=== PATIENT | female | born 1975 | race Caucasian/White ===

== ENCOUNTER → 2017-11-04 | Outpatient (CLI) | payer OTHER ==
[2017-11-04 08:03] LABS: HEMATOCRIT 43.9 % (36.0-47.0); HEMOGLOBIN 14.5 g/dl (12.0-15.5); MEAN CORPUSCULAR VOLUME 87.8 fl (80.0-96.0); PLATELET COUNT, AUTOMATED 257 10^3/uL (150-450); RED CELL DISTRIBUTION WIDTH 13.9 % (11.5-14.5); WHITE BLOOD COUNT 10.4 10^3/uL (4.0-10.0)
[2017-11-04 08:30] LABS: ALBUMIN/GLOBULIN RATIO 1.11 (1.00-1.93); ALKALINE PHOSPHATASE 73 U/L (45-117); ALT/SGPT 26 U/L (12-78); ANION GAP 9 MEQ/L (8-16); AST/SGOT 10 U/L (7-37); BILIRUBIN,TOTAL 0.4 MG/DL (0.2-1.0); BLOOD UREA NITROGEN 14 MG/DL (7-18); CALCIUM LEVEL 8.9 MG/DL (8.5-10.1); CARBON DIOXIDE LEVEL 26 MEQ/L (21-32); CHLORIDE LEVEL 106 MEQ/L (98-107); CREATININE FOR GFR 0.72 MG/DL (0.55-1.30); GLOMERULAR FILTRATION RATE > 60.0 (>58); GLUCOSE, FASTING 113 MG/DL (70-100); SODIUM LEVEL 141 MEQ/L (136-145); TOTAL PROTEIN 7.6 GM/DL (6.4-8.2)
[2017-11-04 10:23] LABS: CHLAMYDIA DNA AMPLIFICATION NEGATIVE (NEGATIVE); GC DNA AMPLIFICATION NEGATIVE (NEGATIVE)
[2017-11-05 11:06] LABS: HEPATITIS B SURFACE ANTIGEN NEGATIVE (NEGATIVE)
[2017-11-05 11:25] LABS: HIV 1&2 SCREEN CENTAUR NEGATIVE (NEGATIVE)
[2017-11-05 13:08] LABS: HEPATITIS C VIRUS ABY INDEX > 11.0 INDEX (<0.8)
[2017-11-08 15:28] LABS: HCV RNA NAA QUALITATIVE Negative (Negative)
== END ==
LOC: M LAB 07:29
DX: Z11.59 Encounter for screening for other viral diseases (principal)
CPT/HCPCS: 80053

== ENCOUNTER → 2018-02-17 | Outpatient (REF) | payer OTHER ==
[2018-02-17 13:59] LABS: ALBUMIN/GLOBULIN RATIO 1.05 (1.00-1.93); ALKALINE PHOSPHATASE 62 U/L (45-117); ALT/SGPT 14 U/L (12-78); ANION GAP 10 MEQ/L (8-16); AST/SGOT 11 U/L (7-37); BILIRUBIN,TOTAL 0.6 MG/DL (0.2-1.0); BLOOD UREA NITROGEN 12 MG/DL (7-18); CALCIUM LEVEL 8.7 MG/DL (8.5-10.1); CARBON DIOXIDE LEVEL 22 MEQ/L (21-32); CHLORIDE LEVEL 107 MEQ/L (98-107); CREATININE FOR GFR 0.78 MG/DL (0.55-1.30); GLOMERULAR FILTRATION RATE > 60.0 (>58); GLUCOSE, FASTING 110 MG/DL (70-100); POTASSIUM SERUM 3.7 MEQ/L (3.5-5.1); SODIUM LEVEL 139 MEQ/L (136-145); TOTAL PROTEIN 7.8 GM/DL (6.4-8.2)
[2018-02-18 08:07] LABS: HEPATITIS B CORE ANTIBODY IGG Negative (Negative)
[2018-02-18 08:07] LABS: HEPATITIS A IgG TOTAL Positive (Negative)
[2018-02-18 12:02] LABS: HEPATITIS B SURFACE ANTIBODY POSITIVE (POSITIVE)
[2018-02-18 12:14] LABS: HEPATITIS B SURFACE ANTIGEN NEGATIVE (NEGATIVE)
[2018-02-18 12:42] LABS: HIV 1&2 SCREEN CENTAUR NEGATIVE (NEGATIVE)
== END ==
LOC: M LAB REF 12:37
DX: B18.2 Chronic viral hepatitis C (principal)

== ENCOUNTER → 2018-02-24 | Outpatient (CLI) | payer OTHER ==
[2018-02-24 10:37] LABS: BASO % 0.3 % (0.0-1.0); EOS # 0.1 10^3/uL (0.0-0.50); EOS % 0.8 % (0.0-3.0); HEMATOCRIT 39.2 % (36.0-47.0); HEMOGLOBIN 12.8 g/dl (12.0-15.5); IMMATURE GRANULOCYTE % 0.3 % (0-3.0); LYMPH # 2.3 10^3/uL (1.5-4.5); LYMPH % 30.3 % (24.0-44.0); MEAN CORPUSCULAR HEMOGLOBIN 29.7 pg (27.0-33.0); MEAN CORPUSCULAR HGB CONC 32.7 g/dl (32.0-36.5); MONO # 0.5 10^3/uL (0.0-0.8); MONO % 6.2 % (0.0-5.0); NEUTROPHILS # 4.8 10^3/uL (1.8-7.7); NEUTROPHILS % 62.1 % (36.0-66.0); PLATELET COUNT, AUTOMATED 243 10^3/uL (150-450); RED BLOOD COUNT 4.31 10^6/uL (4.00-5.40); RED CELL DISTRIBUTION WIDTH 13.6 % (11.5-14.5); WHITE BLOOD COUNT 7.7 10^3/uL (4.0-10.0)
[2018-02-26 11:17] LABS: HEPATITIS C QUANTITATION HCV Not Detected IU/mL (.)
== END ==
LOC: M LAB 09:27
DX: B18.2 Chronic viral hepatitis C (principal)
CPT/HCPCS: 87522

== ENCOUNTER → 2018-06-11 | Outpatient (CLI) | payer OTHER ==
--- NOTE | 2018-06-11 19:12 | ECGEPIP ---
Stationary ECG Study [facility] Test Date: 2018-06-11 Pat Name: LASHANDA OLIVAS Department: Room: - Gender: F Debit Agent: : 1975 Requested By: Pradeep Eric Order Number: [id number] Reading MD: Jimmy Zheng Measurements Intervals [place] Rate: 73 P: 67 VA: 145 QRS: 72 QRSD: 87 T: 27 QT: 346 QTc: 383 Interpretive Statements Normal sinus rhythm Incomplete right bundle branch block Nonspecific repolarization abnormalities Comparison tracing not available Electronically Signed On 06-11-2018 19:12:03 EST by Jimmy Zheng
== END ==
LOC: M EKG 08:10
PROVIDERS: ATTEND Family Medicine
DX: F11.20 Opioid dependence, uncomplicated (principal)

== ENCOUNTER 2018-06-24 08:08 | Emergency (ER) | payer OTHER ==
[~2018-06-24] VITALS: Ht 165.1 cm; Wt 75.0 kg
[2018-06-24 08:08] VITALS: BP 143/98
[2018-06-24] MEDS ORDERED: GABA-843 PO (08:36)
[2018-06-24] MEDS ORDERED: AMOX500C PO (08:36)
[2018-06-24] MEDS ORDERED: IBUP80TA PO (08:36)
== END 2018-06-24 08:46 | disposition home or self-care (01) ==
LOC: M ED 08:08
DX: H66.92 Otitis media, unspecified, left ear (principal); G57.92 Unspecified mononeuropathy of left lower limb; I10 Essential (primary) hypertension; F41.9 Anxiety disorder, unspecified; F17.210 Nicotine dependence, cigarettes, uncomplicated; B19.20 Unspecified viral hepatitis C without hepatic coma; F43.10 Post-traumatic stress disorder, unspecified

== ENCOUNTER 2018-07-05 08:51 | Emergency (ER) | payer OTHER ==
[~2018-07-05] VITALS: Ht 165.1 cm; Wt 75.0 kg
[~2018-07-05 08:51] MED LIST: AMOX500C PO; GABA-843 PO; IBUP80TA PO
[2018-07-05] MEDS ORDERED: METH5TA PO ×2 (08:58)
[2018-07-05] MEDS ORDERED: IBUPROFEN 600 MG TAB PO ONE (09:45)
[2018-07-05] MEDS ORDERED: diazePAM 10 MG TAB PO ONE (09:45)
[2018-07-05] MEDS ORDERED: ROBA500T PO (11:03)
[2018-07-05] MEDS ORDERED: LIDO5TD TOP (11:03)
[2018-07-05] MEDS ORDERED: NAPR-50 PO (11:04)
[2018-07-05 11:09] VITALS: BP 135/87
[2018-07-05] MEDS ORDERED: NEUR300C PO (11:16)
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
== END 2018-07-05 11:17 | disposition home or self-care (01) ==
LOC: M ED 08:51
DX: Z04.1 Encounter for examination and observation following transport accident (principal); F17.210 Nicotine dependence, cigarettes, uncomplicated

== ENCOUNTER → 2018-10-02 | Outpatient (CLI) | payer OTHER ==
[~2018-10-02] MED LIST changes: +LIDO5TD TOP; +METH5TA PO; +NAPR-837 PO; +NEUR300C PO; +ROBA500T PO
[2018-10-02 11:13] LABS: HEMATOCRIT 42.3 % (36.0-47.0); HEMOGLOBIN 13.9 g/dl (12.0-15.5); MEAN CORPUSCULAR HEMOGLOBIN 30.7 pg (27.0-33.0); MEAN CORPUSCULAR HGB CONC 32.9 g/dl (32.0-36.5); MEAN CORPUSCULAR VOLUME 93.4 fl (80.0-96.0); PLATELET COUNT, AUTOMATED 226 10^3/uL (150-450); RED BLOOD COUNT 4.53 10^6/uL (4.00-5.40); WHITE BLOOD COUNT 10.2 10^3/uL (4.0-10.0)
[2018-10-02 12:03] LABS: ALBUMIN 4.1 GM/DL (3.2-5.2); ALT/SGPT 25 U/L (12-78); BILIRUBIN,TOTAL 0.4 MG/DL (0.2-1.0); BLOOD UREA NITROGEN 15 MG/DL (7-18); CALCIUM LEVEL 9.6 MG/DL (8.5-10.1); CARBON DIOXIDE LEVEL 25 MEQ/L (21-32); CHLORIDE LEVEL 108 MEQ/L (98-107); CHOLESTEROL LEVEL 210 MG/DL (<200); CHOLESTEROL RISK RATIO 3.333 (<5); CREATININE FOR GFR 0.74 MG/DL (0.55-1.30); GLOMERULAR FILTRATION RATE > 60.0 (>58); GLUCOSE, FASTING 53 MG/DL (70-100); HDL CHOLESTEROL 63 MG/DL (>40); LDL CHOLESTEROL 124 MG/DL (<100); NON-HDL-C 147 MG/DL; POTASSIUM SERUM 4.1 MEQ/L (3.5-5.1); SODIUM LEVEL 141 MEQ/L (136-145); TOTAL 25(OH) VITAMIN D 15.4 NG/ML (30.0-100.0); TRIGLYCERIDES LEVEL 116 MG/DL (<150)
--- NOTE | 2018-10-02 15:54 | REP ---
Chest x-ray: Two views. History: Hypertension . Fatigue. . Comparison study: No comparison study . Findings: The lungs are well inflated and free of infiltrate. The pleural angles are sharp. The heart size is normal. Pulmonary vasculature is not increased. No significant bony abnormality is seen. There are surgical clips in the right upper quadrant of the abdomen. Impression: Negative chest x-ray. Electronically Signed by Lucius Freeman MD 10/02/2018 03:45 P
--- NOTE | 2018-10-02 18:49 | ECGEPIP ---
Stationary ECG Study [facility] Test Date: 2018-10-02 Pat Name: LASHANDA OLIVAS Department: Room: - Gender: F Direct Support Staff Member: BERNADETTE : 1975 Requested By: Lauro Peter Order Number: [id number] Reading MD: Eliceo Thomas Measurements Intervals [place] Rate: 66 P: 66 [place]: 143 QRS: 76 QRSD: 95 T: 55 QT: 374 QTc: 394 Interpretive Statements SINUS RHYTHM NONSPECIFIC T-WAVE ABNORMALITY MINIMAL CHANGE SINCE 06/11/18 Electronically Signed On 10-02-2018 18:49:33 EDT by Eliceo Thomas
== END ==
LOC: M LAB 09:57
PROVIDERS: ATTEND Family Medicine
DX: I10 Essential (primary) hypertension (principal); R53.83 Other fatigue; E03.9 Hypothyroidism, unspecified

== ENCOUNTER → 2018-11-09 | Outpatient (CLI) | payer OTHER, MEDICAID ==
[2018-11-09 11:10] LABS: HEMOGLOBIN 13.7 g/dl (12.0-15.5); MEAN CORPUSCULAR HEMOGLOBIN 30.4 pg (27.0-33.0); MEAN CORPUSCULAR HGB CONC 33.4 g/dl (32.0-36.5); MEAN CORPUSCULAR VOLUME 91.1 fl (80.0-96.0); PLATELET COUNT, AUTOMATED 254 10^3/uL (150-450)
[2018-11-09 11:56] LABS: HCG, SERUM QUALITATIVE NEGATIVE (NEGATIVE)
[2018-11-09 12:31] LABS: ALBUMIN 3.7 GM/DL (3.2-5.2); ALT/SGPT 26 U/L (12-78); BILIRUBIN,TOTAL 0.3 MG/DL (0.2-1.0); BLOOD UREA NITROGEN 10 MG/DL (7-18); CARBON DIOXIDE LEVEL 24 MEQ/L (21-32); CHLORIDE LEVEL 108 MEQ/L (98-107); CREATININE FOR GFR 0.79 MG/DL (0.55-1.30); GLOMERULAR FILTRATION RATE > 60.0 (>58); GLUCOSE, FASTING 77 MG/DL (70-100); HEPATITIS B SURFACE ANTIGEN NEGATIVE (NEGATIVE); HIV 1&2 SCREEN CENTAUR NEGATIVE (NEGATIVE); POTASSIUM SERUM 4.7 MEQ/L (3.5-5.1); SODIUM LEVEL 138 MEQ/L (136-145); TOTAL PROTEIN 7.5 GM/DL (6.4-8.2)
[2018-11-09 12:34] LABS: HEPATITIS C VIRUS ABY INDEX > 11.0 INDEX (<0.8)
[2018-11-09 13:22] LABS: CHLAMYDIA DNA AMPLIFICATION NEGATIVE (NEGATIVE); GC DNA AMPLIFICATION NEGATIVE (NEGATIVE)
--- NOTE | 2018-11-12 22:52 | ECGEPIP ---
[facility] Test Date: 2018-11-09 Pat Name: LASHANDA OLIVAS Department: Room: - Gender: Female Field Research Associate: DEANGELO : 1975 Requested By: Pradeep Eric Order Number: [id number] Reading MD: Deepak Valladares Measurements Intervals [place] Rate: 54 P: 60 [place]: 135 QRS: 67 QRSD: 102 T: 23 QT: 394 QTc: 376 Interpretive Statements SINUS BRADYCARDIA NONSPECIFIC T-WAVE ABNORMALITY Compared to the last 2 tracings done earlier this year, no significant changes Electronically Signed on 11-12-2018 22:52:01 EDT by Deepak Valladares
== END ==
LOC: M LAB 10:22
PROVIDERS: ATTEND Family Medicine
DX: F11.20 Opioid dependence, uncomplicated (principal)

== ENCOUNTER → 2019-01-20 | Outpatient (CLI) | payer OTHER, MEDICAID ==
[2019-01-20 11:34] LABS: HEMATOCRIT 40.9 % (36.0-47.0); HEMOGLOBIN 13.7 g/dl (12.0-15.5); MEAN CORPUSCULAR HEMOGLOBIN 30.4 pg (27.0-33.0); MEAN CORPUSCULAR HGB CONC 33.5 g/dl (32.0-36.5); MEAN CORPUSCULAR VOLUME 90.9 fl (80.0-96.0); PLATELET COUNT, AUTOMATED 208 10^3/uL (150-450); WHITE BLOOD COUNT 9.8 10^3/uL (4.0-10.0)
[2019-01-20 12:05] LABS: ALBUMIN 3.9 GM/DL (3.2-5.2); ALT/SGPT 15 U/L (12-78); BILIRUBIN,TOTAL 0.5 MG/DL (0.2-1.0); BLOOD UREA NITROGEN 13 MG/DL (7-18); CALCIUM LEVEL 9.5 MG/DL (8.5-10.1); CARBON DIOXIDE LEVEL 27 MEQ/L (21-32); CHLORIDE LEVEL 107 MEQ/L (98-107); CREATININE FOR GFR 0.72 MG/DL (0.55-1.30); GLOMERULAR FILTRATION RATE > 60.0 (>58); GLUCOSE, FASTING 76 MG/DL (70-100); POTASSIUM SERUM 4.1 MEQ/L (3.5-5.1); SODIUM LEVEL 140 MEQ/L (136-145)
[2019-01-20 12:50] LABS: HEPATITIS B SURFACE ANTIBODY POSITIVE (POSITIVE)
[2019-01-20 13:01] LABS: HEPATITIS B SURFACE ANTIGEN NEGATIVE (NEGATIVE)
[2019-01-20 13:30] LABS: HIV 1&2 SCREEN CENTAUR NEGATIVE (NEGATIVE)
[2019-01-25 14:30] LABS: HEPATITIS A IgG TOTAL Negative (Negative); HEPATITIS B CORE ANTIBODY IGG Negative (Negative); HEPATITIS C QUANTITATION HCV Not Detected IU/mL (.)
== END ==
LOC: M LAB 10:16
PROVIDERS: ATTEND Family Medicine
DX: D64.9 Anemia, unspecified (principal); R53.83 Other fatigue; Z11.59 Encounter for screening for other viral diseases

== ENCOUNTER → 2019-03-24 | Outpatient (CLI) | payer OTHER ==
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
== END ==
LOC: M PAIN 09:45
PROVIDERS: ATTEND Nurse Practitioner Family
DX: M54.9 Dorsalgia, unspecified (principal); G89.29 Other chronic pain

== ENCOUNTER 2019-04-06 11:48 | Emergency (ER) | payer OTHER ==
[~2019-04-06] VITALS: Ht 162.6 cm; Wt 73.6 kg
[2019-04-06 11:49] VITALS: BP 137/80
== END 2019-04-06 17:00 | disposition left against medical advice (07) ==
LOC: M ED 11:48
DX: Z53.21 Procedure and treatment not carried out due to patient leaving prior to being seen by health care provider (principal)

== ENCOUNTER → 2019-07-28 | Outpatient (CLI) | payer OTHER, MEDICAID ==
[2019-07-28 11:57] LABS: RHEUMATOID FACTOR QUANT < 10.0 IU/ML (<15.0); TOTAL PROTEIN 7.1 GM/DL (6.4-8.2)
[2019-07-28 12:04] LABS: FOLATE 15.1 NG/ML; VITAMIN B12 LEVEL 335 PG/ML
[2019-07-28 12:12] LABS: HEMOGLOBIN A1c 5.9 %
[2019-07-29 12:40] LABS: ALBUMIN % 63.4 % (55.8-66.1); ALPHA-1-GLOBULIN % 3.8 % (2.9-4.9); ALPHA-1-GLOBULINS 0.27 GM/DL (0.17-0.41); ALPHA-2-GLOBULINS 0.65 GM/DL (0.42-0.99); ALPHA-2-GLOBULINS % 9.1 % (7.1-11.8); BETA-1-GLOBULINS 0.42 GM/DL (0.28-0.60); BETA-1-GLOBULINS % 5.9 % (4.7-7.2); BETA-2-GLOBULINS 0.25 GM/DL (0.19-0.55); BETA-2-GLOBULINS % 3.5 % (3.2-6.5); GAMMA GLOBULIN % 14.3 % (11.1-18.8); GAMMA GLOBULINS 1.02 GM/DL (0.65-1.58)
== END ==
LOC: M LAB 10:34
PROVIDERS: ATTEND Psychiatry & Neurology Neurology
DX: E11.40 Type 2 diabetes mellitus with diabetic neuropathy, unspecified (principal)

== ENCOUNTER → 2020-02-04 | Outpatient (CLI) | payer OTHER, MEDICAID ==
[2020-02-04 07:54] LABS: MEAN CORPUSCULAR HEMOGLOBIN 29.7 pg (27.0-33.0); MEAN CORPUSCULAR HGB CONC 31.8 g/dl (32.0-36.5); MEAN CORPUSCULAR VOLUME 93.2 fl (80.0-96.0); PLATELET COUNT, AUTOMATED 262 10^3/uL (150-450); RED BLOOD COUNT 4.72 10^6/uL (4.00-5.40); WHITE BLOOD COUNT 8.2 10^3/uL (4.0-10.0)
[2020-02-04 08:16] LABS: ALBUMIN 3.7 GM/DL (3.2-5.2); ALT/SGPT 22 U/L (12-78); BILIRUBIN,TOTAL 0.4 MG/DL (0.2-1.0); BLOOD UREA NITROGEN 17 MG/DL (7-18); CALCIUM LEVEL 9.2 MG/DL (8.5-10.1); CARBON DIOXIDE LEVEL 29 MEQ/L (21-32); CHLORIDE LEVEL 105 MEQ/L (98-107); CREATININE FOR GFR 0.78 MG/DL (0.55-1.30); GLOMERULAR FILTRATION RATE > 60.0 (>58); GLUCOSE, FASTING 137 MG/DL (70-100); SODIUM LEVEL 136 MEQ/L (136-145); TOTAL PROTEIN 7.1 GM/DL (6.4-8.2)
[2020-02-04 11:11] LABS: HCG, SERUM QUALITATIVE NEGATIVE (NEGATIVE)
[2020-02-04 11:31] LABS: HEPATITIS B SURFACE ANTIGEN NEGATIVE (NEGATIVE)
[2020-02-04 12:00] LABS: HIV 1&2 SCREEN CENTAUR NEGATIVE (NEGATIVE)
[2020-02-04 12:37] LABS: HEPATITIS C VIRUS ABY INDEX > 11.0 INDEX (<0.8)
--- NOTE | 2020-02-05 16:33 | ECGEPIP ---
[facility] Test Date: 2020-02-04 Pat Name: LASHANDA OLIVAS Department: Room: - Gender: Female Carpet Winder: DEANGELO : 1975 Requested By: Pradeep Eric Order Number: [id number] Reading MD: Mohamud Galvez Measurements Intervals [place] Rate: 81 P: 71 [place]: 130 QRS: 79 QRSD: 92 T: 40 QT: 294 QTc: 342 Interpretive Statements SINUS RHYTHM WITH SINUS ARRHYTHMIA Nonspecific ST-T wave abnormalities subtly changed from tracing done 11-09-18 Baseline artifact Electronically Signed on 02-05-2020 16:32:57 EDT by Mohamud Galvez
[2020-02-08 19:11] LABS: CHLAMYDIA DNA AMPLIFICATION NEGATIVE (NEGATIVE); GC DNA AMPLIFICATION NEGATIVE (NEGATIVE)
== END ==
LOC: M LAB 07:09
PROVIDERS: ATTEND Family Medicine
DX: F11.10 Opioid abuse, uncomplicated (principal); R94.31 Abnormal electrocardiogram [ECG] [EKG]

== ENCOUNTER → 2020-07-24 | Outpatient (REF) | payer OTHER, MEDICAID ==
[~2020-07-24] MED LIST changes: +GABA-282 PO; -GABA-843 PO
== END ==
LOC: M SFHCWAGY 14:31
PROVIDERS: ATTEND Nurse Practitioner Family
DX: Z11.3 Encounter for screening for infections with a predominantly sexual mode of transmission (principal); Z12.4 Encounter for screening for malignant neoplasm of cervix; Z77.9 Other contact with and (suspected) exposures hazardous to health

== ENCOUNTER → 2021-01-04 | Outpatient (CLI) | payer OTHER ==
--- NOTE | 2021-01-04 16:02 | REP ---
INDICATION: SOFT TISSUE DISORDER. COMPARISON: None. TECHNIQUE: Three views each hand FINDINGS: Three limited views of each hand show no evidence of a gross fracture. Rather symmetric appearing intra digital joint space narrowing is seen bilaterally. Minimal D IP joint marginal osteophytosis is seen bilaterally. There are no marginal erosions and there is no periarticular osteopenia seen in either hand. IMPRESSION: Chronic changes as described above. <Electronically signed by Lev Aldana > 01/04/21 [id number]
== END ==
LOC: M SOG 14:47
PROVIDERS: ATTEND Orthopaedic Surgery Sports Medicine
DX: M79.89 Other specified soft tissue disorders (principal)

== ENCOUNTER 2021-03-05 14:23 | Inpatient (IN) | payer OTHER ==
[~2021-03-05] VITALS: Ht 165.1 cm; Wt 77.0 kg
--- OUTSIDE RECORDS SUMMARY | 2021-03-05 14:28 | CCD ---
Author Organization Unknown Address [address] [place] [address] Phone [phone] Care Team Providers Care Dye And Chemical Coordinator Name Role Phone Josh Del Toro Unavailable Unavailable Allergies Code Code System Name Reaction Severity Status Onset NKDA Medications Name Status Start Date Stop Date albuterol sulfate HFA 90 mcg/actuation a erosol inhaler INHALE TWO PUFFS BY MOUTH EVERY 4 HOURS Active Not available amoxicillin 875 mg-potassium clavulanate 125 mg tablet TAKE ONE TABLET BY MOUTH TWICE DAILY FOR 10 DAYS Completed 05/04/2020 baclofen 10 mg tablet TAKE ONE TABLET BY MOUTH TWICE DAILY NEEDED Active Not available fluoxetine 10 mg capsule TAKE ONE CAPSULE BY MOUTH ONCE DAILY Completed fluoxetine 20 mg capsule TAKE ONE CAPSULE BY MOUTH EVERY MORNING Active Not available gabapentin 300 mg capsule TAKE ONE CAPSULE BY MOUTH FOUR TIMES A DAY Completed 04/05/2020 gabapentin 600 mg tablet TAKE ONE TABLET BY MOUTH THREE TIMES DAILY Active Not available methadone Active Not available metronidazole 500 mg tablet TAKE ONE TABLET BY MOUTH TWICE DAILY FOR 7 DAYS Completed 07/27/2020 Mucus Relief ER 600 mg tablet, extended release Completed 07/27/2020 nicotine 21 mg/24 hr daily transdermal p atch apply ONE PATCH topically ONCE DAILY Active No t available Nicotrol 10 mg inhalation cartridge USE DIRECTED Active Not available prazosin 1 mg capsule Completed 05/04/2020 prednisone 20 mg tablet Completed 05/04/20 20 tizanidine 4 mg tablet Completed 1 trazodone 50 mg tablet Completed 0 Trintellix 20 mg tablet TAKE ONE TABLET BY MOUTH ONCE DAILY Completed Problems Name Status Onset Date Source Overweight Active 02/17/2018 History Body Mass Index 25-29 - Overweight Active 02/17/2018 History Opioid Dependence in Remission Active 02/17/2018 H istory Nicotine Dependence Active 02/17/2018 History Deviated Nasal Septum Active 02/17/2018 History Abdominal Pain Active 02/17/2018 History Hepatitis C Carrier Active 02/17/2018 History Panic Disorder Active 02/17/2018 History Syringomyelia Active 06/12/2019 History Cerebral Infarction Active 06/12/2019 History Spinal Stenosis of Lumbar Region Active 09/15/2019 History Clinical Finding Active 12/30/2019 History Chronic Depression Active 05/04/2020 Edema Active 05/04/2020 Wheezing Active 07/27/2020 Bilateral Swelling of Finger of Hands Active 10/25/2020 Procedures Date Name Performed by Cholecystectomy Information not avai lable 12/12/2020 XR, Hand, 2 View [facility] n[facility] Radiology [address] [place], [place] [id number] (Work Place) 12/12/2020 CT, Abdomen + Pelvis, W/ Contrast [facility] [address], [place] [id number] (Work Place) Notes: gallbladder removal, Results Lab Results Date Name Specimen Result Interpretation Description Value Range Status Address 11/09/2020 Lipid Panel, Serum Blood venous High Triglycerid es 201 mg/dL <150 mg/dL Final [facility]: [address] [facility] Blood venous High Cholesterol, Total 225 mg/dL <200 mg/dL Final [facility]: [address] [facility] Blood venous Low HDL Cholesterol 42 mg/dL > or = 50 mg/dL Final [facility]: [address] [facility] Blood venous High LDL-cholesterol 148 mg/dL (ca lc) Final [facility]: [address] [facility] Blood venous High Chol/hdlc Ratio 5.4 (calc) <5 .0 (calc) Final [facility]: [address] [facility] Blood venous High Non HDL Cholesterol 183 mg/dL (calc) <130 mg/dL (calc) Final [facility]: [address] [facility] 11/09/2020 CMP, Serum or Plasma Blood venous High Glucose 128 mg/dL 65-99 mg/dL Final [facility]: [address] [facility] Blood venous Normal Urea Nitrogen (BUN) 13 mg/dL 7-25 mg/dL Final [facility]: [address] [facility] Blood venous Normal Creatinine 0.71 mg/dL 0.50-1. 10 mg/dL Final [facility]: [address] [facility] Blood venous Normal eGFR Non-afr. [place] 1 04 mL/min/1.73m2 > or = 60 mL/min/1.73m2 [facility]: [address] [facility] Blood venous Normal eGFR 12 0 mL/min/1.73m2 > or = 60 mL/min/1.73m2 Final [facility]: [address] [facility] Blood venous BUN/creatinine Ratio not applicable (calc) 6-22 (calc) [facility]: [address] [facility] Blood venous Normal Sodium 139 mmol/L 135-146 mmo l/L [facility]: [address] [facility] Blood venous Normal Potassium 3.7 mmol/L 3.5-5.3 mmol/L [facility]: [address] [facility] Blood venous Normal Chloride 102 mmol/L 98-110 mm ol/L [facility]: [address] [facility] Blood venous Normal Carbon Dioxide 27 mmol/L 20-3 2 mmol/L [facility]: [address] [facility] Blood venous Normal Calcium 9.4 mg/dL 8.6-10.2 mg /dL [facility]: [address] [facility] Blood venous Normal Protein, Total 6.8 g/dL 6.1-8 .1 g/dL [facility]: [address] [facility] Blood venous Normal Albumin 4.3 g/dL 3.6-5.1 g/dL [facility]: [address] [facility] Blood venous Normal Globulin 2.5 g/dL (calc) 1.9- 3.7 g/dL (calc) [facility]: [address] [facility] Blood venous Normal Albumin/globulin Ratio 1 .7 (calc) 1.0-2.5 (calc) [facility]: [address] [facility] Blood venous Normal Bilirubin, Total 0.4 mg/dL 0. 2-1.2 mg/dL [facility]: [address] [facility] Blood venous Normal Alkaline Phosphatase 63 U/L 3 1-125 U/L [facility]: [address] [place] [facility] Blood venous Normal Ast 14 U/L 10-30 U/L Final [facility]: [address] [facility] Blood venous Normal Alt 10 U/L 6-29 U/L Final [facility]: [address] [facility] 11/09/2020 Sed Rate by Modified [place] Blood venous Normal Sed Rate by Modified [place] 2 mm/h < or = 20 mm/h Final [facility]: [address] [facility] 11/09/2020 C-reactive Protein, Quantitative Blood venous Normal C-reactive Protein 2.3 mg/L <8.0 mg/L Final [facility]: [address] [place] [facility] 11/09/2020 TSH, Serum or Plasma Blood venous Normal TSH W/reflex to FT4 1.78 mIU/L Final [facility]: [address] [facility] Past Encounters 01/11/2021 Chronic Depression; Bilateral Swelling of Finger of Hands Josh Del Toro MD: [address] [place] [phone], Ph. 12/12/2020 Bilateral Swelling of Finger of Hands; Abdominal Pain Josh Del Toro MD: [address] [place] [phone], Ph. 11/30/2020 Mixed Anxiety and Depressive Disorder; Opioid Dependence in Remission; Adjustment Disorder with Mixed Anxiety and Depressed Mood Mariana Pelaez MD: [address] [place] [address], Ph. 11/09/2020 Josh Del Toro MD: [address] [place] [phone], Ph. 10/25/2020 Nicotine Dependence; Syringomyelia; Deviated Nasal Septum; Body Mass Index 25-29 - Overweight; Bilateral Swelling of Finger of Hands; Wheezing Josh Del Toro MD: [address] [place] [address], Ph. 09/14/2020 Mixed Anxiety and Depressive Disorder; Opioid Dependence in Remission Mariana Pelaez MD: [address] [place] [phone], Ph. 07/27/2020 Nicotine Dependence; Deviated Nasal Septum; Wheezing Josh Del Toro MD: [address] [place] [address], Ph. 05/04/2020 Administration of Influenza Vaccine; Chronic Depression; Edema Josh Del Toro MD: [address] [place] [address], Ph. Social History Tobacco Smoking Status Heavy Tobacco Smoker (1 pack per a da y) Vaccine List Vaccine Type influenza, injectable, quadrivalent, pre servative free 05/04/20200.5 mL Notes: Pt declined flu shot Plan of Care Reminders Provider Appointments None recorded. Lab None recorded. Referral None recorded. Procedures None recorded. Surgeries None recorded. Imaging None recorded. Vitals 01/11/2021 02:00PM ESTABLISHED [id number] Height Weight BMI Blood Pressure 65 in 176 lbs 6 oz 29.4 kg/m2 111/76 mm[Hg] 12/12/2020 11:20AM ESTABLISHED [id number] Height Weight BMI Blood Pressure 65 in 177 lbs 2 oz 29.5 kg/m2 128/80 mm[Hg] 11/30/2020 09:00AM TELEPSYCH 30 Height 65 in 11/09/2020 08:00AM NURSE LAB COLLECTION Height 65 in 10/25/2020 09:40AM ESTABLISHED [id number] Height Weight BMI Blood Pressure 65 in 177 lbs 2 oz 29.5 kg/m2 120/68 mm[Hg] 09/14/2020 09:00AM TELEPSYCH 60 Height Weight BMI 65 in 178 lbs 9.6 oz 29.7 kg/m2 07/27/2020 09:20AM ESTABLISHED [id number] Height Weight BMI Blood Pressure 65 in 174 lbs 16 oz 29.1 kg/m2 77/52 mm[Hg] 05/04/2020 04:00PM ESTABLISHED [id number] Height Weight BMI Blood Pressure 65 in 177 lbs 2 oz 29.5 kg/m2 108/77 mm[Hg] 02/15/2020 Height Weight BMI Blood Pressure 65 in 175 lbs 29.23 kg/m2 132/80 mm[Hg] 12/30/2019 Height Weight BMI Blood Pressure 65 in 175 lbs 29.23 kg/m2 120/76 mm[Hg] 12/20/2019 Height Weight BMI Blood Pressure 65 in 175 lbs 29.23 kg/m2 130/88 mm[Hg] 09/15/2019 Height Weight BMI Blood Pressure 65 in 171 lbs 28.56 kg/m2 127/84 mm[Hg] 06/12/2019 Height Weight BMI Blood Pressure 65 in 169 lbs 12.8 oz 28.36 kg/m2 145/86 mm[H g]
--- OUTSIDE RECORDS SUMMARY | 2021-03-05 14:28 | CCD | Continuity of Care Document ---
Author Author Lola WINTERS MD Organization Unknown Address [address] [place] [address] , [facility] [address] [place] [address] Phone [phone] Care Team Providers Care Pearl Stringer Name Role Phone Stefani Guillen AUTM [phone] Josh Del Toro M.D. AUTM [phone] AUTM Unavailable AUTM Unavailable Problems Description No Information Available Social History Type Date Description Comments Sex Unknown ETOH Use Denies alcohol use Tobacco Use Start: Unknown Patient is a current smoker, smo kes every day Recreational Drug Use 04/14/2018 History Of HERION/OPI OD DEPENDENCY Allergies, Adverse Reactions, Alerts Description No Known Drug Allergies Medications Active Medications SIG Qnty Indications Ordering Provide r Date Methadone HCL 5mg/5ML Solution 1 by mouth every day Unknown Gabapentin 600mg Tablets 1 tab by mouth three times a day Unknown Prozac 20mg Capsules Unknown Immunizations Description No Information Available Vital Signs Date Vital Result Comment 01/04/2021 1:41pm Body Temperature 97.1 F Results Description No Information Available Procedures Date Code Description Status 01/04/2021 73655 Office/Outpatient New Moderate M DM 45-59 Minutes Completed Medical Devices Description No Information Available Encounters Type Date Location Provider Dx Diagnosis Office Visit 01/04/2021 2:15p [facility] Josh Winters MD M79.89 Other specified soft tissue disorders M05.741 Rheu arthritis w rheu factor of r hand w/o org/sys involv Assessments Date Code Description Provider 01/04/2021 M79.89 Other specified soft tissue diso rders Josh Winters MD 01/04/2021 M05.741 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 bilateral PIP swelling ? rheumatoid arth ritis thank you! Created [facility] [address] [facility] [place], [place] [address] [phone] Gage Haas MD Deviated septum Scheduled 11/[address] [address] [phone]
--- OUTSIDE RECORDS SUMMARY | 2021-03-05 14:28 | CCD | Continuity of Care Document ---
Author Author Lola WINTERS MD Organization Unknown Address [address] [place] [address] , [facility] [address] [place] [address] Phone [phone] Care Team Providers Care Heel Lining Paster Name Role Phone Setfani Guillen AUTM [phone] Josh Del Toro M.D. AUTM [phone] AUTM Unavailable AUTM Unavailable Problems Description No [...] Available Procedures Date Code Description Status 01/04/2021 30199 Office/Outpatient New Low MDM 30 -44 Minutes Completed Medical Devices Description No Information Available Encounters Type Date Location Provider Dx Diagnosis Office Visit 01/04/2021 2:15p [facility] Josh Winters MD M79.89 Other specified [...] Winters MD* M79.89 Other specified soft tissue disorders * M05.741 Rheumatoid arthritis with rheumatoid factor of right hand without organ or systems involvement* Referral:* Rose Mcdaniels M.D., Rheumatology Functional Status Description No Information Available Mental Status Description No Information Available Referrals Refer to Dr Reason for Referral Status Appt Date Rose Mcdaniels M.D. bilateral PIP swelling ? rheumatoid arth ritis thank you! Sent [facility] [address] [facility] [place], [place] [address] [phone] Gage Haas MD Deviated septum Scheduled 11/[address] [address] [phone]
--- OUTSIDE RECORDS SUMMARY | 2021-03-05 14:30 | CCD ---
Author Author [facility] Organization [facility] Address Unknown Phone Unavailable Care Team Providers Care Hammer Smith Name Role Phone Beverley Del Toro MD Unavailable Unavailable Beverley Del Toro MD Unavailable Unavailable Beverley Del Toro MD Unavailable Unavailable Beverley Del Toro MD Unavailable Unavailable Beverley Del Toro MD Unavailable Unavailable Beverley Del Toro MD Unavailable Unavailable Beverley Del Toro MD Unavailable Unavailable Beverley Del Toro MD Unavailable Unavailable Beverley Del Toro MD Unavailable Unavailable Beverley Del Toro MD Unavailable Unavailable Beverley Del Toro MD Unavailable Unavailable Beverley Del Toro MD Unavailable Unavailable Beverley Del Toro MD Unavailable Unavailable Beverley Del Toro MD Unavailable Unavailable Beverley Del Toro MD Unavailable Unavailable Beverley Del Toro MD Unavailable Unavailable Beverley Del Toro MD Unavailable Unavailable Beverley Del Toro MD Unavailable Unavailable Beverley Del Toro MD Unavailable Unavailable Beverley Del Toro MD Unavailable Unavailable Beverley Del Toro MD Unavailable Unavailable Beverley Del Toro MD Unavailable Unavailable Beverley Del Toro MD Unavailable Unavailable Beverley Del Toro MD Unavailable Unavailable Beverley Del Toro MD Unavailable Unavailable Beverley eDl Toro MD Unavailable Unavailable Beverley Del Toro MD Unavailable Unavailable Beverley Del Toro MD Unavailable Unavailable Beverley Del Toro MD Unavailable Unavailable Beverley Del Toro MD Unavailable Unavailable Beverley Del Toro MD Unavailable Unavailable Beverley Del Toro MD Unavailable Unavailable Beverley Del Toro MD Unavailable Unavailable Beverley Del Toro MD Unavailable Unavailable Beverley Del Toro MD Unavailable Unavailable Beverley Del Toro MD Unavailable Unavailable Beverley Del Toro MD Unavailable Unavailable Beverley Del Toro MD Unavailable Unavailable Beverley Del Toro MD Unavailable Unavailable Beverley Del Toro MD Unavailable Unavailable Beverley Del Toro MD Unavailable Unavailable Beverley Del Toro MD Unavailable Unavailable Beverley Del Toro MD Unavailable Unavailable Beverley Del Toro MD Unavailable Unavailable Beverley Del Toro MD Unavailable Unavailable Beverley Del Toro MD Unavailable Unavailable Beverley Del Toro MD Unavailable Unavailable Beverley Del Toro MD Unavailable Unavailable Beverley Del Toro MD Unavailable Unavailable Beverley Del Toro MD Unavailable Unavailable Beverley Del Toro MD Unavailable Unavailable Beverley Del Toro MD Unavailable Unavailable Beverley Del Toro MD Unavailable Unavailable Beverley Del Toro MD Unavailable Unavailable Beverley Del Toro MD Unavailable Unavailable Beverley Del Toro MD Unavailable Unavailable Beverley Del Toro MD Unavailable Unavailable Beverley Del Toro MD Unavailable Unavailable Beverley Del Toro MD Unavailable Unavailable Beverley Del Toro MD Unavailable Unavailable Beverley Del Toro MD Unavailable Unavailable Beverley Del Toro MD Unavailable Unavailable Beverley Del Toro MD Unavailable Unavailable Beverley Del Toro MD Unavailable Unavailable Beverley Del Toro MD Unavailable Unavailable Beverley Del Toro MD Unavailable Unavailable Beverley Del Toro MD Unavailable Unavailable Beverley Del Toro MD Unavailable Unavailable Beverley Del Toro MD Unavailable Unavailable Beverley Del Toro MD Unavailable Unavailable Beverley Del Toro MD Unavailable Unavailable Beverley Del Toro MD Unavailable Unavailable Beverley Del Toro MD Unavailable Unavailable Beverley Del Toro MD Unavailable Unavailable Beverley Del Toro MD Unavailable Unavailable Beverley Del Toro MD Unavailable Unavailable Beverley Del Toro MD Unavailable Unavailable Beverley Del Toro MD Unavailable Unavailable Beverley Del Toro MD Unavailable Unavailable Beverley Del Toro MD Unavailable Unavailable Beverley Del Toro MD Unavailable Unavailable Beverley Del Toro MD Unavailable Unavailable Beverley Del Toro MD Unavailable Unavailable Beverley Del Toro MD Unavailable Unavailable Beverley Del Toro MD Unavailable Unavailable Beverley Del Toro MD Unavailable Unavailable Beverley Del Toro MD Unavailable Unavailable Beverley Del Toro MD Unavailable Unavailable Beverley Del Toro MD Unavailable Unavailable Beverley Del Toro MD Unavailable Unavailable Beverley Del Toro MD Unavailable Unavailable Beverley Del Toro MD Unavailable Unavailable Beverley Del Toro MD Unavailable Unavailable Rick Elliott MD Unavailable Unavailable Rick Elliott MD Unavailable Unavailable Rick Elliott MD Unavailable Unavailable Rick Elliott MD Unavailable Unavailable Rick Elliott MD Unavailable Unavailable Rick Elliott MD Unavailable Unavailable Rick Elliott MD Unavailable Unavailable Rick Elliott MD Unavailable Unavailable Rick Elliott MD Unavailable Unavailable Bolliv, Rick Skinner MD Unavailable Unavailable Bolla, Rick Skinner MD Unavailable Unavailable Bolla, Rick Skinner MD Unavailable Unavailable Bolla, Rick Skinner MD Unavailable Unavailable Bolla, Rick Skinner MD Unavailable Unavailable Bolla, Rick Skinner MD Unavailable Unavailable Bolla, Rick Skinner MD Unavailable Unavailable Bolla, Rick Skinner MD Unavailable Unavailable Bolla, Rick Skinner MD Unavailable Unavailable Bolla, Rcik Skinner MD Unavailable Unavailable Bolla, Rick Skinner MD Unavailable Unavailable Bolla, Rick Skinner MD Unavailable Unavailable Bolla, S Brody HALL Unavailable Unavailable Bolla, Rick Skinner MD Unavailable Unavailable Bolla, S Brody HALL Unavailable Unavailable Bolla, Rick Skinner MD Unavailable Unavailable Bolla, Rick Skinner MD Unavailable Unavailable Bolliv, Rick Skinner MD Unavailable Unavailable Bolla, Rick Skinner MD Unavailable Unavailable Bolliv, Rick Skinner MD Unavailable Unavailable Bolla, Rick Skinner MD Unavailable Unavailable Bolliv, Rick Skinner MD Unavailable Unavailable Bolliv, Rick Skinner MD Unavailable Unavailable Bolliv, Rick Skinner MD Unavailable Unavailable Bolla, Rick Skinner MD Unavailable Unavailable Bolliv, Rick Skinner MD Unavailable Unavailable Bolliv, Rick Skinner MD Unavailable Unavailable BolRick peck MD Unavailable Unavailable BolRick peck MD Unavailable Unavailable BolRick peck MD Unavailable Unavailable BolRick peck MD Unavailable Unavailable BolRick peck MD Unavailable Unavailable BolRick peck MD Unavailable Unavailable BolRick peck MD Unavailable Unavailable BolRick peck MD Unavailable Unavailable BolRick peck MD Unavailable Unavailable BolRick peck MD Unavailable Unavailable BolRick peck MD Unavailable Unavailable BolRick peck MD Unavailable Unavailable BolRick peck MD Unavailable Unavailable Mike Mccrary MD Unavailable Unavailable Mike Mccrary MD Unavailable Unavailable Mike Mccrary MD Unavailable Unavailable Mike Mccrary MD Unavailable Unavailable Mike Mccrary MD Unavailable Unavailable Mike Mccrary MD Unavailable Unavailable Mike Mccrary MD Unavailable Unavailable Mike Mccrary MD Unavailable Unavailable Mike Mccrary MD Unavailable Unavailable Mike Mccrary MD Unavailable Unavailable Mike Mccrary MD Unavailable Unavailable Mike Mccrary MD Unavailable Unavailable Mollison, Mike Moreno MD Unavailable Unavailable Mollison, Mike Moreno MD Unavailable Unavailable Mollison, Mike Moreno MD Unavailable Unavailable Mollison, Mike Moreno MD Unavailable Unavailable Mollison, Mike Moreno MD Unavailable Unavailable Mollison, Mike Moreno MD Unavailable Unavailable Mollison, Mike Moreno MD Unavailable Unavailable Mollison, Mike Moreno MD Unavailable Unavailable Mollison, Mike Moreno MD Unavailable Unavailable Mollison, Mike Moreno MD Unavailable Unavailable Mollison, Mike Moreno MD Unavailable Unavailable Mollison, Mike Moreno MD Unavailable Unavailable Mollison, Mike Moreno MD Unavailable Unavailable Mollison, Mike Moreno MD Unavailable Unavailable Mollison, Mike Moreno MD Unavailable Unavailable Mollison, Mike Moreno MD Unavailable Unavailable Mollison, Mike Moreno MD Unavailable Unavailable Mollison, Mike Moreno MD Unavailable Unavailable Rick Pelaez MD Unavailable Unavailable Rick Pelaez MD Unavailable Unavailable Rick Pelaez MD Unavailable Unavailable Rick Pelaez MD Unavailable Unavailable Rick Pelaez MD Unavailable Unavailable Rick Pelaez MD Unavailable Unavailable Rick Pelaez MD Unavailable Unavailable Rick Pelaez MD Unavailable Unavailable Jumalon, M Olga CLOTH BOIL OFF MACHINE OPERATOR Unavailable Unavailable Jumalon, M Olga CLOTH BOIL OFF MACHINE OPERATOR Unavailable Unavailable Jumalon, M Olga CLOTH BOIL OFF MACHINE OPERATOR Unavailable Unavailable Jumalon, M Olga CLOTH BOIL OFF MACHINE OPERATOR Unavailable Unavailable Jumalon, M Olga CLOTH BOIL OFF MACHINE OPERATOR Unavailable Unavailable Jumalon, M Olga CLOTH BOIL OFF MACHINE OPERATOR Unavailable Unavailable Jumalon, M Olga CLOTH BOIL OFF MACHINE OPERATOR Unavailable Unavailable Jumalon, M Olga CLOTH BOIL OFF MACHINE OPERATOR Unavailable Unavailable Jumalon, M Olga CLOTH BOIL OFF MACHINE OPERATOR Unavailable Unavailable Jumalon, M Olga CLOTH BOIL OFF MACHINE OPERATOR Unavailable Unavailable Jumalon, M Olga CLOTH BOIL OFF MACHINE OPERATOR Unavailable Unavailable Jumalon, M Olga CLOTH BOIL OFF MACHINE OPERATOR Unavailable Unavailable Jumalon, M Olga CLOTH BOIL OFF MACHINE OPERATOR Unavailable Unavailable Jumalon, M Olga CLOTH BOIL OFF MACHINE OPERATOR Unavailable Unavailable Jumalon, M Olga CLOTH BOIL OFF MACHINE OPERATOR Unavailable Unavailable Jumalon, M Olga CLOTH BOIL OFF MACHINE OPERATOR Unavailable Unavailable Jumalon, M Olga CLOTH BOIL OFF MACHINE OPERATOR Unavailable Unavailable Jumalon, M Olga CLOTH BOIL OFF MACHINE OPERATOR Unavailable Unavailable Jumalon, M Olga CLOTH BOIL OFF MACHINE OPERATOR Unavailable Unavailable Jumalon, M Olga CLOTH BOIL OFF MACHINE OPERATOR Unavailable Unavailable Jumalon, M Olga CLOTH BOIL OFF MACHINE OPERATOR Unavailable Unavailable Jumalon, M Olga CLOTH BOIL OFF MACHINE OPERATOR Unavailable Unavailable Jumalon, M Olga CLOTH BOIL OFF MACHINE OPERATOR Unavailable Unavailable Jumalon, M Olga CLOTH BOIL OFF MACHINE OPERATOR Unavailable Unavailable Jumalon, M Olga CLOTH BOIL OFF MACHINE OPERATOR Unavailable Unavailable Jumalon, M Olga CLOTH BOIL OFF MACHINE OPERATOR Unavailable Unavailable Jumalon, M Olga CLOTH BOIL OFF MACHINE OPERATOR Unavailable Unavailable Jumalon, M Olga CLOTH BOIL OFF MACHINE OPERATOR Unavailable Unavailable Jumalon, M Olga CLOTH BOIL OFF MACHINE OPERATOR Unavailable Unavailable Jumalon, M Olga CLOTH BOIL OFF MACHINE OPERATOR Unavailable Unavailable Beverley Del Toro MD Unavailable Unavailable Beverley Del Toro MD Unavailable Unavailable Beverley Del Toro MD Unavailable Unavailable Beverley Del Toro MD Unavailable Unavailable Beverley Del Toro MD Unavailable Unavailable Beverley Del Toro MD Unavailable Unavailable Beverley Del Toro MD Unavailable Unavailable Beverley Del Toro MD Unavailable Unavailable Beverley Del Toro MD Unavailable Unavailable Beverley Del Toro MD Unavailable Unavailable Beverley Del Toro MD Unavailable Unavailable Beverley Del Toro MD Unavailable Unavailable Beverley Del Toro MD Unavailable Unavailable Beverley Del Toro MD Unavailable Unavailable Beverley Del Toro MD Unavailable Unavailable Beverley Del Toro MD Unavailable Unavailable Beverley Del Toro MD Unavailable Unavailable Beverley Del Toro MD Unavailable Unavailable Beverley Del Toro MD Unavailable Unavailable Beverley Del Toro MD Unavailable Unavailable Beverley Del Toro MD Unavailable Unavailable Beverley Del Toro MD Unavailable Unavailable Beverley Del Toro MD Unavailable Unavailable Beverley Del Toro MD Unavailable Unavailable Beverley Del Toro MD Unavailable Unavailable Beverley Del Toro MD Unavailable Unavailable Beverley Del Toro MD Unavailable Unavailable Beverley Del Toro MD Unavailable Unavailable Beverley Del Toro MD Unavailable Unavailable Beverley Del Toro MD Unavailable Unavailable Beverley Del Toro MD Unavailable Unavailable Beverley Del Toro MD Unavailable Unavailable Beverley Del Toro MD Unavailable Unavailable Beverley Del Toro MD Unavailable Unavailable Beverley Del Toro MD Unavailable Unavailable Beverley Del Troo MD Unavailable Unavailable Beverley Del Toro MD Unavailable Unavailable Beverley Del Toro MD Unavailable Unavailable Beverley Del Toro MD Unavailable Unavailable Beverley Del Toro MD Unavailable Unavailable Beverley Del Toro MD Unavailable Unavailable Beverley Del Toro MD Unavailable Unavailable Beverley Del Toro MD Unavailable Unavailable Beverley Del Toro MD Unavailable Unavailable Beverley Del Toro MD Unavailable Unavailable Beverley Del Toro MD Unavailable Unavailable Beverley Del Toro MD Unavailable Unavailable Beverley Del Toro MD Unavailable Unavailable Beverley Del Toro MD Unavailable Unavailable Beverley Del Toro MD Unavailable Unavailable Beverley Del Toro MD Unavailable Unavailable Beverley Del Toro MD Unavailable Unavailable Beverley Del Toro MD Unavailable Unavailable Beverley Del Toro MD Unavailable Unavailable Beverley Del Toro MD Unavailable Unavailable Beverley Del Toro MD Unavailable Unavailable Beverley Del Toro MD Unavailable Unavailable Del Toro, D Josh MD Unavailable Unavailable Del Toro, D Josh MD Unavailable Unavailable Del Toro, D Josh MD Unavailable Unavailable Del Toro, D Josh MD Unavailable Unavailable Del Toro, D Josh MD Unavailable Unavailable Del Toro, D Josh MD Unavailable Unavailable Del Toro, D Josh MD Unavailable Unavailable Del Toro, D Josh MD Unavailable Unavailable Del Toro, D Josh MD Unavailable Unavailable Del Toro, D Josh MD Unavailable Unavailable Del Toro, D Josh MD Unavailable Unavailable Del Toro, D Josh MD Unavailable Unavailable Del Toro, D Josh MD Unavailable Unavailable Del Toro, D Josh MD Unavailable Unavailable Del Toro, D Josh MD Unavailable Unavailable Del Toro, D Josh MD Unavailable Unavailable Del Toro, D Josh MD Unavailable Unavailable Del Toro, D Josh MD Unavailable Unavailable Del Toro, D Josh MD Unavailable Unavailable Del Toro, D Josh MD Unavailable Unavailable Del Toro, D Josh MD Unavailable Unavailable Del Toro, D Josh MD Unavailable Unavailable Del Toro, D Josh MD Unavailable Unavailable Del Toro, D Josh MD Unavailable Unavailable Del Toro, D Josh MD Unavailable Unavailable Del Toro, D Josh MD Unavailable Unavailable Del Toro, D Josh MD Unavailable Unavailable Del Toro, D Josh MD Unavailable Unavailable Del Toro, D Josh MD Unavailable Unavailable Del Toro, D Josh MD Unavailable Unavailable Del Toro, D Josh MD Unavailable Unavailable Del Toro, D Josh MD Unavailable Unavailable Del Toro, D Josh MD Unavailable Unavailable Del Toro, D Josh MD Unavailable Unavailable Del Toro, D Josh MD Unavailable Unavailable Del Toro, D Josh MD Unavailable Unavailable Re-disclosure Warning The records that you are about to access may contain information from federally-assisted alcohol or drug abuse programs. If such information is present, then the following federally mandated warning applies: This information has been disclosed to you from records protected by federal confidentiality rules (42 CFR part 2). The federal rules prohibit you from making any further disclosure of this information unless further disclosure is expressly permitted by the written consent of the person to whom it pertains or as otherwise permitted by 42 CFR part 2. A general authorization for the release of medical or other information is NOT sufficient for this purpose. The Federal rules restrict any use of the information to criminally investigate or prosecute any alcohol or drug abuse patient.The records that you are about to access may contain highly sensitive health information, the redisclosure of which is protected by Article 27-F of the [facility] Public Health law. If you continue you may have access to information: Regarding HIV / AIDS; Provided by facilities licensed or operated by the [facility] Office of Mental Health; or Provided by the [facility] Office for People With Developmental Disabilities. If such information is present, then the following [place] State mandated warning applies: This information has been disclosed to you from confidential records which are protected by state law. State law prohibits you from making any further disclosure of this information without the specific written consent of the person to whom it pertains, or as otherwise permitted by law. Any unauthorized further disclosure in violation of state law may result in a fine or chcf sentence or both. A general authorization for the release of medical or other information is NOT sufficient authorization for further disc losure. Encounters Encounter Providers Location Date Indications Data Source(s ) Josh Del Toro MD: [address] [place] [address], Ph. Attender: Josh Del Toro MD [facility] Medical 01/11/2021 12:00:00 AM EDT [facility] ([facility]) Outpatient Attender: Josh Haas/Jesus/Lance/Re indl 01/04/2021 02:15:00 PM EDT [facility] ([facility] ) Josh Del Toro MD: [address] [place] [phone], Ph. Attender: Josh Del Toro MD [facility] Medical 12/12/2020 12:00:00 AM EDT [facility] ([facility]) Olga Mejia, ACOUSTIC SENSOR OPERATOR: [address], [address], [place] [address], Ph. Attender: [facility] - Main Office 12/04/2020 12:00:00 AM EDT ATHE KORI ([facility]) Mariana Pelaez MD: [address] [place] [address], Ph. Attender: Mariana Pelaez MD [facility] Medical 11/30/2020 12:00:00 AM EDT [facility] ([facility]) Mariana Pelaez MD: [address] [place] [address], Ph. Attender: Mariana Pelaez MD [facility] Medical 11/30/2020 12:00:00 AM EDT [facility] ([facility]) Josh Del Toro MD: [address] [place] [address], Ph. Attender: Josh Del Toro MD [facility] Medical 11/09/2020 12:00:00 AM EDT [facility] ([facility]) Josh Del Toro MD: [address] [place] [address], Ph. Attender: Josh Del Toro MD [facility] Medical 11/09/2020 12:00:00 AM EDT [facility] ([facility]) Josh Del Toro MD: [address] [place] [address], Ph. Attender: Josh Del Toro MD [facility] Medical 11/09/2020 12:00:00 AM EDT [facility] ([facility]) Recurring Patient Referrer: Olga Mejia [facility] 10/31/2020 11:24:21 AM EDT [facility] Josh Del Toro MD: [address] [place] [address], Ph. Attender: Josh Del Toro MD [facility] Medical 10/25/2020 12:00:00 AM EDT [facility] ([facility]) Josh Del Toro MD: [address] [place] [address], Ph. Attender: Josh Del Toro MD [facility] Medical 10/25/2020 12:00:00 AM EDT [facility] ([facility]) Josh Del Toro MD: [address] [place] [address], Ph. Attender: Josh Del Toro MD [facility] Medical 10/25/2020 12:00:00 AM EDT [facility] ([facility]) Josh Del Toro MD: [address] [place] [address], Ph. Attender: Josh Del Toro MD [facility] Medical 10/25/2020 12:00:00 AM EDT [facility] ([facility]) Olga Mejia, ACOUSTIC SENSOR OPERATOR: [address], [place] [address], Ph. Attender: Olga Mejia [facility] 10/20/2020 12:00:00 AM EDT ATHE NA ([facility]) Olga Mejia, ACOUSTIC SENSOR OPERATOR: [address], [place] [address], Ph. Attender: Olga Roberto [facility] 10/20/2020 12:00:00 AM EDT ATHE NA ([facility]) Olga Mejia, ACOUSTIC SENSOR OPERATOR: [address], [place] [address], Ph. Attender: Olga Roberto [facility] 10/20/2020 12:00:00 AM EDT ATHE NA ([facility]) Brody Elliott MD: [address], [place] [address], Ph. Attender: Brody Elliott MD [place] - [facility] 09/25/2020 12:00:00 AM EDT [facility] ([facility]) Brody Elliott MD: [address], [place] [address], Ph. Attender: Brody Elliott MD [place] - [facility] 09/25/2020 12:00:00 AM EDT [facility] ([facility]) Brody Elliott MD: [address], [address], [place] [address], Ph. Attender: Brody Elliott MD [place] - [facility] 09/25/2020 12:00:00 AM EDT [facility] ([facility]) Brody Elliott MD: [address], [address], [place] [address], Ph. Attender: Brody Elliott MD [place] - [facility] 09/25/2020 12:00:00 AM EDT [facility] ([facility]) Brody Elliott MD: [address], [address], [place] [address], Ph. [phone] Attender: Brody Elliott MD [place] - [facility] 09/20/2020 12:00:00 AM EDT [facility] ([facility]) Brody Elliott MD: [address], [address], [place] [address], Ph. [phone] Attender: Brody Elliott MD [place] - [facility] 09/20/2020 12:00:00 AM EDT [facility] ([facility]) Brody Elliott MD: [address], [address], [place] [address], Ph. [phone] Attender: Brody Elliott MD [place] - [facility] 09/20/2020 12:00:00 AM EDT [facility] ([facility]) Brody Elliott MD: [address], [address], [place] [address], Ph. [phone] Attender: Brody RODRIGUEZ - [facility] 09/20/2020 12:00:00 AM EDT [facility] ([facility]) Brody Elliott MD: [id number] [place] [address], Ph. [phone] Attender: Brody Elliott MD [place] - [facility] - [facility] Office 09/20/2020 12:00:00 AM EDT [facility] ([facility]) Mariana Pelaez MD: [address], [place] [address], Ph. Attender: Mariana Pelaez MD [facility] Medical 09/14/2020 12:00:00 AM EDT [facility] ([facility]) Mariana Pelaez MD: [address] [place] [address], Ph. Attender: Mariana Pelaez MD [facility] Medical 09/14/2020 12:00:00 AM EDT [facility] ([facility]) Mariana Pelaez MD: [address] [place] [address], Ph. Attender: Mariana Pelaez MD [facility] Medical 09/14/2020 12:00:00 AM EDT [facility] ([facility]) Mariana Pelaez MD: [address], [place] [address], Ph. Attender: Mariana Pelaez MD [facility] Medical 09/14/2020 12:00:00 AM EDT [facility] ([facility]) Mariana Pelaez MD: [address], [place] [address], Ph. Attender: Mariana Pelaez MD [facility] Medical 09/14/2020 12:00:00 AM EDT [facility] ([facility]) Olga Mejia, ACOUSTIC SENSOR OPERATOR: [address], [place] [address], Ph. Attender: Olga Mejia [facility] 09/13/2020 12:00:00 AM EDT ATHE NA ([facility]) Olga Mejia, ACOUSTIC SENSOR OPERATOR: [address], [address], [place] [address], Ph. Attender: Olga Mejia [facility] - [facility] 09/13/2020 12:00:00 AM EDT ATHE NA ([facility]) Olga Mejia, ACOUSTIC SENSOR OPERATOR: [address], [place] [address], Ph. Attender: Olga Mejia [facility] 09/13/2020 12:00:00 AM EDT ATHE NA ([facility]) Olga Mejia, ACOUSTIC SENSOR OPERATOR: [address], [place] [address], Ph. Attender: Olga Mejia [facility] - [facility] 09/13/2020 12:00:00 AM EDT ATHE NA ([facility]) Olga Mejia, ACOUSTIC SENSOR OPERATOR: [address], [place] [address], Ph. Attender: Olga Mejia [facility] - [facility] 09/13/2020 12:00:00 AM EDT ATHE NA ([facility]) Olga Mejia, ACOUSTIC SENSOR OPERATOR: [address], [place] [address], Ph. Attender: Olga Mejia CLOTH BOIL OFF M[facility] - [facility] - Main Office 09/13/2020 12:00:00 AM EDT ATHE NA ([facility]) Josh Del Toro MD: [address] [place] [address], Ph. Attender: Josh Del Toro MD [facility] Medical 07/27/2020 12:00:00 AM EST ALEXA ([facility]) Josh Del Toro MD: [address] [place] [address], Ph. Attender: Josh Del Toro MD [facility] Medical 07/27/2020 12:00:00 AM EST ALEXA ([facility]) Josh Del Toro MD: [address] [place] [address], Ph. Attender: Josh Del Toro MD [facility] Medical 07/27/2020 12:00:00 AM EST ALEXA ([facility]) Josh Del Toro MD: [address] [place] [address], Ph. Attender: Josh Del Toro MD [facility] Medical 07/27/2020 12:00:00 AM EST ALEXA ([facility]) Josh Del Toro MD: [address] [place] [address], Ph. Attender: Josh Del Toro MD [facility] Medical 07/27/2020 12:00:00 AM EST ALEXA ([facility]) Josh Del Toro MD: [address] [place] [address], Ph. Attender: Josh Del Toro MD [facility] Medical 07/27/2020 12:00:00 AM EST ALEXA ([facility]) ( [facility]) [facility] CLINICAL GENETICIST [address] [place] [address] 07/24/2020 12:00:00 AM EST eCW1 ([facility]) Brody Elliott MD: [address], [place] [address], Ph. Attender: Brody Elliott MD [place] - [facility] 07/12/2020 12:00:00 AM EST ALEXA ([facility]) Brody Elliott MD: [address], [place] [address], Ph. Attender: Brody Elliott MD [place] - [facility] 07/12/2020 12:00:00 AM EST ALEXA ([facility]) Brody Elliott MD: [address]774 [address], [place] [address], Ph. Attender: Brody Elliott MD [place] - [facility] 07/12/2020 12:00:00 AM EST ALEXA ([facility]) Brody Elliott MD: [address]34 [address], [place] [address], Ph. Attender: Brody Elliott MD [place] - [facility] 07/12/2020 12:00:00 AM EST ALEXA ([facility]) Brody Elliott MD: [address], [place] [address], Ph. Attender: Brody Elliott MD [place] - [facility] 07/12/2020 12:00:00 AM EST ALEXA ([facility]) Brody Elliott MD: [address]352 [address], [place] [address], Ph. Attender: Brody Elliott MD [place] - [facility] 07/12/2020 12:00:00 AM EST ALEXA ([facility]) Brody Elliott MD: [address]85 [address], [place] [address], Ph. [phone] Attender: Brody Elliott MD [place] - [facility] 07/07/2020 12:00:00 AM EST ALEXA ([facility]) Brody Elliott MD: [address], [address], [place] [address], Ph. [phone] Attender: Brody Elliott MD [place] - [facility] 07/07/2020 12:00:00 AM EST ALEXA ([facility]) Brody Elliott MD: [address]69 [address], [place] [address], Ph. [phone] Attender: Brody Elliott MD [place] - [facility] 07/07/2020 12:00:00 AM EST ALEXA ([facility]) Brody Elliott MD: [address]32 [address], [place] [address], Ph. [phone] Attender: Brody Elliott MD [place] - [facility] 07/07/2020 12:00:00 AM EST ALEXA ([facility]) Brody Elliott MD: [address]004 [address], [place] [address], Ph. [phone] Attender: Brody Elliott MD [place] - [facility] 07/07/2020 12:00:00 AM EST ALEXA ([facility]) Brody Elliott MD: [address]649 [address], [place] [address], Ph. [phone] Attender: Brody RODRIGUEZ - [facility] 07/07/2020 12:00:00 AM EST ALEXA ([facility]) Brody Elliott MD: [address], [place] [address], Ph. [phone] Attender: Brody Elliott MD [place] - [facility] 07/07/2020 12:00:00 AM EST ALEXA ([facility]) Olga Mejia, ACOUSTIC SENSOR OPERATOR: [address], [place] [address], Ph. Attender: Olga Juhaydenmyah [facility] 07/03/2020 12:00:00 AM EST ATHE NA ([facility]) Olga Mejia, ACOUSTIC SENSOR OPERATOR: [address], [place] [address], Ph. Attender: Olga Mejia [facility] 07/03/2020 12:00:00 AM EST ATHE NA ([facility]) Olga Mejia, ACOUSTIC SENSOR OPERATOR: [address], [place] [address], Ph. Attender: Olga Mejia [facility] 07/03/2020 12:00:00 AM EST ATHE NA ([facility]) Olga Mejia, ACOUSTIC SENSOR OPERATOR: [address], [place] [address], Ph. Attender: Olga Mejia [facility] 07/03/2020 12:00:00 AM EST ATHE NA ([facility]) Olga Mejai, ACOUSTIC SENSOR OPERATOR: [address], [place] [address], Ph. 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 07/03/2020 12:00:00 AM EST ATHE NA ([facility]) Olga Mejia, ACOUSTIC SENSOR OPERATOR: [address], [place] [address], Ph. Attender: Olga Mejia [facility] - [facility] 07/03/2020 12:00:00 AM EST ATHE NA ([facility]) Olga Mejia, ACOUSTIC SENSOR OPERATOR: [address], [place] [address], Ph. Attender: Olga Mejia [facility] - [facility] 07/03/2020 12:00:00 AM EST ATHE NA ([facility]) Olga Mejia, ACOUSTIC SENSOR OPERATOR: [address], [place] [address], Ph. Attender: Olga Mejia [facility] 07/03/2020 12:00:00 AM EST ATHE NA ([facility]) Brody Elliott MD: [address], [place] [address], Ph. Attender: Brody Elliott MD [place] - [facility] 06/01/2020 12:00:00 AM EST ALEXA ([facility]) Brody Elliott MD: [address]999 [address], [address], [place] [address], Ph. Attender: Brody Elliott MD [place] - [facility] 06/01/2020 12:00:00 AM EST ALEXA ([facility]) Brody Elliott MD: [address]463 [address], [place] [address], Ph. Attender: Brody Elliott MD [place] - [facility] 06/01/2020 12:00:00 AM EST ALEXA ([facility]) Brody Elliott MD: [address]68 [address], [address], [place] [address], Ph. Attender: Brody Elliott MD [place] - [facility] 06/01/2020 12:00:00 AM EST ALEXA ([facility]) Brody Elliott MD: [address]35 [address], [address], [place] [address], Ph. Attender: Brody Elliott MD [place] - [facility] 06/01/2020 12:00:00 AM EST ALEXA ([facility]) Brody Elliott MD: [address]47 [address], [address], [place] [address], Ph. Attender: Brody Elliott MD [place] - [facility] 06/01/2020 12:00:00 AM EST ALEXA ([facility]) Brody Elliott MD: [address]953 [address], [address], [place] [address], Ph. Attender: Brody RODRIGUEZ - [facility] 06/01/2020 12:00:00 AM EST ALEXA ([facility]) Brody Elliott MD: [address]18 [address], [address], [place] [address], Ph. Attender: Brody Elliott MD [place] - [facility] 06/01/2020 12:00:00 AM EST ALEXA ([facility]) Brody Elliott MD: [address]3765 [address], [address], [place] [address], Ph. Attender: Brody Elliott MD [place] - [facility] 06/01/2020 12:00:00 AM EST ALEXA ([facility]) Brody Elliott MD: [address]754 [address], [address], [place] [address], Ph. [phone] Attender: Brody [place] MD [place] - [facility] 05/29/2020 12:00:00 AM EST ALEXA ([facility]) Brody Elliott MD: 27564 [address], [address], [place] [address], Ph. [phone] Attender: Brody Elliott MD [place] - [facility] 05/29/2020 12:00:00 AM EST ALEXA ([facility]) Brody Elliott MD: [address]50 [address], [address], [place] [address], Ph. [phone] Attender: Brody Elliott MD [place] - [facility] 05/29/2020 12:00:00 AM EST ALEXA ([facility]) Brody Elliott MD: [address]6735 [address], [address], [place] [address], Ph. [phone] Attender: Brody Elliott MD [place] - [facility] 05/29/2020 12:00:00 AM EST ALEXA ([facility]) Brody Elliott MD: [address]71 [address], [address], [place] [address], Ph. [phone] Attender: Brody Elliott MD [place] - [facility] 05/29/2020 12:00:00 AM EST ALEXA ([facility]) Brody Elliott MD: [address]37 [address], [address], [place] [address], Ph. [phone] Attender: Brody Elliott MD [place] - [facility] 05/29/2020 12:00:00 AM EST ALEXA ([facility]) Brody Elliott MD: [address]73 [address], [place] [address], Ph. [phone] Attender: Brody Elliott MD [place] - [facility] 05/29/2020 12:00:00 AM EST ALEXA ([facility]) Brody Elliott MD: [address]173 [address], [address], [place] [address], Ph. [phone] Attender: Brody Elliott MD [place] - [facility] 05/29/2020 12:00:00 AM EST ALEXA ([facility]) Brody Elliott MD: [address]64 [address], [address], [place] [address], Ph. [phone] Attender: Brody Elliott MD [place] - [facility] 05/29/2020 12:00:00 AM EST ALEXA ([facility]) Brody Elliott MD: [address]989 [address], [place] [address], Ph. [phone] Attender: Brody Elliott MD [place] - [facility] 05/29/2020 12:00:00 AM EST ALEXA ([facility]) Olga Mejia, ACOUSTIC SENSOR OPERATOR: [address], [place] [address], Ph. Attender: Olga Mejia [facility] - [facility] 05/18/2020 12:00:00 AM EST ATHE NA ([facility]) Olga Mejia, ACOUSTIC SENSOR OPERATOR: [address], [place] [address], Ph. Attender: Olga Mejia [facility] - [facility] 05/18/2020 12:00:00 AM EST ATHE NA ([facility]) Olga Mejia, ACOUSTIC SENSOR OPERATOR: [address], [place] [address], Ph. Attender: Olga Mejia [facility] - [facility] 05/18/2020 12:00:00 AM EST ATHE NA ([facility]) Olga Mejia, ACOUSTIC SENSOR OPERATOR: [address], [place] [address], Ph. Attender: Olga Mejia [facility] - [facility] 05/18/2020 12:00:00 AM EST ATHE NA ([facility]) Olga Mejia, ACOUSTIC SENSOR OPERATOR: [address], [place] [address], Ph. Attender: Olga Mejia [facility] - [facility] 05/18/2020 12:00:00 AM EST ATHE NA ([facility]) Olag Mejia, ACOUSTIC SENSOR OPERATOR: [address], [place] [address], Ph. Attender: Olga Mejia [facility] - [facility] 05/18/2020 12:00:00 AM EST ATHE NA ([facility]) Olga Mejia, ACOUSTIC SENSOR OPERATOR: [address], [place] [address], Ph. Attender: Olga Mejia [facility] - [facility] 05/18/2020 12:00:00 AM EST ATHE NA ([facility]) Olga Mejia, ACOUSTIC SENSOR OPERATOR: [address], [place] [address], Ph. Attender: Olga Mejia [facility] - [facility] 05/18/2020 12:00:00 AM EST ATHE NA ([facility]) Olga Mejia, ACOUSTIC SENSOR OPERATOR: [address]98 [address], [place] [address], Ph. Attender: Olga Mejia [facility] - [facility] 05/18/2020 12:00:00 AM EST ATHE NA ([facility]) Olga Mejia, ACOUSTIC SENSOR OPERATOR: [address], [address], [place] [address], Ph. Attender: Olga Mejia [facility] - [facility] 05/18/2020 12:00:00 AM EST ATHE NA ([facility]) Olga Mejia, ACOUSTIC SENSOR OPERATOR: [address], [place] [address], Ph. Attender: Olga Mejia [facility] - [facility] 05/18/2020 12:00:00 AM EST ATHE NA ([facility]) Josh Del Toro MD: [address] [place] [address], Ph. Attender: Josh Del Toro MD [facility] Medical 05/04/2020 12:00:00 AM EST ALEXA ([facility]) Josh Del Toro MD: [address] [place] [address], Ph. Attender: Josh Del Toro MD [facility] Medical 05/04/2020 12:00:00 AM EST ALEXA ([facility]) Josh Del Toro MD: [address] [place] [address], Ph. Attender: Josh Del Toro MD [facility] Medical 05/04/2020 12:00:00 AM EST ALEXA ([facility]) Josh Del Toro MD: [address] [place] [address], Ph. Attender: Josh Del Toro MD [facility] Medical 05/04/2020 12:00:00 AM EST ALEXA ([facility]) Josh Del Toro MD: [address] [place] [address], Ph. Attender: Josh Del Toro MD [facility] Medical 05/04/2020 12:00:00 AM EST ALEXA ([facility]) Josh Del Toro MD: [address] [place] [address], Ph. Attender: Josh Del Toro MD [facility] Medical 05/04/2020 12:00:00 AM EST ALEXA ([facility]) Josh Del Toro MD: [address] [place] [address], Ph. Attender: Josh Del Toro MD [facility] Medical 05/04/2020 12:00:00 AM EST ALEXA ([facility]) Brody Elliott MD: [address]23 [address], [place] [address], Ph. [phone] Attender: Brody Elliott MD [place] - [facility] - Main Office 03/15/2020 12:00:00 AM EDT ALEXA ([facility]) Brody Elliott MD: [address]138 [address], [place] [address], Ph. [phone] Attender: Brody Elliott MD [place] - [facility] - Main Office 03/15/2020 12:00:00 AM EDT ALEXA ([facility]) Brody Elliott MD: 50363 [address], [place] [address], Ph. [phone] Attender: Brody Elliott MD [place] - [facility] 03/15/2020 12:00:00 AM EDT ALEXA ([facility]) Brody Elliott MD: [address]81 [address], [address], [place] [address], Ph. [phone] Attender: Brody Elliott MD [place] - [facility] 03/15/2020 12:00:00 AM EDT ALEXA ([facility]) Brody Elliott MD: 12430 [address], [address], [place] [address], Ph. [phone] Attender: Brody RODRIGUEZ - [facility] 03/15/2020 12:00:00 AM EDT ALEXA ([facility]) Brody Elliott MD: 79909 [address], [address], [place] [address], Ph. [phone] Attender: Brody RODRIGUEZ - [facility] 03/15/2020 12:00:00 AM EDT ALEXA ([facility]) Brody Elliott MD: 48321 [address], [address], [place] [address], Ph. [phone] Attender: Brody Elliott MD [place] - [facility] 03/15/2020 12:00:00 AM EDT ALEXA ([facility]) Brody Elliott MD: 00728 [address], [address], [place] [address], Ph. [phone] Attender: Brody RODRIGUEZ - [facility] 03/15/2020 12:00:00 AM EDT ALEXA ([facility]) Brody Elliott MD: 54376 [address], [address], [place] [address], Ph. [phone] Attender: Brody RODRIGUEZ - [facility] 03/15/2020 12:00:00 AM EDT ALEXA ([facility]) Brody Elliott MD: 95645 [address], [address], [place] [address], Ph. [phone] Attender: Brody Elliott MD [place] - [facility] 03/15/2020 12:00:00 AM EDT ALEXA ([facility]) Brody Elliott MD: 49385 [address], [address], [place] [address], Ph. [phone] Attender: Brody RODRIGUEZ - [facility] - [facility] 03/15/2020 12:00:00 AM EDT ALEXA ([facility]) Brody Elliott MD: [address]3315 [address], [address], [place] [address], Ph. [phone] Attender: Broyd RODRIGUEZ - [facility] 03/15/2020 12:00:00 AM EDT ALEXA ([facility]) Brody Elliott MD: 81247 [address], [address], [place] [address], Ph. [phone] Attender: Brody RODRIGUEZ - [facility] - [facility] 02/18/2020 12:00:00 AM EDT ALEXA ([facility]) Brody Elliott MD: 51681 [address], [address], [place] [address], Ph. [phone] Attender: Brody RODRIGUEZ - [facility] 02/18/2020 12:00:00 AM EDT ALEXA ([facility]) Brody Elliott MD: 29492 [address], [address], [place] [address], Ph. [phone] Attender: Brody RODRIGUEZ - [facility] - [facility] 02/18/2020 12:00:00 AM EDT ALEXA ([facility]) Brody Elliott MD: 32458 [address], [address], [place] [address], Ph. [phone] Attender: Brody Elliott MD [place] - [facility] 02/18/2020 12:00:00 AM EDT ALEXA ([facility]) Brody Elliott MD: 38341 [address], [address], [place] [address], Ph. [phone] Attender: Brody Elliott MD [place] - [facility] 02/18/2020 12:00:00 AM EDT ALEXA ([facility]) Brody Elliott MD: 67798 [address], [address], [place] [address], Ph. [phone] Attender: Brody Elliott MD [place] - [facility] 02/18/2020 12:00:00 AM EDT ALEXA ([facility]) Brody Elliott MD: 43928 [address], [address], [place] [address], Ph. [phone] Attender: Brody Elliott MD [place] - [facility] 02/18/2020 12:00:00 AM EDT ALEXA ([facility]) Brody Elliott MD: 07007 [address], [address], [place] [address], Ph. [phone] Attender: Brody RODRIGUEZ - [facility] 02/18/2020 12:00:00 AM EDT ALEXA ([facility]) Brody Elliott MD: 40924 [address], [address], [place] [address], Ph. [phone] Attender: Brody Elliott MD [place] - [facility] 02/18/2020 12:00:00 AM EDT ALEXA ([facility]) Brody Elliott MD: 53823 [address], [address], [place] [address], Ph. [phone] Attender: Brody Elliott MD [place] - [facility] - Main Office 02/18/2020 12:00:00 AM EDT ALEXA ([facility]) Brody Elliott MD: 73224 [address], [place] [address], Ph. [phone] Attender: Brody Elliott MD [place] - [facility] - [facility] Office 02/18/2020 12:00:00 AM EDT ALEXA ([facility]) Brody Elliott MD: 72656 [address], [address], [place] [address], Ph. [phone] Attender: Brody Elliott MD [place] - [facility] - [facility] Office 02/18/2020 12:00:00 AM EDT [facility] ([facility]) Brody Elliott MD: [id number], [place] [address], Ph. [phone] Attender: Brody Elliott MD [place] - [facility] Office 02/18/2020 12:00:00 AM EDT [facility] ([facility]) Outpatient Attender: Josh Del Toro MD 02/15/2020 09:29:02 AM EDT [facility] Outpatient Attender: Josh Del Toro MD 02/15/2020 08:53:01 AM EDT [facility] Outpatient Attender: Josh Del Toro MD 02/15/2020 08:41:00 AM EDT [facility] Outpatient Attender: Josh Del Toro MD 02/14/2020 12:10:00 PM EDT [facility] Outpatient Attender: Josh Del Toro MD 02/14/2020 10:44:00 AM EDT [facility] Outpatient Attender: Josh Del Toro MD 02/09/2020 11:22:26 AM EDT [facility] Outpatient Attender: Josh Del Toro MD 02/04/2020 12:59:02 PM EDT [facility] Outpatient Attender: Josh Del Toro MD 02/04/2020 12:59:01 PM EDT [facility] Outpatient Attender: Josh Del Toro MD 02/04/2020 08:22:02 AM EDT [facility] Outpatient Attender: Josh Del Toro MD 02/04/2020 08:22:02 AM EDT [facility] Brody Elliott MD: [id number], [address], [place] [address], Ph. Attender: Brody Elliott MD [place] - [facility] 02/01/2020 12:00:00 AM EDT [facility] ([facility]) Brody Elliott MD: [address], [address], [place] [address], Ph. Attender: Brody Elliott MD [place] - [facility] 02/01/2020 12:00:00 AM EDT [facility] ([facility]) Brody Elliott MD: [address], [address], [place] [address], Ph. Attender: Brody Elliott MD [place] - [facility] 02/01/2020 12:00:00 AM EDT [facility] ([facility]) Brody Elliott MD: [address], [address], [place] [address], Ph. Attender: Brody RODRIGUEZ - [facility] 02/01/2020 12:00:00 AM EDT [facility] ([facility]) Brody Elliott MD: [address], [address], [place] [address], Ph. Attender: Brody RODRIGUEZ - [facility] 02/01/2020 12:00:00 AM EDT [facility] ([facility]) Brody Elliott MD: [address], [address], [place] [address], Ph. Attender: Brody RODRIGUEZ - [facility] 02/01/2020 12:00:00 AM EDT [facility] ([facility]) Brody Elliott MD: [address], [address], [place] [address], Ph. Attender: Brody RODRIGUEZ - [facility] 02/01/2020 12:00:00 AM EDT [facility] ([facility]) Brody Elliott MD: [address], [address], [place] [address], Ph. Attender: Brody RODRIGUEZ - [facility] 02/01/2020 12:00:00 AM EDT [facility] ([facility]) Brody Elliott MD: [address], [address], [place] [address], Ph. Attender: Brody RODRIGUEZ - [facility] 02/01/2020 12:00:00 AM EDT [facility] ([facility]) Brody Elliott MD: [address], [address], [place] [address], Ph. Attender: Brody RODRIGUEZ - [facility] 02/01/2020 12:00:00 AM EDT [facility] ([facility]) Brody Elliott MD: [address], [address], [place] [address], Ph. Attender: Brody RODRIGUEZ - [facility] 02/01/2020 12:00:00 AM EDT [facility] ([facility]) Bordy Elliott MD: [address], [address], [place] [address], Ph. Attender: Brody RODRIGUEZ - [facility] 02/01/2020 12:00:00 AM EDT [facility] ([facility]) Brody Elliott MD: [address] [facility] [address], [place] [address], Ph. Attender: Brody Elliott MD [place] - [facility] - [facility] Office 02/01/2020 12:00:00 AM EDT [facility] ([facility]) Brody Elliott MD: [address], [place] [address], Ph. Attender: Brody Elliott MD [place] - [facility] 02/01/2020 12:00:00 AM EDT [facility] ([facility]) Outpatient Attender: Josh Del Toro MD 01/26/2020 03:38:00 PM EDT [facility] Outpatient Attender: Josh Del Toro MD 01/25/2020 02:56:04 PM EDT [facility] Immunizations Vaccine Date Status Description Data Source(s) New in 2011. IIV4 05/04/2020 05:14:00 PM EST completed 0.5 mL [facility] ([facility]) New in 2011. IIV4 05/04/2020 05:14:00 PM EST completed 0.5 mL [facility] ([facility]) New in 2011. IIV4 05/04/2020 05:14:00 PM EST completed 0.5 mL [facility] ([facility]) New in 2011. IIV4 05/04/2020 05:14:00 PM EST completed 0.5 mL [facility] ([facility]) New in 2011. IIV4 05/04/2020 05:14:00 PM EST completed 0.5 mL [facility] ([facility]) New in 2011. IIV4 05/04/2020 05:14:00 PM EST completed 0.5 mL [facility] ([facility]) New in 2011. IIV4 05/04/2020 05:14:00 PM EST completed 0.5 mL [facility] ([facility]) Medications Medication Brand Name Start Date Product Form Dose Route Admi nistrative Instructions Pharmacy Instructions Status Indications Reaction Description Data Source(s) Metronidazole 500 MG Oral Tablet Metronidazole 500 MG 2020 12:00:00 AM EST 1.0 {tablet} active Metronidazo le 500 MG eCW1 ([facility]) Prednisone 20 MG Oral Tablet prednisone 20 mg tablet prednisone 20 mg tablet completed prednisone 20 MG Oral Tablet [facility] ([facility]) Trintellix 20 mg tablet [id number] complet ed vortioxetine 20 MG Oral Tablet [Trintellix] [facility] ([facility]) Trazodone Hydrochloride 50 MG Oral Tablet trazodone 50 mg tablet trazodone 50 mg tablet completed trazodone hydr ochloride 50 MG Oral Tablet [facility] ([facility]) Ergocalciferol 57731 UNT Oral Capsule Vi tamin D2 1,250 mcg (50,000 unit) capsule Vitamin D2 1,250 mcg (50,000 unit) capsule completed ergocalciferol 1.25 MG Oral Capsule [facility] ([facility]) Metronidazole 500 MG Oral Tablet metroni dazole 500 mg tablet TAKE ONE TABLET BY MOUTH TWICE DAILY FOR 7 DAYS metronidazole 500 mg tablet TAKE ONE TAB LET BY MOUTH TWICE DAILY FOR 7 DAYS completed metronidazole 500 MG Oral Tablet [facility] ([facility]) Ergocalciferol 33342 UNT Oral Capsule Vi tamin D2 1,250 mcg (50,000 unit) capsule Vitamin D2 1,250 mcg (50,000 unit) capsule completed ergocalciferol 1.25 MG Oral Capsule [facility] ([facility]) Trazodone Hydrochloride 50 MG Oral Tablet trazodone 50 mg tablet trazodone 50 mg tablet completed trazodone hydr ochloride 50 MG Oral Tablet [facility] ([facility]) Simvastatin 20 MG Oral Tablet simvastatin 20 mg tablet simva statin 20 mg tablet completed simvastatin 20 MG Oral Tablet [facility] ([facility]) Trintellix 20 mg tablet [id number] complet ed vortioxetine 20 MG Oral Tablet [Trintellix] [facility] ([facility]) Simvastatin 20 MG Oral Tablet simvastatin 20 mg tablet simva statin 20 mg tablet completed simvastatin 20 MG Oral Tablet [facility] ([facility]) Prazosin 1 MG Oral Capsule prazosin 1 mg capsule prazosin 1 mg capsule completed prazosin 1 MG Oral Capsul e [facility] ([facility]) Trintellix 20 mg tablet TAKE ONE TABLET BY MOUTH ONCE DAILY [id number] completed vortioxetine 20 MG Oral Tablet [ Trintellix] [facility] ([facility]) Amoxicillin 875 MG / Clavulanate 125 MG Oral Tablet amoxicillin 875 mg-potassium clavulanate 125 mg tablet TAKE ONE TABLET BY MOUTH TWICE DAILY FOR 10 DAYS amoxicillin 875 mg-potassium clavulanate 125 mg tablet TAKE ONE TABLET BY MOUTH TWICE DAILY FOR 10 DAYS completed amoxicillin 875 MG / clavulanate 125 MG Oral Tablet [facility] ([facility]) Ergocalciferol 17518 UNT Oral Capsule Vi tamin D2 1,250 mcg (50,000 unit) capsule Vitamin D2 1,250 mcg (50,000 unit) capsule completed ergocalciferol 1.25 MG Oral Capsule [facility] ([facility]) Prazosin 1 MG Oral Capsule prazosin 1 mg capsule prazosin 1 mg capsule completed prazosin 1 MG Oral Capsul e [facility] ([facility]) Simvastatin 20 MG Oral Tablet simvastatin 20 mg tablet simva statin 20 mg tablet completed simvastatin 20 MG Oral Tablet [facility] ([facility]) Simvastatin 20 MG Oral Tablet simvastatin 20 mg tablet simva statin 20 mg tablet completed simvastatin 20 MG Oral Tablet [facility] ([facility]) gabapentin 300 MG Oral Capsule gabapentin 300 mg capsu le gabapentin 300 mg capsule completed gabapentin 300 MG Oral Capsule [facility] ([facility]) Fluoxetine 10 MG Oral Capsule fluoxetine 10 mg capsule TAKE ONE CAPSULE BY MOUTH ONCE DAILY fluoxetine 10 mg capsule TAKE ONE CAPSULE BY MOUTH ONCE DAILY completed fluoxetine 10 MG Ora l Capsule [facility] ([facility]) Trazodone Hydrochloride 50 MG Oral Table t trazodone 50 mg tablet TAKE 1-2 TABLETS BY MOUTH EVERY EVENING NEEDED trazodone 50 mg tablet TAKE 1-2 TABLETS BY MOUTH EVERY EVENING NEEDED comp leted trazodone hydrochloride 50 MG Oral Tablet [facility] ([facility]) Trintellix 20 mg tablet [id number] complet ed vortioxetine 20 MG Oral Tablet [Trintellix] [facility] ([facility]) Amoxicillin 875 MG / Clavulanate 125 MG Oral Tablet amoxicillin 875 mg-potassium clavulanate 125 mg tablet TAKE ONE TABLET BY MOUTH TWICE DAILY FOR 10 DAYS amoxicillin 875 mg-potassium clavulanate 125 mg tablet TAKE ONE TABLET BY MOUTH TWICE DAILY FOR 10 DAYS completed amoxicillin 875 MG / clavulanate 125 MG Oral Tablet [facility] ([facility]) Metronidazole 500 MG Oral Tablet metroni dazole 500 mg tablet TAKE ONE TABLET BY MOUTH TWICE DAILY FOR 7 DAYS metronidazole 500 mg tablet TAKE ONE TAB LET BY MOUTH TWICE DAILY FOR 7 DAYS completed metronidazole 500 MG Oral Tablet [facility] ([facility]) Prazosin 1 MG Oral Capsule prazosin 1 mg capsule prazosin 1 mg capsule completed prazosin 1 MG Oral Capsul e [facility] ([facility]) gabapentin 300 MG Oral Capsule gabapentin 300 mg capsu le gabapentin 300 mg capsule completed gabapentin 300 MG Oral Capsule [facility] ([facility]) Amoxicillin 875 MG / Clavulanate 125 MG Oral Tablet amoxicillin 875 mg-potassium clavulanate 125 mg tablet TAKE ONE TABLET BY MOUTH TWICE DAILY FOR 10 DAYS amoxicillin 875 mg-potassium clavulanate 125 mg tablet TAKE ONE TABLET BY MOUTH TWICE DAILY FOR 10 DAYS completed amoxicillin 875 MG / clavulanate 125 MG Oral Tablet [facility] ([facility]) Trazodone Hydrochloride 50 MG Oral Tablet trazodone 50 mg tablet trazodone 50 mg tablet completed trazodone hydr ochloride 50 MG Oral Tablet [facility] ([facility]) Prazosin 1 MG Oral Capsule prazosin 1 mg capsule prazosin 1 mg capsule completed prazosin 1 MG Oral Capsul e [facility] ([facility]) Prednisone 20 MG Oral Tablet prednisone 20 mg tablet prednisone 20 mg tablet completed prednisone 20 MG Oral Tablet [facility] ([facility]) Trazodone Hydrochloride 50 MG Oral Tablet trazodone 50 mg tablet trazodone 50 mg tablet completed trazodone hydr ochloride 50 MG Oral Tablet [facility] ([facility]) Prednisone 20 MG Oral Tablet prednisone 20 mg tablet prednisone 20 mg tablet completed prednisone 20 MG Oral Tablet [facility] ([facility]) Trazodone Hydrochloride 50 MG Oral Table t trazodone 50 mg tablet TAKE 1-2 TABLETS BY MOUTH EVERY EVENING NEEDED trazodone 50 mg tablet TAKE 1-2 TABLETS BY MOUTH EVERY EVENING NEEDED comp leted trazodone hydrochloride 50 MG Oral Tablet [facility] ([facility]) Ergocalciferol 01287 UNT Oral Capsule Vi tamin D2 1,250 mcg (50,000 unit) capsule Vitamin D2 1,250 mcg (50,000 unit) capsule completed ergocalciferol 1.25 MG Oral Capsule [facility] ([facility]) 12 HR Guaifenesin 600 MG Extended Releas e Oral Tablet Mucus Relief ER 600 mg tablet, extended release Mucus Relief ER 600 mg tablet, extended release completed 12 HR guaifenesin 60 0 MG Extended Release Oral Tablet [facility] ([facility]) gabapentin 300 MG Oral Capsule gabapenti n 300 mg capsule TAKE ONE CAPSULE BY MOUTH FOUR TIMES A DAY gabapentin 300 mg capsule TAKE ONE CAPSU LE BY MOUTH FOUR TIMES A DAY completed gabapentin 300 MG Oral Capsule [place] ([facility]) Simvastatin 20 MG Oral Tablet simvastatin 20 mg tablet simva statin 20 mg tablet completed simvastatin 20 MG Oral Tablet [place] ([facility]) Metronidazole 500 MG Oral Tablet metroni dazole 500 mg tablet TAKE ONE TABLET BY MOUTH TWICE DAILY FOR 7 DAYS metronidazole 500 mg tablet TAKE ONE TAB LET BY MOUTH TWICE DAILY FOR 7 DAYS completed metronidazole 500 MG Oral Tablet [facility] ([facility]) Trintellix 20 mg tablet [id number] complet ed vortioxetine 20 MG Oral Tablet [Trintellix] [facility] ([facility]) gabapentin 300 MG Oral Capsule gabapentin 300 mg capsu le gabapentin 300 mg capsule completed gabapentin 300 MG Oral Capsule [facility] ([facility]) Nicotine 4 MG/ACTUAT Inhalant Solution [ Nicotrol] Nicotrol 10 mg inhalation cartridge Nicotrol 10 mg inhalation cartridge completed nicotine 4 MG Inhalation Solution [Nicotrol] [facility] ([facility]) Trintellix 20 mg tablet TAKE ONE TABLET BY MOUTH ONCE DAILY 000521 completed vortioxetine 20 MG Oral Tablet [ Trintellix] [facility]) Prednisone 20 MG Oral Tablet prednisone 20 mg tablet prednisone 20 mg tablet completed prednisone 20 MG Oral Tablet [place] ([facility]) gabapentin 300 MG Oral Capsule gabapentin 300 mg capsu le gabapentin 300 mg capsule completed gabapentin 300 MG Oral Capsule [facility] ([facility]) Trintellix 20 mg tablet TAKE ONE TABLET BY MOUTH ONCE DAILY [id number] completed vortioxetine 20 MG Oral Tablet [ Trintellix] [facility] ([facility]) Trintellix 20 mg tablet TAKE ONE TABLET BY MOUTH ONCE DAILY [id number] completed vortioxetine 20 MG Oral Tablet [ Trintellix] [place] ([facility]) Metronidazole 500 MG Oral Tablet metroni dazole 500 mg tablet TAKE ONE TABLET BY MOUTH TWICE DAILY FOR 7 DAYS metronidazole 500 mg tablet TAKE ONE TAB LET BY MOUTH TWICE DAILY FOR 7 DAYS completed metronidazole 500 MG Oral Tablet [facility] ([facility]) Prazosin 1 MG Oral Capsule prazosin 1 mg capsule prazosin 1 mg capsule completed prazosin 1 MG Oral Capsul e [place] ([facility]) Trazodone Hydrochloride 50 MG Oral Tablet trazodone 50 mg tablet trazodone 50 mg tablet completed trazodone hydr ochloride 50 MG Oral Tablet [place] ([facility]) gabapentin 300 MG Oral Capsule gabapentin 300 mg capsu le gabapentin 300 mg capsule completed gabapentin 300 MG Oral Capsule [place] ([facility]) 12 HR Guaifenesin 600 MG Extended Releas e Oral Tablet Mucus Relief ER 600 mg tablet, extended release Mucus Relief ER 600 mg tablet, extended release completed 12 HR guaifenesin 60 0 MG Extended Release Oral Tablet [place] ([facility]) gabapentin 300 MG Oral Capsule gabapenti n 300 mg capsule TAKE ONE CAPSULE BY MOUTH FOUR TIMES A DAY gabapentin 300 mg capsule TAKE ONE CAPSU LE BY MOUTH FOUR TIMES A DAY completed gabapentin 300 MG Oral Capsule [place] ([facility]) Amoxicillin 875 MG / Clavulanate 125 MG Oral Tablet amoxicillin 875 mg-potassium clavulanate 125 mg tablet TAKE ONE TABLET BY MOUTH TWICE DAILY FOR 10 DAYS amoxicillin 875 mg-potassium clavulanate 125 mg tablet TAKE ONE TABLET BY MOUTH TWICE DAILY FOR 10 DAYS completed amoxicillin 875 MG / clavulanate 125 MG Oral Tablet [facility] ([facility]) gabapentin 300 MG Oral Capsule gabapentin 300 mg capsu le gabapentin 300 mg capsule completed gabapentin 300 MG Oral Capsule [place] ([facility]) Trazodone Hydrochloride 50 MG Oral Table t trazodone 50 mg tablet TAKE 1-2 TABLETS BY MOUTH EVERY EVENING NEEDED trazodone 50 mg tablet TAKE 1-2 TABLETS BY MOUTH EVERY EVENING NEEDED comp leted trazodone hydrochloride 50 MG Oral Tablet [facility] ([facility]) Ergocalciferol 48137 UNT Oral Capsule Vi tamin D2 1,250 mcg (50,000 unit) capsule Vitamin D2 1,250 mcg (50,000 unit) capsule completed ergocalciferol 1.25 MG Oral Capsule [facility] ([facility]) Amoxicillin 875 MG / Clavulanate 125 MG Oral Tablet amoxicillin 875 mg-potassium clavulanate 125 mg tablet TAKE ONE TABLET BY MOUTH TWICE DAILY FOR 10 DAYS amoxicillin 875 mg-potassium clavulanate 125 mg tablet TAKE ONE TABLET BY MOUTH TWICE DAILY FOR 10 DAYS completed amoxicillin 875 MG / clavulanate 125 MG Oral Tablet [facility] ([facility]) Prednisone 20 MG Oral Tablet prednisone 20 mg tablet prednisone 20 mg tablet completed prednisone 20 MG Oral Tablet [facility] ([facility]) gabapentin 300 MG Oral Capsule gabapentin 300 mg capsu le gabapentin 300 mg capsule completed gabapentin 300 MG Oral Capsule [facility] ([facility]) Prazosin 1 MG Oral Capsule prazosin 1 mg capsule prazosin 1 mg capsule completed prazosin 1 MG Oral Capsul e [facility] ([facility]) Amoxicillin 875 MG / Clavulanate 125 MG Oral Tablet amoxicillin 875 mg-potassium clavulanate 125 mg tablet TAKE ONE TABLET BY MOUTH TWICE DAILY FOR 10 DAYS amoxicillin 875 mg-potassium clavulanate 125 mg tablet TAKE ONE TABLET BY MOUTH TWICE DAILY FOR 10 DAYS completed amoxicillin 875 MG / clavulanate 125 MG Oral Tablet [facility] ([facility]) Prazosin 1 MG Oral Capsule prazosin 1 mg capsule prazosin 1 mg capsule completed prazosin 1 MG Oral Capsul e [facility] ([facility]) Trazodone Hydrochloride 50 MG Oral Tablet trazodone 50 mg tablet trazodone 50 mg tablet completed trazodone hydr ochloride 50 MG Oral Tablet [facility] ([facility]) Trintellix 20 mg tablet [id number] [facility] ed vortioxetine 20 MG Oral Tablet [Trintellix] [facility] ([facility]) Prednisone 20 MG Oral Tablet prednisone 20 mg tablet prednisone 20 mg tablet completed prednisone 20 MG Oral Tablet [facility] ([facility]) Amoxicillin 875 MG / Clavulanate 125 MG Oral Tablet amoxicillin 875 mg-potassium clavulanate 125 mg tablet TAKE ONE TABLET BY MOUTH TWICE DAILY FOR 10 DAYS amoxicillin 875 mg-potassium clavulanate 125 mg tablet TAKE ONE TABLET BY MOUTH TWICE DAILY FOR 10 DAYS completed amoxicillin 875 MG / clavulanate 125 MG Oral Tablet [facility] ([facility]) Prazosin 1 MG Oral Capsule prazosin 1 mg capsule prazosin 1 mg capsule completed prazosin 1 MG Oral Capsul e [facility] ([facility]) Metronidazole 500 MG Oral Tablet metroni dazole 500 mg tablet TAKE ONE TABLET BY MOUTH TWICE DAILY FOR 7 DAYS metronidazole 500 mg tablet TAKE ONE TAB LET BY MOUTH TWICE DAILY FOR 7 DAYS completed metronidazole 500 MG Oral Tablet [facility] ([facility]) Ergocalciferol 22310 UNT Oral Capsule Vi tamin D2 1,250 mcg (50,000 unit) capsule Vitamin D2 1,250 mcg (50,000 unit) capsule completed ergocalciferol 1.25 MG Oral Capsule [facility] ([facility]) gabapentin 300 MG Oral Capsule gabapenti n 300 mg capsule TAKE ONE CAPSULE BY MOUTH FOUR TIMES A DAY gabapentin 300 mg capsule TAKE ONE CAPSU LE BY MOUTH FOUR TIMES A DAY completed gabapentin 300 MG Oral Capsule [facility] ([facility]) gabapentin 300 MG Oral Capsule gabapenti n 300 mg capsule TAKE ONE CAPSULE BY MOUTH FOUR TIMES A DAY gabapentin 300 mg capsule TAKE ONE CAPSU LE BY MOUTH FOUR TIMES A DAY completed gabapentin 300 MG Oral Capsule [place] ([facility]) Amoxicillin 875 MG / Clavulanate 125 MG Oral Tablet amoxicillin 875 mg-potassium clavulanate 125 mg tablet TAKE ONE TABLET BY MOUTH TWICE DAILY FOR 10 DAYS amoxicillin 875 mg-potassium clavulanate 125 mg tablet TAKE ONE TABLET BY MOUTH TWICE DAILY FOR 10 DAYS completed amoxicillin 875 MG / clavulanate 125 MG Oral Tablet [facility] ([facility]) Trazodone Hydrochloride 50 MG Oral Table t trazodone 50 mg tablet TAKE 1-2 TABLETS BY MOUTH EVERY EVENING NEEDED trazodone 50 mg tablet TAKE 1-2 TABLETS BY MOUTH EVERY EVENING NEEDED comp leted trazodone hydrochloride 50 MG Oral Tablet [facility] ([facility]) Trintellix 20 mg tablet [id number] complet ed vortioxetine 20 MG Oral Tablet [Trintellix] [facility] ([facility]) Trintellix 20 mg tablet [id number] complet ed vortioxetine 20 MG Oral Tablet [Trintellix] [facility] ([facility]) Simvastatin 20 MG Oral Tablet simvastatin 20 mg tablet simva statin 20 mg tablet completed simvastatin 20 MG Oral Tablet [facility] ([facility]) Prednisone 20 MG Oral Tablet prednisone 20 mg tablet prednisone 20 mg tablet completed prednisone 20 MG Oral Tablet [facility] ([facility]) tizanidine 4 MG Oral Tablet tizanidine 4 mg tablet tizanidine 4 mg ta blet completed tizanidine 4 MG Oral Tablet [facility] ([facility]) 12 HR Guaifenesin 600 MG Extended Releas e Oral Tablet Mucus Relief ER 600 mg tablet, extended release Mucus Relief ER 600 mg tablet, extended release completed 12 HR guaifenesin 60 0 MG Extended Release Oral Tablet [place] ([facility]) Trazodone Hydrochloride 50 MG Oral Table t trazodone 50 mg tablet TAKE 1-2 TABLETS BY MOUTH EVERY EVENING NEEDED trazodone 50 mg tablet TAKE 1-2 TABLETS BY MOUTH EVERY EVENING NEEDED comp leted trazodone hydrochloride 50 MG Oral Tablet [facility] ([facility]) Trintellix 20 mg tablet [id number] complet ed vortioxetine 20 MG Oral Tablet [Trintellix] [facility] ([facility]) gabapentin 300 MG Oral Capsule gabapentin 300 mg capsu le gabapentin 300 mg capsule completed gabapentin 300 MG Oral Capsule [facility] ([facility]) Amoxicillin 875 MG / Clavulanate 125 MG Oral Tablet amoxicillin 875 mg-potassium clavulanate 125 mg tablet TAKE ONE TABLET BY MOUTH TWICE DAILY FOR 10 DAYS amoxicillin 875 mg-potassium clavulanate 125 mg tablet TAKE ONE TABLET BY MOUTH TWICE DAILY FOR 10 DAYS completed amoxicillin 875 MG / clavulanate 125 MG Oral Tablet [facility] ([facility]) Trintellix 20 mg tablet [id number] complet ed vortioxetine 20 MG Oral Tablet [Trintellix] [facility] ([facility]) Amoxicillin 875 MG / Clavulanate 125 MG Oral Tablet amoxicillin 875 mg-potassium clavulanate 125 mg tablet TAKE ONE TABLET BY MOUTH TWICE DAILY FOR 10 DAYS amoxicillin 875 mg-potassium clavulanate 125 mg tablet TAKE ONE TABLET BY MOUTH TWICE DAILY FOR 10 DAYS completed amoxicillin 875 MG / clavulanate 125 MG Oral Tablet [facility] ([facility]) gabapentin 300 MG Oral Capsule gabapentin 300 mg capsu le gabapentin 300 mg capsule completed gabapentin 300 MG Oral Capsule [facility] ([facility]) Trintellix 20 mg tablet [id number] complet ed vortioxetine 20 MG Oral Tablet [Trintellix] ALEXA ([facility]) Prazosin 1 MG Oral Capsule prazosin 1 mg capsule prazosin 1 mg capsule completed prazosin 1 MG Oral Capsul e ALEXA ([facility]) Prednisone 20 MG Oral Tablet prednisone 20 mg tablet prednisone 20 mg tablet completed prednisone 20 MG Oral Tablet ALEXA ([facility]) Prednisone 20 MG Oral Tablet prednisone 20 mg tablet prednisone 20 mg tablet completed prednisone 20 MG Oral Tablet ALEXA ([facility]) Ergocalciferol 78905 UNT Oral Capsule Vi tamin D2 1,250 mcg (50,000 unit) capsule Vitamin D2 1,250 mcg (50,000 unit) capsule completed ergocalciferol 1.25 MG Oral Capsule ALEXA ([facility]) Amoxicillin 875 MG / Clavulanate 125 MG Oral Tablet amoxicillin 875 mg-potassium clavulanate 125 mg tablet TAKE ONE TABLET BY MOUTH TWICE DAILY FOR 10 DAYS amoxicillin 875 mg-potassium clavulanate 125 mg tablet TAKE ONE TABLET BY MOUTH TWICE DAILY FOR 10 DAYS completed amoxicillin 875 MG / clavulanate 125 MG Oral Tablet ALEXA ([facility]) Prednisone 20 MG Oral Tablet prednisone 20 mg tablet prednisone 20 mg tablet completed prednisone 20 MG Oral Tablet ALEXA ([facility]) Trazodone Hydrochloride 50 MG Oral Table t trazodone 50 mg tablet TAKE 1-2 TABLETS BY MOUTH EVERY EVENING NEEDED trazodone 50 mg tablet TAKE 1-2 TABLETS BY MOUTH EVERY EVENING NEEDED comp leted trazodone hydrochloride 50 MG Oral Tablet [facility] ([facility]) gabapentin 300 MG Oral Capsule gabapenti n 300 mg capsule TAKE ONE CAPSULE BY MOUTH FOUR TIMES A DAY gabapentin 300 mg capsule TAKE ONE CAPSU LE BY MOUTH FOUR TIMES A DAY completed gabapentin 300 MG Oral Capsule [facility] ([facility]) Simvastatin 20 MG Oral Tablet simvastatin 20 mg tablet simva statin 20 mg tablet completed simvastatin 20 MG Oral Tablet [facility]XA ([facility]) Simvastatin 20 MG Oral Tablet simvastatin 20 mg tablet simva statin 20 mg tablet completed simvastatin 20 MG Oral Tablet [facility]XA ([facility]) Amoxicillin 875 MG / Clavulanate 125 MG Oral Tablet amoxicillin 875 mg-potassium clavulanate 125 mg tablet TAKE ONE TABLET BY MOUTH TWICE DAILY FOR 10 DAYS amoxicillin 875 mg-potassium clavulanate 125 mg tablet TAKE ONE TABLET BY MOUTH TWICE DAILY FOR 10 DAYS completed amoxicillin 875 MG / clavulanate 125 MG Oral Tablet [facility] ([facility]) Prednisone 20 MG Oral Tablet prednisone 20 mg tablet prednisone 20 mg tablet completed prednisone 20 MG Oral Tablet A[facility]XA ([facility]) Amoxicillin 875 MG / Clavulanate 125 MG Oral Tablet amoxicillin 875 mg-potassium clavulanate 125 mg tablet TAKE ONE TABLET BY MOUTH TWICE DAILY FOR 10 DAYS amoxicillin 875 mg-potassium clavulanate 125 mg tablet TAKE ONE TABLET BY MOUTH TWICE DAILY FOR 10 DAYS completed amoxicillin 875 MG / clavulanate 125 MG Oral Tablet [facility] ([facility]) Trazodone Hydrochloride 50 MG Oral Table t trazodone 50 mg tablet TAKE 1-2 TABLETS BY MOUTH EVERY EVENING NEEDED trazodone 50 mg tablet TAKE 1-2 TABLETS BY MOUTH EVERY EVENING NEEDED comp leted trazodone hydrochloride 50 MG Oral Tablet [facility] ([facility]) Simvastatin 20 MG Oral Tablet simvastatin 20 mg tablet simva statin 20 mg tablet completed simvastatin 20 MG Oral Tablet [facility] ([facility]) tizanidine 4 MG Oral Tablet tizanidine 4 mg tablet tizanidine 4 mg ta blet completed tizanidine 4 MG Oral Tablet [facility]XA ([facility]) tizanidine 4 MG Oral Tablet tizanidine 4 mg tablet tizanidine 4 mg ta blet completed tizanidine 4 MG Oral Tablet [facility] ([facility]) 12 HR Guaifenesin 600 MG Extended Releas e Oral Tablet Mucus Relief ER 600 mg tablet, extended release Mucus Relief ER 600 mg tablet, extended release completed 12 HR guaifenesin 60 0 MG Extended Release Oral Tablet [facility]XA ([facility]) Amoxicillin 875 MG / Clavulanate 125 MG Oral Tablet amoxicillin 875 mg-potassium clavulanate 125 mg tablet TAKE ONE TABLET BY MOUTH TWICE DAILY FOR 10 DAYS amoxicillin 875 mg-potassium clavulanate 125 mg tablet TAKE ONE TABLET BY MOUTH TWICE DAILY FOR 10 DAYS completed amoxicillin 875 MG / clavulanate 125 MG Oral Tablet [facility] ([facility]) Trazodone Hydrochloride 50 MG Oral Table t trazodone 50 mg tablet TAKE 1-2 TABLETS BY MOUTH EVERY EVENING NEEDED trazodone 50 mg tablet TAKE 1-2 TABLETS BY MOUTH EVERY EVENING NEEDED comp leted trazodone hydrochloride 50 MG Oral Tablet [facility] ([facility]) Ergocalciferol 21635 UNT Oral Capsule Vi tamin D2 1,250 mcg (50,000 unit) capsule Vitamin D2 1,250 mcg (50,000 unit) capsule completed ergocalciferol 1.25 MG Oral Capsule [facility] ([facility]) Trazodone Hydrochloride 50 MG Oral Table t trazodone 50 mg tablet TAKE 1-2 TABLETS BY MOUTH EVERY EVENING NEEDED trazodone 50 mg tablet TAKE 1-2 TABLETS BY MOUTH EVERY EVENING NEEDED comp leted trazodone hydrochloride 50 MG Oral Tablet [facility] ([facility]) Trazodone Hydrochloride 50 MG Oral Table t trazodone 50 mg tablet TAKE 1-2 TABLETS BY MOUTH EVERY EVENING NEEDED trazodone 50 mg tablet TAKE 1-2 TABLETS BY MOUTH EVERY EVENING NEEDED comp leted trazodone hydrochloride 50 MG Oral Tablet [facility] ([facility]) Metronidazole 500 MG Oral Tablet metroni dazole 500 mg tablet TAKE ONE TABLET BY MOUTH TWICE DAILY FOR 7 DAYS metronidazole 500 mg tablet TAKE ONE TAB LET BY MOUTH TWICE DAILY FOR 7 DAYS completed metronidazole 500 MG Oral Tablet [facility] ([facility]) Metronidazole 500 MG Oral Tablet metroni dazole 500 mg tablet TAKE ONE TABLET BY MOUTH TWICE DAILY FOR 7 DAYS metronidazole 500 mg tablet TAKE ONE TAB LET BY MOUTH TWICE DAILY FOR 7 DAYS completed metronidazole 500 MG Oral Tablet ALEXA ([facility]) Trazodone Hydrochloride 50 MG Oral Table t trazodone 50 mg tablet TAKE 1-2 TABLETS BY MOUTH EVERY EVENING NEEDED trazodone 50 mg tablet TAKE 1-2 TABLETS BY MOUTH EVERY EVENING NEEDED comp leted trazodone hydrochloride 50 MG Oral Tablet [facility] ([facility]) Ergocalciferol 83120 UNT Oral Capsule Vi tamin D2 1,250 mcg (50,000 unit) capsule Vitamin D2 1,250 mcg (50,000 unit) capsule completed ergocalciferol 1.25 MG Oral Capsule [facility]XA ([facility]) Trintellix 20 mg tablet TAKE ONE TABLET BY MOUTH ONCE DAILY [id number] completed vortioxetine 20 MG Oral Tablet [ Trintellix] [place] ([facility]) Ergocalciferol 94904 UNT Oral Capsule Vi tamin D2 1,250 mcg (50,000 unit) capsule Vitamin D2 1,250 mcg (50,000 unit) capsule completed ergocalciferol 1.25 MG Oral Capsule ALEXA ([facility]) Trintellix 20 mg tablet TAKE ONE TABLET BY MOUTH ONCE DAILY [id number] completed vortioxetine 20 MG Oral Tablet [ Trintellix] ALEXA ([facility]) Trintellix 20 mg tablet [id number] complet ed vortioxetine 20 MG Oral Tablet [Trintellix] [place] ([facility]) Nicotine 4 MG/ACTUAT Inhalant Solution [ Nicotrol] Nicotrol 10 mg inhalation cartridge Nicotrol 10 mg inhalation cartridge completed nicotine 4 MG Inhalation Solution [Nicotrol] [facility]) Prednisone 20 MG Oral Tablet prednisone 20 mg tablet prednisone 20 mg tablet completed prednisone 20 MG Oral Tablet [facility]XA ([facility]) Simvastatin 20 MG Oral Tablet simvastatin 20 mg tablet simva statin 20 mg tablet completed simvastatin 20 MG Oral Tablet [place] ([facility]) Metronidazole 500 MG Oral Tablet metroni dazole 500 mg tablet TAKE ONE TABLET BY MOUTH TWICE DAILY FOR 7 DAYS metronidazole 500 mg tablet TAKE ONE TAB LET BY MOUTH TWICE DAILY FOR 7 DAYS completed metronidazole 500 MG Oral Tablet [place] ([facility]) Trazodone Hydrochloride 50 MG Oral Table t trazodone 50 mg tablet TAKE 1-2 TABLETS BY MOUTH EVERY EVENING NEEDED trazodone 50 mg tablet TAKE 1-2 TABLETS BY MOUTH EVERY EVENING NEEDED comp leted trazodone hydrochloride 50 MG Oral Tablet [place] ([facility]) 12 HR Guaifenesin 600 MG Extended Releas e Oral Tablet Mucus Relief ER 600 mg tablet, extended release Mucus Relief ER 600 mg tablet, extended release completed 12 HR guaifenesin 60 0 MG Extended Release Oral Tablet [place] ([facility]) Prazosin 1 MG Oral Capsule prazosin 1 mg capsule prazosin 1 mg capsule completed prazosin 1 MG Oral Capsul e [place] ([facility]) Prazosin 1 MG Oral Capsule prazosin 1 mg capsule prazosin 1 mg capsule completed prazosin 1 MG Oral Capsul e ALEXA ([facility]) Ergocalciferol 90610 UNT Oral Capsule Vi tamin D2 1,250 mcg (50,000 unit) capsule Vitamin D2 1,250 mcg (50,000 unit) capsule completed ergocalciferol 1.25 MG Oral Capsule ALEXA ([facility]) Amoxicillin 875 MG / Clavulanate 125 MG Oral Tablet amoxicillin 875 mg-potassium clavulanate 125 mg tablet TAKE ONE TABLET BY MOUTH TWICE DAILY FOR 10 DAYS amoxicillin 875 mg-potassium clavulanate 125 mg tablet TAKE ONE TABLET BY MOUTH TWICE DAILY FOR 10 DAYS completed amoxicillin 875 MG / clavulanate 125 MG Oral Tablet ALEXA ([facility]) Amoxicillin 875 MG / Clavulanate 125 MG Oral Tablet amoxicillin 875 mg-potassium clavulanate 125 mg tablet TAKE ONE TABLET BY MOUTH TWICE DAILY FOR 10 DAYS amoxicillin 875 mg-potassium clavulanate 125 mg tablet TAKE ONE TABLET BY MOUTH TWICE DAILY FOR 10 DAYS completed amoxicillin 875 MG / clavulanate 125 MG Oral Tablet ALEXA ([facility]) Prednisone 20 MG Oral Tablet prednisone 20 mg tablet prednisone 20 mg tablet completed prednisone 20 MG Oral Tablet ALEXA ([facility]) Ergocalciferol 18945 UNT Oral Capsule Vi tamin D2 1,250 mcg (50,000 unit) capsule Vitamin D2 1,250 mcg (50,000 unit) capsule completed ergocalciferol 1.25 MG Oral Capsule ALEXA ([facility]) Trazodone Hydrochloride 50 MG Oral Table t trazodone 50 mg tablet TAKE 1-2 TABLETS BY MOUTH EVERY EVENING NEEDED trazodone 50 mg tablet TAKE 1-2 TABLETS BY MOUTH EVERY EVENING NEEDED comp leted trazodone hydrochloride 50 MG Oral Tablet ALEXA ([facility]) tizanidine 4 MG Oral Tablet tizanidine 4 mg tablet tizanidine 4 mg ta blet completed tizanidine 4 MG Oral Tablet ALEXA ([facility]) Ergocalciferol 01908 UNT Oral Capsule Vi tamin D2 1,250 mcg (50,000 unit) capsule Vitamin D2 1,250 mcg (50,000 unit) capsule completed ergocalciferol 1.25 MG Oral Capsule ALEXA ([facility]) Prednisone 20 MG Oral Tablet prednisone 20 mg tablet prednisone 20 mg tablet completed prednisone 20 MG Oral Tablet ALEXA ([facility]) Prazosin 1 MG Oral Capsule prazosin 1 mg capsule prazosin 1 mg capsule completed prazosin 1 MG Oral Capsul e ALEXA ([facility]) Amoxicillin 875 MG / Clavulanate 125 MG Oral Tablet amoxicillin 875 mg-potassium clavulanate 125 mg tablet TAKE ONE TABLET BY MOUTH TWICE DAILY FOR 10 DAYS amoxicillin 875 mg-potassium clavulanate 125 mg tablet TAKE ONE TABLET BY MOUTH TWICE DAILY FOR 10 DAYS completed amoxicillin 875 MG / clavulanate 125 MG Oral Tablet ALEXA ([facility]) gabapentin 300 MG Oral Capsule gabapenti n 300 mg capsule TAKE ONE CAPSULE BY MOUTH FOUR TIMES A DAY gabapentin 300 mg capsule TAKE ONE CAPSU LE BY MOUTH FOUR TIMES A DAY completed gabapentin 300 MG Oral Capsule ALEXA ([facility]) gabapentin 300 MG Oral Capsule gabapentin 300 mg capsu le gabapentin 300 mg capsule completed gabapentin 300 MG Oral Capsule ALEXA ([facility]) Simvastatin 20 MG Oral Tablet simvastatin 20 mg tablet simva statin 20 mg tablet completed simvastatin 20 MG Oral Tablet ALEXA ([facility]) gabapentin 300 MG Oral Capsule gabapenti n 300 mg capsule TAKE ONE CAPSULE BY MOUTH FOUR TIMES A DAY gabapentin 300 mg capsule TAKE ONE CAPSU LE BY MOUTH FOUR TIMES A DAY completed gabapentin 300 MG Oral Capsule ALEXA ([facility]) gabapentin 300 MG Oral Capsule gabapentin 300 mg capsu le gabapentin 300 mg capsule completed gabapentin 300 MG Oral Capsule ALEXA ([facility]) Prazosin 1 MG Oral Capsule prazosin 1 mg capsule prazosin 1 mg capsule completed prazosin 1 MG Oral Capsul e ALEXA ([facility]) Prazosin 1 MG Oral Capsule prazosin 1 mg capsule prazosin 1 mg capsule completed prazosin 1 MG Oral Capsul e ALEXA ([facility]) gabapentin 300 MG Oral Capsule gabapentin 300 mg capsu le gabapentin 300 mg capsule completed gabapentin 300 MG Oral Capsule ALEXA ([facility]) Trintellix 20 mg tablet [id number] complet ed vortioxetine 20 MG Oral Tablet [Trintellix] ALEXA ([facility]) Prednisone 20 MG Oral Tablet prednisone 20 mg tablet prednisone 20 mg tablet completed prednisone 20 MG Oral Tablet ALEXA ([facility]) Trazodone Hydrochloride 50 MG Oral Table t trazodone 50 mg tablet TAKE 1-2 TABLETS BY MOUTH EVERY EVENING NEEDED trazodone 50 mg tablet TAKE 1-2 TABLETS BY MOUTH EVERY EVENING NEEDED comp leted trazodone hydrochloride 50 MG Oral Tablet ALEXA ([facility]) Prazosin 1 MG Oral Capsule prazosin 1 mg capsule prazosin 1 mg capsule completed prazosin 1 MG Oral Capsul e [place] ([facility]) Amoxicillin 875 MG / Clavulanate 125 MG Oral Tablet amoxicillin 875 mg-potassium clavulanate 125 mg tablet TAKE ONE TABLET BY MOUTH TWICE DAILY FOR 10 DAYS amoxicillin 875 mg-potassium clavulanate 125 mg tablet TAKE ONE TABLET BY MOUTH TWICE DAILY FOR 10 DAYS completed amoxicillin 875 MG / clavulanate 125 MG Oral Tablet [place] ([facility]) Prazosin 1 MG Oral Capsule prazosin 1 mg capsule prazosin 1 mg capsule completed prazosin 1 MG Oral Capsul e [place] ([facility]) 12 HR Guaifenesin 600 MG Extended Releas e Oral Tablet Mucus Relief ER 600 mg tablet, extended release Mucus Relief ER 600 mg tablet, extended release completed 12 HR guaifenesin 60 0 MG Extended Release Oral Tablet [place] ([facility]) gabapentin 300 MG Oral Capsule gabapentin 300 mg capsu le gabapentin 300 mg capsule completed gabapentin 300 MG Oral Capsule [place] ([facility]) Nicotine 4 MG/ACTUAT Inhalant Solution [ Nicotrol] Nicotrol 10 mg inhalation cartridge Nicotrol 10 mg inhalation cartridge completed nicotine 4 MG Inhalation Solution [Nicotrol] [facility]) Trintellix 20 mg tablet [id number] [facility] ed vortioxetine 20 MG Oral Tablet [Trintellix] ALEXA ([facility]) Simvastatin 20 MG Oral Tablet simvastatin 20 mg tablet simva statin 20 mg tablet completed simvastatin 20 MG Oral Tablet ALEXA ([facility]) Trintellix 20 mg tablet TAKE ONE TABLET BY MOUTH ONCE DAILY [id number] completed vortioxetine 20 MG Oral Tablet [ Trintellix] [place] ([facility]) Trazodone Hydrochloride 50 MG Oral Tablet trazodone 50 mg tablet trazodone 50 mg tablet completed trazodone hydr ochloride 50 MG Oral Tablet [place] ([facility]) Simvastatin 20 MG Oral Tablet simvastatin 20 mg tablet simva statin 20 mg tablet completed simvastatin 20 MG Oral Tablet [facility]LEXA ([facility]) Metronidazole 500 MG Oral Tablet metroni dazole 500 mg tablet TAKE ONE TABLET BY MOUTH TWICE DAILY FOR 7 DAYS metronidazole 500 mg tablet TAKE ONE TAB LET BY MOUTH TWICE DAILY FOR 7 DAYS completed metronidazole 500 MG Oral Tablet ALEXA ([facility]) Ergocalciferol 95510 UNT Oral Capsule Vi tamin D2 1,250 mcg (50,000 unit) capsule Vitamin D2 1,250 mcg (50,000 unit) capsule completed ergocalciferol 1.25 MG Oral Capsule ALEXA ([facility]) Trintellix 20 mg tablet [id number] complet ed vortioxetine 20 MG Oral Tablet [Trintellix] ALEXA ([facility]) Simvastatin 20 MG Oral Tablet simvastatin 20 mg tablet simva statin 20 mg tablet completed simvastatin 20 MG Oral Tablet [facility]LEXA ([facility]) gabapentin 300 MG Oral Capsule gabapentin 300 mg capsu le gabapentin 300 mg capsule completed gabapentin 300 MG Oral Capsule ALEXA ([facility]) Insurance Providers Payer name Policy type / Coverage type Policy ID Covered constitution party ID Covered constitution party's relationship to garcia Policy Garcia Plan Information Medicaid S [id number] S [id number] Managed Care - Community Plan [facility] P [id number] S [id number] Managed Care - Community Plan [facility] P [id number] S [id number] Managed Care - [facility] Community Plan P [id number] S [id number] Medicaid S [id number] S [id number] Managed Care - [facility] Community Plan P [id number] S [id number] [facility] Plan Medicaid F [id number] SELF [id number] Medicaid S [id number] S [id number] [facility] [id number] SP [id number] [facility] COMMUNITY PLAN [facility] [id number] SP [id number] SP [id number] [facility] COMMUN[facility] PLAN [facility] [id number] SP [id number] [facility] [id number] SP [id number] [facility] O [id number] S [id number] [facility]) O [id number] S [id number] PROGRESSIVE CO NO FAULT [id number] PROGRESSIVE CO NO FAULT 00 [id number] 00 Problems, Conditions, and Diagnoses Code Display Name Description Problem Type Effective Dates Data Source(s) [id number] Bilateral swelling of finger of hands Bi lateral Swelling of Finger of Hands Problem 10/25/2020 12:00:00 AM EDT ALEXA ([facility]) [id number] Bilateral swelling of finger of hands Bi lateral Swelling of Finger of Hands Problem 10/25/2020 12:00:00 AM EDT ALEXA ([facility]) [id number] Bilateral swelling of finger of hands Bi lateral Swelling of Finger of Hands Problem 10/25/2020 12:00:00 AM EDT ALEXA ([facility]) [id number] Bilateral swelling of finger of hands Bi lateral Swelling of Finger of Hands Problem 10/25/2020 12:00:00 AM EDT ALEXA ([facility]) [id number] Wheezing Wheezing Problem 07/27/2020 12:00:00 AM LUÍS LIU ([facility]) [id number] Wheezing Wheezing Problem 07/27/2020 12:00:00 AM ES Minda LIU ([facility]) [id number] Wheezing Wheezing Problem 07/27/2020 12:00:00 AM ES Minda LIU ([facility]) [id number] Wheezing Wheezing Problem 07/27/2020 12:00:00 AM ES Minda LIU ([facility]) [id number] Wheezing Wheezing Problem 07/27/2020 12:00:00 AM LUÍS LIU ([facility]) [id number] Wheezing Wheezing Problem 07/27/2020 12:00:00 AM ES Minda LIU ([facility]) [id number] Edema Edema Problem 05/04/2020 12:00:00 AM LUÍS LIU ([facility]) [id number] Chronic depression Chronic Depression Problem 12:00:00 AM IVETT LIU ([facility]) [id number] Edema Edema Problem 05/04/2020 12:00:00 AM LUÍS LIU ([facility]) [id number] Chronic depression Chronic Depression Problem 12:00:00 AM IVETT LIU ([facility]) [id number] Edema Edema Problem 05/04/2020 12:00:00 AM LUÍS LIU ([facility]) [id number] Chronic depression Chronic Depression Problem 12:00:00 AM IVETT LIU ([facility]) [id number] Edema Edema Problem 05/04/2020 12:00:00 AM LUÍS LIU ([facility]) [id number] Chronic depression Chronic Depression Problem 12:00:00 AM IVETT LIU ([facility]) [id number] Edema Edema Problem 05/04/2020 12:00:00 AM ES Minda LIU ([facility]) [id number] Chronic depression Chronic Depression Problem 12:00:00 AM IVETT LIU ([facility]) [id number] Edema Edema Problem 05/04/2020 12:00:00 AM LUÍS LIU ([facility]) [id number] Chronic depression Chronic Depression Problem 12:00:00 AM IVETT LIU ([facility]) [id number] Edema Edema Problem 05/04/2020 12:00:00 AM LUÍS LIU ([facility]) [id number] Chronic depression Chronic Depression Problem 12:00:00 AM IVETT LIU ([facility]) Surgeries/Procedures Procedure Description Date Indications Data Source(s) OFFICE OUTPATIENT NEW 30 MINUTES 01/04/2021 12:00:00 A M EDT [facility] ([facility], ) OFFICE OUTPATIENT NEW 45 MINUTES 01/04/2021 12:00:00 A M EDT [facility] ([facility], ) Results ID Date Data Source [id number] 11/09/2020 08:04:00 AM EDT ALEXA ([facility]) Name Value Range Interpretation Code Description Data Iris rce(s) Supporting Document(s) Thyrotropin [Units/volume] in Serum or Plasma 1.78 mIU/L TSH W/reflex to FT4 [facility] ([facility]) ID Date Data Source [id number] 11/09/2020 08:04:00 AM EDT [facility]) Name Value Range Interpretation Code Description Data Iris rce(s) Supporting Document(s) C reactive protein [Mass/volume] in Serum or Plasma 2.3 mg/L <8 .0 C-reactive Protein [facility]) ID Date Data Source [id number] 11/09/2020 08:04:00 AM EDT [facility]) Name Value Range Interpretation Code Description Data Iris rce(s) Supporting Document(s) Erythrocyte sedimentation rate by Westergren method 2 mm/h < or = 20 Sed Rate by Modified Westergren [facility]) ID Date Data Source [id number] 11/09/2020 08:04:00 AM EDT [facility]) Name Value Range Interpretation Code Description Data Iris rce(s) Supporting Document(s) Creatinine [Mass/volume] in Serum or Plasma 0.71 mg/dL 0.50-1.10 Creatinine [facility] ([facility]) Glucose [Mass/volume] in Serum or Plasma 128 mg/dL 65-99 Above high normal Glucose [facility] ([facility]) Urea nitrogen [Mass/volume] in Serum or Plasma 13 mg/dL 7-25 Urea Nitrogen (BUN) [facility] ([facility]) Glomerular filtration rate/1.73 sq M.pre dicted among non-blacks [Volume Rate/Area] in Serum, Plasma or Blood by Creatinine-based formula (CKD-EPI) 104 mL/min/1.73m2 > or = 60 eGFR Non-afr. Citizen Of [place] [facility] ([facility]) Glomerular filtration rate/1.73 sq M.pre dicted among blacks [Volume Rate/Area] in Serum, Plasma or Blood by Creatinine-based formula (CKD-EPI) 120 mL/min/1.73m2 > or = 60 eGFR [facility] ([facility]) Urea nitrogen/Creatinine [Mass Ratio] in Serum or Plasma not applic able 6-22 BUN/creatinine Ratio [place] ([facility]) Potassium [Moles/volume] in Serum or Plasma 3.7 mmol/L 3.5-5.3 Potassium [facility] ([facility]) Sodium [Moles/volume] in Serum or Plasma 139 mmol/L 135-146 Sodium [facility] ([facility]) Carbon dioxide, total [Moles/volume] in Serum or Plasma 27 mmol/L 20-32 Carbon Dioxide [facility] ([facility]) Chloride [Moles/volume] in Serum or Plasma 102 mmol/L 98-110 Chloride [facility] ([facility]) Calcium [Mass/volume] in Serum or Plasma 9.4 mg/dL 8.6-10.2 Calcium [facility] ([facility]) Albumin [Mass/volume] in Serum or Plasma 4.3 g/dL 3.6-5.1 Albumin [place] ([facility]) Protein [Mass/volume] in Serum or Plasma 6.8 g/dL 6.1-8.1 Protein, Total [place] ([facility]) Alkaline phosphatase [Enzymatic activity/volume] in Serum or Plasma 63 U/L 31-125 Alkaline Phosphatase [facility] ([facility]) Albumin/Globulin [Mass Ratio] in Serum or Plasma 1.7 (calc) 1.0-2 .5 Albumin/globulin Ratio [place] ([facility]) Globulin [Mass/volume] in Serum by calculation 2.5 g/dL_(calc) 1.9- 3.7 Globulin [place] ([facility]) Bilirubin.total [Mass/volume] in Serum or Plasma 0.4 mg/dL 0.2-1 .2 Bilirubin, Total ALEXA ([facility]) Alanine aminotransferase [Enzymatic activity/volume] in Seru m or Plasma 10 U/L 6-29 Alt ALEXA ([facility]) Aspartate aminotransferase [Enzymatic activity/volume] in Serum or Plasma 14 U/L 10-30 Ast [place] ([facility]) ID Date Data Source [id number] 11/09/2020 08:04:00 AM EDT [place] ([facility]) Name Value Range Interpretation Code Description Data Iris rce(s) Supporting Document(s) Triglyceride [Mass/volume] in Serum or Plasma 201 mg/dL <150 Above high normal Triglycerides ALEXA ([facility]) Cholesterol in HDL [Mass/volume] in Serum or Plasma 42 mg/dL > or = 50 Below low normal HDL Cholesterol ALEXA ([facility]) Cholesterol [Mass/volume] in Serum or Plasma 225 mg/dL <200 Above high normal Cholesterol, Total [facility] ([facility]) Cholesterol.total/Cholesterol in HDL [Mass Ratio] in Serum o r Plasma 5.4 (calc) <5.0 Above high normal Chol/hdlc Ratio A[facility]XA ([facility]) Cholesterol in LDL [Mass/volume] in Serum or Plasma by calculation 148 mg/dL_(calc) Above high normal LDL-cholesterol ALEXA ([facility]) Cholesterol non HDL [Mass/volume] in Serum or Plasma 183 mg/dL_( calc) <130 Above high normal Non HDL Cholesterol [facility] ([facility]) ID Date Data Source [id number] 11/09/2020 08:04:00 AM EDT [facility]) Name Value Range Interpretation Code Description Data Iris rce(s) Supporting Document(s) Thyrotropin [Units/volume] in Serum or Plasma 1.78 mIU/L TSH W/reflex to FT4 [facility] ([facility]) ID Date Data Source [id number] 11/09/2020 08:04:00 AM EDT [facility]) Name Value Range Interpretation Code Description Data Iris rce(s) Supporting Document(s) C reactive protein [Mass/volume] in Serum or Plasma 2.3 mg/L <8 .0 C-reactive Protein [facility] ([facility]) ID Date Data Source [id number] 11/09/2020 08:04:00 AM EDT [facility]) Name Value Range Interpretation Code Description Data Iris rce(s) Supporting Document(s) Erythrocyte sedimentation rate by Westergren method 2 mm/h < or = 20 Sed Rate by Modified Westergren ALEXA ([facility]) ID Date Data Source [id number] 11/09/2020 08:04:00 AM EDT [place] ([facility]) Name Value Range Interpretation Code Description Data Iris rce(s) Supporting Document(s) Glucose [Mass/volume] in Serum or Plasma 128 mg/dL 65-99 Above high normal Glucose [place] ([facility]) Glomerular filtration rate/1.73 sq M.pre dicted among non-blacks [Volume Rate/Area] in Serum, Plasma or Blood by Creatinine-based formula (CKD-EPI) 104 mL/min/1.73m2 > or = 60 eGFR Non-afr. Citizen Of [place] ALEXA ([facility]) Creatinine [Mass/volume] in Serum or Plasma 0.71 mg/dL 0.50-1.10 Creatinine [place] ([facility]) Urea nitrogen [Mass/volume] in Serum or Plasma 13 mg/dL 7-25 Urea Nitrogen (BUN) [place] ([facility]) Glomerular filtration rate/1.73 sq M.pre dicted among blacks [Volume Rate/Area] in Serum, Plasma or Blood by Creatinine-based formula (CKD-EPI) 120 mL/min/1.73m2 > or = 60 eGFR [facility] ([facility]) Potassium [Moles/volume] in Serum or Plasma 3.7 mmol/L 3.5-5.3 Potassium [place] ([facility]) Sodium [Moles/volume] in Serum or Plasma 139 mmol/L 135-146 Sodium [facility] ([facility]) Urea nitrogen/Creatinine [Mass Ratio] in Serum or Plasma not applic able 6-22 BUN/creatinine Ratio [facility]XA ([facility]) Carbon dioxide, total [Moles/volume] in Serum or Plasma 27 mmol/L 20-32 Carbon Dioxide [facility]XA ([facility]) Calcium [Mass/volume] in Serum or Plasma 9.4 mg/dL 8.6-10.2 Calcium [facility] ([facility]) Chloride [Moles/volume] in Serum or Plasma 102 mmol/L 98-110 Chloride [place] ([facility]) Protein [Mass/volume] in Serum or Plasma 6.8 g/dL 6.1-8.1 Protein, Total [facility]XA ([facility]) Globulin [Mass/volume] in Serum by calculation 2.5 g/dL_(calc) 1.9- 3.7 Globulin [place] ([facility]) Albumin/Globulin [Mass Ratio] in Serum or Plasma 1.7 (calc) 1.0-2 .5 Albumin/globulin Ratio [place] ([facility]) Bilirubin.total [Mass/volume] in Serum or Plasma 0.4 mg/dL 0.2-1 .2 Bilirubin, Total [facility]XA ([facility]) Albumin [Mass/volume] in Serum or Plasma 4.3 g/dL 3.6-5.1 Albumin [place] ([facility]) Alkaline phosphatase [Enzymatic activity/volume] in Serum or Plasma 63 U/L 31-125 Alkaline Phosphatase [place] ([facility]) Aspartate aminotransferase [Enzymatic activity/volume] in Serum or Plasma 14 U/L 10-30 Ast [place] ([facility]) Alanine aminotransferase [Enzymatic activity/volume] in Seru m or Plasma 10 U/L 6-29 Alt ALEXA ([facility]) ID Date Data Source [id number] 11/09/2020 08:04:00 AM EDT [place] ([facility]) Name Value Range Interpretation Code Description Data Iris rce(s) Supporting Document(s) Cholesterol [Mass/volume] in Serum or Plasma 225 mg/dL <200 Above high normal Cholesterol, Total ALEXA ([facility]) Triglyceride [Mass/volume] in Serum or Plasma 201 mg/dL <150 Above high normal Triglycerides ALEXA ([facility]) Cholesterol in LDL [Mass/volume] in Serum or Plasma by calculation 148 mg/dL_(calc) Above high normal LDL-cholesterol ALEXA ([facility]) Cholesterol in HDL [Mass/volume] in Serum or Plasma 42 mg/dL > or = 50 Below low normal HDL Cholesterol [facility]XA ([facility]) Cholesterol.total/Cholesterol in HDL [Mass Ratio] in Serum o r Plasma 5.4 (calc) <5.0 Above high normal Chol/hdlc Ratio [facility] ([facility]) Cholesterol non HDL [Mass/volume] in Serum or Plasma 183 mg/dL_( calc) <130 Above high normal Non HDL Cholesterol [facility] ([facility]) ID Date Data Source [id number] 09/20/2020 12:00:00 AM EDT [facility] ([facility]) Name Value Range Interpretation Code Description Data Iris rce(s) Supporting Document(s) SARS-CoV-2 (COVID-19) RNA [Presence] in Respiratory specimen by OSITO with probe detection negative negative Sars-cov-2 [facility] ([facility]) ID Date Data Source [id number] 09/20/2020 12:00:00 AM EDT [facility] ([facility]) Name Value Range Interpretation Code Description Data Iris rce(s) Supporting Document(s) ID Date Data Source [id number] 09/20/2020 12:00:00 AM EDT [facility] ([facility]) Name Value Range Interpretation Code Description Data Iris rce(s) Supporting Document(s) SARS-CoV-2 (COVID-19) RNA [Presence] in Respiratory specimen by OSITO with probe detection negative negative Sars-cov-2 A[facility] ([facility]) ID Date Data Source [id number] 09/20/2020 12:00:00 AM EDT [facility] ([facility]) Name Value Range Interpretation Code Description Data Iris rce(s) Supporting Document(s) ID Date Data Source [id number] 09/20/2020 12:00:00 AM EDT [facility] ([facility]) Name Value Range Interpretation Code Description Data Iris rce(s) Supporting Document(s) SARS-CoV-2 (COVID-19) RNA [Presence] in Respiratory specimen by OSITO with probe detection negative negative Sars-cov-2 [facility] ([facility]) ID Date Data Source [id number] 09/20/2020 12:00:00 AM EDT [facility]XA ([facility]) Name Value Range Interpretation Code Description Data Iris rce(s) Supporting Document(s) ID Date Data Source [id number] 09/20/2020 12:00:00 AM EDT [facility] Name Value Range Interpretation Code Description Data Iris rce(s) Supporting Document(s) [facility] by [facility] [place]-[facility]19 and reported by [employer]. ID Date Data Source [id number] 09/20/2020 12:00:00 AM EDT A[facility]XA ([facility]) Name Value Range Interpretation Code Description Data Iris rce(s) Supporting Document(s) SARS-CoV-2 (COVID-19) RNA [Presence] in Respiratory specimen by OSITO with probe detection negative negative Sars-cov-2 [facility] ([facility]) ID Date Data Source [id number] 09/20/2020 12:00:00 AM EDT ALEXA ([facility]) Name Value Range Interpretation Code Description Data Iris rce(s) Supporting Document(s) ID Date Data Source PAP REQUEST FOR SERVICE 07/24/2020 12:00:00 AM EST eCW1 ([facility]) Name Value Range Interpretation Code Description Data Iris rce(s) Supporting Document(s) eCW1 ([facility]) ID Date Data Source [id number] 07/07/2020 12:00:00 AM EST ALEXA ([facility] [facility] [facility]) Name Value Range Interpretation Code Description Data Iris rce(s) Supporting Document(s) SARS-CoV-2 (COVID-19) RNA [Presence] in Respiratory specimen by OSITO with probe detection negative negative Sars-cov-2 [facility] ([facility]) ID Date Data Source [id number] 07/07/2020 12:00:00 AM EST [facility] ([facility]) Name Value Range Interpretation Code Description Data Iris rce(s) Supporting Document(s) ID Date Data Source [id number] 07/07/2020 12:00:00 AM EST [facility] ([facility]) Name Value Range Interpretation Code Description Data Iris rce(s) Supporting Document(s) SARS-CoV-2 (COVID-19) RNA [Presence] in Respiratory specimen by OSITO with probe detection negative negative Sars-cov-2 [facility] ([facility]) ID Date Data Source [id number] 07/07/2020 12:00:00 AM EST [facility] ([facility]) Name Value Range Interpretation Code Description Data Iris rce(s) Supporting Document(s) ID Date Data Source [id number] 07/07/2020 12:00:00 AM EST A[facility] ([facility]) Name Value Range Interpretation Code Description Data Iris rce(s) Supporting Document(s) SARS-CoV-2 (COVID-19) RNA [Presence] in Respiratory specimen by OSITO with probe detection negative negative Sars-cov-2 [facility] ([facility]) ID Date Data Source [id number] 07/07/2020 12:00:00 AM EST ALEXA ([facility]) Name Value Range Interpretation Code Description Data Iris rce(s) Supporting Document(s) ID Date Data Source [id number] 07/07/2020 12:00:00 AM EST [facility] ([facility]) Name Value Range Interpretation Code Description Data Iris rce(s) Supporting Document(s) SARS-CoV-2 (COVID-19) RNA [Presence] in Respiratory specimen by OSITO with probe detection negative negative Sars-cov-2 [facility] ([facility]) ID Date Data Source [id number] 07/07/2020 12:00:00 AM EST [facility] ([facility]) Name Value Range Interpretation Code Description Data Iris rce(s) Supporting Document(s) ID Date Data Source [id number] 07/07/2020 12:00:00 AM EST [facility]XA ([facility]) Name Value Range Interpretation Code Description Data Iris rce(s) Supporting Document(s) SARS-CoV-2 (COVID-19) RNA [Presence] in Respiratory specimen by OSITO with probe detection negative negative Sars-cov-2 [facility] ([facility]) ID Date Data Source [id number] 07/07/2020 12:00:00 AM EST ALEXA ([facility]) Name Value Range Interpretation Code Description Data Iris rce(s) Supporting Document(s) ID Date Data Source [id number] 07/07/2020 12:00:00 AM EST ALEXA ([facility]) Name Value Range Interpretation Code Description Data Iris rce(s) Supporting Document(s) SARS-CoV-2 (COVID-19) RNA [Presence] in Respiratory specimen by OSTIO with probe detection negative negative Sars-cov-2 ALEXA ([facility]) ID Date Data Source [id number] 07/07/2020 12:00:00 AM EST ALEXA ([facility]) Name Value Range Interpretation Code Description Data Iris rce(s) Supporting Document(s) ID Date Data Source [id number] 07/07/2020 12:00:00 AM EST [facility] Name Value Range Interpretation Code Description Data Iris rce(s) Supporting Document(s) SARS-CoV-2 NEGATIVE [facility] This lab was ordered by [facility] [place]-[facility]OVID19 and reported by [employer]. ID Date Data Source [id number] 05/29/2020 12:00:00 AM EST ALEXA ([facility]) Name Value Range Interpretation Code Description Data Iris rce(s) Supporting Document(s) SARS-CoV-2 (COVID-19) RNA [Presence] in Respiratory specimen by OSITO with probe detection negative negative Sars-cov-2 ALEXA ([facility]) ID Date Data Source [id number] 05/29/2020 12:00:00 AM EST [facility]LEXA ([facility]) Name Value Range Interpretation Code Description Data Iris rce(s) Supporting Document(s) ID Date Data Source [id number] 05/29/2020 12:00:00 AM EST ALEXA ([facility]) Name Value Range Interpretation Code Description Data Iris rce(s) Supporting Document(s) SARS-CoV-2 (COVID-19) RNA [Presence] in Respiratory specimen by OSITO with probe detection negative negative Sars-cov-2 ALEXA ([facility]) ID Date Data Source [id number] 05/29/2020 12:00:00 AM EST [facility]LEXA ([facility]) Name Value Range Interpretation Code Description Data Iris rce(s) Supporting Document(s) ID Date Data Source [id number] 05/29/2020 12:00:00 AM EST ALEXA ([facility]) Name Value Range Interpretation Code Description Data Iris rce(s) Supporting Document(s) SARS-CoV-2 (COVID-19) RNA [Presence] in Respiratory specimen by OSITO with probe detection negative negative Sars-cov-2 [facility] ([facility]) ID Date Data Source [id number] 05/29/2020 12:00:00 AM EST [facility] ([facility]) Name Value Range Interpretation Code Description Data Iris rce(s) Supporting Document(s) ID Date Data Source [id number] 05/29/2020 12:00:00 AM EST ALEXA ([facility]) Name Value Range Interpretation Code Description Data Iris rce(s) Supporting Document(s) SARS-CoV-2 (COVID-19) RNA [Presence] in Respiratory specimen by OSITO with probe detection negative negative Sars-cov-2 ALEXA ([facility]) ID Date Data Source [id number] 05/29/2020 12:00:00 AM EST ALEXA ([facility]) Name Value Range Interpretation Code Description Data Iris rce(s) Supporting Document(s) ID Date Data Source [id number] 05/29/2020 12:00:00 AM EST ALEXA ([facility]) Name Value Range Interpretation Code Description Data Iris rce(s) Supporting Document(s) SARS-CoV-2 (COVID-19) RNA [Presence] in Respiratory specimen by OSITO with probe detection negative negative Sars-cov-2 [facility] ([facility]) ID Date Data Source [id number] 05/29/2020 12:00:00 AM EST [facility]XA ([facility]) Name Value Range Interpretation Code Description Data Iris rce(s) Supporting Document(s) ID Date Data Source [id number] 05/29/2020 12:00:00 AM EST [facility]LEXA ([facility]) Name Value Range Interpretation Code Description Data Iris rce(s) Supporting Document(s) SARS-CoV-2 (COVID-19) RNA [Presence] in Respiratory specimen by OSITO with probe detection negative negative Sars-cov-2 [facility] ([facility]) ID Date Data Source [id number] 05/29/2020 12:00:00 AM EST [facility]LEXA ([facility]) Name Value Range Interpretation Code Description Data Iris rce(s) Supporting Document(s) ID Date Data Source [id number] 05/29/2020 12:00:00 AM EST [facility] ([facility]) Name Value Range Interpretation Code Description Data Iris rce(s) Supporting Document(s) SARS-CoV-2 (COVID-19) RNA [Presence] in Respiratory specimen by OSITO with probe detection negative negative Sars-cov-2 A[facility]XA ([facility]) ID Date Data Source [id number] 05/29/2020 12:00:00 AM EST [facility]XA ([facility]) Name Value Range Interpretation Code Description Data Iris rce(s) Supporting Document(s) ID Date Data Source [id number] 05/29/2020 12:00:00 AM EST [facility]XA ([facility]) Name Value Range Interpretation Code Description Data Iris rce(s) Supporting Document(s) SARS-CoV-2 (COVID-19) RNA [Presence] in Respiratory specimen by OSITO with probe detection negative negative Sars-cov-2 ALEXA ([facility]) ID Date Data Source [id number] 05/29/2020 12:00:00 AM EST ALEXA ([facility]) Name Value Range Interpretation Code Description Data Iris rce(s) Supporting Document(s) ID Date Data Source [id number] 05/29/2020 12:00:00 AM EST [facility]XA ([facility]) Name Value Range Interpretation Code Description Data Iris rce(s) Supporting Document(s) SARS-CoV-2 (COVID-19) RNA [Presence] in Respiratory specimen by OSITO with probe detection negative negative Sars-cov-2 [facility]XA ([facility]) ID Date Data Source [id number] 05/29/2020 12:00:00 AM EST [facility]XA ([facility]) Name Value Range Interpretation Code Description Data Iris rce(s) Supporting Document(s) ID Date Data Source [id number] 05/29/2020 12:00:00 AM EST [facility] Name Value Range Interpretation Code Description Data Iris rce(s) Supporting Document(s) SARS-CoV-2 NEGATIVE [facility] This lab was ordered by [employer] [facility] [place]-COVID19 and reported by [employer]. ID Date Data Source [id number] 03/15/2020 12:00:00 AM EDT ALEXA ([facility]) Name Value Range Interpretation Code Description Data Iris rce(s) Supporting Document(s) SARS-CoV-2 (COVID-19) RNA [Presence] in Respiratory specimen by OSITO with probe detection negative negative Sars-cov-2 ALEXA ([facility]) ID Date Data Source [id number] 03/15/2020 12:00:00 AM EDT ALEXA ([facility]) Name Value Range Interpretation Code Description Data Iris rce(s) Supporting Document(s) ID Date Data Source [id number] 03/15/2020 12:00:00 AM EDT ALEXA ([facility]) Name Value Range Interpretation Code Description Data Iris rce(s) Supporting Document(s) SARS-CoV-2 (COVID-19) RNA [Presence] in Respiratory specimen by OSITO with probe detection negative negative Sars-cov-2 ALEXA ([facility]) ID Date Data Source [id number] 03/15/2020 12:00:00 AM EDT ALEXA ([facility]) Name Value Range Interpretation Code Description Data Iris rce(s) Supporting Document(s) ID Date Data Source [id number] 03/15/2020 12:00:00 AM EDT ALEXA ([facility]) Name Value Range Interpretation Code Description Data Iris rce(s) Supporting Document(s) SARS-CoV-2 (COVID-19) RNA [Presence] in Respiratory specimen by OSITO with probe detection negative negative Sars-cov-2 ALEXA ([facility]) ID Date Data Source [id number] 03/15/2020 12:00:00 AM EDT ALEXA ([facility]) Name Value Range Interpretation Code Description Data Iris rce(s) Supporting Document(s) ID Date Data Source [id number] 03/15/2020 12:00:00 AM EDT ALEXA ([facility]) Name Value Range Interpretation Code Description Data Iris rce(s) Supporting Document(s) SARS-CoV-2 (COVID-19) RNA [Presence] in Respiratory specimen by OSITO with probe detection negative negative Sars-cov-2 A[facility] ([facility]) ID Date Data Source [id number] 03/15/2020 12:00:00 AM EDT ALEXA ([facility]) Name Value Range Interpretation Code Description Data Iris rce(s) Supporting Document(s) ID Date Data Source [id number] 03/15/2020 12:00:00 AM EDT ALEXA ([facility]) Name Value Range Interpretation Code Description Data Iris rce(s) Supporting Document(s) SARS-CoV-2 (COVID-19) RNA [Presence] in Respiratory specimen by OSITO with probe detection negative negative Sars-cov-2 ALEXA ([facility]) ID Date Data Source [id number] 03/15/2020 12:00:00 AM EDT [facility]LEXA ([facility]) Name Value Range Interpretation Code Description Data Iris rce(s) Supporting Document(s) ID Date Data Source [id number] 03/15/2020 12:00:00 AM EDT [place] ([facility]) Name Value Range Interpretation Code Description Data Iris rce(s) Supporting Document(s) SARS-CoV-2 (COVID-19) RNA [Presence] in Respiratory specimen by OSITO with probe detection negative negative Sars-cov-2 [facility] ([facility]) ID Date Data Source [id number] 03/15/2020 12:00:00 AM EDT [place] ([facility]) Name Value Range Interpretation Code Description Data Iris rce(s) Supporting Document(s) ID Date Data Source [id number] 03/15/2020 12:00:00 AM EDT [facility]XA ([facility]) Name Value Range Interpretation Code Description Data Iris rce(s) Supporting Document(s) SARS-CoV-2 (COVID-19) RNA [Presence] in Respiratory specimen by OSITO with probe detection negative negative Sars-cov-2 [facility] ([facility]) ID Date Data Source [id number] 03/15/2020 12:00:00 AM EDT [place] ([facility]) Name Value Range Interpretation Code Description Data Iris rce(s) Supporting Document(s) ID Date Data Source [id number] 03/15/2020 12:00:00 AM EDT [place] ([facility]) Name Value Range Interpretation Code Description Data Iris rce(s) Supporting Document(s) SARS-CoV-2 (COVID-19) RNA [Presence] in Respiratory specimen by OSITO with probe detection negative negative Sars-cov-2 [facility] ([facility]) ID Date Data Source [id number] 03/15/2020 12:00:00 AM EDT [facility]LEXA ([facility]) Name Value Range Interpretation Code Description Data Iris rce(s) Supporting Document(s) ID Date Data Source [id number] 03/15/2020 12:00:00 AM EDT [facility] ([facility]) Name Value Range Interpretation Code Description Data Iris rce(s) Supporting Document(s) SARS-CoV-2 (COVID-19) RNA [Presence] in Respiratory specimen by OSITO with probe detection negative negative Sars-cov-2 A[facility]XA ([facility]) ID Date Data Source [id number] 03/15/2020 12:00:00 AM EDT [facility]LEXA ([facility]) Name Value Range Interpretation Code Description Data Iris rce(s) Supporting Document(s) ID Date Data Source [id number] 03/15/2020 12:00:00 AM EDT ALEXA ([facility]) Name Value Range Interpretation Code Description Data Iris rce(s) Supporting Document(s) SARS-CoV-2 (COVID-19) RNA [Presence] in Respiratory specimen by OSITO with probe detection negative negative Sars-cov-2 [facility] ([facility]) ID Date Data Source [id number] 03/15/2020 12:00:00 AM EDT [facility] ([facility]) Name Value Range Interpretation Code Description Data Iris rce(s) Supporting Document(s) ID Date Data Source [id number] 03/15/2020 12:00:00 AM EDT [facility] ([facility]) Name Value Range Interpretation Code Description Data Iris rce(s) Supporting Document(s) SARS-CoV-2 (COVID-19) RNA [Presence] in Respiratory specimen by OSITO with probe detection negative negative Sars-cov-2 [facility] ([facility]) ID Date Data Source [id number] 03/15/2020 12:00:00 AM EDT [facility] ([facility]) Name Value Range Interpretation Code Description Data Iris rce(s) Supporting Document(s) ID Date Data Source [id number] 03/15/2020 12:00:00 AM EDT [facility] Name Value Range Interpretation Code Description Data Iris rce(s) Supporting Document(s) SARS-CoV-2 [facility] This lab was ordered by [facility] [place]-COVID19 and reported by [employer]. ID Date Data Source [id number] 02/18/2020 12:00:00 AM EDT [facility] ([facility]) Name Value Range Interpretation Code Description Data Iris rce(s) Supporting Document(s) SARS-CoV-2 (COVID-19) RNA [Presence] in Respiratory specimen by OSITO with probe detection negative negative Sars-cov-2 [facility] ([facility]) ID Date Data Source [id number] 02/18/2020 12:00:00 AM EDT [facility] ([facility]) Name Value Range Interpretation Code Description Data Iris rce(s) Supporting Document(s) ID Date Data Source [id number] 02/18/2020 12:00:00 AM EDT [facility] ([facility]) Name Value Range Interpretation Code Description Data Iris rce(s) Supporting Document(s) ID Date Data Source [id number] 02/18/2020 12:00:00 AM EDT [facility] ([facility]) Name Value Range Interpretation Code Description Data Iris rce(s) Supporting Document(s) SARS-CoV-2 (COVID-19) RNA [Presence] in Respiratory specimen by OSITO with probe detection negative negative Sars-cov-2 [facility] ([facility]) ID Date Data Source [id number] 02/18/2020 12:00:00 AM EDT [facility] ([facility]) Name Value Range Interpretation Code Description Data Iris rce(s) Supporting Document(s) ID Date Data Source [id number] 02/18/2020 12:00:00 AM EDT [facility] ([facility]) Name Value Range Interpretation Code Description Data Iris rce(s) Supporting Document(s) ID Date Data Source [id number] 02/18/2020 12:00:00 AM EDT [facility] ([facility]) Name Value Range Interpretation Code Description Data Iris rce(s) Supporting Document(s) SARS-CoV-2 (COVID-19) RNA [Presence] in Respiratory specimen by OSITO with probe detection negative negative Sars-cov-2 [facility] ([facility]) ID Date Data Source [id number] 02/18/2020 12:00:00 AM EDT [facility] ([facility]) Name Value Range Interpretation Code Description Data Iris rce(s) Supporting Document(s) ID Date Data Source [id number] 02/18/2020 12:00:00 AM EDT [facility] ([facility]) Name Value Range Interpretation Code Description Data Iris rce(s) Supporting Document(s) ID Date Data Source [id number] 02/18/2020 12:00:00 AM EDT [facility] ([facility]) Name Value Range Interpretation Code Description Data Iris rce(s) Supporting Document(s) SARS-CoV-2 (COVID-19) RNA [Presence] in Respiratory specimen by OSITO with probe detection negative negative Sars-cov-2 [facility] ([facility]) ID Date Data Source [id number] 02/18/2020 12:00:00 AM EDT [facility] ([facility]) Name Value Range Interpretation Code Description Data Iris rce(s) Supporting Document(s) ID Date Data Source [id number] 02/18/2020 12:00:00 AM EDT [facility] ([facility]) Name Value Range Interpretation Code Description Data Iris rce(s) Supporting Document(s) ID Date Data Source [id number] 02/18/2020 12:00:00 AM EDT [facility] ([facility]) Name Value Range Interpretation Code Description Data Iris rce(s) Supporting Document(s) SARS-CoV-2 (COVID-19) RNA [Presence] in Respiratory specimen by OSITO with probe detection negative negative Sars-cov-2 [facility] ([facility]) ID Date Data Source [id number] 02/18/2020 12:00:00 AM EDT [facility] ([facility]) Name Value Range Interpretation Code Description Data Iris rce(s) Supporting Document(s) ID Date Data Source [id number] 02/18/2020 12:00:00 AM EDT [facility] ([facility]) Name Value Range Interpretation Code Description Data Iris rce(s) Supporting Document(s) ID Date Data Source [id number] 02/18/2020 12:00:00 AM EDT [facility] ([facility]) Name Value Range Interpretation Code Description Data Iris rce(s) Supporting Document(s) SARS-CoV-2 (COVID-19) RNA [Presence] in Respiratory specimen by OSITO with probe detection negative negative Sars-cov-2 [facility] ([facility]) ID Date Data Source [id number] 02/18/2020 12:00:00 AM EDT [facility] ([facility]) Name Value Range Interpretation Code Description Data Iris rce(s) Supporting Document(s) ID Date Data Source [id number] 02/18/2020 12:00:00 AM EDT [facility] ([facility]) Name Value Range Interpretation Code Description Data Iris rce(s) Supporting Document(s) ID Date Data Source [id number] 02/18/2020 12:00:00 AM EDT [facility] ([facility]) Name Value Range Interpretation Code Description Data Iris rce(s) Supporting Document(s) SARS-CoV-2 (COVID-19) RNA [Presence] in Respiratory specimen by OSITO with probe detection negative negative Sars-cov-2 [facility] ([facility]) ID Date Data Source [id number] 02/18/2020 12:00:00 AM EDT [facility] ([facility]) Name Value Range Interpretation Code Description Data Iris rce(s) Supporting Document(s) ID Date Data Source [id number] 02/18/2020 12:00:00 AM EDT [facility] ([facility]) Name Value Range Interpretation Code Description Data Iris rce(s) Supporting Document(s) ID Date Data Source [id number] 02/18/2020 12:00:00 AM EDT [facility] ([facility]) Name Value Range Interpretation Code Description Data Iris rce(s) Supporting Document(s) SARS-CoV-2 (COVID-19) RNA [Presence] in Respiratory specimen by OSITO with probe detection negative negative Sars-cov-2 [facility] ([facility]) ID Date Data Source [id number] 02/18/2020 12:00:00 AM EDT [facility] ([facility]) Name Value Range Interpretation Code Description Data Iris rce(s) Supporting Document(s) ID Date Data Source [id number] 02/18/2020 12:00:00 AM EDT [facility] ([facility]) Name Value Range Interpretation Code Description Data Iris rce(s) Supporting Document(s) ID Date Data Source [id number] 02/18/2020 12:00:00 AM EDT [facility] ([facility]) Name Value Range Interpretation Code Description Data Iris rce(s) Supporting Document(s) SARS-CoV-2 (COVID-19) RNA [Presence] in Respiratory specimen by OSITO with probe detection negative negative Sars-cov-2 [facility] ([facility]) ID Date Data Source [id number] 02/18/2020 12:00:00 AM EDT [facility] ([facility]) Name Value Range Interpretation Code Description Data Iris rce(s) Supporting Document(s) ID Date Data Source [id number] 02/18/2020 12:00:00 AM EDT [facility] ([facility]) Name Value Range Interpretation Code Description Data Iris rce(s) Supporting Document(s) ID Date Data Source [id number] 02/18/2020 12:00:00 AM EDT [facility] ([facility]) Name Value Range Interpretation Code Description Data Iris rce(s) Supporting Document(s) SARS-CoV-2 (COVID-19) RNA [Presence] in Respiratory specimen by OSITO with probe detection negative negative Sars-cov-2 [facility] ([facility]) ID Date Data Source [id number] 02/18/2020 12:00:00 AM EDT [facility] ([facility]) Name Value Range Interpretation Code Description Data Iris rce(s) Supporting Document(s) ID Date Data Source [id number] 02/18/2020 12:00:00 AM EDT [facility] ([facility]) Name Value Range Interpretation Code Description Data Iris rce(s) Supporting Document(s) ID Date Data Source [id number] 02/18/2020 12:00:00 AM EDT [facility] ([facility]) Name Value Range Interpretation Code Description Data Iris rce(s) Supporting Document(s) SARS-CoV-2 (COVID-19) RNA [Presence] in Respiratory specimen by OSITO with probe detection negative negative Sars-cov-2 [facility] ([facility]) ID Date Data Source [id number] 02/18/2020 12:00:00 AM EDT [facility] ([facility]) Name Value Range Interpretation Code Description Data Iris rce(s) Supporting Document(s) ID Date Data Source [id number] 02/18/2020 12:00:00 AM EDT [facility] ([facility]) Name Value Range Interpretation Code Description Data Iris rce(s) Supporting Document(s) ID Date Data Source [id number] 02/18/2020 12:00:00 AM EDT [facility] ([facility]) Name Value Range Interpretation Code Description Data Iris rce(s) Supporting Document(s) SARS coronavirus 2 RNA [Presence] in Res piratory specimen by OSITO with probe detection negative negative Sars-cov-2 [facility] ([facility]) ID Date Data Source [id number] 02/18/2020 12:00:00 AM EDT [facility] ([facility]) Name Value Range Interpretation Code Description Data Iris rce(s) Supporting Document(s) ID Date Data Source [id number] 02/18/2020 12:00:00 AM EDT [facility] ([facility]) Name Value Range Interpretation Code Description Data Iris rce(s) Supporting Document(s) ID Date Data Source [id number] 02/18/2020 12:00:00 AM EDT [facility] Name Value Range Interpretation Code Description Data Iris rce(s) Supporting Document(s) SARS-CoV-2 [facility] This lab was ordered by [facility] [place]-[facility] and reported by [employer]. ID Date Data Source [id number] 02/15/2020 08:41:26 AM EDT [facility] Measurements & CalculationsHeight: 65 inches (5 ft. 5 in.) 165.10 cm Weight: 175 pounds 79.55 kg Body Mass Index (BMI): 29.23BMI Interpretation: OverweightBody Surface Area (BSA): 1.87Weight Management Education Done (Nutrition/Physical Activity)Vital SignsTemperature: 97.5FPulse Rate: 66 beats/minuteRespiratory Rate: 16 respirations/minuteBlood Pressure: 132/80 Vital Signs performed by: Erika Galvez MA, February 15, 2020 8:50 AMInitial Intake Information From: patientRoom #: 12Infectious Disease / Travel ScreeningRecent travel for you or any close contacts? NoHave you had any close contact with anyone diagnosed with or under investigation for COVID-19 (coronavirus)? NoFever? NoRespiratory symptoms: cough, cold, congestion, shortness of breath, difficulty breathing? NoLoss of smell? NoLoss of taste? NoSmoking, Tobacco, Vaping or Smoke Exposure StatusSmoke Status: current every day smokerTobacco Use: YesAdv to Quit: YesDo you vape? NoMenstrual HistoryLast Menstrual Period (LMP): 01/25/2020Any possibility of ? NoHealthcare HistorySince your last office visit...Have you been admitted to the hospital? NoHave you been to an emergency room (ER) or urgent care clinic? NoHave you seen another healthcare provider? Yes - [facility], Dr Escobedo you seen a dentist? Yes - [facility] Intake performed by: Erika Galvez MA, February 15, 2020 8:47 AMRate Your HealthIn general, would you say your health is? FairPain AssessmentAre you currently having any pain which... You would like your provider to address? No Affects your activity level? NoDepression Screening - PHQ-2Over the last two weeks, have you... Had little interest or pleasure in doing things? Not at all Been feeling down, depressed, or hopeless? Several days PHQ-2 Score: 1Anxiety Screening - CARRIE-2Over the last two weeks, have you been... Feeling nervous, anxious, or on edge? Nearly every day Unable to stop or control worr stephy? Nearly every day CARRIE-2 Score: 6Generalized Anxiety Disorder 7-Item Screening (CARRIE-7)Answer Guide:0 = Not at all1 = Several days2 = Over half the days3 = Nearly every dayOver the last 2 weeks, how often have you been bothered by the following problems?Feeling nervous, anxious, or on edge: 3Not being able to stop or control worryinWorrying too much about different things: 3Trouble relaxinBeing so restless that it's hard to sit still: 3Becoming easily annoyed or irritable: 3Feeling afraid as if something awful might happen: 1Answer Guide:0 = Not difficult at all1 = Somewhat difficult2 = Very difficult3 = Extremely difficultHow difficult have these made it for you to do your work, take care of things at home, or get along with other people? 3GAD-7 Screening Results CARRIE-2 Score: 6GAD-7 Score: 17Functional Impairment: Extremely difficultRecommendation: Severe anxietyPHQ-9 1. Over the last 2 weeks, patient reports the following frequency of symptoms: a. Little interest or pleasure in doing things -Not at all b. Feeling down, depressed, or hopeless -Several days c. Trouble falling asleep, staying asleep, or sleeping too much -Nearly every day d. Feeling tired or having little energy -More than half the days e. Poor appetite or overeating -Nearly every day f. Feeling bad about yourself, feeling that you are a failure, or feeling that you have let yourself or your family down -Several days g. Trouble concentrating on things such as reading the newspaper or watching television -Nearly every day h. Moving or speaking so slowly that other people could have noticed. Or being so fidgety or restless that you have been moving around a lot more than usual - Nearly every day i. Thinking that you would be better off or that you want to hurt yourself in some way -Not at all2. If you checked off any problems, how difficult have these problems made it for you to do your work, take care of things at home, or get along with other people? -Extremely DifficultToday's PHQ-9 Results Score: 16 Severity: Moderately Severe Diagnosis Recommendation: No recommendation Functional Impairment: Extremely DifficultScreening, Brief Intervention, & Referral to Treatment (SBIRT)Pre-Screening Questions How many times have you have 4 or more drinks in a day? 0How many times have you used an illegal drug or used a prescription medication for a non-medical reason? 0Performed by: Erika Galvez MA, February 15, 2020 8:49 AMPatient History Medical History:Hep C positivestroke 2000Surgical History:gallbladder removalFamily History:prostate cancer- fatherSocial/Personal History: Advised to Quit/Tobacco Education: YesChief Complaintreferral to psyc History of Present Illness (HPI)Has been seeing Dr. Clayton at [facility] for Trintellix but would like to switch here. On Trintellix for this. [facility] Problems with panic attacks. Problems focussing. Has had these issues for a while. Worse with time. GAD7 and PHQ9 reviewed.HPI performed by: Josh Del Toro MD, February 15, 2020 9:08 AMTransitions of Care InboundProblem ReviewProblem List was reviewed and/or updated during this visit.Medication Reconciliation & ReviewMedication List was reviewed and/or updated during this visit, including review of any iell-iri-okosjzx medications, herbal therapies, and/or supplements.Allergy ReviewAllergy List was reviewed and/or updated during this visit.Adult Preventive CareProvider Calculated and Reviewed all Clinical Protocols for patient today. Screening Tobacco Screening: Smoking Status: current every day smoker (02/15/2020) Tobacco Use: Currently (02/15/2020) Advised to Quit: Yes (02/15/2020)Labs/Meds/Other Counseling- Nutrition and Physical Activity:BMI Interpretation: Overweight (02/15/2020) Counseling: Done (02/15/2020) Physical Activity: Done (02/15/2020)Cancer Screening Pap Smear/HPV TestingReviewed: Previous Comments: Has appointment in house December [address] Del Toro (12/20/2019)Review of Systems General: Denies dizziness, fatigue. Cardiovascular: Denies chest pain, palpitations, feeling faint. Respiratory: Denies difficulty breathing, shortness of breath. Gastrointestinal: Denies diarrhea, constipation. Genitourinary: Denies burning with urination, urinary frequency, urinary urgency. Physical ExamGeneral Appearance: well nourished, well hydrated, no acute distressRespiratory, Auscultation: clear to auscultation bilaterally; no rales, rhonchi, or wheezesRespiratory, Effort: no intercostal retractions or use of accessory musclesCardiovascular, Auscultation: S1, S2 audible; no murmur, rub, or gallop; RRRGait & Station: normalOrientation: oriented to time, place, and personMood & Affect: no depression, anxiety, or agitationJudgment & Insight: intactCare Management Plan Transitions of CareInboundRate Your HealthIn general, would you say your health is? FairAssessment & Plan Problems:Assessed:Dysplasia of cervix uteri, unspecified (JPL44-A25.9) Assessment: Instructions: Strongly encouraged to keep upcoming initial appointment with OB.Panic disorder (ICD- 300.01) (KGI66-S99.0) Assessment: Instructions: Refer to telepsychiatry.Encouraged to follow up with Shanna for now for meds and with [facility] for MAT/counselling.Patient Instructions/Care Plan: Dysplasia of cervix uteri- unspecified: Strongly encouraged to keep upcoming initial appointment with OB.Panic disorder: Refer to telepsychiatry.Encouraged to follow up with Nancy for now for meds and with [facility] for MAT/counselling.Getting old [facility] from [facility]. Plan developed in collaboration with patient and/or familyMedications:GABAPENTIN 600 MG ORAL TABLETTRINTELLIX 20 MG ORAL TABLETMETHADONE HCL SOLUTIONAllergies:No Known Allergies (updated 12/20/2019) Orders:Adult - Ofc Vst, EST, Level III [CPT-94364] Telepsychiatry Consult [CPT- 42428] Follow-Up Return to clinic: 1 month for follow up Name Value Range Interpretation Code Description Data Iris rce(s) Supporting Document(s) ID Date Data Source [id number] 02/04/2020 07:21:00 AM EDT [facility] Name Value Range Interpretation Code Description Data Iris rce(s) Supporting Document(s) HEP C AB > 11.0 <0.8 H [facility] BG FASTING 137 mg/dL 70-100 H [facility] ID Date Data Source [id number] 02/04/2020 07:21:00 AM EDT [facility] Name Value Range Interpretation Code Description Data Iris rce(s) Supporting Document(s) HCT 44.0 % 36.0-47.0 N [facility] HGB 14.0 g/dL 12.0-15.5 N [facility] MCH 31.8 G/DL pg 32.0-36.5 L [facility] MCHC 29.7 PG % 27.0-33.0 N [facility] PLATELETS 262 10 10*3/mm3 150-450 N [facility] RBC 4.72 10 10*6/mm3 4.00-5.40 [facility] RDW 13.6 % 11.5-14.5 N [facility] WBC TOTAL 8.2 4.0-10.0 N [facility] Procedure Social History Code Duration Value Status Description Data Source(s ) Smoking 07/24/2020 12:00:00 AM EST Current Smoker completed Curre nt Smoker eCW1 ([facility]) Vital Signs ID Date Data Source UNK Name Value Range Interpretation Code Description Data Source(s) Diastolic blood pressure 76 mm[Hg] 76 mm[Hg] [facility] ([facility]) Body height 65 [in_i] 65 [in_i] [facility] ([facility]) Body mass index (BMI) [Ratio] 29.4 kg/m2 29.4 k g/m2 [facility] ([facility]) Systolic blood pressure 111 mm[Hg] 111 mm[Hg] A [facility] ([facility]) Body weight 2822 [oz_av] 2822 [oz_av] [facility] ([facility]) Body temperature 97.1 [degF] 97.1 [degF] [facility] ([facility] ) Diastolic blood pressure 80 mm[Hg] 80 mm[Hg] [facility] ([facility]) Body height 65 [in_i] 65 [in_i] [facility] ([facility]) Body mass index (BMI) [Ratio] 29.5 kg/m2 29.5 k g/m2 [facility] ([facility]) Systolic blood pressure 128 mm[Hg] 128 mm[Hg] A [facility] ([facility]) Body weight 2834 [oz_av] 2834 [oz_av] [facility] ([facility]) Diastolic blood pressure 83 mm[Hg] 83 mm[Hg] [facility] ([facility]) Body height 65 [in_i] 65 [in_i] [facility] ([facility]) Systolic blood pressure 125 mm[Hg] 125 mm[Hg] [facility] ([facility]) Body height 65 [in_i] 65 [in_i] [facility] ([facility]) Body height 65 [in_i] 65 [in_i] [facility] ([facility]) Body height 65 [in_i] 65 [in_i] [facility] ([facility]) Body height 65 [in_i] 65 [in_i] [facility] ([facility]) Body height 65 [in_i] 65 [in_i] [facility] ([facility]) Diastolic blood pressure 68 mm[Hg] 68 mm[Hg] [facility] ([facility]) Body height 65 [in_i] 65 [in_i] [facility] ([facility]) Body mass index (BMI) [Ratio] 29.5 kg/m2 29.5 k g/m2 [facility] ([facility]) Systolic blood pressure 120 mm[Hg] 120 mm[Hg] A [facility] ([facility]) Body weight 2834 [oz_av] 2834 [oz_av] [facility] ([facility]) Diastolic blood pressure 68 mm[Hg] 68 mm[Hg] [facility] ([facility]) Body height 65 [in_i] 65 [in_i] [facility] ([facility]) Body mass index (BMI) [Ratio] 29.5 kg/m2 29.5 k g/m2 [facility] ([facility]) Systolic blood pressure 120 mm[Hg] 120 mm[Hg] [facility] ([facility]) Body weight 2834 [oz_av] 2834 [oz_av] [facility] ([facility]) Diastolic blood pressure 68 mm[Hg] 68 mm[Hg] [facility] ([facility]) Body height 65 [in_i] 65 [in_i] [facility] ([facility]) Body mass index (BMI) [Ratio] 29.5 kg/m2 29.5 k g/m2 [facility] ([facility]) Systolic blood pressure 120 mm[Hg] 120 mm[Hg] A [facility] ([facility]) Body weight 2834 [oz_av] 2834 [oz_av] [facility] ([facility]) Diastolic blood pressure 68 mm[Hg] 68 mm[Hg] [facility] ([facility]) Body height 65 [in_i] 65 [in_i] [facility] ([facility]) Body mass index (BMI) [Ratio] 29.5 kg/m2 29.5 k g/m2 [facility] ([facility]) Systolic blood pressure 120 mm[Hg] 120 mm[Hg] A [facility] ([facility]) Body weight 2834 [oz_av] 2834 [oz_av] [facility] ([facility]) Diastolic blood pressure 79 mm[Hg] 79 mm[Hg] [facility] ([facility]) Body height 65 [in_i] 65 [in_i] [facility] ([facility]) Systolic blood pressure 133 mm[Hg] 133 mm[Hg] A [facility] ([facility]) Diastolic blood pressure 79 mm[Hg] 79 mm[Hg] [facility] ([facility]) Body height 65 [in_i] 65 [in_i] [facility] [facility]) Systolic blood pressure 133 mm[Hg] 133 mm[Hg] A THENA ([facility]) Diastolic blood pressure 79 mm[Hg] 79 mm[Hg] ALEXA ([facility]) Body height 65 [in_i] 65 [in_i] ALEXA ([facility]) Systolic blood pressure 133 mm[Hg] 133 mm[Hg] A THENA ([facility]) Body height 65 [in_i] 65 [in_i] ALEXA ([facility]) Body mass index (BMI) [Ratio] 29.7 kg/m2 29.7 k g/m2 ALEXA ([facility]) Body weight 2857.6 [oz_av] 2857.6 [oz_av] ATHMEG A ([facility]) Body height 65 [in_i] 65 [in_i] ALEXA ([facility]) Body mass index (BMI) [Ratio] 29.7 kg/m2 29.7 k g/m2 ALEXA ([facility]) Body weight 2857.6 [oz_av] 2857.6 [oz_av] ATHEN A ([facility]) Body height 65 [in_i] 65 [in_i] ALEXA ([facility]) Body mass index (BMI) [Ratio] 29.7 kg/m2 29.7 k g/m2 ALEXA ([facility]) Body weight 2857.6 [oz_av] 2857.6 [oz_av] ATHEN A ([facility]) Body height 65 [in_i] 65 [in_i] ALEXA ([facility]) Body mass index (BMI) [Ratio] 29.7 kg/m2 29.7 k g/m2 ALEXA ([facility]) Body weight 2857.6 [oz_av] 2857.6 [oz_av] ATHEN A ([facility]) Body height 65 [in_i] 65 [in_i] ALEXA ([facility]) Body mass index (BMI) [Ratio] 29.7 kg/m2 29.7 k g/m2 ALEXA ([facility]) Body weight 2857.6 [oz_av] 2857.6 [oz_av] ATHEN A ([facility]) Diastolic blood pressure 52 mm[Hg] 52 mm[Hg] ALEXA ([facility]) Body height 65 [in_i] 65 [in_i] ALEXA ([facility]) Body mass index (BMI) [Ratio] 29.1 kg/m2 29.1 k g/m2 ALEXA ([facility]) Systolic blood pressure 77 mm[Hg] 77 mm[Hg] Yariel SAMMYA ([facility]) Body weight 2800 [oz_av] 2800 [oz_av] ALEXA ([facility]) Diastolic blood pressure 52 mm[Hg] 52 mm[Hg] ALEXA ([facility]) Body height 65 [in_i] 65 [in_i] ALEXA ([facility]) Body mass index (BMI) [Ratio] 29.1 kg/m2 29.1 k g/m2 ALEXA ([facility]) Systolic blood pressure 77 mm[Hg] 77 mm[Hg] [facility] Body weight 2800 [oz_av] 2800 [oz_av] ALEXA ([facility]) Diastolic blood pressure 52 mm[Hg] 52 mm[Hg] ALEXA ([facility]) Body height 65 [in_i] 65 [in_i] ALEXA ([facility]) Body mass index (BMI) [Ratio] 29.1 kg/m2 29.1 k g/m2 ALEXA ([facility]) Systolic blood pressure 77 mm[Hg] 77 mm[Hg] [facility] Body weight 2800 [oz_av] 2800 [oz_av] ALEXA ([facility]) Diastolic blood pressure 52 mm[Hg] 52 mm[Hg] ALEXA ([facility]) Body height 65 [in_i] 65 [in_i] ALEXA ([facility]) Body mass index (BMI) [Ratio] 29.1 kg/m2 29.1 k g/m2 ALEXA ([facility]) Systolic blood pressure 77 mm[Hg] 77 mm[Hg] A THENA ([facility]) Body weight 2800 [oz_av] 2800 [oz_av] ALEXA ([facility]) Diastolic blood pressure 52 mm[Hg] 52 mm[Hg] ALEXA ([facility]) Body height 65 [in_i] 65 [in_i] ALEXA ([facility]) Body mass index (BMI) [Ratio] 29.1 kg/m2 29.1 k g/m2 ALEXA ([facility]) Systolic blood pressure 77 mm[Hg] 77 mm[Hg] [facility] Body weight 2800 [oz_av] 2800 [oz_av] ALEXA ([facility]) Diastolic blood pressure 52 mm[Hg] 52 mm[Hg] ALEXA ([facility]) Body height 65 [in_i] 65 [in_i] ALEXA ([facility]) Body mass index (BMI) [Ratio] 29.1 kg/m2 29.1 k g/m2 ALEXA ([facility]) Systolic blood pressure 77 mm[Hg] 77 mm[Hg] A THENA ([facility]) Body weight 2800 [oz_av] 2800 [oz_av] ALEXA ([facility]) Body weight 177 [lb_av] 177 [lb_av] eCW1 ([facility]) Body weight 80.29 kg 80.29 kg W1 ([facility]) Body height 54 [in_i] 54 [in_i] eCW1 ([facility]) Body mass index (BMI) [Ratio] 42.67 kg/m2 42.67 kg/m2 [facility] ([facility]) Systolic blood pressure 120 mm[Hg] 120 mm[Hg] e CW1 ([facility]) Diastolic blood pressure 72 mm[Hg] 72 mm[Hg] eCW1 ([facility]) Diastolic blood pressure 91 mm[Hg] 91 mm[Hg] ALEXA ([facility]) Body height 65 [in_i] 65 [in_i] ALEXA ([facility]) Systolic blood pressure 142 mm[Hg] 142 mm[Hg] A THENA ([facility]) Diastolic blood pressure 91 mm[Hg] 91 mm[Hg] ALEXA ([facility]) Body height 65 [in_i] 65 [in_i] ALEXA ([facility]) Systolic blood pressure 142 mm[Hg] 142 mm[Hg] A THENA ([facility]) Diastolic blood pressure 91 mm[Hg] 91 mm[Hg] ALEXA ([facility]) Body height 65 [in_i] 65 [in_i] ALEXA ([facility]) Systolic blood pressure 142 mm[Hg] 142 mm[Hg] A THENA ([facility]) Diastolic blood pressure 91 mm[Hg] 91 mm[Hg] ALEXA ([facility]) Body height 65 [in_i] 65 [in_i] ALEXA ([facility]) Systolic blood pressure 142 mm[Hg] 142 mm[Hg] A THENA ([facility]) Diastolic blood pressure 91 mm[Hg] 91 mm[Hg] ALEXA ([facility]) Body height 65 [in_i] 65 [in_i] ALEXA ([facility]) Systolic blood pressure 142 mm[Hg] 142 mm[Hg] A THENA ([facility]) Diastolic blood pressure 91 mm[Hg] 91 mm[Hg] ALEXA ([facility]) Body height 65 [in_i] 65 [in_i] ALEXA ([facility]) Systolic blood pressure 142 mm[Hg] 142 mm[Hg] A THENA ([facility]) Diastolic blood pressure 91 mm[Hg] 91 mm[Hg] ALEXA ([facility]) Body height 65 [in_i] 65 [in_i] ALEXA ([facility]) Systolic blood pressure 142 mm[Hg] 142 mm[Hg] A THENA ([facility]) Diastolic blood pressure 91 mm[Hg] 91 mm[Hg] ALEXA ([facility]) Body height 65 [in_i] 65 [in_i] ALEXA ([facility]) Systolic blood pressure 142 mm[Hg] 142 mm[Hg] A THENA ([facility]) Diastolic blood pressure 93 mm[Hg] 93 mm[Hg] ALEXA ([facility]) Body height 65 [in_i] 65 [in_i] ALEXA ([facility]) Systolic blood pressure 150 mm[Hg] 150 mm[Hg] A THENA ([facility]) Diastolic blood pressure 93 mm[Hg] 93 mm[Hg] ALEXA ([facility]) Body height 65 [in_i] 65 [in_i] ALEXA ([facility]) Systolic blood pressure 150 mm[Hg] 150 mm[Hg] A THENA ([facility]) Diastolic blood pressure 93 mm[Hg] 93 mm[Hg] ALEXA ([facility]) Body height 65 [in_i] 65 [in_i] ALEXA ([facility]) Systolic blood pressure 150 mm[Hg] 150 mm[Hg] A THENA ([facility]) Diastolic blood pressure 93 mm[Hg] 93 mm[Hg] ALEXA ([facility]) Body height 65 [in_i] 65 [in_i] ALEXA ([facility]) Systolic blood pressure 150 mm[Hg] 150 mm[Hg] A THENA ([facility]) Diastolic blood pressure 93 mm[Hg] 93 mm[Hg] ALEXA ([facility]) Body height 65 [in_i] 65 [in_i] ALEXA ([facility]) Systolic blood pressure 150 mm[Hg] 150 mm[Hg] A THENA ([facility]) Diastolic blood pressure 93 mm[Hg] 93 mm[Hg] ALEXA ([facility]) Body height 65 [in_i] 65 [in_i] ALEXA ([facility]) Systolic blood pressure 150 mm[Hg] 150 mm[Hg] A THENA ([facility]) Diastolic blood pressure 93 mm[Hg] 93 mm[Hg] ALEXA ([facility]) Body height 65 [in_i] 65 [in_i] ALEXA ([facility]) Systolic blood pressure 150 mm[Hg] 150 mm[Hg] A THENA ([facility]) Diastolic blood pressure 93 mm[Hg] 93 mm[Hg] ALEXA ([facility]) Body height 65 [in_i] 65 [in_i] ALEXA ([facility]) Systolic blood pressure 150 mm[Hg] 150 mm[Hg] A THENA ([facility]) Diastolic blood pressure 93 mm[Hg] 93 mm[Hg] ALEXA ([facility]) Body height 65 [in_i] 65 [in_i] ALEXA ([facility]) Systolic blood pressure 150 mm[Hg] 150 mm[Hg] A THENA ([facility]) Diastolic blood pressure 93 mm[Hg] 93 mm[Hg] ALEXA ([facility]) Body height 65 [in_i] 65 [in_i] ALEXA ([facility]) Systolic blood pressure 150 mm[Hg] 150 mm[Hg] A THENA ([facility]) Diastolic blood pressure 93 mm[Hg] 93 mm[Hg] ALEXA ([facility]) Body height 65 [in_i] 65 [in_i] ALEXA ([facility]) Systolic blood pressure 150 mm[Hg] 150 mm[Hg] A THENA ([facility]) Diastolic blood pressure 77 mm[Hg] 77 mm[Hg] ALEXA ([facility]) Body height 65 [in_i] 65 [in_i] ALEXA ([facility]) Body mass index (BMI) [Ratio] 29.5 kg/m2 29.5 k g/m2 ALEXA ([facility]) Systolic blood pressure 108 mm[Hg] 108 mm[Hg] A THENA ([facility]) Body weight 2834 [oz_av] 2834 [oz_av] ALEXA ([facility]) Diastolic blood pressure 77 mm[Hg] 77 mm[Hg] ALEXA ([facility]) Body height 65 [in_i] 65 [in_i] ALEXA ([facility]) Body mass index (BMI) [Ratio] 29.5 kg/m2 29.5 k g/m2 ALEXA ([facility]) Systolic blood pressure 108 mm[Hg] 108 mm[Hg] A THENA ([facility]) Body weight 2834 [oz_av] 2834 [oz_av] ALEXA ([facility]) Diastolic blood pressure 77 mm[Hg] 77 mm[Hg] ALEXA ([facility]) Body height 65 [in_i] 65 [in_i] ALEXA ([facility]) Body mass index (BMI) [Ratio] 29.5 kg/m2 29.5 k g/m2 ALEXA ([facility]) Systolic blood pressure 108 mm[Hg] 108 mm[Hg] A THENA ([facility]) Body weight 2834 [oz_av] 2834 [oz_av] ALEXA ([facility]) Diastolic blood pressure 77 mm[Hg] 77 mm[Hg] ALEXA ([facility]) Body height 65 [in_i] 65 [in_i] ALEXA ([facility]) Body mass index (BMI) [Ratio] 29.5 kg/m2 29.5 k g/m2 ALEXA ([facility]) Systolic blood pressure 108 mm[Hg] 108 mm[Hg] A THENA ([facility]) Body weight 2834 [oz_av] 2834 [oz_av] ALEXA ([facility]) Diastolic blood pressure 77 mm[Hg] 77 mm[Hg] ALEXA ([facility]) Body height 65 [in_i] 65 [in_i] ALEXA ([facility]) Body mass index (BMI) [Ratio] 29.5 kg/m2 29.5 k g/m2 ALEXA ([facility]) Systolic blood pressure 108 mm[Hg] 108 mm[Hg] [facility] Body weight 2834 [oz_av] 2834 [oz_av] ALEXA ([facility]) Diastolic blood pressure 77 mm[Hg] 77 mm[Hg] ALEXA ([facility]) Body height 65 [in_i] 65 [in_i] ALEXA ([facility]) Body mass index (BMI) [Ratio] 29.5 kg/m2 29.5 k g/m2 ALEXA ([facility]) Systolic blood pressure 108 mm[Hg] 108 mm[Hg] [facility] Body weight 2834 [oz_av] 2834 [oz_av] ALEXA ([facility]) Diastolic blood pressure 77 mm[Hg] 77 mm[Hg] ALEXA ([facility]) Body height 65 [in_i] 65 [in_i] ALEXA ([facility]) Body mass index (BMI) [Ratio] 29.5 kg/m2 29.5 k g/m2 ALEXA ([facility]) Systolic blood pressure 108 mm[Hg] 108 mm[Hg] [facility] Body weight 2834 [oz_av] 2834 [oz_av] ALEXA ([facility]) Diastolic blood pressure 80 mm[Hg] 80 mm[Hg] ALEXA ([facility]) Body height 65 [in_i] 65 [in_i] ALEXA ([facility]) Body mass index (BMI) [Ratio] 29.23 kg/m2 29.23 kg/m2 ALEXA ([facility]) Systolic blood pressure 132 mm[Hg] 132 mm[Hg] [facility] Body weight 2800 [oz_av] 2800 [oz_av] ALEXA ([facility]) Diastolic blood pressure 80 mm[Hg] 80 mm[Hg] ALEXA ([facility]) Body height 65 [in_i] 65 [in_i] ALEXA ([facility]) Body mass index (BMI) [Ratio] 29.23 kg/m2 29.23 kg/m2 ALEXA ([facility]) Systolic blood pressure 132 mm[Hg] 132 mm[Hg] [facility] Body weight 2800 [oz_av] 2800 [oz_av] ALEXA ([facility]) Diastolic blood pressure 80 mm[Hg] 80 mm[Hg] ALEXA ([facility]) Body height 65 [in_i] 65 [in_i] ALEXA ([facility]) Body mass index (BMI) [Ratio] 29.23 kg/m2 29.23 kg/m2 ALEXA ([facility]) Systolic blood pressure 132 mm[Hg] 132 mm[Hg] [facility] Body weight 2800 [oz_av] 2800 [oz_av] ALEXA ([facility]) Diastolic blood pressure 80 mm[Hg] 80 mm[Hg] ALEXA ([facility]) Body height 65 [in_i] 65 [in_i] ALEXA ([facility]) Body mass index (BMI) [Ratio] 29.23 kg/m2 29.23 kg/m2 ALEXA ([facility]) Systolic blood pressure 132 mm[Hg] 132 mm[Hg] [facility] Body weight 2800 [oz_av] 2800 [oz_av] ALEXA ([facility]) Diastolic blood pressure 80 mm[Hg] 80 mm[Hg] ALEXA ([facility]) Body height 65 [in_i] 65 [in_i] ALEXA ([facility]) Body mass index (BMI) [Ratio] 29.23 kg/m2 29.23 kg/m2 ALEXA ([facility]) Systolic blood pressure 132 mm[Hg] 132 mm[Hg] A THENA ([facility]) Body weight 2800 [oz_av] 2800 [oz_av] ALEXA ([facility]) Diastolic blood pressure 80 mm[Hg] 80 mm[Hg] ALEXA ([facility]) Body height 65 [in_i] 65 [in_i] ALEXA ([facility]) Body mass index (BMI) [Ratio] 29.23 kg/m2 29.23 kg/m2 ALEXA ([facility]) Systolic blood pressure 132 mm[Hg] 132 mm[Hg] [facility] Body weight 2800 [oz_av] 2800 [oz_av] ALEXA ([facility]) Diastolic blood pressure 78 mm[Hg] 78 mm[Hg] ALEXA ([facility]) Body height 65 [in_i] 65 [in_i] ALEXA ([facility]) Body mass index (BMI) [Ratio] 29.1 kg/m2 29.1 k g/m2 ALEXA ([facility]) Systolic blood pressure 123 mm[Hg] 123 mm[Hg] A THENA ([facility]) Body weight 175 [lb_av] 175 [lb_av] ALEXA ([facility]) Diastolic blood pressure 78 mm[Hg] 78 mm[Hg] ALEXA ([facility]) Body height 65 [in_i] 65 [in_i] ALEXA ([facility]) Body mass index (BMI) [Ratio] 29.1 kg/m2 29.1 k g/m2 ALEXA ([facility]) Systolic blood pressure 123 mm[Hg] 123 mm[Hg] A THENA ([facility]) Body weight 175 [lb_av] 175 [lb_av] ALEXA ([facility]) Diastolic blood pressure 78 mm[Hg] 78 mm[Hg] ALEXA ([facility]) Body height 65 [in_i] 65 [in_i] ALEXA ([facility]) Body mass index (BMI) [Ratio] 29.1 kg/m2 29.1 k g/m2 ALEXA ([facility]) Systolic blood pressure 123 mm[Hg] 123 mm[Hg] A THENA ([facility]) Body weight 175 [lb_av] 175 [lb_av] ALEXA ([facility]) Diastolic blood pressure 78 mm[Hg] 78 mm[Hg] ALEXA ([facility]) Body height 65 [in_i] 65 [in_i] ALEXA ([facility]) Body mass index (BMI) [Ratio] 29.1 kg/m2 29.1 k g/m2 ALEXA ([facility]) Systolic blood pressure 123 mm[Hg] 123 mm[Hg] A THENA ([facility]) Body weight 175 [lb_av] 175 [lb_av] ALEXA ([facility]) Diastolic blood pressure 78 mm[Hg] 78 mm[Hg] ALEXA ([facility]) Body height 65 [in_i] 65 [in_i] ALEXA ([facility]) Body mass index (BMI) [Ratio] 29.1 kg/m2 29.1 k g/m2 ALEXA ([facility]) Systolic blood pressure 123 mm[Hg] 123 mm[Hg] A THENA ([facility]) Body weight 175 [lb_av] 175 [lb_av] ALEXA ([facility]) Diastolic blood pressure 78 mm[Hg] 78 mm[Hg] ALEXA ([facility]) Body height 65 [in_i] 65 [in_i] ALEXA ([facility]) Body mass index (BMI) [Ratio] 29.1 kg/m2 29.1 k g/m2 ALEXA ([facility]) Systolic blood pressure 123 mm[Hg] 123 mm[Hg] A THENA ([facility]) Body weight 175 [lb_av] 175 [lb_av] ALEXA ([facility]) Diastolic blood pressure 78 mm[Hg] 78 mm[Hg] ALEXA ([facility]) Body height 65 [in_i] 65 [in_i] ALEXA ([facility]) Body mass index (BMI) [Ratio] 29.1 kg/m2 29.1 k g/m2 ALEXA ([facility]) Systolic blood pressure 123 mm[Hg] 123 mm[Hg] A THENA ([facility]) Body weight 175 [lb_av] 175 [lb_av] ALEXA ([facility]) Diastolic blood pressure 78 mm[Hg] 78 mm[Hg] ALEXA ([facility]) Body height 65 [in_i] 65 [in_i] ALEXA ([facility]) Body mass index (BMI) [Ratio] 29.1 kg/m2 29.1 k g/m2 ALEXA ([facility]) Systolic blood pressure 123 mm[Hg] 123 mm[Hg] A THENA ([facility]) Body weight 175 [lb_av] 175 [lb_av] ALEXA ([facility]) Diastolic blood pressure 78 mm[Hg] 78 mm[Hg] ALEXA ([facility]) Body height 65 [in_i] 65 [in_i] ALEXA ([facility]) Body mass index (BMI) [Ratio] 29.1 kg/m2 29.1 k g/m2 ALEXA ([facility]) Systolic blood pressure 123 mm[Hg] 123 mm[Hg] A THENA ([facility]) Body weight 175 [lb_av] 175 [lb_av] ALEXA ([facility]) Diastolic blood pressure 78 mm[Hg] 78 mm[Hg] ALEXA ([facility]) Body height 65 [in_i] 65 [in_i] ALEXA ([facility]) Body mass index (BMI) [Ratio] 29.1 kg/m2 29.1 k g/m2 ALEXA ([facility]) Systolic blood pressure 123 mm[Hg] 123 mm[Hg] A THENA ([facility]) Body weight 175 [lb_av] 175 [lb_av] ALEXA ([facility]) Diastolic blood pressure 78 mm[Hg] 78 mm[Hg] ALEXA ([facility]) Body height 65 [in_i] 65 [in_i] ALEXA ([facility]) Body mass index (BMI) [Ratio] 29.1 kg/m2 29.1 k g/m2 ALEXA ([facility]) Systolic blood pressure 123 mm[Hg] 123 mm[Hg] A THENA ([facility]) Body weight 175 [lb_av] 175 [lb_av] ALEXA ([facility]) Diastolic blood pressure 78 mm[Hg] 78 mm[Hg] ALEXA ([facility]) Body height 65 [in_i] 65 [in_i] ALEXA ([facility]) Body mass index (BMI) [Ratio] 29.1 kg/m2 29.1 k g/m2 ALEXA ([facility]) Systolic blood pressure 123 mm[Hg] 123 mm[Hg] A THENA ([facility]) Body weight 175 [lb_av] 175 [lb_av] ALEXA ([facility]) Diastolic blood pressure 78 mm[Hg] 78 mm[Hg] ALEXA ([facility]) Body height 65 [in_i] 65 [in_i] ALEXA ([facility]) Body mass index (BMI) [Ratio] 29.1 kg/m2 29.1 k g/m2 ALEXA ([facility]) Systolic blood pressure 123 mm[Hg] 123 mm[Hg] A THENA ([facility]) Body weight 175 [lb_av] 175 [lb_av] ALEXA ([facility]) Diastolic blood pressure 78 mm[Hg] 78 mm[Hg] ALEXA ([facility]) Body height 65 [in_i] 65 [in_i] ALEXA ([facility]) Body mass index (BMI) [Ratio] 29.1 kg/m2 29.1 k g/m2 ALEXA ([facility]) Systolic blood pressure 123 mm[Hg] 123 mm[Hg] A THENA ([facility]) Body weight 175 [lb_av] 175 [lb_av] ALEXA ([facility]) Patient Treatment Plan of Care Planned Activity Planned Date Details Description Data Source (s) Metronidazole 500 MG Oral Tablet 07/24/2020 12:00:00 AM EST W1 ([facility]) Trintellix 20 mg tablet TAKE ONE TABLET BY MOUTH ONCE DAILY ALEXA ([facility]) Trazodone Hydrochloride 50 MG Oral Tablet ALEXA ([facility]) tizanidine 4 MG Oral Tablet ALEXA ([facility]) Prednisone 20 MG Oral Tablet ALEXA ([facility]) Prazosin 1 MG Oral Capsule A THENA ([facility]) 12 HR Guaifenesin 600 MG Extended Release Oral Tablet ALEXA ([facility]) Metronidazole 500 MG Oral Tablet ALEXA ([facility]) gabapentin 300 MG Oral Capsule ALEXA ([facility]) Fluoxetine 10 MG Oral Capsule ALEXA ([facility]) Amoxicillin 875 MG / Clavulanate 125 MG Oral Tablet ALEXA ([facility]) Trintellix 20 mg tablet TAKE ONE TABLET BY MOUTH ONCE DAILY ALEXA ([facility]) Trazodone Hydrochloride 50 MG Oral Tablet ALEXA ([facility]) tizanidine 4 MG Oral Tablet ALEXA ([facility]) Prednisone 20 MG Oral Tablet ALEXA ([facility]) Prazosin 1 MG Oral Capsule A THENA ([facility]) Nicotine 4 MG/ACTUAT Inhalant Solution [Nicotrol] ALEXA ([facility]) 12 HR Guaifenesin 600 MG Extended Release Oral Tablet ALEXA ([facility]) Metronidazole 500 MG Oral Tablet ALEXA ([facility]) gabapentin 300 MG Oral Capsule ALEXA ([facility]) Amoxicillin 875 MG / Clavulanate 125 MG Oral Tablet ALEXA ([facility]) Trintellix 20 mg tablet TAKE ONE TABLET BY MOUTH ONCE DAILY ALEXA ([facility]) Trazodone Hydrochloride 50 MG Oral Tablet ALEXA ([facility]) tizanidine 4 MG Oral Tablet ALEXA ([facility]) Prednisone 20 MG Oral Tablet ALEXA ([facility]) Prazosin 1 MG Oral Capsule A THENA ([facility]) Nicotine 4 MG/ACTUAT Inhalant Solution [Nicotrol] ALEXA ([facility]) 12 HR Guaifenesin 600 MG Extended Release Oral Tablet ALEXA ([facility]) Metronidazole 500 MG Oral Tablet ALEXA ([facility]) gabapentin 300 MG Oral Capsule ALEXA ([facility]) Amoxicillin 875 MG / Clavulanate 125 MG Oral Tablet ALEXA ([facility]) Ergocalciferol 73456 UNT Oral Capsule ALEXA ([facility]) Trintellix 20 mg tablet ATHE NA ([facility]) Trazodone Hydrochloride 50 MG Oral Tablet ALEXA ([facility]) Simvastatin 20 MG Oral Tablet ALEXA ([facility]) Prednisone 20 MG Oral Tablet ALEXA ([facility]) Prazosin 1 MG Oral Capsule A THENA ([facility]) Metronidazole 500 MG Oral Tablet ALEXA ([facility]) gabapentin 300 MG Oral Capsule ALEXA ([facility]) Amoxicillin 875 MG / Clavulanate 125 MG Oral Tablet ALEXA ([facility]) Ergocalciferol 15147 UNT Oral Capsule ALEXA ([facility]) Trintellix 20 mg tablet ATHE NA ([facility]) Trazodone Hydrochloride 50 MG Oral Tablet ALEXA ([facility]) Simvastatin 20 MG Oral Tablet ALEXA ([facility]) Prednisone 20 MG Oral Tablet ALEXA ([facility]) Prazosin 1 MG Oral Capsule A THENA ([facility]) Metronidazole 500 MG Oral Tablet ALEXA ([facility]) gabapentin 300 MG Oral Capsule ALEXA ([facility]) Amoxicillin 875 MG / Clavulanate 125 MG Oral Tablet ALEXA ([facility]) Ergocalciferol 23791 UNT Oral Capsule ALEXA ([facility]) Trintellix 20 mg tablet ATHE NA ([facility]) Trazodone Hydrochloride 50 MG Oral Tablet ALEXA ([facility]) Simvastatin 20 MG Oral Tablet ALEXA ([facility]) Prednisone 20 MG Oral Tablet ALEXA ([facility]) Prazosin 1 MG Oral Capsule A THENA ([facility]) gabapentin 300 MG Oral Capsule ALEXA ([facility]) Amoxicillin 875 MG / Clavulanate 125 MG Oral Tablet ALEXA ([facility]) Ergocalciferol 08851 UNT Oral Capsule ALEXA ([facility]) Trintellix 20 mg tablet ATHE NA ([facility]) Trazodone Hydrochloride 50 MG Oral Tablet ALEXA ([facility]) Simvastatin 20 MG Oral Tablet ALEXA ([facility]) Prednisone 20 MG Oral Tablet ALEXA ([facility]) Prazosin 1 MG Oral Capsule A THENA ([facility]) gabapentin 300 MG Oral Capsule ALEXA ([facility]) Amoxicillin 875 MG / Clavulanate 125 MG Oral Tablet ALEXA ([facility]) Trintellix 20 mg tablet TAKE ONE TABLET BY MOUTH ONCE DAILY ALEXA ([facility]) Trazodone Hydrochloride 50 MG Oral Tablet ALEXA ([facility]) Prednisone 20 MG Oral Tablet ALEXA ([facility]) Prazosin 1 MG Oral Capsule A THENA ([facility]) 12 HR Guaifenesin 600 MG Extended Release Oral Tablet ALEXA ([facility]) Metronidazole 500 MG Oral Tablet ALEXA ([facility]) gabapentin 300 MG Oral Capsule ALEXA ([facility]) Amoxicillin 875 MG / Clavulanate 125 MG Oral Tablet ALEXA ([facility]) Ergocalciferol 14269 UNT Oral Capsule ALEXA ([facility]) Trintellix 20 mg tablet ATHE NA ([facility]) Trazodone Hydrochloride 50 MG Oral Tablet ALEXA ([facility]) Simvastatin 20 MG Oral Tablet ALEXA ([facility]) Prednisone 20 MG Oral Tablet ALEXA ([facility]) Prazosin 1 MG Oral Capsule A THENA ([facility]) gabapentin 300 MG Oral Capsule ALEXA ([facility]) Amoxicillin 875 MG / Clavulanate 125 MG Oral Tablet ALEXA ([facility]) Trintellix 20 mg tablet TAKE ONE TABLET BY MOUTH ONCE DAILY ALEXA ([facility]) Trazodone Hydrochloride 50 MG Oral Tablet ALEXA ([facility]) Prednisone 20 MG Oral Tablet ALEXA ([facility]) Prazosin 1 MG Oral Capsule A THENA ([facility]) 12 HR Guaifenesin 600 MG Extended Release Oral Tablet ALEXA ([facility]) Metronidazole 500 MG Oral Tablet ALEXA ([facility]) gabapentin 300 MG Oral Capsule ALEXA ([facility]) Amoxicillin 875 MG / Clavulanate 125 MG Oral Tablet ALEXA ([facility]) Ergocalciferol 40719 UNT Oral Capsule ALEXA ([facility]) Trintellix 20 mg tablet ATHE NA ([facility]) Trazodone Hydrochloride 50 MG Oral Tablet ALEXA ([facility]) Simvastatin 20 MG Oral Tablet ALEXA ([facility]) Prednisone 20 MG Oral Tablet ALEXA ([facility]) Prazosin 1 MG Oral Capsule A THENA ([facility]) gabapentin 300 MG Oral Capsule ALEXA ([facility]) Amoxicillin 875 MG / Clavulanate 125 MG Oral Tablet ALEXA ([facility]) Ergocalciferol 89000 UNT Oral Capsule ALEXA ([facility]) Trintellix 20 mg tablet ATHE NA ([facility]) Trazodone Hydrochloride 50 MG Oral Tablet ALEXA ([facility]) Simvastatin 20 MG Oral Tablet ALEXA ([facility]) Prednisone 20 MG Oral Tablet ALEXA ([facility]) Prazosin 1 MG Oral Capsule A THENA ([facility]) gabapentin 300 MG Oral Capsule ALEXA ([facility]) Amoxicillin 875 MG / Clavulanate 125 MG Oral Tablet ALEXA ([facility]) Ergocalciferol 26048 UNT Oral Capsule ALEXA ([facility]) Trintellix 20 mg tablet ATHE NA ([facility]) Trazodone Hydrochloride 50 MG Oral Tablet ALEXA ([facility]) Simvastatin 20 MG Oral Tablet ALEXA ([facility]) gabapentin 300 MG Oral Capsule ALEXA ([facility]) Amoxicillin 875 MG / Clavulanate 125 MG Oral Tablet ALEXA ([facility]) Ergocalciferol 24611 UNT Oral Capsule ALEXA ([facility]) Trintellix 20 mg tablet ATHE NA ([facility]) Trazodone Hydrochloride 50 MG Oral Tablet ALEXA ([facility]) Simvastatin 20 MG Oral Tablet ALEXA ([facility]) gabapentin 300 MG Oral Capsule ALEXA ([facility]) Amoxicillin 875 MG / Clavulanate 125 MG Oral Tablet ALEXA ([facility]) Ergocalciferol 16931 UNT Oral Capsule ALEXA ([facility]) Trintellix 20 mg tablet ATHE NA ([facility]) Trazodone Hydrochloride 50 MG Oral Tablet ALEXA ([facility]) Simvastatin 20 MG Oral Tablet ALEXA ([facility]) gabapentin 300 MG Oral Capsule ALEXA ([facility]) Amoxicillin 875 MG / Clavulanate 125 MG Oral Tablet ALEXA ([facility]) Trintellix 20 mg tablet TAKE ONE TABLET BY MOUTH ONCE DAILY ALEXA ([facility]) Trazodone Hydrochloride 50 MG Oral Tablet ALEXA ([facility]) Prednisone 20 MG Oral Tablet ALEXA ([facility]) Prazosin 1 MG Oral Capsule A THENA ([facility]) gabapentin 300 MG Oral Capsule ALEXA ([facility]) Amoxicillin 875 MG / Clavulanate 125 MG Oral Tablet ALEXA ([facility]) Ergocalciferol 56033 UNT Oral Capsule ALEXA ([facility]) Trintellix 20 mg tablet ATHE NA ([facility]) Trazodone Hydrochloride 50 MG Oral Tablet ALEXA ([facility]) Simvastatin 20 MG Oral Tablet ALEXA ([facility]) gabapentin 300 MG Oral Capsule ALEXA ([facility]) Ergocalciferol 44746 UNT Oral Capsule ALEXA ([facility]) Trintellix 20 mg tablet ATHE NA ([facility]) Trazodone Hydrochloride 50 MG Oral Tablet ALEXA ([facility]) Simvastatin 20 MG Oral Tablet ALEXA ([facility]) gabapentin 300 MG Oral Capsule ALEXA ([facility]) Ergocalciferol 83052 UNT Oral Capsule ALEXA ([facility]) Trintellix 20 mg tablet ATHE NA ([facility]) Trazodone Hydrochloride 50 MG Oral Tablet ALEXA ([facility]) Simvastatin 20 MG Oral Tablet ALEXA ([facility]) Prazosin 1 MG Oral Capsule A THENA ([facility]) gabapentin 300 MG Oral Capsule ALEXA ([facility]) Ergocalciferol 75315 UNT Oral Capsule ALEXA ([facility]) Trintellix 20 mg tablet ATHE NA ([facility]) Trazodone Hydrochloride 50 MG Oral Tablet ALEXA ([facility]) Simvastatin 20 MG Oral Tablet ALEXA ([facility]) Prednisone 20 MG Oral Tablet ALEXA ([facility]) Prazosin 1 MG Oral Capsule A THENA ([facility]) Metronidazole 500 MG Oral Tablet ALEXA ([facility]) gabapentin 300 MG Oral Capsule ALEXA ([facility]) Amoxicillin 875 MG / Clavulanate 125 MG Oral Tablet ALEXA ([facility]) Trintellix 20 mg tablet TAKE ONE TABLET BY MOUTH ONCE DAILY ALEXA ([facility]) Trazodone Hydrochloride 50 MG Oral Tablet ALEXA ([facility]) tizanidine 4 MG Oral Tablet ALEXA ([facility]) Prednisone 20 MG Oral Tablet ALEXA ([facility]) Prazosin 1 MG Oral Capsule A THENA ([facility]) Nicotine 4 MG/ACTUAT Inhalant Solution [Nicotrol] [place] ([facility]) 12 HR Guaifenesin 600 MG Extended Release Oral Tablet ALEXA ([facility]) Metronidazole 500 MG Oral Tablet ALEXA ([facility]) gabapentin 300 MG Oral Capsule ALEXA ([facility]) Amoxicillin 875 MG / Clavulanate 125 MG Oral Tablet ALEXA ([facility])
[2021-03-05] MEDS ORDERED: NS 1,000 ML IV ONE (15:15)
[2021-03-05] MEDS ORDERED: KETOROLAC 30 MG/ML 1ML VIAL IV ONE (15:15)
[2021-03-05 15:39] LABS: BASO # 0.1 10^3/uL (0.0-0.2); BASO % 0.3 % (0.0-1.0); EOS # 0.2 10^3/uL (0.0-0.5); EOS % 0.9 % (0.0-3.0); HEMATOCRIT 41.9 % (36.0-47.0); HEMOGLOBIN 14.2 g/dl (12.0-15.5); LYMPH # 1.4 10^3/uL (1.5-5.0); LYMPH % 7.9 % (24.0-44.0); MEAN CORPUSCULAR HEMOGLOBIN 31.8 pg (27.0-33.0); MEAN CORPUSCULAR HGB CONC 33.9 g/dl (32.0-36.5); MEAN CORPUSCULAR VOLUME 93.7 fl (80.0-96.0); MONO # 1.1 10^3/uL (0.0-0.8); MONO % 6.3 % (2.0-8.0); NEUTROPHILS # 14.4 10^3/uL (1.5-8.5); NEUTROPHILS % 84.1 % (36.0-66.0); PLATELET COUNT, AUTOMATED 229 10^3/uL (150-450); RED BLOOD COUNT 4.47 10^6/uL (4.00-5.40); WHITE BLOOD COUNT 17.2 10^3/uL (4.0-10.0)
--- NOTE | 2021-03-05 15:56 | REP ---
INDICATION: Abdominal Pain. COMPARISON: Chest 10/02/2018. TECHNIQUE: Supine and erect views abdomen, frontal view chest. FINDINGS: There is no evidence of free intraperitoneal air. There is no evidence of small bowel obstruction. Mild air is scattered throughout the colon. Multiple phleboliths are seen in the pelvis. Metallic clips are seen in the right upper quadrant. There are mild degenerative changes of the spine. No infiltrate is seen in either lung. The heart and mediastinum are unremarkable. IMPRESSION: No evidence of free air or obstruction. <Electronically signed by Pradeep Banks > 03/05/21 [id number]
--- OUTSIDE RECORDS SUMMARY | 2021-03-05 16:02 | CCD ---
Author Author [facility] Organization [facility] Address Unknown Phone Unavailable Care Team Providers Care Rug Renovator Name Role Phone Beverley Del Toro MD [...] Beverley Del Toro MD Unavailable Unavailable Beverley Dle Toro MD Unavailable Unavailable Beverley Del Toro [...] Unavailable Unavailable Rick Elliott MD Unavailable Unavailable Rikc Elliott MD Unavailable Unavailable Rick Elliott MD [...] Pelaez MD Unavailable Unavailable Jumalon, M Olga INSERTING OPERATOR Unavailable Unavailable Jumalon, M Loga INSERTING OPERATOR Unavailable Unavailable Jumalon, M Olga INSERTING OPERATOR Unavailable Unavailable Jumalon, M Olga INSERTING OPERATOR Unavailable Unavailable Jumalon, M Olga INSERTING OPERATOR Unavailable Unavailable Jumalon, M Olga INSERTING OPERATOR Unavailable Unavailable Jumalon, M Olga INSERTING OPERATOR Unavailable Unavailable Jumalon, M Olga INSERTING OPERATOR Unavailable Unavailable Jumalon, M Olga INSERTING OPERATOR Unavailable Unavailable Jumalon, M Olga INSERTING OPERATOR Unavailable Unavailable Jumalon, M Olga INSERTING OPERATOR Unavailable Unavailable Jumalon, M Olga INSERTING OPERATOR Unavailable Unavailable Jumalon, M Olga INSERTING OPERATOR Unavailable Unavailable Jumalon, M Olga INSERTING OPERATOR Unavailable Unavailable Jumalon, M Olga INSERTING OPERATOR Unavailable Unavailable Jumalon, M Olga INSERTING OPERATOR Unavailable Unavailable Jumalon, M Olga INSERTING OPERATOR Unavailable Unavailable Jumalon, M Olga INSERTING OPERATOR Unavailable Unavailable Jumalon, M Olga INSERTING OPERATOR Unavailable Unavailable Jumalon, M Olga INSERTING OPERATOR Unavailable Unavailable Jumalon, M Olga INSERTING OPERATOR Unavailable Unavailable Jumalon, M Olga INSERTING OPERATOR Unavailable Unavailable Jumalon, M Olga INSERTING OPERATOR Unavailable Unavailable Jumalon, M Olga INSERTING OPERATOR Unavailable Unavailable Jumalon, M Olga INSERTING OPERATOR Unavailable Unavailable Jumalon, M Olga INSERTING OPERATOR Unavailable Unavailable Jumalon, M Olga INSERTING OPERATOR Unavailable Unavailable Jumalon, M Olga INSERTING OPERATOR Unavailable Unavailable Jumalon, M Olga INSERTING OPERATOR Unavailable Unavailable Jumalon, M Olga INSERTING OPERATOR Unavailable Unavailable Beverley Del Toro MD [...] is protected by Article 27-F of the [facility] Public Health law. If you continue you may have access to information: Regarding HIV / AIDS; Provided by facilities licensed or operated by the [facility] Office of Mental Health; or Provided by the [facility] Office for People With Developmental Disabilities. If such information is present, then the following [place] mandated warning applies: This information has [...] law may result in a fine or prison sentence or both. A general authorization for the release of medical or other information is NOT sufficient authorization for further disc losure. Encounters Encounter Providers Location Date Indications Data Source(s ) Josh Del Toro MD: [address] [place] [address], Ph. Attender: Josh Del Toro MD [facility] Medical 01/11/2021 12:00:00 AM EDT ALEXA ([facility]) Outpatient Attender: Josh Haas/Jesus/Lance/Re indl 01/04/2021 02:15:00 PM EDT MED[facility] ([facility], ) Josh Del Toro MD: [address] [place] [address], Ph. Attender: Josh Del Toro MD [facility] Medical 12/12/2020 12:00:00 AM EDT [facility] ([facility]) Olga Mejia, CALL CENTER RECRUITER: [address], [address], [place] [address], Ph. Attender: Olga [facility] - [facility] - Main Office 12/04/2020 12:00:00 AM EDT ATHE KORI ([facility]) Mariana Pelaez MD: [address] [place] [address], Ph. Attender: Mariana Pelaez MD [facility] Medical 11/30/2020 12:00:00 AM EDT A[facility] ([facility]) Mariana Pelaez MD: [address] [place] [address], Ph. Attender: Mariana Pelaez MD [facility] Medical 11/30/2020 12:00:00 AM EDT [facility] ([facility]) Josh Del Toro MD: [address] [place] [address], Ph. Attender: Josh Del Toro MD [facility] Medical 11/09/2020 12:00:00 AM EDT [facility] ([facility]) Josh Del Toro MD: [address] [place] [address], Ph. Attender: Josh Del Toro MD [facility] Medical 11/09/2020 12:00:00 AM EDT [facility] ([facility]) Josh Del Toro MD: [address] [place] [address], Ph. Attender: Josh Del Toro MD [facility] Medical 11/09/2020 12:00:00 AM EDT [facility] ([facility]) Recurring Patient Referrer: Olga Mejia [facility] 10/31/2020 11:24:21 AM EDT [facility] Josh Del Toro MD: [address] [place] [address], Ph. Attender: Josh Del Toro MD [facility] Medical 10/25/2020 12:00:00 AM EDT [facility] ([facility]) Josh Del Toro MD: [address] [place] [address], Ph. Attender: Josh Del Toro MD [facility] Medical 10/25/2020 12:00:00 AM EDT [facility] ([facility]) Josh Del Toro MD: [address] [place] [address], Ph. Attender: Josh Del Toro MD [facility] Medical 10/25/2020 12:00:00 AM EDT [facility] ([facility]) Josh Del Toro MD: [address] [place] [address], Ph. Attender: Josh Del Toro MD [facility] Medical 10/25/2020 12:00:00 AM EDT [facility] ([facility]) Olga Mejia, CALL CENTER RECRUITER: [address], [place] [address], Ph. Attender: Olga Mejia [facility] 10/20/2020 12:00:00 AM EDT ATHE NA ([facility]) Olga Mejia, CALL CENTER RECRUITER: [address], [place] [address], Ph. Attender: Olga Roberto [facility] 10/20/2020 12:00:00 AM EDT ATHE NA ([facility]) Olga Mejia, CALL CENTER RECRUITER: [address], [place] [address], Ph. Attender: Olga Roberto [facility] 10/20/2020 12:00:00 AM EDT ATHE NA ([facility]) Brody Elliott MD: [address], [place] [address], Ph. Attender: Bro[place] [facility] 09/25/2020 12:00:00 AM EDT [facility] ([facility]) Brody Elliott MD: [address], [place] [address], Ph. Attender: [place] [facility] 09/25/2020 12:00:00 AM EDT [facility] ([facility]) Brody Elliott MD: [address], [address], [place] [address], Ph. Attender: [place] [facility] 09/25/2020 12:00:00 AM EDT [facility] ([facility]) Brody Elliott MD: [address], [address], [place] [address], Ph. Attender: [place] [facility] 09/25/2020 12:00:00 AM EDT [facility] ([facility]) Brody Elliott MD: [address], [address], [place] [address], Ph. [phone] Attender: [place] [facility] 09/20/2020 12:00:00 AM EDT [facility] ([facility]) Brody Elliott MD: [address], [address], [place] [address], Ph. [phone] Attender: [place] [facility] 09/20/2020 12:00:00 AM EDT [facility] ([facility]) Brody Elliott MD: [address], [address], [place] [address], Ph. [phone] Attender: [place] [facility] 09/20/2020 12:00:00 AM EDT [facility] ([facility]) Brody Elliott MD: [address], [address], [place] [address], Ph. [phone] Attender: Brody RODRIGUEZ - [facility] 09/20/2020 12:00:00 AM EDT [facility] ([facility]) Brody Elliott MD: [address] [place] [address], Ph. [phone] Attender: [place] [facility] - [facility] Office 09/20/2020 12:00:00 AM EDT [facility] ([facility]) Mariana Pelaez MD: [address], [place] [address], Ph. Attender: Mariana Pelaez MD [facility] Medical 09/14/2020 12:00:00 AM EDT RAM[facility] ([facility]) Mariana Pelaez MD: [address] [place] [address], Ph. Attender: Mariana Pelaez MD [facility] Medical 09/14/2020 12:00:00 AM EDT RAM[facility] ([facility]) Mariana Pelaez MD: [address] [place] [address], Ph. Attender: Mariana Pelaez MD [facility] Medical 09/14/2020 12:00:00 AM EDT [facility] ([facility]) Mariana Pelaez MD: [address], [place] [address], Ph. Attender: Mariana Pelaez MD [facility] Medical 09/14/2020 12:00:00 AM EDT [facility] ([facility]) Mariana Pelaez MD: [address], [place] [address], Ph. Attender: Mariana Pelaez MD [facility] Medical 09/14/2020 12:00:00 AM EDT [facility] ([facility]) Olga Mejia, CALL CENTER RECRUITER: [address], [place] [address], Ph. Attender: Olga Mejia [facility] 09/13/2020 12:00:00 AM EDT ATHE NA ([facility]) Olga Mejia, CALL CENTER RECRUITER: [address], [address], [place] [address], Ph. Attender: Olga Mejia [facility] - [facility] 09/13/2020 12:00:00 AM EDT ATHE NA ([facility]) Olga Mejia, CALL CENTER RECRUITER: [address], [place] [address], Ph. Attender: Olga Mejia [facility] 09/13/2020 12:00:00 AM EDT ATHE NA ([facility]) Olga Mejia, CALL CENTER RECRUITER: [address], [place] [address], Ph. Attender: Olga Mejia [facility] - [facility] 09/13/2020 12:00:00 AM EDT ATHE NA ([facility]) Olga Mejia, CALL CENTER RECRUITER: [address], [place] [address], Ph. Attender: Olga Mejia [facility] - [facility] 09/13/2020 12:00:00 AM EDT ATHE NA ([facility]) Olga Mejia, CALL CENTER RECRUITER: [address], [place] [address], Ph. Attender: Olga Mejia [facility] - Main Office 09/13/2020 12:00:00 AM EDT ATHE NA ([facility]) Josh Del Toro MD: [address] [place] [address], Ph. Attender: Josh Del Toro MD [facility] Medical 07/27/2020 12:00:00 AM EST [facility] ([facility]) Josh Del Toro MD: [address] [place] [address], Ph. Attender: Josh Del Toro MD [facility] Medical 07/27/2020 12:00:00 AM EST [facility] ([facility]) Josh Del Toro MD: [address] [place] [address], Ph. Attender: Josh Del Toro MD [facility] Medical 07/27/2020 12:00:00 AM EST [facility] ([facility]) Josh Del Toro MD: [address] [place] [address], Ph. Attender: Josh Del Toro MD [facility] Medical 07/27/2020 12:00:00 AM EST [facility] ([facility]) Josh Del Toro MD: [address] [place] [address], Ph. Attender: Josh Del Toro MD [facility] Medical 07/27/2020 12:00:00 AM EST [facility] ([facility]) Josh Del Toro MD: [address] [place] [address], Ph. Attender: Josh Del Toro MD [facility] Medical 07/27/2020 12:00:00 AM EST [facility] ([facility]) ( [facility]) [facility] [address] [address] [place] [address] 07/24/2020 12:00:00 AM EST eCW1 ([facility]) Brody Elliott MD: [address], [place] [address], Ph. Attender: [place] [facility] 07/12/2020 12:00:00 AM EST [facility] ([facility]) Brody Elliott MD: [address], [place] [address], Ph. Attender: [place] [facility] 07/12/2020 12:00:00 AM EST [facility] ([facility]) Brody Elliott MD: [address], [place] [address], Ph. Attender: [place] [facility] 07/12/2020 12:00:00 AM EST [facility] ([facility]) Brody Elliott MD: [address], [place] [address], Ph. Attender: [place] [facility] 07/12/2020 12:00:00 AM EST [facility] ([facility]) Brody Elliott MD: [address], [place] [address], Ph. Attender: [place] [facility] 07/12/2020 12:00:00 AM EST [facility] ([facility]) Brody Elliott MD: [address], [place] [address], Ph. Attender: [place] [facility] 07/12/2020 12:00:00 AM EST [facility] ([facility]) Brody Elliott MD: [address]84 [address], [place] [address], Ph. [phone] Attender: [place] [facility] 07/07/2020 12:00:00 AM EST [facility] ([facility]) Brody Elliott MD: [address], [address], [place] [address], Ph. [phone] Attender: [place] [facility] 07/07/2020 12:00:00 AM EST [facility] ([facility]) Brody Elliott MD: [address]37 [address], [place] [address], Ph. [phone] Attender: [place] [facility] 07/07/2020 12:00:00 AM EST [facility] ([facility]) Brody Elliott MD: [address]27 [address], [place] [address], Ph. [phone] Attender: [place] [facility] 07/07/2020 12:00:00 AM EST [facility] ([facility]) Brody Elliott MD: [address], [place] [address], Ph. [phone] Attender: [place] [facility] 07/07/2020 12:00:00 AM EST [facility] ([facility]) Brody Elliott MD: [address], [place] [address], Ph. [phone] Attender: Brody RODRIGUEZ - [facility] 07/07/2020 12:00:00 AM EST [facility] ([facility]) Brody Elliott MD: [address], [place] [address], Ph. [phone] Attender: Bro[place] [facility] 07/07/2020 12:00:00 AM EST [facility] ([facility]) Olga Mejia, CALL CENTER RECRUITER: [address], [place] [address], Ph. Attender: Olga Juhaydenmyah [facility] 07/03/2020 12:00:00 AM EST ATHE NA ([facility]) Olga Mejia, CALL CENTER RECRUITER: [address], [facility] [place] [address], Ph. Attender: Olga Mejia [facility] 07/03/2020 12:00:00 AM EST ATHE NA ([facility]) Olga Mejia, CALL CENTER RECRUITER: [address], [place] [address], Ph. Attender: Olga Mejia [facility] 07/03/2020 12:00:00 AM EST ATHE NA ([facility]) Olga Mejia, CALL CENTER RECRUITER: [address], [place] [address], Ph. Attender: Olga Mejia [facility] 07/03/2020 12:00:00 AM EST ATHE NA ([facility]) Olga Mejia, CALL CENTER RECRUITER: [address], [facility] [place] [address], Ph. Attender: Olga Mejia INSERTING OPERATOR [place] - [facility] 07/03/2020 12:00:00 AM EST ATHE NA ([facility]) Olga Mejia, CALL CENTER RECRUITER: [address], [place] [address], Ph. Attender: Olga Mejia [facility] - [facility] 07/03/2020 12:00:00 AM EST ATHE NA ([facility]) Olga Mejia, CALL CENTER RECRUITER: [address], [place] [address], Ph. Attender: Olga Mejia [facility] - [facility] 07/03/2020 12:00:00 AM EST ATHE NA ([facility]) Olga Mejia, CALL CENTER RECRUITER: [address], [place] [address], Ph. Attender: Olga Mejia [facility] 07/03/2020 12:00:00 AM EST ATHE NA ([facility]) Brody Elliott MD: [address]13 [address], [place] [address], Ph. Attender: [place] - [facility] 06/01/2020 12:00:00 AM EST [facility] ([facility]) Brody Elliott MD: [address], [address], [place] [address], Ph. Attender: Bro[place] [facility] 06/01/2020 12:00:00 AM EST [facility] ([facility]) Brody Elliott MD: [address], [place] [address], Ph. Attender: Bro[place] [facility] 06/01/2020 12:00:00 AM EST [facility] ([facility]) Brody Elliott MD: [address]133 [address], [address], [place] [address], Ph. Attender: Brody [place] [facility] 06/01/2020 12:00:00 AM EST [facility] ([facility]) Brody Elliott MD: [address]52 [address], [address], [place] [address], Ph. Attender: Brody [place] [facility] 06/01/2020 12:00:00 AM EST [facility] ([facility]) Brody Elliott MD: [address]96 [address], [address], [place] [address], Ph. Attender: Bro[place] [facility] 06/01/2020 12:00:00 AM EST [facility] ([facility]) Brody Elliott MD: [address]70 [address], [address], [place] [address], Ph. Attender: Brody RODRIGUEZ - [facility] 06/01/2020 12:00:00 AM EST [facility] ([facility]) Brody Elliott MD: [address]5685 [address], [address], [place] [address], Ph. Attender: Brody [place] [facility] 06/01/2020 12:00:00 AM EST [facility] ([facility]) Brody Elliott MD: 56746 [address], [address], [place] [address], Ph. Attender: Bro[place] [facility] 06/01/2020 12:00:00 AM EST [facility] ([facility]) Brody Elliott MD: [address]253 [address], [address], [place] [address], Ph. [phone] Attender: [place] [facility] 05/29/2020 12:00:00 AM EST [facility] ([facility]) Brody Elliott MD: [address]55 [address], [address], [place] [address], Ph. [phone] Attender: Bro[place] [facility] 05/29/2020 12:00:00 AM EST [facility] ([facility]) Brody Elliott MD: [address]49 [address], [address], [place] [address], Ph. [phone] Attender: Bro[place] [facility] 05/29/2020 12:00:00 AM EST [facility] ([facility]) Brody Elliott MD: 05197 [address], [address], [place] [address], Ph. [phone] Attender: Brody [place] [facility] 05/29/2020 12:00:00 AM EST [facility] ([facility]) Brody Elliott MD: 80792 [address], [address], [place] [address], Ph. [phone] Attender: Bro[place] - [facility] 05/29/2020 12:00:00 AM EST [facility] ([facility]) Brody Elliott MD: 47375 [address], [address], [place] [address], Ph. [phone] Attender: Brody [place] - [facility] 05/29/2020 12:00:00 AM EST [facility] ([facility]) Brody Elliott MD: 04344 [address], [place] [address], Ph. [phone] Attender: Brody [place] - [facility] 05/29/2020 12:00:00 AM EST [facility] ([facility]) Brody Elliott MD: 45489 [address], [address], [place] [address], Ph. [phone] Attender: Bro[place] - [facility] 05/29/2020 12:00:00 AM EST [facility] ([facility]) Brody Elliott MD: [address]75 [address], [address], [place] [address], Ph. [phone] Attender: Brody [place] - [facility] 05/29/2020 12:00:00 AM EST [facility] ([facility]) Brody Elliott MD: 10746 [address], [place] [address], Ph. [phone] Attender: Brody [place] - [facility] 05/29/2020 12:00:00 AM EST [facility] ([facility]) Olga Mejia, CALL CENTER RECRUITER: [address], [place] [address], Ph. Attender: Olga Mejia [facility] - [facility] 05/18/2020 12:00:00 AM EST ATHE NA ([facility]) Olga Mejia, CALL CENTER RECRUITER: [address], [place] [address], Ph. Attender: Olga Mejia [facility] - [facility] 05/18/2020 12:00:00 AM EST ATHE NA ([facility]) Olga Mejia, CALL CENTER RECRUITER: [address], [place] [address], Ph. Attender: Olga Mejia [facility] - [facility] 05/18/2020 12:00:00 AM EST ATHE NA ([facility]) Olga Mejia, CALL CENTER RECRUITER: [address], [place] [address], Ph. Attender: Olga Mejia [facility] - [facility] 05/18/2020 12:00:00 AM EST ATHE NA ([facility]) Olga Mejia, CALL CENTER RECRUITER: [address], [place] [address], Ph. Attender: Olga Mejia [facility] - [facility] 05/18/2020 12:00:00 AM EST ATHE NA ([facility]) Ogla Mejia, CALL CENTER RECRUITER: [address], [place] [address], Ph. Attender: Olga Mejia [facility] - [facility] 05/18/2020 12:00:00 AM EST ATHE NA ([facility]) Olga Mejia, CALL CENTER RECRUITER: [address], [place] [address], Ph. Attender: Olga Mejia [facility] - [facility] 05/18/2020 12:00:00 AM EST [facility] NA ([facility]) Olga Mejia, CALL CENTER RECRUITER: [address], [place] [address], Ph. Attender: Olga Mejia [facility] [facility] 05/18/2020 12:00:00 AM EST ATHE NA ([facility]) Olga Mejia, CALL CENTER RECRUITER: [address], [place] [address], Ph. Attender: Olga Mejia [facility] - [facility] 05/18/2020 12:00:00 AM EST ATHE NA ([facility]) Olga Mejia, CALL CENTER RECRUITER: [address], [address], [place] [address], Ph. Attender: Olga Mejia [facility] - [facility] 05/18/2020 12:00:00 AM EST ATHE NA ([facility]) Olga Mejia, CALL CENTER RECRUITER: [id number], [place] [address], Ph. Attender: Olga Mejia [facility] - [facility] 05/18/2020 12:00:00 AM EST ATHE NA ([facility]) Josh Del Toro MD: [address] [place] [address], Ph. Attender: Josh Del Toro MD [facility] Medical 05/04/2020 12:00:00 AM EST ALEXA ([facility]) Josh Del Toro MD: [address] [place] [address], Ph. Attender: Josh Del Toro MD [facility] Medical 05/04/2020 12:00:00 AM EST ALEXA ([facility]) Josh Del Toro MD: [address] [place] [address], Ph. Attender: Josh Del Toro MD [facility] Medical 05/04/2020 12:00:00 AM EST ALEXA ([facility]) Josh Del Toro MD: [address] [place] [address], Ph. Attender: Josh Del Toro MD [facility] Medical 05/04/2020 12:00:00 AM EST ALEXA ([facility]) Josh Del Toro MD: [address] [place] [address], Ph. Attender: Josh Del Toro MD [facility] Medical 05/04/2020 12:00:00 AM EST ALEXA ([facility]) Josh Del Toro MD: [address] [place] [address], Ph. Attender: Josh Del Toro MD [facility] Medical 05/04/2020 12:00:00 AM EST ALEXA ([facility]) Josh Del Toro MD: [address] [place] [address], Ph. Attender: Josh Del Toro MD [facility] Medical 05/04/2020 12:00:00 AM EST ALEXA ([facility]) Brody Elliott MD: [address], [place] [address], Ph. [phone] Attender: [place]dy [place] - [facility] - Main Office 03/15/2020 12:00:00 AM EDT ALEXA ([facility]) Brody Elliott MD: [address], [place] [address], Ph. [phone] Attender: Brody [place] - [facility] - Main Office 03/15/2020 12:00:00 AM EDT ALEXA ([facility]) Brody Elliott MD: [address], [place] [address], Ph. [phone] Attender: Brody [place] - [facility] 03/15/2020 12:00:00 AM EDT ALEXA ([facility]) Brody Elliott MD: [address], [address], [place] [address], Ph. [phone] Attender: [place] - [facility] 03/15/2020 12:00:00 AM EDT ALEXA ([facility]) Brody Elliott MD: [address], [address], [place] [address], Ph. [phone] Attender: Brody RODRIGUEZ - [facility] 03/15/2020 12:00:00 AM EDT ALEXA ([facility]) Brody Elliott MD: [address], [address], [place] [address], Ph. [phone] Attender: Brody RODRIGUEZ - [facility] 03/15/2020 12:00:00 AM EDT ALEXA ([facility]) Brody Elliott MD: [address], [address], [place] [address], Ph. [phone] Attender: [place] - [facility] 03/15/2020 12:00:00 AM EDT ALEXA ([facility]) Brody Elliott MD: [address], [address], [place] [address], Ph. [phone] Attender: Brody RODRIGUEZ - [facility] 03/15/2020 12:00:00 AM EDT ALEXA ([facility]) Brody Elliott MD: [address], [address], [place] [address], Ph. [phone] Attender: Brody RODRIGUEZ - [facility] 03/15/2020 12:00:00 AM EDT ALEXA ([facility]) Brody Elliott MD: [address], [address], [place] [address], Ph. [phone] Attender: [place] - [facility] 03/15/2020 12:00:00 AM EDT ALEXA ([facility]) Brody Elliott MD: [address], [address], [place] [address], Ph. [phone] Attender: Brody RODRIGUEZ - [facility] - [facility] 03/15/2020 12:00:00 AM EDT ALEXA ([facility]) Brody Elliott MD: [address], [address], [place] [address], Ph. [phone] Attender: Brody RODRIGUEZ - [facility] 03/15/2020 12:00:00 AM EDT ALEXA ([facility]) Brody Elliott MD: [address], [address], [place] [address], Ph. [phone] Attender: Brody RODRIGUEZ - [facility] - [facility] 02/18/2020 12:00:00 AM EDT ALEXA ([facility]) Brody Elliott MD: [address], [address], [place] [address], Ph. [phone] Attender: Brody RODRIGUEZ - [facility] 02/18/2020 12:00:00 AM EDT ALEXA ([facility]) Brody Elliott MD: [address], [address], [place] [address], Ph. [phone] Attender: Brody RODRIGUEZ - [facility] - [facility] 02/18/2020 12:00:00 AM EDT ALEXA ([facility]) Brody Elliott MD: [address], [address], [place] [address], Ph. [phone] Attender: [place] - [facility] 02/18/2020 12:00:00 AM EDT ALEXA ([facility]) Brody Elliott MD: [address], [address], [place] [address], Ph. [phone] Attender: [place] - [facility] 02/18/2020 12:00:00 AM EDT ALEXA ([facility]) Brody Elliott MD: [address], [address], [place] [address], Ph. [phone] Attender: Bro[place] - [facility] 02/18/2020 12:00:00 AM EDT [facility]LEXA ([facility]) Brody Elliott MD: [address], [address], [place] [address], Ph. [phone] Attender: Brody [place] - [facility] 02/18/2020 12:00:00 AM EDT [facility]LEXA ([facility]) Brody Elliott MD: [address], [address], [place] [address], Ph. [phone] Attender: Brody RODRIGUEZ - [facility] 02/18/2020 12:00:00 AM EDT [facility]LEXA ([facility]) Brody Elliott MD: [address], [address], [place] [address], Ph. [phone] Attender: [place] - [facility] 02/18/2020 12:00:00 AM EDT ALEXA ([facility]) Brody Elliott MD: [address], [address], [place] [address], Ph. [phone] Attender: Bro[place] - [facility] - Main Office 02/18/2020 12:00:00 AM EDT ALEXA ([facility]) Brody Elliott MD: [address], [place] [address], Ph. [phone] Attender: Brody [place] MD [place] - [facility] - [facility] Office 02/18/2020 12:00:00 AM EDT ALEXA ([facility]) Brody Elliott MD: [address], [address], [place] [address], Ph. [phone] Attender: Brody [place] MD [place] - [facility] - [facility] Office 02/18/2020 12:00:00 AM EDT [facility]LEXA ([facility]) Brody Elliott MD: [address], [place] [address], Ph. [phone] Attender: Brody [place] - [facility] Office 02/18/2020 12:00:00 AM EDT ALEXA ([facility]) Outpatient Attender: Josh Del Toro MD 02/15/2020 09:29:02 AM EDT [facility] Outpatient Attender: Josh Del Toro MD 02/15/2020 08:53:01 AM EDT [facility] Outpatient Attender: Josh Del Toro MD 02/15/2020 08:41:00 AM EDT [facility] Outpatient Attender: Josh Del Toro MD 02/14/2020 12:10:00 PM EDT [facility] Outpatient Attender: Josh Del Toro MD 02/14/2020 10:44:00 AM EDT [facility] Outpatient Attender: Josh Del Toro MD 02/09/2020 11:22:26 AM EDT [facility] Outpatient Attender: Josh Del Toro MD 02/04/2020 12:59:02 PM EDT [facility] Outpatient Attender: Josh Del Toro MD 02/04/2020 12:59:01 PM EDT [facility] Outpatient Attender: Josh Del Toro MD 02/04/2020 08:22:02 AM EDT [facility] Outpatient Attender: Josh Del Toro MD 02/04/2020 08:22:02 AM EDT [facility] Brody Elliott MD: [address], [address], [place] [address], Ph. Attender: [place] - [facility] 02/01/2020 12:00:00 AM EDT ALEXA ([facility]) Brody Elliott MD: [address], [address], [place] [address], Ph. Attender: Bro[place] - [facility] 02/01/2020 12:00:00 AM EDT [facility]LEXA ([facility]) Brody Elliott MD: [address], [address], [place] [address], Ph. Attender: Brody [place] - [facility] 02/01/2020 12:00:00 AM EDT [facility]LEXA ([facility]) Brody Elliott MD: [address], [address], [place] [address], Ph. Attender: Brody RODRIGUEZ - [facility] 02/01/2020 12:00:00 AM EDT [facility]LEXA ([facility]) Brody Elliott MD: [address], [address], [place] [address], Ph. Attender: Brody RODRIGUEZ - [facility] 02/01/2020 12:00:00 AM EDT [facility]LEXA ([facility]) Brody Elliott MD: [address], [address], [place] [address], Ph. Attender: Brody RODRIGUEZ - [facility] 02/01/2020 12:00:00 AM EDT [facility]LEXA ([facility]) Brody Elliott MD: [address], [address], [place] [address], Ph. Attender: Brody RODRIGUEZ - [facility] 02/01/2020 12:00:00 AM EDT [facility]LEXA ([facility]) Brody Elliott MD: [address], [address], [place] [address], Ph. Attender: Brody RODRIGUEZ - [facility] 02/01/2020 12:00:00 AM EDT [facility]LEXA ([facility]) Brody Elliott MD: [address], [address], [place] [address], Ph. Attender: Brody RODRIGUEZ - [facility] 02/01/2020 12:00:00 AM EDT [facility]LEXA ([facility]) Brody Elliott MD: [address], [address], [place] [address], Ph. Attender: Brody RODRIGUEZ - [facility] 02/01/2020 12:00:00 AM EDT [facility]LEXA ([facility]) Brody Elliott MD: [address], [address], [place] [address], Ph. Attender: Brody RODRIGUEZ - [facility] 02/01/2020 12:00:00 AM EDT [facility]LEXA ([facility]) Brody Elliott MD: [address], [address], [place] [address], Ph. Attender: Brody RODRIGUEZ - [facility] 02/01/2020 12:00:00 AM EDT [facility]LEXA ([facility]) Brody Elliott MD: 63177 [facility] [address], [place] [address], Ph. Attender: Brody [place] MD [place] - [facility] - [facility] Office 02/01/2020 12:00:00 AM EDT ALEXA ([facility]) Brody Elliott MD: [address], [place] [address], Ph. Attender: Brody [place] MD [place] - [facility] 02/01/2020 12:00:00 AM EDT ALEXA ([facility]) Outpatient Attender: Josh Del Toro MD 01/26/2020 03:38:00 PM EDT [facility] Outpatient Attender: Josh Del Toro MD 01/25/2020 02:56:04 PM EDT [facility] Immunizations Vaccine Date Status Description Data Source(s) New in 2011. IIV4 05/04/2020 05:14:00 PM EST completed 0.5 mL ALEXA ([facility]) New in 2011. IIV4 05/04/2020 05:14:00 PM EST completed 0.5 mL ALEXA ([facility]) New in 2011. IIV4 05/04/2020 05:14:00 PM EST completed 0.5 mL ALEXA ([facility]) New in 2011. IIV4 05/04/2020 05:14:00 PM EST completed 0.5 mL [facility]LEXA ([facility]) New in 2011. IIV4 05/04/2020 05:14:00 PM EST completed 0.5 mL [facility]LEXA ([facility]) New in 2011. IIV4 05/04/2020 05:14:00 PM EST completed 0.5 mL [facility]LEXA ([facility]) New in 2011. IIV4 05/04/2020 05:14:00 PM EST completed 0.5 mL [facility]LEXA ([facility]) Medications Medication Brand Name Start Date Product Form Dose Route Admi nistrative Instructions Pharmacy Instructions Status Indications Reaction Description Data Source(s) Metronidazole 500 MG Oral Tablet Metronidazole 500 MG 2020 12:00:00 AM EST 1.0 {tablet} active Metronidazo le 500 MG eCW1 ([facility]) Prednisone 20 MG Oral Tablet prednisone 20 mg tablet prednisone 20 mg tablet completed prednisone 20 MG Oral Tablet ALEXA ([facility]) Trintellix 20 mg tablet [id number] complet ed vortioxetine 20 MG Oral Tablet [Trintellix] ALEXA ([facility]) Trazodone Hydrochloride 50 MG Oral Tablet trazodone 50 mg tablet trazodone 50 mg tablet completed trazodone hydr ochloride 50 MG Oral Tablet ALEXA ([facility]) Ergocalciferol 45801 UNT Oral Capsule Vi tamin D2 1,250 mcg (50,000 unit) capsule Vitamin D2 1,250 mcg (50,000 unit) capsule completed ergocalciferol 1.25 MG Oral Capsule ALEXA ([facility]) Metronidazole 500 MG Oral Tablet metroni dazole 500 mg tablet TAKE ONE TABLET BY MOUTH TWICE DAILY FOR 7 DAYS metronidazole 500 mg tablet TAKE ONE TAB LET BY MOUTH TWICE DAILY FOR 7 DAYS completed metronidazole 500 MG Oral Tablet ALEXA ([facility]) Ergocalciferol 47670 UNT Oral Capsule Vi tamin D2 1,250 mcg (50,000 unit) capsule Vitamin D2 1,250 mcg (50,000 unit) capsule completed ergocalciferol 1.25 MG Oral Capsule ALEXA ([facility]) Trazodone Hydrochloride 50 MG Oral Tablet trazodone 50 mg tablet trazodone 50 mg tablet completed trazodone hydr ochloride 50 MG Oral Tablet ALEXA ([facility]) Simvastatin 20 MG Oral Tablet simvastatin 20 mg tablet simva statin 20 mg tablet completed simvastatin 20 MG Oral Tablet [facility]LEXA ([facility]) Trintellix 20 mg tablet [id number] complet ed vortioxetine 20 MG Oral Tablet [Trintellix] ALEXA ([facility]) Simvastatin 20 MG Oral Tablet simvastatin 20 mg tablet simva statin 20 mg tablet completed simvastatin 20 MG Oral Tablet [facility] ([facility]) Prazosin 1 MG Oral Capsule prazosin 1 mg capsule prazosin 1 mg capsule completed prazosin 1 MG Oral Capsul e ALEXA ([facility]) Trintellix 20 mg tablet TAKE ONE TABLET BY MOUTH ONCE DAILY [id number] completed vortioxetine 20 MG Oral Tablet [ Trintellix] ALEXA ([facility]) Amoxicillin 875 MG / Clavulanate 125 MG Oral Tablet amoxicillin 875 mg-potassium clavulanate 125 mg tablet TAKE ONE TABLET BY MOUTH TWICE DAILY FOR 10 DAYS amoxicillin 875 mg-potassium clavulanate 125 mg tablet TAKE ONE TABLET BY MOUTH TWICE DAILY FOR 10 DAYS completed amoxicillin 875 MG / clavulanate 125 MG Oral Tablet ALEXA ([facility]) Ergocalciferol 66437 UNT Oral Capsule Vi tamin D2 1,250 mcg (50,000 unit) capsule Vitamin D2 1,250 mcg (50,000 unit) capsule completed ergocalciferol 1.25 MG Oral Capsule ALEXA ([facility]) Prazosin 1 MG Oral Capsule prazosin 1 mg capsule prazosin 1 mg capsule completed prazosin 1 MG Oral Capsul e ALEXA ([facility]) Simvastatin 20 MG Oral Tablet simvastatin 20 mg tablet simva statin 20 mg tablet completed simvastatin 20 MG Oral Tablet [facility] ([facility]) Simvastatin 20 MG Oral Tablet simvastatin 20 mg tablet simva statin 20 mg tablet completed simvastatin 20 MG Oral Tablet ALEXA ([facility]) gabapentin 300 MG Oral Capsule gabapentin 300 mg capsu le gabapentin 300 mg capsule completed gabapentin 300 MG Oral Capsule ALEXA ([facility]) Fluoxetine 10 MG Oral Capsule fluoxetine 10 mg capsule TAKE ONE CAPSULE BY MOUTH ONCE DAILY fluoxetine 10 mg capsule TAKE ONE CAPSULE BY MOUTH ONCE DAILY completed fluoxetine 10 MG Ora l Capsule ALEXA ([facility]) Trazodone Hydrochloride 50 MG Oral Table t trazodone 50 mg tablet TAKE 1-2 TABLETS BY MOUTH EVERY EVENING NEEDED trazodone 50 mg tablet TAKE 1-2 TABLETS BY MOUTH EVERY EVENING NEEDED comp leted trazodone hydrochloride 50 MG Oral Tablet [facility]LEXA ([facility]) Trintellix 20 mg tablet [id number] complet ed vortioxetine 20 MG Oral Tablet [Trintellix] ALEXA ([facility]) Amoxicillin 875 MG / Clavulanate 125 MG Oral Tablet amoxicillin 875 mg-potassium clavulanate 125 mg tablet TAKE ONE TABLET BY MOUTH TWICE DAILY FOR 10 DAYS amoxicillin 875 mg-potassium clavulanate 125 mg tablet TAKE ONE TABLET BY MOUTH TWICE DAILY FOR 10 DAYS completed amoxicillin 875 MG / clavulanate 125 MG Oral Tablet ALEXA ([facility]) Metronidazole 500 MG Oral Tablet metroni dazole 500 mg tablet TAKE ONE TABLET BY MOUTH TWICE DAILY FOR 7 DAYS metronidazole 500 mg tablet TAKE ONE TAB LET BY MOUTH TWICE DAILY FOR 7 DAYS completed metronidazole 500 MG Oral Tablet [facility]LEXA ([facility]) Prazosin 1 MG Oral Capsule prazosin 1 mg capsule prazosin 1 mg capsule completed prazosin 1 MG Oral Capsul e ALEXA ([facility]) gabapentin 300 MG Oral Capsule gabapentin 300 mg capsu le gabapentin 300 mg capsule completed gabapentin 300 MG Oral Capsule ALEXA ([facility]) Amoxicillin 875 MG / Clavulanate 125 MG Oral Tablet amoxicillin 875 mg-potassium clavulanate 125 mg tablet TAKE ONE TABLET BY MOUTH TWICE DAILY FOR 10 DAYS amoxicillin 875 mg-potassium clavulanate 125 mg tablet TAKE ONE TABLET BY MOUTH TWICE DAILY FOR 10 DAYS completed amoxicillin 875 MG / clavulanate 125 MG Oral Tablet [facility] ([facility]) Trazodone Hydrochloride 50 MG Oral Tablet trazodone 50 mg tablet trazodone 50 mg tablet completed trazodone hydr ochloride 50 MG Oral Tablet [facility]LEXA ([facility]) Prazosin 1 MG Oral Capsule prazosin 1 mg capsule prazosin 1 mg capsule completed prazosin 1 MG Oral Capsul e ALEXA ([facility]) Prednisone 20 MG Oral Tablet prednisone 20 mg tablet prednisone 20 mg tablet completed prednisone 20 MG Oral Tablet [facility] ([facility]) Trazodone Hydrochloride 50 MG Oral Tablet trazodone 50 mg tablet trazodone 50 mg tablet completed trazodone hydr ochloride 50 MG Oral Tablet [facility]LEXA ([facility]) Prednisone 20 MG Oral Tablet prednisone 20 mg tablet prednisone 20 mg tablet completed prednisone 20 MG Oral Tablet [facility]XA ([facility]) Trazodone Hydrochloride 50 MG Oral Table t trazodone 50 mg tablet TAKE 1-2 TABLETS BY MOUTH EVERY EVENING NEEDED trazodone 50 mg tablet TAKE 1-2 TABLETS BY MOUTH EVERY EVENING NEEDED comp leted trazodone hydrochloride 50 MG Oral Tablet ALEXA ([facility]) Ergocalciferol 88056 UNT Oral Capsule Vi tamin D2 1,250 mcg (50,000 unit) capsule Vitamin D2 1,250 mcg (50,000 unit) capsule completed ergocalciferol 1.25 MG Oral Capsule ALEXA ([facility]) 12 HR Guaifenesin 600 MG Extended Releas e Oral Tablet Mucus Relief ER 600 mg tablet, extended release Mucus Relief ER 600 mg tablet, extended release completed 12 HR guaifenesin 60 0 MG Extended Release Oral Tablet ALEXA ([facility]) gabapentin 300 MG Oral Capsule gabapenti n 300 mg capsule TAKE ONE CAPSULE BY MOUTH FOUR TIMES A DAY gabapentin 300 mg capsule TAKE ONE CAPSU LE BY MOUTH FOUR TIMES A DAY completed gabapentin 300 MG Oral Capsule RAMAH ([facility]) Simvastatin 20 MG Oral Tablet simvastatin 20 mg tablet simva statin 20 mg tablet completed simvastatin 20 MG Oral Tablet RAMAH ([facility]) Metronidazole 500 MG Oral Tablet metroni dazole 500 mg tablet TAKE ONE TABLET BY MOUTH TWICE DAILY FOR 7 DAYS metronidazole 500 mg tablet TAKE ONE TAB LET BY MOUTH TWICE DAILY FOR 7 DAYS completed metronidazole 500 MG Oral Tablet ALEXA ([facility]) Trintellix 20 mg tablet [id number] complet ed vortioxetine 20 MG Oral Tablet [Trintellix] ALEXA ([facility]) gabapentin 300 MG Oral Capsule gabapentin 300 mg capsu le gabapentin 300 mg capsule completed gabapentin 300 MG Oral Capsule ALEXA ([facility]) Nicotine 4 MG/ACTUAT Inhalant Solution [ Nicotrol] Nicotrol 10 mg inhalation cartridge Nicotrol 10 mg inhalation cartridge completed nicotine 4 MG Inhalation Solution [Nicotrol] ALEXA ([facility]) Trintellix 20 mg tablet TAKE ONE TABLET BY MOUTH ONCE DAILY [id number] completed vortioxetine 20 MG Oral Tablet [ Trintellix] [facility]) Prednisone 20 MG Oral Tablet prednisone 20 mg tablet prednisone 20 mg tablet completed prednisone 20 MG Oral Tablet RAMAH ([facility]) gabapentin 300 MG Oral Capsule gabapentin 300 mg capsu le gabapentin 300 mg capsule completed gabapentin 300 MG Oral Capsule ALEXA ([facility]) Trintellix 20 mg tablet TAKE ONE TABLET BY MOUTH ONCE DAILY 657166 completed vortioxetine 20 MG Oral Tablet [ Trintellix] ALEXA ([facility]) Trintellix 20 mg tablet TAKE ONE TABLET BY MOUTH ONCE DAILY [id number] completed vortioxetine 20 MG Oral Tablet [ Trintellix] RAMAH ([facility]) Metronidazole 500 MG Oral Tablet metroni dazole 500 mg tablet TAKE ONE TABLET BY MOUTH TWICE DAILY FOR 7 DAYS metronidazole 500 mg tablet TAKE ONE TAB LET BY MOUTH TWICE DAILY FOR 7 DAYS completed metronidazole 500 MG Oral Tablet [facility] ([facility]) Prazosin 1 MG Oral Capsule prazosin 1 mg capsule prazosin 1 mg capsule completed prazosin 1 MG Oral Capsul e RAMAH ([facility]) Trazodone Hydrochloride 50 MG Oral Tablet trazodone 50 mg tablet trazodone 50 mg tablet completed trazodone hydr ochloride 50 MG Oral Tablet RAMAH ([facility]) gabapentin 300 MG Oral Capsule gabapentin 300 mg capsu le gabapentin 300 mg capsule completed gabapentin 300 MG Oral Capsule RAM[facility] ([facility]) 12 HR Guaifenesin 600 MG Extended Releas e Oral Tablet Mucus Relief ER 600 mg tablet, extended release Mucus Relief ER 600 mg tablet, extended release completed 12 HR guaifenesin 60 0 MG Extended Release Oral Tablet RAMAH ([facility]) gabapentin 300 MG Oral Capsule gabapenti n 300 mg capsule TAKE ONE CAPSULE BY MOUTH FOUR TIMES A DAY gabapentin 300 mg capsule TAKE ONE CAPSU LE BY MOUTH FOUR TIMES A DAY completed gabapentin 300 MG Oral Capsule RAMAH ([facility]) Amoxicillin 875 MG / Clavulanate 125 MG Oral Tablet amoxicillin 875 mg-potassium clavulanate 125 mg tablet TAKE ONE TABLET BY MOUTH TWICE DAILY FOR 10 DAYS amoxicillin 875 mg-potassium clavulanate 125 mg tablet TAKE ONE TABLET BY MOUTH TWICE DAILY FOR 10 DAYS completed amoxicillin 875 MG / clavulanate 125 MG Oral Tablet ALEXA ([facility]) gabapentin 300 MG Oral Capsule gabapentin 300 mg capsu le gabapentin 300 mg capsule completed gabapentin 300 MG Oral Capsule RAMAH ([facility]) Trazodone Hydrochloride 50 MG Oral Table t trazodone 50 mg tablet TAKE 1-2 TABLETS BY MOUTH EVERY EVENING NEEDED trazodone 50 mg tablet TAKE 1-2 TABLETS BY MOUTH EVERY EVENING NEEDED comp leted trazodone hydrochloride 50 MG Oral Tablet ALEXA ([facility]) Ergocalciferol [id number] UNT Oral Capsule Vi tamin D2 1,250 mcg (50,000 unit) capsule Vitamin D2 1,250 mcg (50,000 unit) capsule completed ergocalciferol 1.25 MG Oral Capsule ALEXA ([facility]) Amoxicillin 875 MG / Clavulanate 125 MG Oral Tablet amoxicillin 875 mg-potassium clavulanate 125 mg tablet TAKE ONE TABLET BY MOUTH TWICE DAILY FOR 10 DAYS amoxicillin 875 mg-potassium clavulanate 125 mg tablet TAKE ONE TABLET BY MOUTH TWICE DAILY FOR 10 DAYS completed amoxicillin 875 MG / clavulanate 125 MG Oral Tablet ALEXA ([facility]) Prednisone 20 MG Oral Tablet prednisone 20 mg tablet prednisone 20 mg tablet completed prednisone 20 MG Oral Tablet ALEXA ([facility]) gabapentin 300 MG Oral Capsule gabapentin 300 mg capsu le gabapentin 300 mg capsule completed gabapentin 300 MG Oral Capsule ALEXA ([facility]) Prazosin 1 MG Oral Capsule prazosin 1 mg capsule prazosin 1 mg capsule completed prazosin 1 MG Oral Capsul e ALEXA ([facility]) Amoxicillin 875 MG / Clavulanate 125 MG Oral Tablet amoxicillin 875 mg-potassium clavulanate 125 mg tablet TAKE ONE TABLET BY MOUTH TWICE DAILY FOR 10 DAYS amoxicillin 875 mg-potassium clavulanate 125 mg tablet TAKE ONE TABLET BY MOUTH TWICE DAILY FOR 10 DAYS completed amoxicillin 875 MG / clavulanate 125 MG Oral Tablet ALEXA ([facility]) Prazosin 1 MG Oral Capsule prazosin 1 mg capsule prazosin 1 mg capsule completed prazosin 1 MG Oral Capsul e ALEXA ([facility]) Trazodone Hydrochloride 50 MG Oral Tablet trazodone 50 mg tablet trazodone 50 mg tablet completed trazodone hydr ochloride 50 MG Oral Tablet ALEXA ([facility]) Trintellix 20 mg tablet [id number] [facility] ed vortioxetine 20 MG Oral Tablet [Trintellix] ALEXA ([facility]) Prednisone 20 MG Oral Tablet prednisone 20 mg tablet prednisone 20 mg tablet completed prednisone 20 MG Oral Tablet ALEXA ([facility]) Amoxicillin 875 MG / Clavulanate 125 MG Oral Tablet amoxicillin 875 mg-potassium clavulanate 125 mg tablet TAKE ONE TABLET BY MOUTH TWICE DAILY FOR 10 DAYS amoxicillin 875 mg-potassium clavulanate 125 mg tablet TAKE ONE TABLET BY MOUTH TWICE DAILY FOR 10 DAYS completed amoxicillin 875 MG / clavulanate 125 MG Oral Tablet ALEXA ([facility]) Prazosin 1 MG Oral Capsule prazosin 1 mg capsule prazosin 1 mg capsule completed prazosin 1 MG Oral Capsul e ALEXA ([facility]) Metronidazole 500 MG Oral Tablet metroni dazole 500 mg tablet TAKE ONE TABLET BY MOUTH TWICE DAILY FOR 7 DAYS metronidazole 500 mg tablet TAKE ONE TAB LET BY MOUTH TWICE DAILY FOR 7 DAYS completed metronidazole 500 MG Oral Tablet ALEXA ([facility]) Ergocalciferol [id number] UNT Oral Capsule Vi tamin D2 1,250 mcg (50,000 unit) capsule Vitamin D2 1,250 mcg (50,000 unit) capsule completed ergocalciferol 1.25 MG Oral Capsule ALEXA ([facility]) gabapentin 300 MG Oral Capsule gabapenti n 300 mg capsule TAKE ONE CAPSULE BY MOUTH FOUR TIMES A DAY gabapentin 300 mg capsule TAKE ONE CAPSU LE BY MOUTH FOUR TIMES A DAY completed gabapentin 300 MG Oral Capsule ALEXA ([facility]) gabapentin 300 MG Oral Capsule gabapenti n 300 mg capsule TAKE ONE CAPSULE BY MOUTH FOUR TIMES A DAY gabapentin 300 mg capsule TAKE ONE CAPSU LE BY MOUTH FOUR TIMES A DAY completed gabapentin 300 MG Oral Capsule RAMAH ([facility]) Amoxicillin 875 MG / Clavulanate 125 MG Oral Tablet amoxicillin 875 mg-potassium clavulanate 125 mg tablet TAKE ONE TABLET BY MOUTH TWICE DAILY FOR 10 DAYS amoxicillin 875 mg-potassium clavulanate 125 mg tablet TAKE ONE TABLET BY MOUTH TWICE DAILY FOR 10 DAYS completed amoxicillin 875 MG / clavulanate 125 MG Oral Tablet ALEXA ([facility]) Trazodone Hydrochloride 50 MG Oral Table t trazodone 50 mg tablet TAKE 1-2 TABLETS BY MOUTH EVERY EVENING NEEDED trazodone 50 mg tablet TAKE 1-2 TABLETS BY MOUTH EVERY EVENING NEEDED comp leted trazodone hydrochloride 50 MG Oral Tablet ALEXA ([facility]) Trintellix 20 mg tablet [id number] complet ed vortioxetine 20 MG Oral Tablet [Trintellix] ALEXA ([facility]) Trintellix 20 mg tablet [id number] complet ed vortioxetine 20 MG Oral Tablet [Trintellix] ALEXA ([facility]) Simvastatin 20 MG Oral Tablet simvastatin 20 mg tablet simva statin 20 mg tablet completed simvastatin 20 MG Oral Tablet ALEXA ([facility]) Prednisone 20 MG Oral Tablet prednisone 20 mg tablet prednisone 20 mg tablet completed prednisone 20 MG Oral Tablet ALEXA ([facility]) tizanidine 4 MG Oral Tablet tizanidine 4 mg tablet tizanidine 4 mg ta blet completed tizanidine 4 MG Oral Tablet ALEXA ([facility]) 12 HR Guaifenesin 600 MG Extended Releas e Oral Tablet Mucus Relief ER 600 mg tablet, extended release Mucus Relief ER 600 mg tablet, extended release completed 12 HR guaifenesin 60 0 MG Extended Release Oral Tablet RAMAH ([facility]) Trazodone Hydrochloride 50 MG Oral Table t trazodone 50 mg tablet TAKE 1-2 TABLETS BY MOUTH EVERY EVENING NEEDED trazodone 50 mg tablet TAKE 1-2 TABLETS BY MOUTH EVERY EVENING NEEDED comp leted trazodone hydrochloride 50 MG Oral Tablet ALEXA ([facility]) Trintellix 20 mg tablet [id number] complet ed vortioxetine 20 MG Oral Tablet [Trintellix] ALEXA ([facility]) gabapentin 300 MG Oral Capsule gabapentin 300 mg capsu le gabapentin 300 mg capsule completed gabapentin 300 MG Oral Capsule ALEXA ([facility]) Amoxicillin 875 MG / Clavulanate 125 MG Oral Tablet amoxicillin 875 mg-potassium clavulanate 125 mg tablet TAKE ONE TABLET BY MOUTH TWICE DAILY FOR 10 DAYS amoxicillin 875 mg-potassium clavulanate 125 mg tablet TAKE ONE TABLET BY MOUTH TWICE DAILY FOR 10 DAYS completed amoxicillin 875 MG / clavulanate 125 MG Oral Tablet AELXA ([facility]) Trintellix 20 mg tablet [id number] complet ed vortioxetine 20 MG Oral Tablet [Trintellix] ALEXA ([facility]) Amoxicillin 875 MG / Clavulanate 125 MG Oral Tablet amoxicillin 875 mg-potassium clavulanate 125 mg tablet TAKE ONE TABLET BY MOUTH TWICE DAILY FOR 10 DAYS amoxicillin 875 mg-potassium clavulanate 125 mg tablet TAKE ONE TABLET BY MOUTH TWICE DAILY FOR 10 DAYS completed amoxicillin 875 MG / clavulanate 125 MG Oral Tablet ALEXA ([facility]) gabapentin 300 MG Oral Capsule gabapentin 300 mg capsu le gabapentin 300 mg capsule completed gabapentin 300 MG Oral Capsule ALEXA ([facility]) Trintellix 20 mg tablet [id number] complet ed vortioxetine 20 MG Oral Tablet [Trintellix] ALEXA ([facility]) Prazosin 1 MG Oral Capsule prazosin 1 mg capsule prazosin 1 mg capsule completed prazosin 1 MG Oral Capsul e ALEXA ([facility]) Prednisone 20 MG Oral Tablet prednisone 20 mg tablet prednisone 20 mg tablet completed prednisone 20 MG Oral Tablet ALEXA ([facility]) Prednisone 20 MG Oral Tablet prednisone 20 mg tablet prednisone 20 mg tablet completed prednisone 20 MG Oral Tablet ALEXA ([facility]) Ergocalciferol [id number] UNT Oral Capsule Vi tamin D2 1,250 mcg (50,000 unit) capsule Vitamin D2 1,250 mcg (50,000 unit) capsule completed ergocalciferol 1.25 MG Oral Capsule ALEXA ([facility]) Amoxicillin 875 MG / Clavulanate 125 MG Oral Tablet amoxicillin 875 mg-potassium clavulanate 125 mg tablet TAKE ONE TABLET BY MOUTH TWICE DAILY FOR 10 DAYS amoxicillin 875 mg-potassium clavulanate 125 mg tablet TAKE ONE TABLET BY MOUTH TWICE DAILY FOR 10 DAYS completed amoxicillin 875 MG / clavulanate 125 MG Oral Tablet ALEXA ([facility]) Prednisone 20 MG Oral Tablet prednisone 20 mg tablet prednisone 20 mg tablet completed prednisone 20 MG Oral Tablet ALEXA ([facility]) Trazodone Hydrochloride 50 MG Oral Table t trazodone 50 mg tablet TAKE 1-2 TABLETS BY MOUTH EVERY EVENING NEEDED trazodone 50 mg tablet TAKE 1-2 TABLETS BY MOUTH EVERY EVENING NEEDED comp leted trazodone hydrochloride 50 MG Oral Tablet ALEXA ([facility]) gabapentin 300 MG Oral Capsule gabapenti n 300 mg capsule TAKE ONE CAPSULE BY MOUTH FOUR TIMES A DAY gabapentin 300 mg capsule TAKE ONE CAPSU LE BY MOUTH FOUR TIMES A DAY completed gabapentin 300 MG Oral Capsule ALEXA ([facility]) Simvastatin 20 MG Oral Tablet simvastatin 20 mg tablet simva statin 20 mg tablet completed simvastatin 20 MG Oral Tablet ALEXA ([facility]) Simvastatin 20 MG Oral Tablet simvastatin 20 mg tablet simva statin 20 mg tablet completed simvastatin 20 MG Oral Tablet ALEXA ([facility]) Amoxicillin 875 MG / Clavulanate 125 MG Oral Tablet amoxicillin 875 mg-potassium clavulanate 125 mg tablet TAKE ONE TABLET BY MOUTH TWICE DAILY FOR 10 DAYS amoxicillin 875 mg-potassium clavulanate 125 mg tablet TAKE ONE TABLET BY MOUTH TWICE DAILY FOR 10 DAYS completed amoxicillin 875 MG / clavulanate 125 MG Oral Tablet ALEXA ([facility]) Prednisone 20 MG Oral Tablet prednisone 20 mg tablet prednisone 20 mg tablet completed prednisone 20 MG Oral Tablet ALEXA ([facility]) Amoxicillin 875 MG / Clavulanate 125 MG Oral Tablet amoxicillin 875 mg-potassium clavulanate 125 mg tablet TAKE ONE TABLET BY MOUTH TWICE DAILY FOR 10 DAYS amoxicillin 875 mg-potassium clavulanate 125 mg tablet TAKE ONE TABLET BY MOUTH TWICE DAILY FOR 10 DAYS completed amoxicillin 875 MG / clavulanate 125 MG Oral Tablet ALEXA ([facility]) Trazodone Hydrochloride 50 MG Oral Table t trazodone 50 mg tablet TAKE 1-2 TABLETS BY MOUTH EVERY EVENING NEEDED trazodone 50 mg tablet TAKE 1-2 TABLETS BY MOUTH EVERY EVENING NEEDED comp leted trazodone hydrochloride 50 MG Oral Tablet ALEXA ([facility]) Simvastatin 20 MG Oral Tablet simvastatin 20 mg tablet simva statin 20 mg tablet completed simvastatin 20 MG Oral Tablet ALEXA ([facility]) tizanidine 4 MG Oral Tablet tizanidine 4 mg tablet tizanidine 4 mg ta blet completed tizanidine 4 MG Oral Tablet ALEXA ([facility]) tizanidine 4 MG Oral Tablet tizanidine 4 mg tablet tizanidine 4 mg ta blet completed tizanidine 4 MG Oral Tablet ALEXA ([facility]) 12 HR Guaifenesin 600 MG Extended Releas e Oral Tablet Mucus Relief ER 600 mg tablet, extended release Mucus Relief ER 600 mg tablet, extended release completed 12 HR guaifenesin 60 0 MG Extended Release Oral Tablet ALEXA ([facility]) Amoxicillin 875 MG / Clavulanate 125 MG Oral Tablet amoxicillin 875 mg-potassium clavulanate 125 mg tablet TAKE ONE TABLET BY MOUTH TWICE DAILY FOR 10 DAYS amoxicillin 875 mg-potassium clavulanate 125 mg tablet TAKE ONE TABLET BY MOUTH TWICE DAILY FOR 10 DAYS completed amoxicillin 875 MG / clavulanate 125 MG Oral Tablet ALEXA ([facility]) Trazodone Hydrochloride 50 MG Oral Table t trazodone 50 mg tablet TAKE 1-2 TABLETS BY MOUTH EVERY EVENING NEEDED trazodone 50 mg tablet TAKE 1-2 TABLETS BY MOUTH EVERY EVENING NEEDED comp leted trazodone hydrochloride 50 MG Oral Tablet ALEXA ([facility]) Ergocalciferol [id number] UNT Oral Capsule Vi tamin D2 1,250 mcg (50,000 unit) capsule Vitamin D2 1,250 mcg (50,000 unit) capsule completed ergocalciferol 1.25 MG Oral Capsule ALEXA ([facility]) Trazodone Hydrochloride 50 MG Oral Table t trazodone 50 mg tablet TAKE 1-2 TABLETS BY MOUTH EVERY EVENING NEEDED trazodone 50 mg tablet TAKE 1-2 TABLETS BY MOUTH EVERY EVENING NEEDED comp leted trazodone hydrochloride 50 MG Oral Tablet ALEXA ([facility]) Trazodone Hydrochloride 50 MG Oral Table t trazodone 50 mg tablet TAKE 1-2 TABLETS BY MOUTH EVERY EVENING NEEDED trazodone 50 mg tablet TAKE 1-2 TABLETS BY MOUTH EVERY EVENING NEEDED comp leted trazodone hydrochloride 50 MG Oral Tablet ALEXA ([facility]) Metronidazole 500 MG Oral Tablet metroni dazole 500 mg tablet TAKE ONE TABLET BY MOUTH TWICE DAILY FOR 7 DAYS metronidazole 500 mg tablet TAKE ONE TAB LET BY MOUTH TWICE DAILY FOR 7 DAYS completed metronidazole 500 MG Oral Tablet ALEXA ([facility]) Metronidazole 500 MG Oral Tablet metroni dazole 500 mg tablet TAKE ONE TABLET BY MOUTH TWICE DAILY FOR 7 DAYS metronidazole 500 mg tablet TAKE ONE TAB LET BY MOUTH TWICE DAILY FOR 7 DAYS completed metronidazole 500 MG Oral Tablet ALEXA ([facility]) Trazodone Hydrochloride 50 MG Oral Table t trazodone 50 mg tablet TAKE 1-2 TABLETS BY MOUTH EVERY EVENING NEEDED trazodone 50 mg tablet TAKE 1-2 TABLETS BY MOUTH EVERY EVENING NEEDED comp leted trazodone hydrochloride 50 MG Oral Tablet ALEXA ([facility]) Ergocalciferol [id number] UNT Oral Capsule Vi tamin D2 1,250 mcg (50,000 unit) capsule Vitamin D2 1,250 mcg (50,000 unit) capsule completed ergocalciferol 1.25 MG Oral Capsule ALEXA ([facility]) Trintellix 20 mg tablet TAKE ONE TABLET BY MOUTH ONCE DAILY [id number] completed vortioxetine 20 MG Oral Tablet [ Trintellix] RAMAH ([facility]) Ergocalciferol [id number] UNT Oral Capsule Vi tamin D2 1,250 mcg (50,000 unit) capsule Vitamin D2 1,250 mcg (50,000 unit) capsule completed ergocalciferol 1.25 MG Oral Capsule ALEXA ([facility]) Trintellix 20 mg tablet TAKE ONE TABLET BY MOUTH ONCE DAILY [id number] completed vortioxetine 20 MG Oral Tablet [ Trintellix] ALEXA ([facility]) Trintellix 20 mg tablet [id number] complet ed vortioxetine 20 MG Oral Tablet [Trintellix] RAMAH ([facility]) Nicotine 4 MG/ACTUAT Inhalant Solution [ Nicotrol] Nicotrol 10 mg inhalation cartridge Nicotrol 10 mg inhalation cartridge completed nicotine 4 MG Inhalation Solution [Nicotrol] [facility]) Prednisone 20 MG Oral Tablet prednisone 20 mg tablet prednisone 20 mg tablet completed prednisone 20 MG Oral Tablet ALEXA ([facility]) Simvastatin 20 MG Oral Tablet simvastatin 20 mg tablet simva statin 20 mg tablet completed simvastatin 20 MG Oral Tablet RAMAH ([facility]) Metronidazole 500 MG Oral Tablet metroni dazole 500 mg tablet TAKE ONE TABLET BY MOUTH TWICE DAILY FOR 7 DAYS metronidazole 500 mg tablet TAKE ONE TAB LET BY MOUTH TWICE DAILY FOR 7 DAYS completed metronidazole 500 MG Oral Tablet RAMAH ([facility]) Trazodone Hydrochloride 50 MG Oral Table t trazodone 50 mg tablet TAKE 1-2 TABLETS BY MOUTH EVERY EVENING NEEDED trazodone 50 mg tablet TAKE 1-2 TABLETS BY MOUTH EVERY EVENING NEEDED comp leted trazodone hydrochloride 50 MG Oral Tablet RAMAH ([facility]) 12 HR Guaifenesin 600 MG Extended Releas e Oral Tablet Mucus Relief ER 600 mg tablet, extended release Mucus Relief ER 600 mg tablet, extended release completed 12 HR guaifenesin 60 0 MG Extended Release Oral Tablet RAMAH ([facility]) Prazosin 1 MG Oral Capsule prazosin 1 mg capsule prazosin 1 mg capsule completed prazosin 1 MG Oral Capsul e RAMAH ([facility]) Prazosin 1 MG Oral Capsule prazosin 1 mg capsule prazosin 1 mg capsule completed prazosin 1 MG Oral Capsul e ALEXA ([facility]) Ergocalciferol [id number] UNT Oral Capsule Vi tamin D2 1,250 mcg (50,000 unit) capsule Vitamin D2 1,250 mcg (50,000 unit) capsule completed ergocalciferol 1.25 MG Oral Capsule ALEXA ([facility]) Amoxicillin 875 MG / Clavulanate 125 MG Oral Tablet amoxicillin 875 mg-potassium clavulanate 125 mg tablet TAKE ONE TABLET BY MOUTH TWICE DAILY FOR 10 DAYS amoxicillin 875 mg-potassium clavulanate 125 mg tablet TAKE ONE TABLET BY MOUTH TWICE DAILY FOR 10 DAYS completed amoxicillin 875 MG / clavulanate 125 MG Oral Tablet ALEXA ([facility]) Amoxicillin 875 MG / Clavulanate 125 MG Oral Tablet amoxicillin 875 mg-potassium clavulanate 125 mg tablet TAKE ONE TABLET BY MOUTH TWICE DAILY FOR 10 DAYS amoxicillin 875 mg-potassium clavulanate 125 mg tablet TAKE ONE TABLET BY MOUTH TWICE DAILY FOR 10 DAYS completed amoxicillin 875 MG / clavulanate 125 MG Oral Tablet ALEXA ([facility]) Prednisone 20 MG Oral Tablet prednisone 20 mg tablet prednisone 20 mg tablet completed prednisone 20 MG Oral Tablet ALEXA ([facility]) Ergocalciferol [id number] UNT Oral Capsule Vi tamin D2 1,250 mcg (50,000 unit) capsule Vitamin D2 1,250 mcg (50,000 unit) capsule completed ergocalciferol 1.25 MG Oral Capsule ALEXA ([facility]) Trazodone Hydrochloride 50 MG Oral Table t trazodone 50 mg tablet TAKE 1-2 TABLETS BY MOUTH EVERY EVENING NEEDED trazodone 50 mg tablet TAKE 1-2 TABLETS BY MOUTH EVERY EVENING NEEDED comp leted trazodone hydrochloride 50 MG Oral Tablet ALEXA ([facility]) tizanidine 4 MG Oral Tablet tizanidine 4 mg tablet tizanidine 4 mg ta blet completed tizanidine 4 MG Oral Tablet ALEXA ([facility]) Ergocalciferol 14195 UNT Oral Capsule Vi tamin D2 1,250 mcg (50,000 unit) capsule Vitamin D2 1,250 mcg (50,000 unit) capsule completed ergocalciferol 1.25 MG Oral Capsule ALEXA ([facility]) Prednisone 20 MG Oral Tablet prednisone 20 mg tablet prednisone 20 mg tablet completed prednisone 20 MG Oral Tablet ALEXA ([facility]) Prazosin 1 MG Oral Capsule prazosin 1 mg capsule prazosin 1 mg capsule completed prazosin 1 MG Oral Capsul e ALEXA ([facility]) Amoxicillin 875 MG / Clavulanate 125 MG Oral Tablet amoxicillin 875 mg-potassium clavulanate 125 mg tablet TAKE ONE TABLET BY MOUTH TWICE DAILY FOR 10 DAYS amoxicillin 875 mg-potassium clavulanate 125 mg tablet TAKE ONE TABLET BY MOUTH TWICE DAILY FOR 10 DAYS completed amoxicillin 875 MG / clavulanate 125 MG Oral Tablet ALEXA ([facility]) gabapentin 300 MG Oral Capsule gabapenti n 300 mg capsule TAKE ONE CAPSULE BY MOUTH FOUR TIMES A DAY gabapentin 300 mg capsule TAKE ONE CAPSU LE BY MOUTH FOUR TIMES A DAY completed gabapentin 300 MG Oral Capsule ALEXA ([facility]) gabapentin 300 MG Oral Capsule gabapentin 300 mg capsu le gabapentin 300 mg capsule completed gabapentin 300 MG Oral Capsule ALEXA ([facility]) Simvastatin 20 MG Oral Tablet simvastatin 20 mg tablet simva statin 20 mg tablet completed simvastatin 20 MG Oral Tablet ALEXA ([facility]) gabapentin 300 MG Oral Capsule gabapenti n 300 mg capsule TAKE ONE CAPSULE BY MOUTH FOUR TIMES A DAY gabapentin 300 mg capsule TAKE ONE CAPSU LE BY MOUTH FOUR TIMES A DAY completed gabapentin 300 MG Oral Capsule ALEXA ([facility]) gabapentin 300 MG Oral Capsule gabapentin 300 mg capsu le gabapentin 300 mg capsule completed gabapentin 300 MG Oral Capsule ALEXA ([facility]) Prazosin 1 MG Oral Capsule prazosin 1 mg capsule prazosin 1 mg capsule completed prazosin 1 MG Oral Capsul e ALEXA ([facility]) Prazosin 1 MG Oral Capsule prazosin 1 mg capsule prazosin 1 mg capsule completed prazosin 1 MG Oral Capsul e ALEXA ([facility]) gabapentin 300 MG Oral Capsule gabapentin 300 mg capsu le gabapentin 300 mg capsule completed gabapentin 300 MG Oral Capsule ALEXA ([facility]) Trintellix 20 mg tablet [id number] complet ed vortioxetine 20 MG Oral Tablet [Trintellix] ALEXA ([facility]) Prednisone 20 MG Oral Tablet prednisone 20 mg tablet prednisone 20 mg tablet completed prednisone 20 MG Oral Tablet ALEXA ([facility]) Trazodone Hydrochloride 50 MG Oral Table t trazodone 50 mg tablet TAKE 1-2 TABLETS BY MOUTH EVERY EVENING NEEDED trazodone 50 mg tablet TAKE 1-2 TABLETS BY MOUTH EVERY EVENING NEEDED comp leted trazodone hydrochloride 50 MG Oral Tablet ALEXA ([facility]) Prazosin 1 MG Oral Capsule prazosin 1 mg capsule prazosin 1 mg capsule completed prazosin 1 MG Oral Capsul e RAMAH ([facility]) Amoxicillin 875 MG / Clavulanate 125 MG Oral Tablet amoxicillin 875 mg-potassium clavulanate 125 mg tablet TAKE ONE TABLET BY MOUTH TWICE DAILY FOR 10 DAYS amoxicillin 875 mg-potassium clavulanate 125 mg tablet TAKE ONE TABLET BY MOUTH TWICE DAILY FOR 10 DAYS completed amoxicillin 875 MG / clavulanate 125 MG Oral Tablet RAMAH ([facility]) Prazosin 1 MG Oral Capsule prazosin 1 mg capsule prazosin 1 mg capsule completed prazosin 1 MG Oral Capsul e RAMAH ([facility]) 12 HR Guaifenesin 600 MG Extended Releas e Oral Tablet Mucus Relief ER 600 mg tablet, extended release Mucus Relief ER 600 mg tablet, extended release completed 12 HR guaifenesin 60 0 MG Extended Release Oral Tablet RAMAH ([facility]) gabapentin 300 MG Oral Capsule gabapentin 300 mg capsu le gabapentin 300 mg capsule completed gabapentin 300 MG Oral Capsule RAMAH ([facility]) Nicotine 4 MG/ACTUAT Inhalant Solution [ Nicotrol] Nicotrol 10 mg inhalation cartridge Nicotrol 10 mg inhalation cartridge completed nicotine 4 MG Inhalation Solution [Nicotrol] [facility]) Trintellix 20 mg tablet [id number] [facility] ed vortioxetine 20 MG Oral Tablet [Trintellix] ALEXA ([facility]) Simvastatin 20 MG Oral Tablet simvastatin 20 mg tablet simva statin 20 mg tablet completed simvastatin 20 MG Oral Tablet ALEXA ([facility]) Trintellix 20 mg tablet TAKE ONE TABLET BY MOUTH ONCE DAILY [id number] completed vortioxetine 20 MG Oral Tablet [ Trintellix] RAMAH ([facility]) Trazodone Hydrochloride 50 MG Oral Tablet trazodone 50 mg tablet trazodone 50 mg tablet completed trazodone hydr ochloride 50 MG Oral Tablet RAMAH ([facility]) Simvastatin 20 MG Oral Tablet simvastatin 20 mg tablet simva statin 20 mg tablet completed simvastatin 20 MG Oral Tablet ALEXA ([facility]) Metronidazole 500 MG Oral Tablet metroni dazole 500 mg tablet TAKE ONE TABLET BY MOUTH TWICE DAILY FOR 7 DAYS metronidazole 500 mg tablet TAKE ONE TAB LET BY MOUTH TWICE DAILY FOR 7 DAYS completed metronidazole 500 MG Oral Tablet ALEXA ([facility]) Ergocalciferol 36972 UNT Oral Capsule Vi tamin D2 1,250 mcg (50,000 unit) capsule Vitamin D2 1,250 mcg (50,000 unit) capsule completed ergocalciferol 1.25 MG Oral Capsule ALEXA ([facility]) Trintellix 20 mg tablet [id number] complet ed vortioxetine 20 MG Oral Tablet [Trintellix] ALEAX ([facility]) Simvastatin 20 MG Oral Tablet simvastatin 20 mg tablet simva statin 20 mg tablet completed simvastatin 20 MG Oral Tablet ALEXA ([facility]) gabapentin 300 MG Oral Capsule gabapentin 300 mg capsu le gabapentin 300 mg capsule completed gabapentin 300 MG Oral Capsule [facility] ([facility]) Insurance Providers Payer name Policy type / Coverage type Policy ID Covered democrat ID Covered democrat's relationship to garcia Policy Garcia Plan Information Medicaid S [id number] S [id number] Managed Care - Community Plan [facility] P [id number] S [id number] Managed Care - Community Plan [facility] P [id number] S [id number] Managed Care - [facility] Community Plan P [id number] S [id number] Medicaid S [id number] S [id number] Managed Care - [facility] Community Plan P [id number] S [id number] [facility] Plan Medicaid F [id number] SELF [id number] Medicaid S [id number] S [id number] FORMERLY [facility] [id number] SP [id number] [facility] COMMUN[facility] [id number] SP [id number] SP [id number] [facility] COMMUNITY PL[facility] [id number] SP [id number] [facility] [id number] SP [id number] [facility] O [id number] S [id number] [place]([facility]) O [id number] S [id number] PROGRESSIVE CO NO FAULT [id number] PROGRESSIVE CO NO FAULT 00 FR2 00 Problems, Conditions, and Diagnoses Code Display Name Description Problem Type Effective Dates Data Source(s) [id number] Bilateral swelling of finger of hands Bi lateral Swelling of Finger of Hands Problem 10/25/2020 12:00:00 AM EDT ALEXA ([facility]) [id number] Bilateral swelling of finger of hands Bi lateral Swelling of Finger of Hands Problem 10/25/2020 12:00:00 AM EDT ALEXA ([facility]) [id number] Bilateral swelling of finger of hands Bi lateral Swelling of Finger of Hands Problem 10/25/2020 12:00:00 AM EDT ALEXA ([facility]) [id number] Bilateral swelling of finger of hands Bi lateral Swelling of Finger of Hands Problem 10/25/2020 12:00:00 AM EDT ALEXA ([facility]) [id number] Wheezing Wheezing Problem 07/27/2020 12:00:00 AM LUÍS LIU ([facility]) [id number] Wheezing Wheezing Problem 07/27/2020 12:00:00 AM ES Minda LIU ([facility]) [id number] Wheezing Wheezing Problem 07/27/2020 12:00:00 AM ES Minda LIU ([facility]) [id number] Wheezing Wheezing Problem 07/27/2020 12:00:00 AM ES Minda LIU ([facility]) [id number] Wheezing Wheezing Problem 07/27/2020 12:00:00 AM LUÍS LIU ([facility]) [id number] Wheezing Wheezing Problem 07/27/2020 12:00:00 AM ES Minda LIU ([facility]) [id number] Edema Edema Problem 05/04/2020 12:00:00 AM LUÍS LIU ([facility]) [id number] Chronic depression Chronic Depression Problem 12:00:00 AM IVETT LIU ([facility]) [id number] Edema Edema Problem 05/04/2020 12:00:00 AM LUÍS LIU ([facility]) [id number] Chronic depression Chronic Depression Problem 12:00:00 AM IVETT LIU ([facility]) [id number] Edema Edema Problem 05/04/2020 12:00:00 AM LUÍS LIU ([facility]) [id number] Chronic depression Chronic Depression Problem 12:00:00 AM IVETT LIU ([facility] er) [id number] Edema Edema Problem 05/04/2020 12:00:00 AM LUÍS LIU ([facility]) [id number] Chronic depression Chronic Depression Problem 12:00:00 AM IVETT LIU ([facility]) [id number] Edema Edema Problem 05/04/2020 12:00:00 AM ES Minda LIU ([facility]) [id number] Chronic depression Chronic Depression Problem 12:00:00 AM IVETT LIU ([facility]) [id number] Edema Edema Problem 05/04/2020 12:00:00 AM LUÍS LIU ([facility]) [id number] Chronic depression Chronic Depression Problem 12:00:00 AM IVETT LIU ([facility]) [id number] Edema Edema Problem 05/04/2020 12:00:00 AM LUÍS LIU ([facility]) [id number] Chronic depression Chronic Depression Problem 12:00:00 AM IVETT LIU ([facility]) Surgeries/Procedures Procedure Description Date Indications Data Source(s) OFFICE OUTPATIENT NEW 30 MINUTES 01/04/2021 12:00:00 A M EDT MED[facility] ([facility], ) OFFICE OUTPATIENT NEW 45 MINUTES 01/04/2021 12:00:00 A M EDT [facility] ([facility], ) Results ID Date Data Source [id number] 11/09/2020 08:04:00 AM EDT ALEXA ([facility]) Name Value Range Interpretation Code Description Data Iris rce(s) Supporting Document(s) Thyrotropin [Units/volume] in Serum or Plasma 1.78 mIU/L TSH W/reflex to FT4 ALEXA ([facility]) ID Date Data Source [id number] 11/09/2020 08:04:00 AM EDT [facility]) Name Value Range Interpretation Code Description Data Iris rce(s) Supporting Document(s) C reactive protein [Mass/volume] in Serum or Plasma 2.3 mg/L <8 .0 C-reactive Protein [facility]) ID Date Data Source [id number] 11/09/2020 08:04:00 AM EDT [facility]) Name Value Range Interpretation Code Description Data Iris rce(s) Supporting Document(s) Erythrocyte sedimentation rate by Westergren method 2 mm/h < or = 20 Sed Rate by Modified Westergren [facility]) ID Date Data Source [id number] 11/09/2020 08:04:00 AM EDT [facility]) Name Value Range Interpretation Code Description Data Iris rce(s) Supporting Document(s) Creatinine [Mass/volume] in Serum or Plasma 0.71 mg/dL 0.50-1.10 Creatinine ALEXA ([facility]) Glucose [Mass/volume] in Serum or Plasma 128 mg/dL 65-99 Above high normal Glucose ALEXA ([facility]) Urea nitrogen [Mass/volume] in Serum or Plasma 13 mg/dL 7-25 Urea Nitrogen (BUN) ALEXA ([facility]) Glomerular filtration rate/1.73 sq M.pre dicted among non-blacks [Volume Rate/Area] in Serum, Plasma or Blood by Creatinine-based formula (CKD-EPI) 104 mL/min/1.73m2 > or = 60 eGFR Non-afr. Polish ALEXA ([facility]) Glomerular filtration rate/1.73 sq M.pre dicted among blacks [Volume Rate/Area] in Serum, Plasma or Blood by Creatinine-based formula (CKD-EPI) 120 mL/min/1.73m2 > or = 60 eGFR ALEXA ([facility]) Urea nitrogen/Creatinine [Mass Ratio] in Serum or Plasma not applic able 6-22 BUN/creatinine Ratio RAMAH ([facility]) Potassium [Moles/volume] in Serum or Plasma 3.7 mmol/L 3.5-5.3 Potassium ALEXA ([facility]) Sodium [Moles/volume] in Serum or Plasma 139 mmol/L 135-146 Sodium ALEXA ([facility]) Carbon dioxide, total [Moles/volume] in Serum or Plasma 27 mmol/L 20-32 Carbon Dioxide ALEXA ([facility]) Chloride [Moles/volume] in Serum or Plasma 102 mmol/L 98-110 Chloride ALEXA ([facility]) Calcium [Mass/volume] in Serum or Plasma 9.4 mg/dL 8.6-10.2 Calcium ALEXA ([facility]) Albumin [Mass/volume] in Serum or Plasma 4.3 g/dL 3.6-5.1 Albumin RAMAH ([facility]) Protein [Mass/volume] in Serum or Plasma 6.8 g/dL 6.1-8.1 Protein, Total RAMAH ([facility]) Alkaline phosphatase [Enzymatic activity/volume] in Serum or Plasma 63 U/L 31-125 Alkaline Phosphatase ALEXA ([facility]) Albumin/Globulin [Mass Ratio] in Serum or Plasma 1.7 (calc) 1.0-2 .5 Albumin/globulin Ratio RAMAH ([facility]) Globulin [Mass/volume] in Serum by calculation 2.5 g/dL_(calc) 1.9- 3.7 Globulin RAMAH ([facility]) Bilirubin.total [Mass/volume] in Serum or Plasma 0.4 mg/dL 0.2-1 .2 Bilirubin, Total ALEXA ([facility]) Alanine aminotransferase [Enzymatic activity/volume] in Seru m or Plasma 10 U/L 6-29 Alt ALEXA ([facility]) Aspartate aminotransferase [Enzymatic activity/volume] in Serum or Plasma 14 U/L 10-30 Ast RAMAH ([facility]) ID Date Data Source [id number] 11/09/2020 08:04:00 AM EDT RAMAH ([facility]) Name Value Range Interpretation Code Description Data Iris rce(s) Supporting Document(s) Triglyceride [Mass/volume] in Serum or Plasma 201 mg/dL <150 Above high normal Triglycerides ALEXA ([facility]) Cholesterol in HDL [Mass/volume] in Serum or Plasma 42 mg/dL > or = 50 Below low normal HDL Cholesterol ALEXA ([facility]) Cholesterol [Mass/volume] in Serum or Plasma 225 mg/dL <200 Above high normal Cholesterol, Total ALEXA ([facility]) Cholesterol.total/Cholesterol in HDL [Mass Ratio] in Serum o r Plasma 5.4 (calc) <5.0 Above high normal Chol/hdlc Ratio ALEXA ([facility]) Cholesterol in LDL [Mass/volume] in Serum or Plasma by calculation 148 mg/dL_(calc) Above high normal LDL-cholesterol ALEXA ([facility]) Cholesterol non HDL [Mass/volume] in Serum or Plasma 183 mg/dL_( calc) <130 Above high normal Non HDL Cholesterol ALEXA ([facility]) ID Date Data Source [id number] 11/09/2020 08:04:00 AM EDT [facility]) Name Value Range Interpretation Code Description Data Iris rce(s) Supporting Document(s) Thyrotropin [Units/volume] in Serum or Plasma 1.78 mIU/L TSH W/reflex to FT4 ALEXA ([facility]) ID Date Data Source [id number] 11/09/2020 08:04:00 AM EDT [facility]) Name Value Range Interpretation Code Description Data Iris rce(s) Supporting Document(s) C reactive protein [Mass/volume] in Serum or Plasma 2.3 mg/L <8 .0 C-reactive Protein ALEXA ([facility]) ID Date Data Source [id number] 11/09/2020 08:04:00 AM EDT [facility]) Name Value Range Interpretation Code Description Data Iris rce(s) Supporting Document(s) Erythrocyte sedimentation rate by Westergren method 2 mm/h < or = 20 Sed Rate by Modified Westergren ALEXA ([facility]) ID Date Data Source [id number] 11/09/2020 08:04:00 AM EDT RAMAH ([facility]) Name Value Range Interpretation Code Description Data Iris rce(s) Supporting Document(s) Glucose [Mass/volume] in Serum or Plasma 128 mg/dL 65-99 Above high normal Glucose RAMAH ([facility]) Glomerular filtration rate/1.73 sq M.pre dicted among non-blacks [Volume Rate/Area] in Serum, Plasma or Blood by Creatinine-based formula (CKD-EPI) 104 mL/min/1.73m2 > or = 60 eGFR Non-afr. Polish ALEXA ([facility]) Creatinine [Mass/volume] in Serum or Plasma 0.71 mg/dL 0.50-1.10 Creatinine RAMAH ([facility]) Urea nitrogen [Mass/volume] in Serum or Plasma 13 mg/dL 7-25 Urea Nitrogen (BUN) RAMAH ([facility]) Glomerular filtration rate/1.73 sq M.pre dicted among blacks [Volume Rate/Area] in Serum, Plasma or Blood by Creatinine-based formula (CKD-EPI) 120 mL/min/1.73m2 > or = 60 eGFR ALEXA ([facility]) Potassium [Moles/volume] in Serum or Plasma 3.7 mmol/L 3.5-5.3 Potassium RAMAH ([facility]) Sodium [Moles/volume] in Serum or Plasma 139 mmol/L 135-146 Sodium ALEXA ([facility]) Urea nitrogen/Creatinine [Mass Ratio] in Serum or Plasma not applic able 6-22 BUN/creatinine Ratio ALEXA ([facility]) Carbon dioxide, total [Moles/volume] in Serum or Plasma 27 mmol/L 20-32 Carbon Dioxide ALEXA ([facility]) Calcium [Mass/volume] in Serum or Plasma 9.4 mg/dL 8.6-10.2 Calcium ALEXA ([facility]) Chloride [Moles/volume] in Serum or Plasma 102 mmol/L 98-110 Chloride RAMAH ([facility]) Protein [Mass/volume] in Serum or Plasma 6.8 g/dL 6.1-8.1 Protein, Total ALEXA ([facility]) Globulin [Mass/volume] in Serum by calculation 2.5 g/dL_(calc) 1.9- 3.7 Globulin RAMAH ([facility]) Albumin/Globulin [Mass Ratio] in Serum or Plasma 1.7 (calc) 1.0-2 .5 Albumin/globulin Ratio RAMAH ([facility]) Bilirubin.total [Mass/volume] in Serum or Plasma 0.4 mg/dL 0.2-1 .2 Bilirubin, Total ALEXA ([facility]) Albumin [Mass/volume] in Serum or Plasma 4.3 g/dL 3.6-5.1 Albumin RAMAH ([facility]) Alkaline phosphatase [Enzymatic activity/volume] in Serum or Plasma 63 U/L 31-125 Alkaline Phosphatase RAMAH ([facility]) Aspartate aminotransferase [Enzymatic activity/volume] in Serum or Plasma 14 U/L 10-30 Ast RAMAH ([facility]) Alanine aminotransferase [Enzymatic activity/volume] in Seru m or Plasma 10 U/L 6-29 Alt ALEXA ([facility]) ID Date Data Source [id number] 11/09/2020 08:04:00 AM EDT RAMAH ([facility]) Name Value Range Interpretation Code Description Data Iris rce(s) Supporting Document(s) Cholesterol [Mass/volume] in Serum or Plasma 225 mg/dL <200 Above high normal Cholesterol, Total ALEXA ([facility]) Triglyceride [Mass/volume] in Serum or Plasma 201 mg/dL <150 Above high normal Triglycerides ALEXA ([facility]) Cholesterol in LDL [Mass/volume] in Serum or Plasma by calculation 148 mg/dL_(calc) Above high normal LDL-cholesterol ALEXA ([facility]) Cholesterol in HDL [Mass/volume] in Serum or Plasma 42 mg/dL > or = 50 Below low normal HDL Cholesterol ALEXA ([facility]) Cholesterol.total/Cholesterol in HDL [Mass Ratio] in Serum o r Plasma 5.4 (calc) <5.0 Above high normal Chol/hdlc Ratio ALEXA ([facility]) Cholesterol non HDL [Mass/volume] in Serum or Plasma 183 mg/dL_( calc) <130 Above high normal Non HDL Cholesterol ALEXA ([facility]) ID Date Data Source [id number] 09/20/2020 12:00:00 AM EDT ALEXA ([facility]) Name Value Range Interpretation Code Description Data Iris rce(s) Supporting Document(s) SARS-CoV-2 (COVID-19) RNA [Presence] in Respiratory specimen by OSITO with probe detection negative negative Sars-cov-2 ALEXA ([facility]) ID Date Data Source [id number] 09/20/2020 12:00:00 AM EDT ALEXA ([facility]) Name Value Range Interpretation Code Description Data Iris rce(s) Supporting Document(s) ID Date Data Source [id number] 09/20/2020 12:00:00 AM EDT ALEXA ([facility]) Name Value Range Interpretation Code Description Data Iris rce(s) Supporting Document(s) SARS-CoV-2 (COVID-19) RNA [Presence] in Respiratory specimen by OSITO with probe detection negative negative Sars-cov-2 ALEXA ([facility]) ID Date Data Source [id number] 09/20/2020 12:00:00 AM EDT ALEXA ([facility]) Name Value Range Interpretation Code Description Data Iris rce(s) Supporting Document(s) ID Date Data Source [id number] 09/20/2020 12:00:00 AM EDT ALEXA ([facility]) Name Value Range Interpretation Code Description Data Iris rce(s) Supporting Document(s) SARS-CoV-2 (COVID-19) RNA [Presence] in Respiratory specimen by OSITO with probe detection negative negative Sars-cov-2 A[facility] ([facility]) ID Date Data Source [id number] 09/20/2020 12:00:00 AM EDT ALEXA ([facility]) Name Value Range Interpretation Code Description Data Iris rce(s) Supporting Document(s) ID Date Data Source [id number] 09/20/2020 12:00:00 AM EDT [facility] Name Value Range Interpretation Code Description Data Iris rce(s) Supporting Document(s) [facility] This lab was ordered by [facility]-COVID19 and reported by [employer]. ID Date Data Source [id number] 09/20/2020 12:00:00 AM EDT ALEXA ([facility]) Name Value Range Interpretation Code Description Data Iris rce(s) Supporting Document(s) SARS-CoV-2 (COVID-19) RNA [Presence] in Respiratory specimen by OSITO with probe detection negative negative Sars-cov-2 ALEXA ([facility]) ID Date Data Source [id number] 09/20/2020 12:00:00 AM EDT ALEXA ([employer] [facility]) Name Value Range Interpretation Code Description Data Iris rce(s) Supporting Document(s) ID Date Data Source PAP REQUEST FOR SERVICE 07/24/2020 12:00:00 AM EST eCW1 ([facility]) Name Value Range Interpretation Code Description Data Iris rce(s) Supporting Document(s) eCW1 ([facility]) ID Date Data Source [id number] 07/07/2020 12:00:00 AM EST ALEXA ([employer] [facility]) Name Value Range Interpretation Code Description Data Iris rce(s) Supporting Document(s) SARS-CoV-2 (COVID-19) RNA [Presence] in Respiratory specimen by OSITO with probe detection negative negative Sars-cov-2 ALEXA ([facility]) ID Date Data Source [id number] 07/07/2020 12:00:00 AM EST ALEXA ([facility]) Name Value Range Interpretation Code Description Data Iris rce(s) Supporting Document(s) ID Date Data Source [id number] 07/07/2020 12:00:00 AM EST ALE[facility] ([facility]) Name Value Range Interpretation Code Description Data Iris rce(s) Supporting Document(s) SARS-CoV-2 (COVID-19) RNA [Presence] in Respiratory specimen by OSITO with probe detection negative negative Sars-cov-2 ALE[facility] ([facility]) ID Date Data Source [id number] 07/07/2020 12:00:00 AM EST ALEXA ([facility]) Name Value Range Interpretation Code Description Data Iris rce(s) Supporting Document(s) ID Date Data Source [id number] 07/07/2020 12:00:00 AM EST ALEXA ([facility]) Name Value Range Interpretation Code Description Data Iris rce(s) Supporting Document(s) SARS-CoV-2 (COVID-19) RNA [Presence] in Respiratory specimen by OSITO with probe detection negative negative Sars-cov-2 ALE[facility] ([facility]) ID Date Data Source [id number] 07/07/2020 12:00:00 AM EST ALEXA ([facility]) Name Value Range Interpretation Code Description Data Iris rce(s) Supporting Document(s) ID Date Data Source [id number] 07/07/2020 12:00:00 AM EST ALEXA ([facility]) Name Value Range Interpretation Code Description Data Iris rce(s) Supporting Document(s) SARS-CoV-2 (COVID-19) RNA [Presence] in Respiratory specimen by OSITO with probe detection negative negative Sars-cov-2 ALEXA ([facility]) ID Date Data Source [id number] 07/07/2020 12:00:00 AM EST ALEXA ([facility]) Name Value Range Interpretation Code Description Data Iris rce(s) Supporting Document(s) ID Date Data Source [id number] 07/07/2020 12:00:00 AM EST ALEXA ([facility]) Name Value Range Interpretation Code Description Data Iris rce(s) Supporting Document(s) SARS-CoV-2 (COVID-19) RNA [Presence] in Respiratory specimen by OSITO with probe detection negative negative Sars-cov-2 ALEXA ([facility]) ID Date Data Source [id number] 07/07/2020 12:00:00 AM EST ALEXA ([facility]) Name Value Range Interpretation Code Description Data Iris rce(s) Supporting Document(s) ID Date Data Source [id number] 07/07/2020 12:00:00 AM EST ALEXA ([facility]) Name Value Range Interpretation Code Description Data Iris rce(s) Supporting Document(s) SARS-CoV-2 (COVID-19) RNA [Presence] in Respiratory specimen by OSITO with probe detection negative negative Sars-cov-2 ALEXA ([facility]) ID Date Data Source [id number] 07/07/2020 12:00:00 AM EST ALEXA ([facility]) Name Value Range Interpretation Code Description Data Iris rce(s) Supporting Document(s) ID Date Data Source [id number] 07/07/2020 12:00:00 AM EST [facility] Name Value Range Interpretation Code Description Data Iris rce(s) Supporting Document(s) SARS-CoV-2 NEGATIVE [facility] This lab was ordered by [facility]-COVID[facility] and reported by [employer]. ID Date Data Source [id number] 05/29/2020 12:00:00 AM EST ALEXA ([facility]) Name Value Range Interpretation Code Description Data Iris rce(s) Supporting Document(s) SARS-CoV-2 (COVID-19) RNA [Presence] in Respiratory specimen by OSITO with probe detection negative negative Sars-cov-2 ALEXA ([facility]) ID Date Data Source [id number] 05/29/2020 12:00:00 AM EST ALEXA ([facility]) Name Value Range Interpretation Code Description Data Iris rce(s) Supporting Document(s) ID Date Data Source [id number] 05/29/2020 12:00:00 AM EST ALEXA ([facility]) Name Value Range Interpretation Code Description Data Iris rce(s) Supporting Document(s) SARS-CoV-2 (COVID-19) RNA [Presence] in Respiratory specimen by OSITO with probe detection negative negative Sars-cov-2 ALEXA ([facility]) ID Date Data Source [id number] 05/29/2020 12:00:00 AM EST ALEXA ([facility]) Name Value Range Interpretation Code Description Data Iris rce(s) Supporting Document(s) ID Date Data Source [id number] 05/29/2020 12:00:00 AM EST ALEXA ([facility]) Name Value Range Interpretation Code Description Data Iris rce(s) Supporting Document(s) SARS-CoV-2 (COVID-19) RNA [Presence] in Respiratory specimen by OSITO with probe detection negative negative Sars-cov-2 ALE[facility] ([facility]) ID Date Data Source [id number] 05/29/2020 12:00:00 AM EST ALEXA ([facility]) Name Value Range Interpretation Code Description Data Iris rce(s) Supporting Document(s) ID Date Data Source [id number] 05/29/2020 12:00:00 AM EST ALEXA ([facility]) Name Value Range Interpretation Code Description Data Iris rce(s) Supporting Document(s) SARS-CoV-2 (COVID-19) RNA [Presence] in Respiratory specimen by OSITO with probe detection negative negative Sars-cov-2 ALEXA ([facility]) ID Date Data Source [id number] 05/29/2020 12:00:00 AM EST ALEXA ([facility]) Name Value Range Interpretation Code Description Data Iris rce(s) Supporting Document(s) ID Date Data Source [id number] 05/29/2020 12:00:00 AM EST ALEXA ([facility]) Name Value Range Interpretation Code Description Data Iris rce(s) Supporting Document(s) SARS-CoV-2 (COVID-19) RNA [Presence] in Respiratory specimen by OSITO with probe detection negative negative Sars-cov-2 ALEXA ([facility]) ID Date Data Source [id number] 05/29/2020 12:00:00 AM EST ALEXA ([facility]) Name Value Range Interpretation Code Description Data Iris rce(s) Supporting Document(s) ID Date Data Source [id number] 05/29/2020 12:00:00 AM EST ALEXA ([facility]) Name Value Range Interpretation Code Description Data Iris rce(s) Supporting Document(s) SARS-CoV-2 (COVID-19) RNA [Presence] in Respiratory specimen by [facility] with probe detection negative negative Sars-cov-2 [facility] ([facility]) ID Date Data Source [id number] 05/29/2020 12:00:00 AM EST [facility] ([facility]) Name Value Range Interpretation Code Description Data Iris rce(s) Supporting Document(s) ID Date Data Source [id number] 05/29/2020 12:00:00 AM EST [facility] ([facility]) Name Value Range Interpretation Code Description Data Iris rce(s) Supporting Document(s) SARS-CoV-2 (COVID-19) RNA [Presence] in Respiratory specimen by OSITO with probe detection negative negative Sars-cov-2 [facility] ([facility]) ID Date Data Source [id number] 05/29/2020 12:00:00 AM EST [facility] ([facility]) Name Value Range Interpretation Code Description Data Iris rce(s) Supporting Document(s) ID Date Data Source [id number] 05/29/2020 12:00:00 AM EST [facility] ([facility]) Name Value Range Interpretation Code Description Data Iris rce(s) Supporting Document(s) SARS-CoV-2 (COVID-19) RNA [Presence] in Respiratory specimen by OSITO with probe detection negative negative Sars-cov-2 [facility] ([facility]) ID Date Data Source [id number] 05/29/2020 12:00:00 AM EST [facility] ([facility]) Name Value Range Interpretation Code Description Data Iris rce(s) Supporting Document(s) ID Date Data Source [id number] 05/29/2020 12:00:00 AM EST [facility] ([facility]) Name Value Range Interpretation Code Description Data Iris rce(s) Supporting Document(s) SARS-CoV-2 (COVID-19) RNA [Presence] in Respiratory specimen by OSITO with probe detection negative negative Sars-cov-2 [facility] ([facility]) ID Date Data Source [id number] 05/29/2020 12:00:00 AM EST [facility] ([facility]) Name Value Range Interpretation Code Description Data Iris rce(s) Supporting Document(s) ID Date Data Source [id number] 05/29/2020 12:00:00 AM EST [facility] Name Value Range Interpretation Code Description Data Iris rce(s) Supporting Document(s) SARS-CoV-2 NEGATIVE [facility] This lab was ordered by [facility]-COVID19 and reported by [facility]. ID Date Data Source [id number] 03/15/2020 12:00:00 AM EDT [facility] ([facility]) Name Value Range Interpretation Code Description Data Iris rce(s) Supporting Document(s) SARS-CoV-2 (COVID-19) RNA [Presence] in Respiratory specimen by OSITO with probe detection negative negative Sars-cov-2 [facility] ([facility]) ID Date Data Source [id number] 03/15/2020 12:00:00 AM EDT [facility] ([facility]) Name Value Range Interpretation Code Description Data Iris rce(s) Supporting Document(s) ID Date Data Source [id number] 03/15/2020 12:00:00 AM EDT [facility] ([facility]) Name Value Range Interpretation Code Description Data Iris rce(s) Supporting Document(s) SARS-CoV-2 (COVID-19) RNA [Presence] in Respiratory specimen by OSITO with probe detection negative negative Sars-cov-2 [facility] ([facility]) ID Date Data Source [id number] 03/15/2020 12:00:00 AM EDT [facility] ([facility]) Name Value Range Interpretation Code Description Data Iris rce(s) Supporting Document(s) ID Date Data Source [id number] 03/15/2020 12:00:00 AM EDT [facility] ([facility]) Name Value Range Interpretation Code Description Data Iris rce(s) Supporting Document(s) SARS-CoV-2 (COVID-19) RNA [Presence] in Respiratory specimen by OSITO with probe detection negative negative Sars-cov-2 [facility] ([facility]) ID Date Data Source [id number] 03/15/2020 12:00:00 AM EDT [facility] ([facility]) Name Value Range Interpretation Code Description Data Iris rce(s) Supporting Document(s) ID Date Data Source [id number] 03/15/2020 12:00:00 AM EDT [facility] ([facility]) Name Value Range Interpretation Code Description Data Iris rce(s) Supporting Document(s) SARS-CoV-2 (COVID-19) RNA [Presence] in Respiratory specimen by OSITO with probe detection negative negative Sars-cov-2 [facility] ([facility]) ID Date Data Source [id number] 03/15/2020 12:00:00 AM EDT [facility] ([facility]) Name Value Range Interpretation Code Description Data Iris rce(s) Supporting Document(s) ID Date Data Source [id number] 03/15/2020 12:00:00 AM EDT [facility] ([facility]) Name Value Range Interpretation Code Description Data Iris rce(s) Supporting Document(s) SARS-CoV-2 (COVID-19) RNA [Presence] in Respiratory specimen by OSITO with probe detection negative negative Sars-cov-2 [facility] ([facility]) ID Date Data Source [id number] 03/15/2020 12:00:00 AM EDT [facility] ([facility]) Name Value Range Interpretation Code Description Data Iris rce(s) Supporting Document(s) ID Date Data Source [id number] 03/15/2020 12:00:00 AM EDT [facility] ([facility]) Name Value Range Interpretation Code Description Data Iris rce(s) Supporting Document(s) SARS-CoV-2 (COVID-19) RNA [Presence] in Respiratory specimen by OSITO with probe detection negative negative Sars-cov-2 [facility] ([facility]) ID Date Data Source [id number] 03/15/2020 12:00:00 AM EDT [facility] ([facility]) Name Value Range Interpretation Code Description Data Iris rce(s) Supporting Document(s) ID Date Data Source [id number] 03/15/2020 12:00:00 AM EDT [facility] ([facility]) Name Value Range Interpretation Code Description Data Iris rce(s) Supporting Document(s) SARS-CoV-2 (COVID-19) RNA [Presence] in Respiratory specimen by OSITO with probe detection negative negative Sars-cov-2 [facility] ([facility]) ID Date Data Source [id number] 03/15/2020 12:00:00 AM EDT [facility] ([facility]) Name Value Range Interpretation Code Description Data Iris rce(s) Supporting Document(s) ID Date Data Source [id number] 03/15/2020 12:00:00 AM EDT [facility] ([facility]) Name Value Range Interpretation Code Description Data Iris rce(s) Supporting Document(s) SARS-CoV-2 (COVID-19) RNA [Presence] in Respiratory specimen by OSITO with probe detection negative negative Sars-cov-2 [facility] ([facility]) ID Date Data Source [id number] 03/15/2020 12:00:00 AM EDT [facility] ([facility]) Name Value Range Interpretation Code Description Data Iris rce(s) Supporting Document(s) ID Date Data Source [id number] 03/15/2020 12:00:00 AM EDT [facility] ([facility]) Name Value Range Interpretation Code Description Data Iris rce(s) Supporting Document(s) SARS-CoV-2 (COVID-19) RNA [Presence] in Respiratory specimen by OSITO with probe detection negative negative Sars-cov-2 [facility] ([facility]) ID Date Data Source [id number] 03/15/2020 12:00:00 AM EDT [facility] ([facility]) Name Value Range Interpretation Code Description Data Iris rce(s) Supporting Document(s) ID Date Data Source [id number] 03/15/2020 12:00:00 AM EDT [facility] ([facility]) Name Value Range Interpretation Code Description Data Iris rce(s) Supporting Document(s) SARS-CoV-2 (COVID-19) RNA [Presence] in Respiratory specimen by OSITO with probe detection negative negative Sars-cov-2 [facility] ([facility]) ID Date Data Source [id number] 03/15/2020 12:00:00 AM EDT [facility] ([facility]) Name Value Range Interpretation Code Description Data Iris rce(s) Supporting Document(s) ID Date Data Source [id number] 03/15/2020 12:00:00 AM EDT [facility] ([facility]) Name Value Range Interpretation Code Description Data Iris rce(s) Supporting Document(s) SARS-CoV-2 (COVID-19) RNA [Presence] in Respiratory specimen by OSITO with probe detection negative negative Sars-cov-2 [facility] ([facility]) ID Date Data Source [id number] 03/15/2020 12:00:00 AM EDT [facility] ([facility] [employer]) Name Value Range Interpretation Code Description Data Iris rce(s) Supporting Document(s) ID Date Data Source [id number] 03/15/2020 12:00:00 AM EDT [facility] Name Value Range Interpretation Code Description Data Iris rce(s) Supporting Document(s) SARS-CoV-2 [facility] This lab was ordered by [facility]-COVID19 and reported by [employer]. ID Date Data Source [id number] 02/18/2020 12:00:00 AM EDT [facility] ([facility]) Name Value Range Interpretation Code Description Data Iris rce(s) Supporting Document(s) SARS-CoV-2 (COVID-19) RNA [Presence] in Respiratory specimen by OSITO with probe detection negative negative Sars-cov-2 [facility] ([facility]) ID Date Data Source [id number] 02/18/2020 12:00:00 AM EDT [facility] ([facility]) Name Value Range Interpretation Code Description Data Iris rce(s) Supporting Document(s) ID Date Data Source [id number] 02/18/2020 12:00:00 AM EDT [facility] ([facility]) Name Value Range Interpretation Code Description Data Iris rce(s) Supporting Document(s) ID Date Data Source [id number] 02/18/2020 12:00:00 AM EDT [facility] ([facility]) Name Value Range Interpretation Code Description Data Iris rce(s) Supporting Document(s) SARS-CoV-2 (COVID-19) RNA [Presence] in Respiratory specimen by OSITO with probe detection negative negative Sars-cov-2 [facility] ([facility]) ID Date Data Source [id number] 02/18/2020 12:00:00 AM EDT [facility] ([facility]) Name Value Range Interpretation Code Description Data Iris rce(s) Supporting Document(s) ID Date Data Source [id number] 02/18/2020 12:00:00 AM EDT [facility] ([facility]) Name Value Range Interpretation Code Description Data Iris rce(s) Supporting Document(s) ID Date Data Source [id number] 02/18/2020 12:00:00 AM EDT [facility] ([facility]) Name Value Range Interpretation Code Description Data Iris rce(s) Supporting Document(s) SARS-CoV-2 (COVID-19) RNA [Presence] in Respiratory specimen by OSITO with probe detection negative negative Sars-cov-2 [facility] ([facility]) ID Date Data Source [id number] 02/18/2020 12:00:00 AM EDT [facility] ([facility]) Name Value Range Interpretation Code Description Data Iris rce(s) Supporting Document(s) ID Date Data Source [id number] 02/18/2020 12:00:00 AM EDT [facility] ([facility]) Name Value Range Interpretation Code Description Data Iris rce(s) Supporting Document(s) ID Date Data Source [id number] 02/18/2020 12:00:00 AM EDT [facility] ([facility]) Name Value Range Interpretation Code Description Data Iris rce(s) Supporting Document(s) SARS-CoV-2 (COVID-19) RNA [Presence] in Respiratory specimen by OSITO with probe detection negative negative Sars-cov-2 [facility] ([facility]) ID Date Data Source [id number] 02/18/2020 12:00:00 AM EDT [facility] ([facility]) Name Value Range Interpretation Code Description Data Iris rce(s) Supporting Document(s) ID Date Data Source [id number] 02/18/2020 12:00:00 AM EDT [facility] ([facility]) Name Value Range Interpretation Code Description Data Iris rce(s) Supporting Document(s) ID Date Data Source [id number] 02/18/2020 12:00:00 AM EDT [facility] ([facility]) Name Value Range Interpretation Code Description Data Iris rce(s) Supporting Document(s) SARS-CoV-2 (COVID-19) RNA [Presence] in Respiratory specimen by OSITO with probe detection negative negative Sars-cov-2 [facility] ([facility]) ID Date Data Source [id number] 02/18/2020 12:00:00 AM EDT [facility] ([facility]) Name Value Range Interpretation Code Description Data Iris rce(s) Supporting Document(s) ID Date Data Source [id number] 02/18/2020 12:00:00 AM EDT [facility] ([facility]) Name Value Range Interpretation Code Description Data Iris rce(s) Supporting Document(s) ID Date Data Source [id number] 02/18/2020 12:00:00 AM EDT [facility] ([facility]) Name Value Range Interpretation Code Description Data Iris rce(s) Supporting Document(s) SARS-CoV-2 (COVID-19) RNA [Presence] in Respiratory specimen by OSITO with probe detection negative negative Sars-cov-2 [facility] ([facility]) ID Date Data Source [id number] 02/18/2020 12:00:00 AM EDT [facility] ([facility]) Name Value Range Interpretation Code Description Data Iris rce(s) Supporting Document(s) ID Date Data Source [id number] 02/18/2020 12:00:00 AM EDT [facility] ([facility]) Name Value Range Interpretation Code Description Data Iris rce(s) Supporting Document(s) ID Date Data Source [id number] 02/18/2020 12:00:00 AM EDT [facility] ([facility]) Name Value Range Interpretation Code Description Data Iris rce(s) Supporting Document(s) SARS-CoV-2 (COVID-19) RNA [Presence] in Respiratory specimen by OSITO with probe detection negative negative Sars-cov-2 [facility] ([facility]) ID Date Data Source [id number] 02/18/2020 12:00:00 AM EDT [facility] ([facility]) Name Value Range Interpretation Code Description Data Iris rce(s) Supporting Document(s) ID Date Data Source [id number] 02/18/2020 12:00:00 AM EDT [facility] ([facility]) Name Value Range Interpretation Code Description Data Iris rce(s) Supporting Document(s) ID Date Data Source [id number] 02/18/2020 12:00:00 AM EDT [facility] ([facility]) Name Value Range Interpretation Code Description Data Iris rce(s) Supporting Document(s) SARS-CoV-2 (COVID-19) RNA [Presence] in Respiratory specimen by OSITO with probe detection negative negative Sars-cov-2 [facility] ([facility]) ID Date Data Source [id number] 02/18/2020 12:00:00 AM EDT [facility] ([facility]) Name Value Range Interpretation Code Description Data Iris rce(s) Supporting Document(s) ID Date Data Source [id number] 02/18/2020 12:00:00 AM EDT [facility] ([facility]) Name Value Range Interpretation Code Description Data Iris rce(s) Supporting Document(s) ID Date Data Source [id number] 02/18/2020 12:00:00 AM EDT [facility] ([facility]) Name Value Range Interpretation Code Description Data Iris rce(s) Supporting Document(s) SARS-CoV-2 (COVID-19) RNA [Presence] in Respiratory specimen by OSITO with probe detection negative negative Sars-cov-2 [facility] ([facility]) ID Date Data Source [id number] 02/18/2020 12:00:00 AM EDT [facility] ([facility]) Name Value Range Interpretation Code Description Data Iris rce(s) Supporting Document(s) ID Date Data Source [id number] 02/18/2020 12:00:00 AM EDT [facility] ([facility]) Name Value Range Interpretation Code Description Data Iris rce(s) Supporting Document(s) ID Date Data Source [id number] 02/18/2020 12:00:00 AM EDT [facility] ([facility]) Name Value Range Interpretation Code Description Data Iris rce(s) Supporting Document(s) SARS-CoV-2 (COVID-19) RNA [Presence] in Respiratory specimen by OSITO with probe detection negative negative Sars-cov-2 [facility] ([facility]) ID Date Data Source [id number] 02/18/2020 12:00:00 AM EDT [facility] ([facility]) Name Value Range Interpretation Code Description Data Iris rce(s) Supporting Document(s) ID Date Data Source [id number] 02/18/2020 12:00:00 AM EDT [facility] ([facility]) Name Value Range Interpretation Code Description Data Iris rce(s) Supporting Document(s) ID Date Data Source [id number] 02/18/2020 12:00:00 AM EDT [facility] ([facility]) Name Value Range Interpretation Code Description Data Iris rce(s) Supporting Document(s) SARS-CoV-2 (COVID-19) RNA [Presence] in Respiratory specimen by OSITO with probe detection negative negative Sars-cov-2 [facility] ([facility]) ID Date Data Source [id number] 02/18/2020 12:00:00 AM EDT [facility] ([facility]) Name Value Range Interpretation Code Description Data Iris rce(s) Supporting Document(s) ID Date Data Source [id number] 02/18/2020 12:00:00 AM EDT [facility] ([facility]) Name Value Range Interpretation Code Description Data Iris rce(s) Supporting Document(s) ID Date Data Source [id number] 02/18/2020 12:00:00 AM EDT [facility] ([facility]) Name Value Range Interpretation Code Description Data Iris rce(s) Supporting Document(s) SARS coronavirus 2 RNA [Presence] in Res piratory specimen by OSITO with probe detection negative negative Sars-cov-2 [facility] ([facility]) ID Date Data Source [id number] 02/18/2020 12:00:00 AM EDT [facility] ([facility]) Name Value Range Interpretation Code Description Data Iris rce(s) Supporting Document(s) ID Date Data Source [id number] 02/18/2020 12:00:00 AM EDT [facility] ([facility]) Name Value Range Interpretation Code Description Data Iris rce(s) Supporting Document(s) ID Date Data Source [id number] 02/18/2020 12:00:00 AM EDT [facility] Name Value Range Interpretation Code Description Data Iris rce(s) Supporting Document(s) SARS-CoV-2 [facility] This lab was ordered by [facility]-COVID19 and reported by [facility]. ID Date Data Source [id number] 02/15/2020 08:41:26 AM EDT [facility] Measurements & CalculationsHeight: 65 inches (5 [...] Illness (HPI)Has been seeing Dr. Clayton at [facility] for Tr[employer]ix but would like to switch here. On [employer] for this. [facility]. Problems with panic attacks. Problems focussing. Has had these issues for a while. Worse with time. GAD7 and PHQ9 reviewed.HPI performed by: Josh Del Toro MD, February 15, 2020 9:08 AMTransitions of Care InboundProblem ReviewProblem List was reviewed and/or updated during this visit.Medication Reconciliation & ReviewMedication List was reviewed and/or updated during this visit, including review of any [id number] medications, herbal therapies, and/or supplements.Allergy ReviewAllergy List [...] & Plan Problems:Assessed:Dysplasia of cervix uteri, unspecified (PXJ59-T96.9) Assessment: Instructions: Strongly encouraged to keep upcoming initial appointment with OB.Panic disorder (ICD- 300.01) (CKP93-S97.0) Assessment: Instructions: Refer to telepsychiatry.Encouraged to follow up with Shanna for now for meds and with [facility] for MAT/counselling.Patient Instructions/Care Plan: Dysplasia of cervix uteri- unspecified: Strongly encouraged to keep upcoming initial appointment with OB.Panic disorder: Refer to telepsychiatry.Encouraged to follow up with Nancy for now for meds and with [facility] for MAT/counselling.Getting old records from [facility]. Plan developed in collaboration with patient and/or familyMedications:GABAPENTIN 600 MG ORAL TABLETTRINTELLIX 20 MG ORAL TABLETMETHADONE HCL SOLUTIONAllergies:No Known Allergies (updated 12/20/2019) Orders:Adult - Ofc Vst, EST, Level III [CPT-90671] Telepsychiatry Consult [CPT- 48439] Follow-Up Return to clinic: 1 month for follow up Name Value Range Interpretation Code Description Data Iris rce(s) Supporting Document(s) ID Date Data Source [id number] 02/04/2020 07:21:00 AM EDT [facility] Name Value Range Interpretation Code Description Data Iris rce(s) Supporting Document(s) HEP C AB > 11.0 <0.8 H [facility] BG FASTING 137 mg/dL 70-100 H [facility] ID Date Data Source [id number] 02/04/2020 07:21:00 AM EDT [facility] Name Value Range Interpretation Code Description Data Iris rce(s) Supporting Document(s) HCT 44.0 % 36.0-47.0 N [facility] HGB 14.0 g/dL 12.0-15.5 N [facility] MCH 31.8 G/DL pg 32.0-36.5 L [facility] MCHC 29.7 PG % 27.0-33.0 N [facility] PLATELETS 262 10 10*3/mm3 150-450 N [facility] RBC 4.72 10 10*6/mm3 4.00-5.40 [facility] RDW 13.6 % 11.5-14.5 N [facility] WBC TOTAL 8.2 4.0-10.0 N [facility] Procedure Social History Code Duration Value Status Description Data Source(s ) Smoking 07/24/2020 12:00:00 AM EST Current Smoker completed Curre nt Smoker eCW1 ([facility]) Vital Signs ID Date Data Source UNK Name Value Range Interpretation Code Description Data Source(s) Diastolic blood pressure 76 mm[Hg] 76 mm[Hg] RAMAH ([facility]) Body height 65 [in_i] 65 [in_i] [facility]AH ([facility]) Body mass index (BMI) [Ratio] 29.4 kg/m2 29.4 k g/m2 [facility] ([facility]) Systolic blood pressure 111 mm[Hg] 111 mm[Hg] A THENA ([facility]) Body weight 2822 [oz_av] 2822 [oz_av] [facility]XA ([facility]) Body temperature 97.1 [degF] 97.1 [degF] MEDENT ([facility] ) Diastolic blood pressure 80 mm[Hg] 80 mm[Hg] ALEXA ([facility]) Body height 65 [in_i] 65 [in_i] [facility] ([facility]) Body mass index (BMI) [Ratio] 29.5 kg/m2 29.5 k g/m2 A[facility] ([facility]) Systolic blood pressure 128 mm[Hg] 128 mm[Hg] A THENA ([facility]) Body weight 2834 [oz_av] 2834 [oz_av] [facility] ([facility]) Diastolic blood pressure 83 mm[Hg] 83 mm[Hg] ALEXA ([facility]) Body height 65 [in_i] 65 [in_i] ALEXA ([facility]) Systolic blood pressure 125 mm[Hg] 125 mm[Hg] A THENA ([facility]) Body height 65 [in_i] 65 [in_i] ALEXA ([facility]) Body height 65 [in_i] 65 [in_i] ALEXA ([facility]) Body height 65 [in_i] 65 [in_i] ALEXA ([facility]) Body height 65 [in_i] 65 [in_i] ALEXA ([facility]) Body height 65 [in_i] 65 [in_i] ALEXA ([facility]) Diastolic blood pressure 68 mm[Hg] 68 mm[Hg] ALEXA ([facility]) Body height 65 [in_i] 65 [in_i] ALEXA ([facility]) Body mass index (BMI) [Ratio] 29.5 kg/m2 29.5 k g/m2 ALEXA ([facility]) Systolic blood pressure 120 mm[Hg] 120 mm[Hg] A THENA ([facility]) Body weight 2834 [oz_av] 2834 [oz_av] ALEXA ([facility]) Diastolic blood pressure 68 mm[Hg] 68 mm[Hg] ALEXA ([facility]) Body height 65 [in_i] 65 [in_i] ALEXA ([facility]) Body mass index (BMI) [Ratio] 29.5 kg/m2 29.5 k g/m2 ALEXA ([facility]) Systolic blood pressure 120 mm[Hg] 120 mm[Hg] A THENA ([facility]) Body weight 2834 [oz_av] 2834 [oz_av] ALEXA ([facility]) Diastolic blood pressure 68 mm[Hg] 68 mm[Hg] ALEXA ([facility]) Body height 65 [in_i] 65 [in_i] ALEXA ([facility]) Body mass index (BMI) [Ratio] 29.5 kg/m2 29.5 k g/m2 ALEXA ([facility]) Systolic blood pressure 120 mm[Hg] 120 mm[Hg] A THENA ([facility]) Body weight 2834 [oz_av] 2834 [oz_av] ALXEA ([facility]) Diastolic blood pressure 68 mm[Hg] 68 mm[Hg] ALEXA ([facility]) Body height 65 [in_i] 65 [in_i] ALEXA ([facility]) Body mass index (BMI) [Ratio] 29.5 kg/m2 29.5 k g/m2 ALEXA ([facility]) Systolic blood pressure 120 mm[Hg] 120 mm[Hg] A THENA ([facility]) Body weight 2834 [oz_av] 2834 [oz_av] ALEXA ([facility]) Diastolic blood pressure 79 mm[Hg] 79 mm[Hg] ALEXA ([facility]) Body height 65 [in_i] 65 [in_i] ALEXA ([facility]) Systolic blood pressure 133 mm[Hg] 133 mm[Hg] A THENA ([facility]) Diastolic blood pressure 79 mm[Hg] 79 mm[Hg] ALEXA ([facility]) Body height 65 [in_i] 65 [in_i] ALEXA ([facility]) Systolic blood pressure 133 mm[Hg] 133 mm[Hg] A THENA ([facility]) Diastolic blood pressure 79 mm[Hg] 79 mm[Hg] ALEXA ([facility]) Body height 65 [in_i] 65 [in_i] ALEXA ([facility]) Systolic blood pressure 133 mm[Hg] 133 mm[Hg] A THENA ([facility]) Body height 65 [in_i] 65 [in_i] ALEXA ([facility]) Body mass index (BMI) [Ratio] 29.7 kg/m2 29.7 k g/m2 ALEXA ([facility]) Body weight 2857.6 [oz_av] 2857.6 [oz_av] ATHEN A ([facility]) Body weight 2857.6 [oz_av] 2857.6 [oz_av] ATHEN A ([facility]) Body height 65 [in_i] 65 [in_i] ALEXA ([facility]) Body mass index (BMI) [Ratio] 29.7 kg/m2 29.7 k g/m2 ALEXA ([facility]) Body height 65 [in_i] 65 [in_i] ALEXA ([facility]) Body mass index (BMI) [Ratio] 29.7 kg/m2 29.7 k g/m2 ALEXA ([facility]) Body weight 2857.6 [oz_av] 2857.6 [oz_av] ATHEN A ([facility]) Body height 65 [in_i] 65 [in_i] ALEXA ([facility]) Body mass index (BMI) [Ratio] 29.7 kg/m2 29.7 k g/m2 ALEXA ([facility]) Body weight 2857.6 [oz_av] 2857.6 [oz_av] ATHEN A ([facility]) Body height 65 [in_i] 65 [in_i] ALEXA ([facility]) Body mass index (BMI) [Ratio] 29.7 kg/m2 29.7 k g/m2 ALEXA ([facility]) Body weight 2857.6 [oz_av] 2857.6 [oz_av] ATHEN A ([facility]) Diastolic blood pressure 52 mm[Hg] 52 mm[Hg] ALEXA ([facility]) Body height 65 [in_i] 65 [in_i] ALEXA ([facility]) Body mass index (BMI) [Ratio] 29.1 kg/m2 29.1 k g/m2 ALEXA ([facility]) Systolic blood pressure 77 mm[Hg] 77 mm[Hg] Yariel SAMMYA ([facility]) Body weight 2800 [oz_av] 2800 [oz_av] ALEXA ([facility]) Diastolic blood pressure 52 mm[Hg] 52 mm[Hg] ALEXA ([facility]) Body height 65 [in_i] 65 [in_i] ALEXA ([facility]) Body mass index (BMI) [Ratio] 29.1 kg/m2 29.1 k g/m2 ALEXA ([facility]) Systolic blood pressure 77 mm[Hg] 77 mm[Hg] A THENA ([facility]) Body weight 2800 [oz_av] 2800 [oz_av] ALEXA ([facility]) Diastolic blood pressure 52 mm[Hg] 52 mm[Hg] ALEXA ([facility]) Body height 65 [in_i] 65 [in_i] ALEXA ([facility]) Body mass index (BMI) [Ratio] 29.1 kg/m2 29.1 k g/m2 ALEXA ([facility]) Systolic blood pressure 77 mm[Hg] 77 [facility][Hg] [facility] Body weight 2800 [oz_av] 2800 [oz_av] ALEXA ([facility]) Systolic blood pressure 77 mm[Hg] 77 mm[Hg] [facility] Diastolic blood pressure 52 mm[Hg] 52 mm[Hg] ALEXA ([facility]) Body height 65 [in_i] 65 [in_i] ALEXA ([facility]) Body mass index (BMI) [Ratio] 29.1 kg/m2 29.1 k g/m2 ALEXA ([facility]) Body weight 2800 [oz_av] 2800 [oz_av] ALEXA ([facility]) Diastolic blood pressure 52 mm[Hg] 52 mm[Hg] ALEXA ([facility]) Body height 65 [in_i] 65 [in_i] ALEXA ([facility]) Body mass index (BMI) [Ratio] 29.1 kg/m2 29.1 k g/m2 ALEXA ([facility]) Systolic blood pressure 77 mm[Hg] 77 mm[Hg] A THENA ([facility]) Body weight 2800 [oz_av] 2800 [oz_av] ALEXA ([facility]) Diastolic blood pressure 52 mm[Hg] 52 mm[Hg] ALEXA ([facility]) Body height 65 [in_i] 65 [in_i] ALEXA ([facility]) Body mass index (BMI) [Ratio] 29.1 kg/m2 29.1 k g/m2 ALEXA ([facility]) Systolic blood pressure 77 mm[Hg] 77 mm[Hg] A THENA ([facility]) Body weight 2800 [oz_av] 2800 [oz_av] ALEXA ([facility]) Body weight 177 [lb_av] 177 [lb_av] eCW1 ([facility]) Body weight 80.29 kg 80.29 kg W1 ([facility]) Body height 54 [in_i] 54 [in_i] eCW1 ([facility]) Body mass index (BMI) [Ratio] 42.67 kg/m2 42.67 kg/m2 [facility] ([facility]) Systolic blood pressure 120 mm[Hg] 120 mm[Hg] e CW1 ([facility]) Diastolic blood pressure 72 mm[Hg] 72 mm[Hg] eCW1 ([facility]) Systolic blood pressure 142 mm[Hg] 142 mm[Hg] A THENA ([facility]) Diastolic blood pressure 91 mm[Hg] 91 mm[Hg] ALEXA ([facility]) Body height 65 [in_i] 65 [in_i] ALEXA ([facility]) Diastolic blood pressure 91 mm[Hg] 91 mm[Hg] ALEXA ([facility]) Body height 65 [in_i] 65 [in_i] ALEXA ([facility]) Systolic blood pressure 142 mm[Hg] 142 mm[Hg] A THENA ([facility]) Diastolic blood pressure 91 mm[Hg] 91 mm[Hg] ALEXA ([facility]) Body height 65 [in_i] 65 [in_i] ALEXA ([facility]) Systolic blood pressure 142 mm[Hg] 142 mm[Hg] A THENA ([facility]) Diastolic blood pressure 91 mm[Hg] 91 mm[Hg] ALEXA ([facility]) Body height 65 [in_i] 65 [in_i] ALEXA ([facility]) Systolic blood pressure 142 mm[Hg] 142 mm[Hg] A THENA ([facility]) Diastolic blood pressure 91 mm[Hg] 91 mm[Hg] ALEXA ([facility]) Body height 65 [in_i] 65 [in_i] ALEXA ([facility]) Systolic blood pressure 142 mm[Hg] 142 mm[Hg] A THENA ([facility]) Diastolic blood pressure 91 mm[Hg] 91 mm[Hg] ALEXA ([facility]) Body height 65 [in_i] 65 [in_i] ALEXA ([facility]) Diastolic blood pressure 91 mm[Hg] 91 mm[Hg] ALEXA ([facility]) Body height 65 [in_i] 65 [in_i] ALEXA ([facility]) Systolic blood pressure 142 mm[Hg] 142 mm[Hg] A THENA ([facility]) Systolic blood pressure 142 mm[Hg] 142 mm[Hg] A THENA ([facility]) Diastolic blood pressure 91 mm[Hg] 91 mm[Hg] ALEXA ([facility]) Body height 65 [in_i] 65 [in_i] ALEXA ([facility]) Systolic blood pressure 142 mm[Hg] 142 mm[Hg] A THENA ([facility]) Diastolic blood pressure 93 mm[Hg] 93 mm[Hg] ALEXA ([facility]) Body height 65 [in_i] 65 [in_i] ALEXA ([facility]) Systolic blood pressure 150 mm[Hg] 150 mm[Hg] A THENA ([facility]) Body height 65 [in_i] 65 [in_i] ALEXA ([facility]) Systolic blood pressure 150 mm[Hg] 150 mm[Hg] A THENA ([facility]) Diastolic blood pressure 93 mm[Hg] 93 mm[Hg] ALEXA ([facility]) Diastolic blood pressure 93 mm[Hg] 93 mm[Hg] ALEXA ([facility]) Body height 65 [in_i] 65 [in_i] ALEXA ([facility]) Systolic blood pressure 150 mm[Hg] 150 mm[Hg] A THENA ([facility]) Diastolic blood pressure 93 mm[Hg] 93 mm[Hg] ALEXA ([facility]) Body height 65 [in_i] 65 [in_i] ALEXA ([facility]) Systolic blood pressure 150 mm[Hg] 150 mm[Hg] A THENA ([facility]) Diastolic blood pressure 93 mm[Hg] 93 mm[Hg] ALEXA ([facility]) Body height 65 [in_i] 65 [in_i] ALEXA ([facility]) Systolic blood pressure 150 mm[Hg] 150 mm[Hg] A THENA ([facility]) Diastolic blood pressure 93 mm[Hg] 93 mm[Hg] ALXEA ([facility]) Body height 65 [in_i] 65 [in_i] ALEXA ([facility]) Systolic blood pressure 150 mm[Hg] 150 mm[Hg] A THENA ([facility]) Diastolic blood pressure 93 mm[Hg] 93 mm[Hg] ALEXA ([facility]) Body height 65 [in_i] 65 [in_i] ALEXA ([facility]) Systolic blood pressure 150 mm[Hg] 150 mm[Hg] A THENA ([facility]) Body height 65 [in_i] 65 [in_i] ALEXA ([facility]) Diastolic blood pressure 93 mm[Hg] 93 mm[Hg] ALEXA ([facility]) Systolic blood pressure 150 mm[Hg] 150 mm[Hg] A THENA ([facility]) Diastolic blood pressure 93 mm[Hg] 93 mm[Hg] ALEXA ([facility]) Body height 65 [in_i] 65 [in_i] ALEXA ([facility]) Systolic blood pressure 150 mm[Hg] 150 mm[Hg] A THENA ([facility]) Diastolic blood pressure 93 mm[Hg] 93 mm[Hg] ALEXA ([facility]) Body height 65 [in_i] 65 [in_i] ALEXA ([facility]) Systolic blood pressure 150 mm[Hg] 150 mm[Hg] A THENA ([facility]) Diastolic blood pressure 93 mm[Hg] 93 mm[Hg] ALEXA ([facility]) Body height 65 [in_i] 65 [in_i] ALEXA ([facility]) Systolic blood pressure 150 mm[Hg] 150 mm[Hg] A THENA ([facility]) Diastolic blood pressure 77 mm[Hg] 77 mm[Hg] ALEXA ([facility]) Body height 65 [in_i] 65 [in_i] ALEXA ([facility]) Body mass index (BMI) [Ratio] 29.5 kg/m2 29.5 k g/m2 ALEXA ([facility]) Systolic blood pressure 108 mm[Hg] 108 mm[Hg] A THENA ([facility]) Body weight 2834 [oz_av] 2834 [oz_av] ALEXA ([facility]) Body weight 2834 [oz_av] 2834 [oz_av] ALEXA ([facility]) Diastolic blood pressure 77 mm[Hg] 77 mm[Hg] ALEXA ([facility]) Body height 65 [in_i] 65 [in_i] ALEXA ([facility]) Body mass index (BMI) [Ratio] 29.5 kg/m2 29.5 k g/m2 ALEXA ([facility]) Systolic blood pressure 108 mm[Hg] 108 mm[Hg] A THENA ([facility]) Diastolic blood pressure 77 mm[Hg] 77 mm[Hg] ALEXA ([facility]) Body height 65 [in_i] 65 [in_i] ALEXA ([facility]) Body mass index (BMI) [Ratio] 29.5 kg/m2 29.5 k g/m2 ALEXA ([facility]) Systolic blood pressure 108 mm[Hg] 108 mm[Hg] A THENA ([facility]) Body weight 2834 [oz_av] 2834 [oz_av] ALEXA ([facility]) Systolic blood pressure 108 mm[Hg] 108 mm[Hg] A THENA ([facility]) Diastolic blood pressure 77 mm[Hg] 77 mm[Hg] ALEXA ([facility]) Body height 65 [in_i] 65 [in_i] ALEXA ([facility]) Body mass index (BMI) [Ratio] 29.5 kg/m2 29.5 k g/m2 ALEXA ([facility]) Body weight 2834 [oz_av] 2834 [oz_av] ALEXA ([facility]) Diastolic blood pressure 77 mm[Hg] 77 mm[Hg] ALEXA ([facility]) Body height 65 [in_i] 65 [in_i] ALEXA ([facility]) Body mass index (BMI) [Ratio] 29.5 kg/m2 29.5 k g/m2 ALEXA ([facility]) Systolic blood pressure 108 mm[Hg] 108 mm[Hg] A [facility] ([facility]) Body weight 2834 [oz_av] 2834 [oz_av] ALEXA ([facility]) Diastolic blood pressure 77 mm[Hg] 77 mm[Hg] ALEXA ([facility]) Body height 65 [in_i] 65 [in_i] ALEXA ([facility]) Body mass index (BMI) [Ratio] 29.5 kg/m2 29.5 k g/m2 ALEXA ([facility]) Systolic blood pressure 108 mm[Hg] 108 mm[Hg] [facility] Body weight 2834 [oz_av] 2834 [oz_av] ALEXA ([facility]) Diastolic blood pressure 77 mm[Hg] 77 mm[Hg] ALEXA ([facility]) Body height 65 [in_i] 65 [in_i] ALEXA ([facility]) Body mass index (BMI) [Ratio] 29.5 kg/m2 29.5 k g/m2 ALEXA ([facility]) Systolic blood pressure 108 mm[Hg] 108 mm[Hg] A THENA ([facility]) Body weight 2834 [oz_av] 2834 [oz_av] ALEXA ([facility]) Diastolic blood pressure 80 mm[Hg] 80 mm[Hg] ALEXA ([facility]) Body height 65 [in_i] 65 [in_i] ALEXA ([facility]) Body mass index (BMI) [Ratio] 29.23 kg/m2 29.23 kg/m2 ALEXA ([facility]) Systolic blood pressure 132 mm[Hg] 132 mm[Hg] [facility] Body weight 2800 [oz_av] 2800 [oz_av] ALEXA ([facility]) Diastolic blood pressure 80 mm[Hg] 80 mm[Hg] ALEXA ([facility]) Body height 65 [in_i] 65 [in_i] ALEXA ([facility]) Body mass index (BMI) [Ratio] 29.23 kg/m2 29.23 kg/m2 ALEXA ([facility]) Systolic blood pressure 132 mm[Hg] 132 mm[Hg] [facility] Body weight 2800 [oz_av] 2800 [oz_av] ALEXA ([facility]) Diastolic blood pressure 80 mm[Hg] 80 mm[Hg] ALEXA ([facility]) Body height 65 [in_i] 65 [in_i] ALEXA ([facility]) Body mass index (BMI) [Ratio] 29.23 kg/m2 29.23 kg/m2 ALEXA ([facility]) Systolic blood pressure 132 mm[Hg] 132 mm[Hg] [facility] Body weight 2800 [oz_av] 2800 [oz_av] ALEXA ([facility]) Diastolic blood pressure 80 mm[Hg] 80 mm[Hg] ALEXA ([facility]) Body height 65 [in_i] 65 [in_i] ALEXA ([facility]) Body mass index (BMI) [Ratio] 29.23 kg/m2 29.23 kg/m2 ALEXA ([facility]) Systolic blood pressure 132 mm[Hg] 132 mm[Hg] [facility] Body weight 2800 [oz_av] 2800 [oz_av] ALEXA ([facility]) Diastolic blood pressure 80 mm[Hg] 80 mm[Hg] ALEXA ([facility]) Body height 65 [in_i] 65 [in_i] ALEXA ([facility]) Body mass index (BMI) [Ratio] 29.23 kg/m2 29.23 kg/m2 ALEXA ([facility]) Systolic blood pressure 132 mm[Hg] 132 mm[Hg] A THENA ([facility]) Body weight 2800 [oz_av] 2800 [oz_av] ALEXA ([facility]) Diastolic blood pressure 80 mm[Hg] 80 mm[Hg] ALEXA ([facility]) Body height 65 [in_i] 65 [in_i] ALEXA ([facility]) Body mass index (BMI) [Ratio] 29.23 kg/m2 29.23 kg/m2 ALEXA ([facility]) Systolic blood pressure 132 mm[Hg] 132 mm[Hg] A THENA ([facility]) Body weight 2800 [oz_av] 2800 [oz_av] ALEXA ([facility]) Diastolic blood pressure 78 mm[Hg] 78 mm[Hg] ALEXA ([facility]) Diastolic blood pressure 78 mm[Hg] 78 mm[Hg] ALEXA ([facility]) Body height 65 [in_i] 65 [in_i] ALEXA ([facility]) Body mass index (BMI) [Ratio] 29.1 kg/m2 29.1 k g/m2 ALEXA ([facility]) Systolic blood pressure 123 mm[Hg] 123 mm[Hg] A THENA ([facility]) Body weight 175 [lb_av] 175 [lb_av] ALEXA ([facility]) Systolic blood pressure 123 mm[Hg] 123 mm[Hg] A THENA ([facility]) Body weight 175 [lb_av] 175 [lb_av] ALEXA ([facility]) Diastolic blood pressure 78 mm[Hg] 78 mm[Hg] ALEXA ([facility]) Body height 65 [in_i] 65 [in_i] ALEXA ([facility]) Body mass index (BMI) [Ratio] 29.1 kg/m2 29.1 k g/m2 ALEXA ([facility]) Body height 65 [in_i] 65 [in_i] ALEXA ([facility]) Body mass index (BMI) [Ratio] 29.1 kg/m2 29.1 k g/m2 ALEXA ([facility]) Systolic blood pressure 123 mm[Hg] 123 mm[Hg] A THENA ([facility]) Body weight 175 [lb_av] 175 [lb_av] ALEXA ([facility]) Diastolic blood pressure 78 mm[Hg] 78 mm[Hg] ALEXA ([facility]) Body height 65 [in_i] 65 [in_i] ALEXA ([facility]) Body mass index (BMI) [Ratio] 29.1 kg/m2 29.1 k g/m2 ALEXA ([facility]) Systolic blood pressure 123 mm[Hg] 123 mm[Hg] A THENA ([facility]) Body weight 175 [lb_av] 175 [lb_av] ALEXA ([facility]) Diastolic blood pressure 78 mm[Hg] 78 mm[Hg] ALEXA ([facility]) Body height 65 [in_i] 65 [in_i] ALEXA ([facility]) Body mass index (BMI) [Ratio] 29.1 kg/m2 29.1 k g/m2 ALEXA ([facility]) Systolic blood pressure 123 mm[Hg] 123 mm[Hg] A THENA ([facility]) Body weight 175 [lb_av] 175 [lb_av] ALEXA ([facility]) Diastolic blood pressure 78 mm[Hg] 78 mm[Hg] ALEXA ([facility]) Body height 65 [in_i] 65 [in_i] ALEXA ([facility]) Body mass index (BMI) [Ratio] 29.1 kg/m2 29.1 k g/m2 ALEXA ([facility]) Systolic blood pressure 123 mm[Hg] 123 mm[Hg] A THENA ([facility]) Body weight 175 [lb_av] 175 [lb_av] ALEXA ([facility]) Body height 65 [in_i] 65 [in_i] ALEXA ([facility]) Body mass index (BMI) [Ratio] 29.1 kg/m2 29.1 k g/m2 ALEXA ([facility]) Systolic blood pressure 123 mm[Hg] 123 mm[Hg] A THENA ([facility]) Body weight 175 [lb_av] 175 [lb_av] ALEXA ([facility]) Body weight 175 [lb_av] 175 [lb_av] ALEXA ([facility]) Diastolic blood pressure 78 mm[Hg] 78 mm[Hg] ALEXA ([facility]) Diastolic blood pressure 78 mm[Hg] 78 mm[Hg] ALEXA ([facility]) Body height 65 [in_i] 65 [in_i] ALEXA ([facility]) Body mass index (BMI) [Ratio] 29.1 kg/m2 29.1 k g/m2 ALEXA ([facility]) Systolic blood pressure 123 mm[Hg] 123 mm[Hg] A THENA ([facility]) Diastolic blood pressure 78 mm[Hg] 78 mm[Hg] ALEXA ([facility]) Body height 65 [in_i] 65 [in_i] ALEXA ([facility]) Body mass index (BMI) [Ratio] 29.1 kg/m2 29.1 k g/m2 ALEXA ([facility]) Systolic blood pressure 123 mm[Hg] 123 mm[Hg] A THENA ([facility]) Body weight 175 [lb_av] 175 [lb_av] ALEXA ([facility]) Systolic blood pressure 123 mm[Hg] 123 mm[Hg] A THENA ([facility]) Body weight 175 [lb_av] 175 [lb_av] ALEXA ([facility]) Diastolic blood pressure 78 mm[Hg] 78 mm[Hg] ALEXA ([facility]) Body height 65 [in_i] 65 [in_i] ALEXA ([facility]) Body mass index (BMI) [Ratio] 29.1 kg/m2 29.1 k g/m2 ALEXA ([facility]) Diastolic blood pressure 78 mm[Hg] 78 mm[Hg] ALEXA ([facility]) Body height 65 [in_i] 65 [in_i] ALEXA ([facility]) Body mass index (BMI) [Ratio] 29.1 kg/m2 29.1 k g/m2 ALEXA ([facility]) Systolic blood pressure 123 mm[Hg] 123 mm[Hg] A THENA ([facility]) Body weight 175 [lb_av] 175 [lb_av] ALEXA ([facility]) Body mass index (BMI) [Ratio] 29.1 kg/m2 29.1 k g/m2 ALEXA ([facility]) Systolic blood pressure 123 mm[Hg] 123 mm[Hg] A THENA ([facility]) Body weight 175 [lb_av] 175 [lb_av] ALEXA ([facility]) Diastolic blood pressure 78 mm[Hg] 78 mm[Hg] ALEXA ([facility]) Body height 65 [in_i] 65 [in_i] ALEXA ([facility]) Diastolic blood pressure 78 mm[Hg] 78 mm[Hg] ALEXA ([facility]) Body height 65 [in_i] 65 [in_i] ALEXA ([facility]) Body mass index (BMI) [Ratio] 29.1 kg/m2 29.1 k g/m2 ALEXA ([facility]) Systolic blood pressure 123 mm[Hg] 123 mm[Hg] A THENA ([facility]) Body weight 175 [lb_av] 175 [lb_av] ALEXA ([facility]) Diastolic blood pressure 78 mm[Hg] 78 mm[Hg] ALEXA ([facility]) Body height 65 [in_i] 65 [in_i] ALEXA ([facility]) Body mass index (BMI) [Ratio] 29.1 kg/m2 29.1 k g/m2 ALEXA ([facility]) Systolic blood pressure 123 mm[Hg] 123 mm[Hg] A THENA ([facility]) Body weight 175 [lb_av] 175 [lb_av] ALEXA ([facility]) Patient Treatment Plan of Care Planned Activity Planned Date Details Description Data Source (s) Metronidazole 500 MG Oral Tablet 07/24/2020 12:00:00 AM EST W1 ([facility]) Trintellix 20 mg tablet TAKE ONE TABLET BY MOUTH ONCE DAILY ALEXA ([facility]) Trazodone Hydrochloride 50 MG Oral Tablet ALEXA ([facility]) tizanidine 4 MG Oral Tablet ALEXA ([facility]) Prednisone 20 MG Oral Tablet ALEXA ([facility]) Prazosin 1 MG Oral Capsule A THENA ([facility]) 12 HR Guaifenesin 600 MG Extended Release Oral Tablet ALEXA ([facility]) Metronidazole 500 MG Oral Tablet ALEXA ([facility]) gabapentin 300 MG Oral Capsule ALEXA ([facility]) Fluoxetine 10 MG Oral Capsule ALEXA ([facility]) Amoxicillin 875 MG / Clavulanate 125 MG Oral Tablet ALEXA ([facility]) Trintellix 20 mg tablet TAKE ONE TABLET BY MOUTH ONCE DAILY ALEXA ([facility]) Trazodone Hydrochloride 50 MG Oral Tablet ALEXA ([facility]) tizanidine 4 MG Oral Tablet ALEXA ([facility]) Prednisone 20 MG Oral Tablet ALEXA ([facility]) Prazosin 1 MG Oral Capsule A THENA ([facility]) Nicotine 4 MG/ACTUAT Inhalant Solution [Nicotrol] ALEXA ([facility]) 12 HR Guaifenesin 600 MG Extended Release Oral Tablet ALEXA ([facility]) Metronidazole 500 MG Oral Tablet ALEXA ([facility]) gabapentin 300 MG Oral Capsule ALEXA ([facility]) Amoxicillin 875 MG / Clavulanate 125 MG Oral Tablet ALEXA ([facility]) Trintellix 20 mg tablet TAKE ONE TABLET BY MOUTH ONCE DAILY ALEXA ([facility]) Trazodone Hydrochloride 50 MG Oral Tablet ALEXA ([facility]) tizanidine 4 MG Oral Tablet ALEXA ([facility]) Prednisone 20 MG Oral Tablet ALEXA ([facility]) Prazosin 1 MG Oral Capsule A THENA ([facility]) Nicotine 4 MG/ACTUAT Inhalant Solution [Nicotrol] ALEXA ([facility]) 12 HR Guaifenesin 600 MG Extended Release Oral Tablet ALEXA ([facility]) Metronidazole 500 MG Oral Tablet ALEXA ([facility]) gabapentin 300 MG Oral Capsule ALEXA ([facility]) Amoxicillin 875 MG / Clavulanate 125 MG Oral Tablet ALEXA ([facility]) Ergocalciferol 40930 UNT Oral Capsule ALEXA ([facility]) Trintellix 20 mg tablet ATHE NA ([facility]) Trazodone Hydrochloride 50 MG Oral Tablet ALEXA ([facility]) Simvastatin 20 MG Oral Tablet ALEXA ([facility]) Prednisone 20 MG Oral Tablet ALEXA ([facility]) Prazosin 1 MG Oral Capsule A THENA ([facility]) Metronidazole 500 MG Oral Tablet ALEXA ([facility]) gabapentin 300 MG Oral Capsule ALEXA ([facility]) Amoxicillin 875 MG / Clavulanate 125 MG Oral Tablet ALEXA ([facility]) Ergocalciferol 26522 UNT Oral Capsule ALEXA ([facility]) Trintellix 20 mg tablet ATHE NA ([facility]) Trazodone Hydrochloride 50 MG Oral Tablet ALEXA ([facility]) Simvastatin 20 MG Oral Tablet ALEXA ([facility]) Prednisone 20 MG Oral Tablet ALEXA ([facility]) Prazosin 1 MG Oral Capsule A THENA ([facility]) Metronidazole 500 MG Oral Tablet ALEXA ([facility]) gabapentin 300 MG Oral Capsule ALEXA ([facility]) Amoxicillin 875 MG / Clavulanate 125 MG Oral Tablet ALEXA ([facility]) Ergocalciferol 50757 UNT Oral Capsule ALEXA ([facility]) Trintellix 20 mg tablet ATHE NA ([facility]) Trazodone Hydrochloride 50 MG Oral Tablet ALEXA ([facility]) Simvastatin 20 MG Oral Tablet ALEXA ([facility]) Prednisone 20 MG Oral Tablet ALEXA ([facility]) Prazosin 1 MG Oral Capsule A THENA ([facility]) gabapentin 300 MG Oral Capsule ALEXA ([facility]) Amoxicillin 875 MG / Clavulanate 125 MG Oral Tablet ALEXA ([facility]) Ergocalciferol 97390 UNT Oral Capsule ALEXA ([facility]) Trintellix 20 mg tablet ATHE NA ([facility]) Trazodone Hydrochloride 50 MG Oral Tablet ALEXA ([facility]) Simvastatin 20 MG Oral Tablet ALEXA ([facility]) Prednisone 20 MG Oral Tablet ALEXA ([facility]) Prazosin 1 MG Oral Capsule A THENA ([facility]) gabapentin 300 MG Oral Capsule ALEXA ([facility]) Amoxicillin 875 MG / Clavulanate 125 MG Oral Tablet ALEXA ([facility]) Trintellix 20 mg tablet TAKE ONE TABLET BY MOUTH ONCE DAILY ALEXA ([facility]) Trazodone Hydrochloride 50 MG Oral Tablet ALEXA ([facility]) Prednisone 20 MG Oral Tablet ALEXA ([facility]) Prazosin 1 MG Oral Capsule A THENA ([facility]) 12 HR Guaifenesin 600 MG Extended Release Oral Tablet ALEXA ([facility]) Metronidazole 500 MG Oral Tablet ALEXA ([facility]) gabapentin 300 MG Oral Capsule ALEXA ([facility]) Amoxicillin 875 MG / Clavulanate 125 MG Oral Tablet ALEXA ([facility]) Ergocalciferol [id number] UNT Oral Capsule ALEXA ([facility]) Trintellix 20 mg tablet ATHE NA ([facility]) Trazodone Hydrochloride 50 MG Oral Tablet ALEXA ([facility]) Simvastatin 20 MG Oral Tablet ALEXA ([facility]) Prednisone 20 MG Oral Tablet ALEXA ([facility]) Prazosin 1 MG Oral Capsule A THENA ([facility]) gabapentin 300 MG Oral Capsule ALEXA ([facility]) Amoxicillin 875 MG / Clavulanate 125 MG Oral Tablet ALEXA ([facility]) Trintellix 20 mg tablet TAKE ONE TABLET BY MOUTH ONCE DAILY ALEXA ([facility]) Trazodone Hydrochloride 50 MG Oral Tablet ALEXA ([facility]) Prednisone 20 MG Oral Tablet ALEXA ([facility]) Prazosin 1 MG Oral Capsule A THENA ([facility]) 12 HR Guaifenesin 600 MG Extended Release Oral Tablet ALEXA ([facility]) Metronidazole 500 MG Oral Tablet ALEXA ([facility]) gabapentin 300 MG Oral Capsule ALEXA ([facility]) Amoxicillin 875 MG / Clavulanate 125 MG Oral Tablet ALEXA ([facility]) Ergocalciferol 02766 UNT Oral Capsule ALEXA ([facility]) Trintellix 20 mg tablet ATHE NA ([facility]) Trazodone Hydrochloride 50 MG Oral Tablet ALEXA ([facility]) Simvastatin 20 MG Oral Tablet ALEXA ([facility]) Prednisone 20 MG Oral Tablet ALEXA ([facility]) Prazosin 1 MG Oral Capsule A THENA ([facility]) gabapentin 300 MG Oral Capsule ALEXA ([facility]) Amoxicillin 875 MG / Clavulanate 125 MG Oral Tablet ALEXA ([facility]) Ergocalciferol 06768 UNT Oral Capsule ALEXA ([facility]) Trintellix 20 mg tablet ATHE NA ([facility]) Trazodone Hydrochloride 50 MG Oral Tablet ALEXA ([facility]) Simvastatin 20 MG Oral Tablet ALEXA ([facility]) Prednisone 20 MG Oral Tablet ALEXA ([facility]) Prazosin 1 MG Oral Capsule A THENA ([facility]) gabapentin 300 MG Oral Capsule ALEXA ([facility]) Amoxicillin 875 MG / Clavulanate 125 MG Oral Tablet ALEXA ([facility]) Ergocalciferol 57542 UNT Oral Capsule ALEXA ([facility]) Trintellix 20 mg tablet ATHE NA ([facility]) Trazodone Hydrochloride 50 MG Oral Tablet ALEXA ([facility]) Simvastatin 20 MG Oral Tablet ALEXA ([facility]) gabapentin 300 MG Oral Capsule ALEXA ([facility]) Amoxicillin 875 MG / Clavulanate 125 MG Oral Tablet ALEXA ([facility]) Ergocalciferol 07144 UNT Oral Capsule ALEXA ([facility]) Trintellix 20 mg tablet ATHE NA ([facility]) Trazodone Hydrochloride 50 MG Oral Tablet ALEXA ([facility]) Simvastatin 20 MG Oral Tablet ALEXA ([facility]) gabapentin 300 MG Oral Capsule ALEXA ([facility]) Amoxicillin 875 MG / Clavulanate 125 MG Oral Tablet ALEXA ([facility]) Ergocalciferol 86882 UNT Oral Capsule ALEXA ([facility]) Trintellix 20 mg tablet ATHE NA ([facility]) Trazodone Hydrochloride 50 MG Oral Tablet ALEXA ([facility]) Simvastatin 20 MG Oral Tablet ALEXA ([facility]) gabapentin 300 MG Oral Capsule ALEXA ([facility]) Amoxicillin 875 MG / Clavulanate 125 MG Oral Tablet ALEXA ([facility]) Trintellix 20 mg tablet TAKE ONE TABLET BY MOUTH ONCE DAILY ALEXA ([facility]) Trazodone Hydrochloride 50 MG Oral Tablet ALEXA ([facility]) Prednisone 20 MG Oral Tablet ALEXA ([facility]) Prazosin 1 MG Oral Capsule A THENA ([facility]) gabapentin 300 MG Oral Capsule ALEXA ([facility]) Amoxicillin 875 MG / Clavulanate 125 MG Oral Tablet ALEXA ([facility]) Ergocalciferol 16057 UNT Oral Capsule ALEXA ([facility]) Trintellix 20 mg tablet ATHE NA ([facility]) Trazodone Hydrochloride 50 MG Oral Tablet ALEXA ([facility]) Simvastatin 20 MG Oral Tablet ALEXA ([facility]) gabapentin 300 MG Oral Capsule ALEXA ([facility]) Ergocalciferol 49372 UNT Oral Capsule ALEXA ([facility]) Trintellix 20 mg tablet ATHE NA ([facility]) Trazodone Hydrochloride 50 MG Oral Tablet ALEXA ([facility]) Simvastatin 20 MG Oral Tablet ALEXA ([facility]) gabapentin 300 MG Oral Capsule ALEXA ([facility]) Ergocalciferol 10193 UNT Oral Capsule ALEXA ([facility]) Trintellix 20 mg tablet ATHE NA ([facility]) Trazodone Hydrochloride 50 MG Oral Tablet ALEXA ([facility]) Simvastatin 20 MG Oral Tablet ALEXA ([facility]) Prazosin 1 MG Oral Capsule A THENA ([facility]) gabapentin 300 MG Oral Capsule ALEXA ([facility]) Ergocalciferol 80555 UNT Oral Capsule ALEXA ([facility]) Trintellix 20 mg tablet ATHE NA ([facility]) Trazodone Hydrochloride 50 MG Oral Tablet ALEXA ([facility]) Simvastatin 20 MG Oral Tablet ALEXA ([facility]) Prednisone 20 MG Oral Tablet ALEXA ([facility]) Prazosin 1 MG Oral Capsule A THENA ([facility]) Metronidazole 500 MG Oral Tablet ALEXA ([facility]) gabapentin 300 MG Oral Capsule ALEXA ([facility]) Amoxicillin 875 MG / Clavulanate 125 MG Oral Tablet ALEXA ([facility]) Trintellix 20 mg tablet TAKE ONE TABLET BY MOUTH ONCE DAILY ALEXA ([facility]) Trazodone Hydrochloride 50 MG Oral Tablet ALEXA ([facility]) tizanidine 4 MG Oral Tablet ALEXA ([facility]) Prednisone 20 MG Oral Tablet ALEXA ([facility]) Prazosin 1 MG Oral Capsule A THENA ([facility]) Nicotine 4 MG/ACTUAT Inhalant Solution [Nicotrol] RAMAH ([facility]) 12 HR Guaifenesin 600 MG Extended Release Oral Tablet ALEXA ([facility]) Metronidazole 500 MG Oral Tablet ALEXA ([facility]) gabapentin 300 MG Oral Capsule ALEXA ([facility]) Amoxicillin 875 MG / Clavulanate 125 MG Oral Tablet ALEXA ([facility])
[2021-03-05 16:11] LABS: AMPHETAMINES LEVEL URINE NEGATIVE (NEGATIVE); BARBITURATES URINE NEGATIVE (NEGATIVE); BENZODIAZEPINES URINE POSITIVE (NEGATIVE); CANNABINOIDS URINE NEGATIVE (NEGATIVE); COCAINE METABOLITE URINE NEGATIVE (NEGATIVE); METHADONE URINE POSITIVE (NEGATIVE); OPIATES URINE NEGATIVE (NEGATIVE); PHENCYCLIDINE URINE NEGATIVE (NEGATIVE)
[2021-03-05 16:23] LABS: ALBUMIN 3.5 GM/DL (3.2-5.2); ALT/SGPT 16 U/L (12-78); BILIRUBIN,DIRECT < 0.1 MG/DL (0.0-0.2); BILIRUBIN,TOTAL 0.2 MG/DL (0.2-1.0); LIPASE 738 U/L (73-393); TOTAL PROTEIN 6.7 GM/DL (6.4-8.2)
[2021-03-05] MEDS ORDERED: POTASSIUM CHLORIDE 10% LIQ 20 MEQ/15 ML UDC PO ONE (16:25)
[2021-03-05] MEDS ORDERED: ISOVUE-370 76% 100ML VIAL As Ordered ONE (17:00)
--- NOTE | 2021-03-05 18:10 | REPVR ---
PROCEDURE INFORMATION: Exam: CT Abdomen And Pelvis With Contrast Exam date and time: 03/05/2021 4:40 PM Age: 46 years old Clinical indication: Abdominal pain; Additional info: Abdominal pain, eval for pancreatitis TECHNIQUE: Imaging protocol: Computed tomography of the abdomen and pelvis with contrast. Radiation optimization: All CT scans at this facility use at least one of these dose optimization techniques: automated exposure control; mA and/or kV adjustment per patient size (includes targeted exams where dose is matched to clinical indication); or iterative reconstruction. Contrast material: ISOVUE 370; Contrast volume: 100 ml; Contrast route: INTRAVENOUS (IV); COMPARISON: CR Abdomen,Flat Upright,PA CHEST 03/05/2021 3:09 PM FINDINGS: Liver: There is a diffuse decrease in hepatic parenchymal density, consistent with steatosis. Gallbladder and bile ducts: There has been a cholecystectomy. Pancreas: There is subtle haziness in the peripancreatic fat along the anterior margin of the pancreatic body and tail region and to a lesser degree adjacent to the uncinate process. Findings consistent with pancreatitis in the appropriate clinical setting. No evidence of a pseudocyst or phlegmon. No intrapancreatic gas. Spleen: Normal. No splenomegaly. Adrenal glands: Normal. No mass. Kidneys and ureters: Normal. No hydronephrosis. Stomach and bowel: Unremarkable. No obstruction. No mucosal thickening. Appendix: No evidence of appendicitis. Intraperitoneal space: Unremarkable. No free air. No significant fluid collection. Vasculature: The aortoiliac vessels demonstrate mild atherosclerotic calcification. Lymph nodes: Unremarkable. No enlarged lymph nodes. Urinary bladder: Unremarkable as visualized. Reproductive: Unremarkable as visualized. Bones/joints: Unfused ring apophysis at L4 on L5. Slight anterolisthesis of L3 on L4 and L4 on L5. Moderate to severe central spinal stenosis L3-L4 and severe central spinal stenosis L4-L5. Bulging annulus L5-S1. Soft tissues: Unremarkable. IMPRESSION: 1. There is a diffuse decrease in hepatic parenchymal density, consistent with steatosis. 2. There has been a cholecystectomy. 3. There is subtle haziness in the peripancreatic fat along the anterior margin of the pancreatic body and tail region and to a lesser degree adjacent to the uncinate process. Findings consistent with pancreatitis in the appropriate clinical setting. No evidence of a pseudocyst or phlegmon. No intrapancreatic gas. Electronically signed by: Navneet Domingo On 03/05/2021 18:09:48 PM
[2021-03-05] MEDS ORDERED: MORPHINE 4 MG/ML 1ML VIAL/SYRINGE (J2270) IV ONE (19:25)
[2021-03-05] MEDS ORDERED: BUSP5TA PO (19:40)
[2021-03-05] MEDS ORDERED: GABA600T4 PO (19:40)
[2021-03-05] MEDS ORDERED: ALBU8.5H INH (19:40)
[2021-03-05] MEDS ORDERED: FLUO20CA22 PO (19:40)
[2021-03-05] MEDS ORDERED: ONDANSETRON 4MG/2ML VIAL IV PRN (20:00)
[2021-03-05] MEDS ORDERED: MORPHINE 4 MG/ML 1ML VIAL/SYRINGE (J2270) IV PRN (20:00)
[2021-03-05] MEDS ORDERED: ACETAMINOPHEN TAB 650MG DOSE (2X325MG) PO PRN (20:00)
--- OUTSIDE RECORDS SUMMARY | 2021-03-05 20:12 | CCD ---
Author Author [facility] Organization [facility] Address Unknown Phone Unavailable Care Team Providers Care Aboriginal Community Council Member Name Role Phone Beverley Del Toro MD [...] Unavailable Beverley Del Toro MD Unavailable Unavailable Beverlye Del Toro MD Unavailable Unavailable Beverley Del [...] Unavailable Unavailable Rick Elliott MD Unavailable Unavailable BolRick peck MD Unavailable Unavailable Bolla, Rick Skinner MD [...] Bolla, S Brody HALL Unavailable Unavailable Bolla, S Brody HALL Unavailable Unavailable Bolla, S Brody HALL Unavailable Unavailable Bolla, Rikc Skinner MD Unavailable Unavailable Bolla, S Brody [...] Unavailable Unavailable Mike Mccrary MD Unavailable Unavailable iMke Mccrary MD Unavailable Unavailable Mike Mccrary MD [...] Pelaez MD Unavailable Unavailable Jumalon, M Olga EXHIBITIONS AND COLLECTIONS MANAGER Unavailable Unavailable Jumalon, M Olga EXHIBITIONS AND COLLECTIONS MANAGER Unavailable Unavailable Jumalon, M Olga EXHIBITIONS AND COLLECTIONS MANAGER Unavailable Unavailable Jumalon, M Olga EXHIBITIONS AND COLLECTIONS MANAGER Unavailable Unavailable Jumalon, M Olga EXHIBITIONS AND COLLECTIONS MANAGER Unavailable Unavailable Jumalon, M Olga EXHIBITIONS AND COLLECTIONS MANAGER Unavailable Unavailable Jumalon, M Olga EXHIBITIONS AND COLLECTIONS MANAGER Unavailable Unavailable Jumalon, M Olga EXHIBITIONS AND COLLECTIONS MANAGER Unavailable Unavailable Jumalon, M Olga EXHIBITIONS AND COLLECTIONS MANAGER Unavailable Unavailable Jumalon, M Olga EXHIBITIONS AND COLLECTIONS MANAGER Unavailable Unavailable Jumalon, M Olga EXHIBITIONS AND COLLECTIONS MANAGER Unavailable Unavailable Jumalon, M Olga EXHIBITIONS AND COLLECTIONS MANAGER Unavailable Unavailable Jumalon, M Olga EXHIBITIONS AND COLLECTIONS MANAGER Unavailable Unavailable Jumalon, M Olga EXHIBITIONS AND COLLECTIONS MANAGER Unavailable Unavailable Jumalon, M Olga EXHIBITIONS AND COLLECTIONS MANAGER Unavailable Unavailable Jumalon, M Olga EXHIBITIONS AND COLLECTIONS MANAGER Unavailable Unavailable Jumalon, M Olga EXHIBITIONS AND COLLECTIONS MANAGER Unavailable Unavailable Jumalon, M Olga EXHIBITIONS AND COLLECTIONS MANAGER Unavailable Unavailable Jumalon, M Olga EXHIBITIONS AND COLLECTIONS MANAGER Unavailable Unavailable Jumalon, M Olga EXHIBITIONS AND COLLECTIONS MANAGER Unavailable Unavailable Jumalon, M Olga EXHIBITIONS AND COLLECTIONS MANAGER Unavailable Unavailable Jumalon, M Olga EXHIBITIONS AND COLLECTIONS MANAGER Unavailable Unavailable Jumalon, M Olga EXHIBITIONS AND COLLECTIONS MANAGER Unavailable Unavailable Jumalon, M Olga EXHIBITIONS AND COLLECTIONS MANAGER Unavailable Unavailable Jumalon, M Olga EXHIBITIONS AND COLLECTIONS MANAGER Unavailable Unavailable Jumalon, M Olga EXHIBITIONS AND COLLECTIONS MANAGER Unavailable Unavailable Jumalon, M Olga EXHIBITIONS AND COLLECTIONS MANAGER Unavailable Unavailable Jumalon, M Olga EXHIBITIONS AND COLLECTIONS MANAGER Unavailable Unavailable Jumalon, M Olga EXHIBITIONS AND COLLECTIONS MANAGER Unavailable Unavailable Jumalon, M Olga EXHIBITIONS AND COLLECTIONS MANAGER Unavailable Unavailable Beverley Del Toro MD Unavailable [...] is protected by Article 27-F of the [place] Public [employer] law. If you continue you may have access to information: Regarding HIV / AIDS; Provided by facilities licensed or operated by the [place] Office of Mental Health; or Provided by the [place] Office for People With Developmental Disabilities. If such information is present, then the following [place] mandated warning applies: This information has been [...] law may result in a fine or shelter sentence or both. A general authorization for the release of medical or other information is NOT sufficient authorization for further disc losure. Encounters Encounter Providers Location Date Indications Data Source(s ) Josh Del Toro MD: [address] [place] [address], Ph. Attender: Josh Del Toro MD [facility] Medical 01/11/2021 12:00:00 AM EDT [facility] ([facility]) Outpatient Attender: Josh Haas/Jesus/Lance/Re indl 01/04/2021 02:15:00 PM EDT [facility] ([facility] ) Josh Del Toro MD: [address] [place] [address], Ph. Attender: Josh Del Toro MD [facility] Medical 12/12/2020 12:00:00 AM EDT [facility] ([facility]) Olga Mejia, INDUCTOR TESTER: [address], [address], [place] [address], Ph. Attender: [facility] - [facility] - Main Office 12/04/2020 12:00:00 AM EDT [facility] [place] ([facility]) Mariana Pelaez MD: [address] [place] [address], Ph. Attender: Mariana Pelaez MD [facility] Medical 11/30/2020 12:00:00 AM EDT [facility] ([facility]) Mariana Pelaez MD: [address] [place] [address], Ph. Attender: Mariana Pelaez MD [facility] Medical 11/30/2020 12:00:00 AM EDT [facility] ([facility]) Josh Del Toro MD: [address] [place] [address], Ph. Attender: Josh Del Toro MD [facility] Medical 11/09/2020 12:00:00 AM EDT [facility] ([facility]) Josh Del Toro MD: [address] [place] [address], Ph. Attender: Josh Del Toro MD [facility] Medical 11/09/2020 12:00:00 AM EDT [facility] ([facility]) Josh Del Toro MD: [address] [place] [address], Ph. Attender: Josh Del Toro MD [facility] Medical 11/09/2020 12:00:00 AM EDT [facility] ([facility]) Recurring Patient Referrer: Olga Mejia [facility] 10/31/2020 11:24:21 AM EDT [facility] Josh Del Toro MD: [address] [place] [address], Ph. Attender: Josh Del Toro MD [facility] Medical 10/25/2020 12:00:00 AM EDT [facility] ([facility]) Josh Del Toro MD: [address] [place] [address], Ph. Attender: Josh Del Toro MD [facility] Medical 10/25/2020 12:00:00 AM EDT [facility] ([facility]) Josh Del Toro MD: [address] [place] [address], Ph. Attender: Josh Del Toro MD [facility] Medical 10/25/2020 12:00:00 AM EDT [facility] ([facility]) Josh Del Toro MD: [address] [place] [address], Ph. Attender: Josh Del Toro MD [facility] Medical 10/25/2020 12:00:00 AM EDT [facility] ([facility]) Olga Mejia, INDUCTOR TESTER: [address], [place] [address], Ph. Attender: Olga Mejia [facility] 10/20/2020 12:00:00 AM EDT [facility] [place] ([facility]) Olga Mejia, INDUCTOR TESTER: [address], [place] [address], Ph. Attender: Olga Mejia [facility] 10/20/2020 12:00:00 AM EDT [facility] ([facility]) Olga Mejia, INDUCTOR TESTER: [address], [place] [address], Ph. Attender: Olga Roberto [facility] 10/20/2020 12:00:00 AM EDT [facility] ([facility]) Brody Elliott MD: [address], [place] [address], Ph. Attender: Brody Elliott MD [facility] 09/25/2020 12:00:00 AM EDT [facility] ([facility]) Brody Elliott MD: [address], [place] [address], Ph. Attender: Brody Elliott MD [place] - [facility] 09/25/2020 12:00:00 AM EDT [facility] ([facility]) Brody Elliott MD: [address], [address], [place] [address], Ph. Attender: Brody [place] MD [place] - [facility] 09/25/2020 12:00:00 AM EDT [facility] ([facility]) Brody Elliott MD: [address], [address], [place] [address], Ph. Attender: Brody RODRIGUEZ - [facility] 09/25/2020 12:00:00 AM EDT [facility] ([facility]) Brody Elliott MD: [address], [address], [place] [address], Ph. [phone] Attender: Brody Elloitt MD [place] - [facility] 09/20/2020 12:00:00 AM EDT [facility] ([facility]) Brody Elliott MD: [address], [address], [place] [address], Ph. [phone] Attender: Brody RODRIGUEZ - [facility] 09/20/2020 12:00:00 AM EDT [facility] ([facility]) Brody Elliott MD: [address], [address], [place] [address], Ph. [phone] Attender: Brody [place] MD [place] - [facility] 09/20/2020 12:00:00 AM EDT [facility] ([facility]) Brody Elliott MD: [address], [address], [place] [address], Ph. [phone] Attender: Brody RODRIGUEZ - [facility] 09/20/2020 12:00:00 AM EDT [facility] ([facility]) Brody Elliott MD: [address] [address], [facility] [place] [address], Ph. [phone] Attender: Brody Elliott MD [place] - [facility] - [facility] Office 09/20/2020 12:00:00 AM EDT [facility] ([facility]) Mariana Pelaez MD: [address], [place] [address], Ph. Attender: Mariana Pelaez MD [facility] Medical 09/14/2020 12:00:00 AM EDT [place] ([facility]) Mariana Pelaez MD: [address] [place] [address], Ph. Attender: Mariana Pelaez MD [facility] Medical 09/14/2020 12:00:00 AM EDT [place] ([facility]) Mariana Pelaez MD: [address] [place] [address], Ph. Attender: Mariana Pelaez MD [facility] Medical 09/14/2020 12:00:00 AM EDT [facility] ([facility]) Mariana Pelaez MD: [address], [place] [address], Ph. Attender: Mariana Pelaez MD [facility] Medical 09/14/2020 12:00:00 AM EDT [place] ([facility]) Mariana Pelaez MD: [address], [place] [address], Ph. Attender: Mariana Pelaez MD [facility] Medical 09/14/2020 12:00:00 AM EDT [facility] ([facility]) Olga Mejia, INDUCTOR TESTER: [address], [place] [address], Ph. Attender: Olga Mejia [facility] 09/13/2020 12:00:00 AM EDT [facility] [place] ([facility]) Olga Mejia, INDUCTOR TESTER: [address], [address], [place] [address], Ph. Attender: Olga Mejia [facility] - [facility] 09/13/2020 12:00:00 AM EDT [facility] ([facility]) Olga Mejia, INDUCTOR TESTER: [address], [place] [address], Ph. Attender: Olga Mejia [facility] 09/13/2020 12:00:00 AM EDT [facility] ([facility]) Olga Mejia, INDUCTOR TESTER: [address], [place] [address], Ph. Attender: Olga Mejia [facility] 09/13/2020 12:00:00 AM EDT [facility] ([facility]) Olga Mejia, INDUCTOR TESTER: [address], [place] [address], Ph. Attender: Olga Mejia [facility] - [facility] 09/13/2020 12:00:00 AM EDT [facility] ([facility]) Olga Mejia, INDUCTOR TESTER: [address], [place] [address], Ph. Attender: Olga Mejia [facility] - Main Office 09/13/2020 12:00:00 AM EDT [facility] ([facility]) Josh Del Toro MD: [address] [place] [address], Ph. Attender: Josh Del Toro MD [facility] Medical 07/27/2020 12:00:00 AM EST [facility] ([facility]) Josh Del Toro MD: [address] [place] [address], Ph. Attender: Josh Del Toro MD [facility] Medical 07/27/2020 12:00:00 AM EST [facility] ([facility]) Josh Del Toro MD: [address] [place] [address], Ph. Attender: Josh Del Toro MD [facility] Medical 07/27/2020 12:00:00 AM EST [facility] ([facility]) Josh Del Toro MD: [address] [place] [address], Ph. Attender: Josh Del Toro MD [facility] Medical 07/27/2020 12:00:00 AM EST [facility] ([facility]) Josh Del Toro MD: [address] [place] [address], Ph. Attender: Josh Del Toro MD [facility] Medical 07/27/2020 12:00:00 AM EST [facility] ([facility]) Josh Del Toro MD: [address] [place] [address], Ph. Attender: Josh Del Toro MD [facility] Medical 07/27/2020 12:00:00 AM EST [facility] ([facility]) ( [facility]) [facility] [address] [place] [address] 07/24/2020 12:00:00 AM EST eCW1 (On license of [facility]) Brody Elliott MD: [address], [place] [address], Ph. Attender: Brody Elliott MD [place] - [facility] 07/12/2020 12:00:00 AM EST [facility] ([facility]) Brody Elliott MD: [address], [place] [address], Ph. Attender: Brody [place] MD [place] - [facility] 07/12/2020 12:00:00 AM EST [facility] ([facility]) Brody Elliott MD: [address], [place] [address], Ph. Attender: Brody [place] MD [place] - [facility] 07/12/2020 12:00:00 AM EST [facility] ([facility]) Brody Elliott MD: [address], [place] [address], Ph. Attender: Brody RODRIGUEZ - [facility] 07/12/2020 12:00:00 AM EST [facility] ([facility]) Brody Elliott MD: [address], [place] [address], Ph. Attender: Brody RODRIGUEZ - [facility] 07/12/2020 12:00:00 AM EST [facility] ([facility]) Brody Elliott MD: [address], [place] [address], Ph. Attender: Brody [place] MD [place] - [facility] 07/12/2020 12:00:00 AM EST [facility] ([facility]) Brody Elliott MD: [address], [place] [address], Ph. [phone] Attender: Brody [place] MD [place] - [facility] 07/07/2020 12:00:00 AM EST [facility] ([facility]) Brody Elliott MD: [address], [address], [place] [address], Ph. [phone] Attender: Brody [place] MD [place] - [facility] 07/07/2020 12:00:00 AM EST [facility] ([facility]) Brody Elliott MD: [address], [address], [place] [address], Ph. [phone] Attender: Brody [place] MD [place] - [facility] 07/07/2020 12:00:00 AM EST [facility] ([facility]) Broyd Elliott MD: [address], [address], [place] [address], Ph. [phone] Attender: Brody [place] MD [place] - [facility] 07/07/2020 12:00:00 AM EST [facility] ([facility]) Brody lEliott MD: [address], [address], [place] [address], Ph. [phone] Attender: Brody [place] MD [place] - [facility] 07/07/2020 12:00:00 AM EST [facility] ([facility]) Brody Elliott MD: [address], [place] [address], Ph. [phone] Attender: Brody [place] MD [place] - [facility] 07/07/2020 12:00:00 AM EST [facility] ([facility]) Brody Elliott MD: [address], [place] [address], Ph. [phone] Attender: Brody [place] MD [place] - [facility] 07/07/2020 12:00:00 AM EST [facility] ([facility]) Olga eMjia, INDUCTOR TESTER: [address], [place] [address], Ph. Attender: Olga Agustinmyah [facility] 07/03/2020 12:00:00 AM EST [facility] [place] ([facility]) Olga Mejia, INDUCTOR TESTER: [address], [place] [address], Ph. Attender: Olga Mejia [facility] 07/03/2020 12:00:00 AM EST [facility] [place] ([facility]) Olga Mejia, INDUCTOR TESTER: [address], [place] [address], Ph. Attender: Olga Mejia [facility] 07/03/2020 12:00:00 AM EST [facility] [place] ([facility]) Olga Mejia, INDUCTOR TESTER: [address], [place] [address], Ph. Attender: Olga Mejia [facility] 07/03/2020 12:00:00 AM EST [facility] [place] ([facility]) Olga Mejia, INDUCTOR TESTER: [address], [facility] [place] [address], Ph. Attender: Olga Mejia [facility] - [facility] 07/03/2020 12:00:00 AM EST [facility] [place] ([facility]) Olga Mejia, INDUCTOR TESTER: [address], [place] [address], Ph. Attender: Olga Mejia [facility] - [facility] 07/03/2020 12:00:00 AM EST [facility] [place] ([facility]) Olga Mejia, INDUCTOR TESTER: [address], [place] [address], Ph. Attender: Olga Mejia [facility] - [facility] 07/03/2020 12:00:00 AM EST [facility] [place] ([facility]) Olga Mejia, INDUCTOR TESTER: [address], [place] [address], Ph. Attender: Olga Mejia [facility] - [facility] 07/03/2020 12:00:00 AM EST [facility] [place] ([facility]) Brody Elliott MD: [address], [place] [address], Ph. Attender: Brody Elliott MD [place] - [facility] 06/01/2020 12:00:00 AM EST [facility] ([facility]) Brody Elliott MD: [address], [address], [place] [address], Ph. Attender: Brody [place] MD [place] - [facility] 06/01/2020 12:00:00 AM EST [facility] ([facility]) Brody Elliott MD: [address], [place] [address], Ph. Attender: Brody [place] MD [place] - [facility] 06/01/2020 12:00:00 AM EST [facility] ([facility]) Brody Elliott MD: [address], [address], [place] [address], Ph. Attender: Brody Elliott MD [place] - [facility] 06/01/2020 12:00:00 AM EST [facility] ([facility]) Brody Elliott MD: [address], [address], [place] [address], Ph. Attender: Brody Elliott MD [place] - [facility] 06/01/2020 12:00:00 AM EST [facility] ([facility]) Brody Elliott MD: [address], [address], [place] [address], Ph. Attender: Brody [place] MD [place] - [facility] 06/01/2020 12:00:00 AM EST [facility] ([facility]) Brody Elliott MD: [address]84 [address], [address], [place] [address], Ph. Attender: Brody Elliott MD [place] - [facility] 06/01/2020 12:00:00 AM EST [facility] ([facility]) Brody Elliott MD: [address], [address], [place] [address], Ph. Attender: Brody [place] MD [place] - [facility] 06/01/2020 12:00:00 AM EST [facility] ([facility]) Brody Elliott MD: [address], [address], [place] [address], Ph. Attender: Brody [place] MD [place] - [facility] 06/01/2020 12:00:00 AM EST [facility] ([facility]) Brody Elliott MD: [address], [address], [place] [address], Ph. [phone] Attender: Brody [place] MD [place] - [facility] 05/29/2020 12:00:00 AM EST [facility] ([facility]) Brody Elliott MD: [address], [address], [place] [address], Ph. [phone] Attender: Brody Elliott MD [place] - [facility] 05/29/2020 12:00:00 AM EST [facility] ([facility]) Brody Elliott MD: [address], [address], [place] [address], Ph. [phone] Attender: Brody Elliott MD [place] - [facility] 05/29/2020 12:00:00 AM EST [facility] ([facility]) Brody Elliott MD: [address], [address], [place] [address], Ph. [phone] Attender: Brody [place] MD [place] - [facility] 05/29/2020 12:00:00 AM EST [facility] ([facility]) Brody Elliott MD: [address], [address], [place] [address], Ph. [phone] Attender: Brody [place] MD [place] - [facility] 05/29/2020 12:00:00 AM EST [facility] ([facility]) Brody Elliott MD: [address], [address], [place] [address], Ph. [phone] Attender: Brody Elliott MD [place] - [facility] 05/29/2020 12:00:00 AM EST [facility] ([facility]) Brody Elliott MD: [address], [place] [address], Ph. [phone] Attender: Brody Elliott MD [place] - [facility] 05/29/2020 12:00:00 AM EST [facility] ([facility]) Brody Elliott MD: [address], [address], [place] [address], Ph. [phone] Attender: Brody [place] MD [place] [facility] [facility] 05/29/2020 12:00:00 AM EST [facility] ([facility]) Brody Elliott MD: [id number], [place] [address], Ph. [phone] Attender: Brody Elliott MD [place] - [facility] 05/29/2020 12:00:00 AM EST [facility] ([facility]) Brody Elliott MD: [address], [place] [address], Ph. [phone] Attender: Brody [place] MD [place] - [facility] 05/29/2020 12:00:00 AM EST [facility] ([facility]) Olga Mejia, INDUCTOR TESTER: [address], [place] [address], Ph. Attender: Olga Mejia [facility] - [facility] 05/18/2020 12:00:00 AM EST ATHE NA ([facility]) Olga Mejia, INDUCTOR TESTER: [address], [place] [address], Ph. Attender: Olga Mejia [facility] - [facility] 05/18/2020 12:00:00 AM EST ATHE NA ([facility]) Olga Mejia, INDUCTOR TESTER: [address], [place] [address], Ph. Attender: Olga Mejia [facility] 05/18/2020 12:00:00 AM EST ATHE NA ([facility]) Olga Mejia, INDUCTOR TESTER: [address], [place] [address], Ph. Attender: Olga Mejia [facility] - [facility] 05/18/2020 12:00:00 AM EST ATHE NA ([facility]) Olga Mejia, INDUCTOR TESTER: [address], [place] [address], Ph. Attender: Olga Mejia [facility] - [facility] 05/18/2020 12:00:00 AM EST ATHE NA ([facility]) Olga Mejia, INDUCTOR TESTER: [address], [place] [address], Ph. Attender: Olga Agustinmyah [facility] - [facility] 05/18/2020 12:00:00 AM EST ATHE NA ([facility]) Olga Mejia, INDUCTOR TESTER: [address], [place] [address], Ph. Attender: Olga Agustinmyah [facility] - [facility] 05/18/2020 12:00:00 AM EST ATHE NA ([facility]) Olga Mejia, INDUCTOR TESTER: [address], [place] [address], Ph. Attender: Olga Mejia [facility] - [facility] 05/18/2020 12:00:00 AM EST ATHE NA ([facility]) Olga Mejia, INDUCTOR TESTER: [address], [place] [address], Ph. Attender: Olga Mejia [facility] - [facility] 05/18/2020 12:00:00 AM EST ATHE NA ([facility]) Olga Mejia, INDUCTOR TESTER: [address], [address], [place] [address], Ph. Attender: Olga Mejia [facility] - [facility] 05/18/2020 12:00:00 AM EST ATHE NA ([facility]) Olga Mejia, INDUCTOR TESTER: [address], [address], [place] [address], Ph. Attender: Olga Mejia [facility] 05/18/2020 12:00:00 AM EST ATHE NA ([facility]) Josh Del Toro MD: [address] [place] [address], Ph. Attender: Josh Del Toro MD [facility] Medical 05/04/2020 12:00:00 AM EST [facility] ([facility]) Josh Del Toro MD: [address] [place] [address], Ph. Attender: Josh Del Toro MD [facility] Medical 05/04/2020 12:00:00 AM EST [facility] ([facility]) Josh Del Toro MD: [address] [place] [address], Ph. Attender: Josh Del Toro MD [facility] Medical 05/04/2020 12:00:00 AM EST ALE[facility] ([facility]) Josh Del Toro MD: [address] [place] [address], Ph. Attender: Josh Del Toro MD [facility] Medical 05/04/2020 12:00:00 AM EST A[facility] ([facility]) Josh Del Toro MD: [address] [place] [address], Ph. Attender: Josh Del Toro MD [facility] Medical 05/04/2020 12:00:00 AM EST [facility] ([facility]) Josh Del Toro MD: [address] [place] [address], Ph. Attender: Josh Del Toro MD [facility] Medical 05/04/2020 12:00:00 AM EST [facility]XA ([facility]) Josh Del Toro MD: [address] [place] [address], Ph. Attender: Josh Del Toor MD [facility] Medical 05/04/2020 12:00:00 AM EST ALEXA ([facility]) Brody Elliott MD: [address], [place] [address], Ph. [phone] Attender: Brody [place] MD [place] - [facility] - Main Office 03/15/2020 12:00:00 AM EDT [facility] ([facility]) Brody Elliott MD: [address], [place] [address], Ph. [phone] Attender: Brody [place] MD [place] - [facility] - Main Office 03/15/2020 12:00:00 AM EDT [facility] ([facility]) Brody Elliott MD: [address], [place] [address], Ph. [phone] Attender: Brody [place] MD [place] - [facility] 03/15/2020 12:00:00 AM EDT [facility] ([facility]) Brody Elliott MD: [address], [address], [place] [address], Ph. [phone] Attender: Brody [place] MD [place] - [facility] 03/15/2020 12:00:00 AM EDT [facility] ([facility]) Brody Elliott MD: [address], [address], [place] [address], Ph. [phone] Attender: Bordy Elliott MD [place] - [facility] 03/15/2020 12:00:00 AM EDT [facility] ([facility]) Brody Elliott MD: [address], [address], [place] [address], Ph. [phone] Attender: [place]dy [place] MD [place] - [facility] 03/15/2020 12:00:00 AM EDT [facility] ([facility]) Brody Elliott MD: [address], [address], [place] [address], Ph. [phone] Attender: Brody [place] MD [place] - [facility] 03/15/2020 12:00:00 AM EDT [facility] ([facility]) Brody Elliott MD: [address], [address], [place] [address], Ph. [phone] Attender: Brody [place] MD [place] - [facility] 03/15/2020 12:00:00 AM EDT [facility] ([facility]) Brody Elliott MD: [address], [address], [place] [address], Ph. [phone] Attender: Brody RODRIGUEZ - [facility] 03/15/2020 12:00:00 AM EDT [facility] ([facility]) Brody Elliott MD: [address], [address], [place] [address], Ph. [phone] Attender: [place]dy [place] MD [place] - [facility] - [facility] 03/15/2020 12:00:00 AM EDT [facility] ([facility]) Brody Elliott MD: [address], [address], [place] [address], Ph. [phone] Attender: Brody RODRIGUEZ - [facility] - [facility] 03/15/2020 12:00:00 AM EDT [facility] ([facility]) Brody Elliott MD: [address], [address], [place] [address], Ph. [phone] Attender: Brody RODRIGUEZ - [facility] - [facility] 03/15/2020 12:00:00 AM EDT [facility] ([facility]) Brody Elliott MD: [address], [address], [place] [address], Ph. [phone] Attender: [place]dy [place] MD [place] - [facility] - [facility] 02/18/2020 12:00:00 AM EDT [facility] ([facility]) Brody Elliott MD: [address], [address], [place] [address], Ph. [phone] Attender: Brody RODRIGUEZ - [facility] - [facility] 02/18/2020 12:00:00 AM EDT [facility] ([facility]) Brody Elliott MD: [address], [address], [place] [address], Ph. [phone] Attender: Brody RODRIGUEZ - [facility] - [facility] 02/18/2020 12:00:00 AM EDT [facility] ([facility]) Brody Elliott MD: [address], [address], [place] [address], Ph. [phone] Attender: [place]dy [place] MD [place] - [facility] 02/18/2020 12:00:00 AM EDT [facility] ([facility]) Brody Elliott MD: [address], [address], [place] [address], Ph. [phone] Attender: Brody [place] MD [place] - [facility] 02/18/2020 12:00:00 AM EDT [facility]XA ([facility]) Brody Elliott MD: [address], [address], [place] [address], Ph. [phone] Attender: Brody [place] MD [place] - [facility] 02/18/2020 12:00:00 AM EDT [facility] ([facility]) Brody Elliott MD: [address], [address], [place] [address], Ph. [phone] Attender: Brody [place] MD [place] - [facility] 02/18/2020 12:00:00 AM EDT [facility]XA ([facility]) Brody Elliott MD: [address], [address], [place] [address], Ph. [phone] Attender: [place]dy [place] MD [place] - [facility] 02/18/2020 12:00:00 AM EDT [facility]XA ([facility]) Brody Elliott MD: [address], [address], [place] [address], Ph. [phone] Attender: [place]dy [place] MD [place] - [facility] 02/18/2020 12:00:00 AM EDT [facility] ([facility]) Brody Elliott MD: [address], [address], [place] [address], Ph. [phone] Attender: [place]dy [place] MD [place] - [facility] - Main Office 02/18/2020 12:00:00 AM EDT [facility]XA ([facility]) Brody Elliott MD: [address], [place] [address], Ph. [phone] Attender: [place]dy [place] MD [place] - [facility] - Main Office 02/18/2020 12:00:00 AM EDT [facility] ([facility]) Brody Elliott MD: [address], [address], [place] [address], Ph. [phone] Attender: Brody [place] MD [place] - [facility] - [facility] Office 02/18/2020 12:00:00 AM EDT [facility] ([facility]) Brody Elliott MD: [address], [place] [address], Ph. [phone] Attender: Brody [place] MD [place] - [facility] - [facility] Office 02/18/2020 12:00:00 AM EDT ALEXA ([facility]) Outpatient Attender: Josh Del Toro MD 02/15/2020 09:29:02 AM EDT [facility] Outpatient Attender: Josh Del Toro MD 02/15/2020 08:53:01 AM EDT [facility] Outpatient Attender: Josh Del Toro MD 02/15/2020 08:41:00 AM EDT [facility] Outpatient Attender: Josh Del Toro MD 02/14/2020 12:10:00 PM EDT [facility] Outpatient Attender: Josh Del Toro MD 02/14/2020 10:44:00 AM EDT [facility] Outpatient Attender: Josh Del Toro MD 02/09/2020 11:22:26 AM EDT [facility] Outpatient Attender: Josh Del Toro MD 02/04/2020 12:59:02 PM EDT [facility] Outpatient Attender: Josh Del Toro MD 02/04/2020 12:59:01 PM EDT [facility] Outpatient Attender: Josh Del Toro MD 02/04/2020 08:22:02 AM EDT [facility] Outpatient Attender: Josh Del Toro MD 02/04/2020 08:22:02 AM EDT [facility] Brody Elliott MD: [address], [address], [place] [address], Ph. Attender: Brody [place] MD [place] - [facility] 02/01/2020 12:00:00 AM EDT [facility] ([facility]) Brody Elliott MD: [address], [address], [place] [address], Ph. Attender: Brody [place] MD [place] - [facility] 02/01/2020 12:00:00 AM EDT [facility] ([facility]) Brody Elliott MD: [address], [address], [place] [address], Ph. Attender: Brody [place] MD [place] - [facility] 02/01/2020 12:00:00 AM EDT [facility] ([facility]) Brody Elliott MD: [address], [address], [place] [address], Ph. Attender: Brody RODRIGUEZ - [facility] 02/01/2020 12:00:00 AM EDT [facility] ([facility]) Brody Elliott MD: [address], [address], [place] [address], Ph. Attender: Brody [place] MD [place] - [facility] 02/01/2020 12:00:00 AM EDT [facility] ([facility]) Brody Elliott MD: [address], [address], [place] [address], Ph. Attender: Brody RODRIGUEZ - [facility] 02/01/2020 12:00:00 AM EDT [facility] ([facility]) Brody Elliott MD: [address], [address], [place] [address], Ph. Attender: Brody RODRIGUEZ - [facility] 02/01/2020 12:00:00 AM EDT [facility] ([facility]) Brody Elliott MD: [address], [address], [place] [address], Ph. Attender: Brody RODRIGUEZ - [facility] 02/01/2020 12:00:00 AM EDT [facility] ([facility]) Brody Elliott MD: [address], [address], [place] [address], Ph. Attender: Brody RODRIGUEZ - [facility] 02/01/2020 12:00:00 AM EDT [facility] ([facility]) Brody Elliott MD: [address], [address], [place] [address], Ph. Attender: Brody RODRIGUEZ - [facility] 02/01/2020 12:00:00 AM EDT [facility] ([facility]) Brody Elliott MD: [address], [address], [place] [address], Ph. Attender: Brody RODRIGUEZ - [facility] 02/01/2020 12:00:00 AM EDT [facility] ([facility]) Brody Elliott MD: [address], [address], [place] [address], Ph. Attender: Brody RODRIGUEZ - [facility] 02/01/2020 12:00:00 AM EDT [facility] ([facility]) Brody Elliott MD: [address] [facility] [address], [place] [address], Ph. Attender: Brody [place] MD [place] - [facility] 02/01/2020 12:00:00 AM EDT [facility] ([facility]) Brody Elliott MD: [address]38 [facility] [address], [place] [address], Ph. Attender: Brody Elliott MD [place] - [facility] 02/01/2020 12:00:00 AM EDT [facility] ([facility]) Outpatient Attender: Josh Del Toro MD 01/26/2020 03:38:00 PM EDT [facility] Outpatient Attender: Josh Del Toro MD 01/25/2020 02:56:04 PM EDT [facility] Immunizations Vaccine Date Status Description Data Source(s) New in 2011. IIV4 05/04/2020 05:14:00 PM EST completed 0.5 mL [facility] ([facility]) New in 2011. IIV4 05/04/2020 05:14:00 PM EST completed 0.5 mL [facility] ([facility]) New in 2011. IIV4 05/04/2020 05:14:00 PM EST completed 0.5 mL [facility] ([facility]) New in 2011. IIV4 05/04/2020 05:14:00 PM EST completed 0.5 mL [facility] ([facility]) New in 2011. IIV4 05/04/2020 05:14:00 PM EST completed 0.5 mL [facility] ([facility]) New in 2011. IIV4 05/04/2020 05:14:00 PM EST completed 0.5 mL [facility] ([facility]) New in 2011. IIV4 05/04/2020 05:14:00 PM EST completed 0.5 mL [facility] ([facility]) Medications Medication Brand Name Start Date Product Form Dose Route Admi nistrative Instructions Pharmacy Instructions Status Indications Reaction Description Data Source(s) Metronidazole 500 MG Oral Tablet Metronidazole 500 MG 2020 12:00:00 AM EST 1.0 {tablet} active Metronidazo le 500 MG eCW1 ([facility]) Prednisone 20 MG Oral Tablet prednisone 20 mg tablet prednisone 20 mg tablet completed prednisone 20 MG Oral Tablet [facility] ([facility]) Trintellix 20 mg tablet [id number] complet ed vortioxetine 20 MG Oral Tablet [Trintellix] [facility]LE[facility] ([facility]) Trazodone Hydrochloride 50 MG Oral Tablet trazodone 50 mg tablet trazodone 50 mg tablet completed trazodone hydr ochloride 50 MG Oral Tablet ALEXA ([facility]) Ergocalciferol 25339 UNT Oral Capsule Vi tamin D2 1,250 mcg (50,000 unit) capsule Vitamin D2 1,250 mcg (50,000 unit) capsule completed ergocalciferol 1.25 MG Oral Capsule ALEXA ([facility]) Metronidazole 500 MG Oral Tablet metroni dazole 500 mg tablet TAKE ONE TABLET BY MOUTH TWICE DAILY FOR 7 DAYS metronidazole 500 mg tablet TAKE ONE TAB LET BY MOUTH TWICE DAILY FOR 7 DAYS completed metronidazole 500 MG Oral Tablet [facility] ([facility]) Ergocalciferol 20660 UNT Oral Capsule Vi tamin D2 1,250 mcg (50,000 unit) capsule Vitamin D2 1,250 mcg (50,000 unit) capsule completed ergocalciferol 1.25 MG Oral Capsule A[facility] ([facility]) Trazodone Hydrochloride 50 MG Oral Tablet trazodone 50 mg tablet trazodone 50 mg tablet completed trazodone hydr ochloride 50 MG Oral Tablet [facility] ([facility]) Simvastatin 20 MG Oral Tablet simvastatin 20 mg tablet simva statin 20 mg tablet completed simvastatin 20 MG Oral Tablet [facility] ([facility]) Trintellix 20 mg tablet [id number] complet ed vortioxetine 20 MG Oral Tablet [Trintellix] [facility]XA ([facility]) Simvastatin 20 MG Oral Tablet simvastatin 20 mg tablet simva statin 20 mg tablet completed simvastatin 20 MG Oral Tablet [facility] ([facility]) Prazosin 1 MG Oral Capsule prazosin 1 mg capsule prazosin 1 mg capsule completed prazosin 1 MG Oral Capsul e ALEXA ([facility]) Trintellix 20 mg tablet TAKE ONE TABLET BY MOUTH ONCE DAILY [id number] completed vortioxetine 20 MG Oral Tablet [ Trintellix] [facility]XA ([facility]) Amoxicillin 875 MG / Clavulanate 125 MG Oral Tablet amoxicillin 875 mg-potassium clavulanate 125 mg tablet TAKE ONE TABLET BY MOUTH TWICE DAILY FOR 10 DAYS amoxicillin 875 mg-potassium clavulanate 125 mg tablet TAKE ONE TABLET BY MOUTH TWICE DAILY FOR 10 DAYS completed amoxicillin 875 MG / clavulanate 125 MG Oral Tablet [facility] ([facility]) Ergocalciferol 12254 UNT Oral Capsule Vi tamin D2 1,250 mcg (50,000 unit) capsule Vitamin D2 1,250 mcg (50,000 unit) capsule completed ergocalciferol 1.25 MG Oral Capsule ALEXA ([facility]) Prazosin 1 MG Oral Capsule prazosin 1 mg capsule prazosin 1 mg capsule completed prazosin 1 MG Oral Capsul e ALEXA ([facility]) Simvastatin 20 MG Oral Tablet simvastatin 20 mg tablet simva statin 20 mg tablet completed simvastatin 20 MG Oral Tablet [facility] ([facility]) Simvastatin 20 MG Oral Tablet simvastatin 20 mg tablet simva statin 20 mg tablet completed simvastatin 20 MG Oral Tablet [facility]LEXA ([facility]) gabapentin 300 MG Oral Capsule gabapentin 300 mg capsu le gabapentin 300 mg capsule completed gabapentin 300 MG Oral Capsule ALE[facility] ([facility]) Fluoxetine 10 MG Oral Capsule fluoxetine 10 mg capsule TAKE ONE CAPSULE BY MOUTH ONCE DAILY fluoxetine 10 mg capsule TAKE ONE CAPSULE BY MOUTH ONCE DAILY completed fluoxetine 10 MG Ora l Capsule ALEXA ([facility]) Trazodone Hydrochloride 50 MG Oral Table t trazodone 50 mg tablet TAKE 1-2 TABLETS BY MOUTH EVERY EVENING NEEDED trazodone 50 mg tablet TAKE 1-2 TABLETS BY MOUTH EVERY EVENING NEEDED comp leted trazodone hydrochloride 50 MG Oral Tablet [facility] ([facility]) Trintellix 20 mg tablet [id number] complet ed vortioxetine 20 MG Oral Tablet [Trintellix] [facility] ([facility]) Amoxicillin 875 MG / Clavulanate 125 MG Oral Tablet amoxicillin 875 mg-potassium clavulanate 125 mg tablet TAKE ONE TABLET BY MOUTH TWICE DAILY FOR 10 DAYS amoxicillin 875 mg-potassium clavulanate 125 mg tablet TAKE ONE TABLET BY MOUTH TWICE DAILY FOR 10 DAYS completed amoxicillin 875 MG / clavulanate 125 MG Oral Tablet [facility] ([facility]) Metronidazole 500 MG Oral Tablet metroni dazole 500 mg tablet TAKE ONE TABLET BY MOUTH TWICE DAILY FOR 7 DAYS metronidazole 500 mg tablet TAKE ONE TAB LET BY MOUTH TWICE DAILY FOR 7 DAYS completed metronidazole 500 MG Oral Tablet [facility] ([facility]) Prazosin 1 MG Oral Capsule prazosin 1 mg capsule prazosin 1 mg capsule completed prazosin 1 MG Oral Capsul e [facility] ([facility]) gabapentin 300 MG Oral Capsule gabapentin 300 mg capsu le gabapentin 300 mg capsule completed gabapentin 300 MG Oral Capsule [facility] ([facility]) Amoxicillin 875 MG / Clavulanate 125 MG Oral Tablet amoxicillin 875 mg-potassium clavulanate 125 mg tablet TAKE ONE TABLET BY MOUTH TWICE DAILY FOR 10 DAYS amoxicillin 875 mg-potassium clavulanate 125 mg tablet TAKE ONE TABLET BY MOUTH TWICE DAILY FOR 10 DAYS completed amoxicillin 875 MG / clavulanate 125 MG Oral Tablet [facility] ([facility]) Trazodone Hydrochloride 50 MG Oral Tablet trazodone 50 mg tablet trazodone 50 mg tablet completed trazodone hydr ochloride 50 MG Oral Tablet [facility] ([facility]) Prazosin 1 MG Oral Capsule prazosin 1 mg capsule prazosin 1 mg capsule completed prazosin 1 MG Oral Capsul e [facility]LEXA ([facility]) Prednisone 20 MG Oral Tablet prednisone 20 mg tablet prednisone 20 mg tablet completed prednisone 20 MG Oral Tablet [facility] ([facility]) Trazodone Hydrochloride 50 MG Oral Tablet trazodone 50 mg tablet trazodone 50 mg tablet completed trazodone hydr ochloride 50 MG Oral Tablet [facility] ([facility]) Prednisone 20 MG Oral Tablet prednisone 20 mg tablet prednisone 20 mg tablet completed prednisone 20 MG Oral Tablet [facility] ([facility]) Trazodone Hydrochloride 50 MG Oral Table t trazodone 50 mg tablet TAKE 1-2 TABLETS BY MOUTH EVERY EVENING NEEDED trazodone 50 mg tablet TAKE 1-2 TABLETS BY MOUTH EVERY EVENING NEEDED comp leted trazodone hydrochloride 50 MG Oral Tablet [facility] ([facility]) Ergocalciferol [id number] UNT Oral Capsule Vi tamin D2 1,250 mcg (50,000 unit) capsule Vitamin D2 1,250 mcg (50,000 unit) capsule completed ergocalciferol 1.25 MG Oral Capsule [facility] ([facility]) 12 HR Guaifenesin 600 MG Extended Releas e Oral Tablet Mucus Relief ER 600 mg tablet, extended release Mucus Relief ER 600 mg tablet, extended release completed 12 HR guaifenesin 60 0 MG Extended Release Oral Tablet [facility] ([facility]) gabapentin 300 MG Oral Capsule gabapenti n 300 mg capsule TAKE ONE CAPSULE BY MOUTH FOUR TIMES A DAY gabapentin 300 mg capsule TAKE ONE CAPSU LE BY MOUTH FOUR TIMES A DAY completed gabapentin 300 MG Oral Capsule [place] ([facility]) Simvastatin 20 MG Oral Tablet simvastatin 20 mg tablet simva statin 20 mg tablet completed simvastatin 20 MG Oral Tablet [place] ([facility]) Metronidazole 500 MG Oral Tablet metroni dazole 500 mg tablet TAKE ONE TABLET BY MOUTH TWICE DAILY FOR 7 DAYS metronidazole 500 mg tablet TAKE ONE TAB LET BY MOUTH TWICE DAILY FOR 7 DAYS completed metronidazole 500 MG Oral Tablet [facility] ([facility]) Trintellix 20 mg tablet [id number] complet ed vortioxetine 20 MG Oral Tablet [Trintellix] [facility] ([facility]) gabapentin 300 MG Oral Capsule gabapentin 300 mg capsu le gabapentin 300 mg capsule completed gabapentin 300 MG Oral Capsule [facility] ([facility]) Nicotine 4 MG/ACTUAT Inhalant Solution [ Nicotrol] Nicotrol 10 mg inhalation cartridge Nicotrol 10 mg inhalation cartridge completed nicotine 4 MG Inhalation Solution [Nicotrol] [facility] ([facility]) Trintellix 20 mg tablet TAKE ONE TABLET BY MOUTH ONCE DAILY [id number] completed vortioxetine 20 MG Oral Tablet [ Trintellix] [facility]) Prednisone 20 MG Oral Tablet prednisone 20 mg tablet prednisone 20 mg tablet completed prednisone 20 MG Oral Tablet [place] ([facility]) gabapentin 300 MG Oral Capsule gabapentin 300 mg capsu le gabapentin 300 mg capsule completed gabapentin 300 MG Oral Capsule [facility] ([facility]) Trintellix 20 mg tablet TAKE ONE TABLET BY MOUTH ONCE DAILY [id number] completed vortioxetine 20 MG Oral Tablet [ Trintellix] [facility] ([facility]) Trintellix 20 mg tablet TAKE ONE TABLET BY MOUTH ONCE DAILY [id number] completed vortioxetine 20 MG Oral Tablet [ Trintellix] [place] ([facility]) Metronidazole 500 MG Oral Tablet metroni dazole 500 mg tablet TAKE ONE TABLET BY MOUTH TWICE DAILY FOR 7 DAYS metronidazole 500 mg tablet TAKE ONE TAB LET BY MOUTH TWICE DAILY FOR 7 DAYS completed metronidazole 500 MG Oral Tablet [facility] ([facility]) Prazosin 1 MG Oral Capsule prazosin 1 mg capsule prazosin 1 mg capsule completed prazosin 1 MG Oral Capsul e [place] ([facility]) Trazodone Hydrochloride 50 MG Oral Tablet trazodone 50 mg tablet trazodone 50 mg tablet completed trazodone hydr ochloride 50 MG Oral Tablet [place] ([facility]) gabapentin 300 MG Oral Capsule gabapentin 300 mg capsu le gabapentin 300 mg capsule completed gabapentin 300 MG Oral Capsule [place] ([facility]) 12 HR Guaifenesin 600 MG Extended Releas e Oral Tablet Mucus Relief ER 600 mg tablet, extended release Mucus Relief ER 600 mg tablet, extended release completed 12 HR guaifenesin 60 0 MG Extended Release Oral Tablet [place] ([facility]) gabapentin 300 MG Oral Capsule gabapenti n 300 mg capsule TAKE ONE CAPSULE BY MOUTH FOUR TIMES A DAY gabapentin 300 mg capsule TAKE ONE CAPSU LE BY MOUTH FOUR TIMES A DAY completed gabapentin 300 MG Oral Capsule [place] ([facility]) Amoxicillin 875 MG / Clavulanate 125 MG Oral Tablet amoxicillin 875 mg-potassium clavulanate 125 mg tablet TAKE ONE TABLET BY MOUTH TWICE DAILY FOR 10 DAYS amoxicillin 875 mg-potassium clavulanate 125 mg tablet TAKE ONE TABLET BY MOUTH TWICE DAILY FOR 10 DAYS completed amoxicillin 875 MG / clavulanate 125 MG Oral Tablet [facility] ([facility]) gabapentin 300 MG Oral Capsule gabapentin 300 mg capsu le gabapentin 300 mg capsule completed gabapentin 300 MG Oral Capsule [place] ([facility]) Trazodone Hydrochloride 50 MG Oral Table t trazodone 50 mg tablet TAKE 1-2 TABLETS BY MOUTH EVERY EVENING NEEDED trazodone 50 mg tablet TAKE 1-2 TABLETS BY MOUTH EVERY EVENING NEEDED comp leted trazodone hydrochloride 50 MG [facility] Ergocalciferol [id number] UNT Oral Capsule Vi tamin D2 1,250 mcg (50,000 unit) capsule Vitamin D2 1,250 mcg (50,000 unit) capsule completed ergocalciferol 1.25 MG Oral Capsule [facility] ([facility]) Amoxicillin 875 MG / Clavulanate 125 MG Oral Tablet amoxicillin 875 mg-potassium clavulanate 125 mg tablet TAKE ONE TABLET BY MOUTH TWICE DAILY FOR 10 DAYS amoxicillin 875 mg-potassium clavulanate 125 mg tablet TAKE ONE TABLET BY MOUTH TWICE DAILY FOR 10 DAYS completed amoxicillin 875 MG / clavulanate 125 MG Oral Tablet [facility] ([facility]) Prednisone 20 MG Oral Tablet prednisone 20 mg tablet prednisone 20 mg tablet completed prednisone 20 MG Oral Tablet [facility] ([facility]) gabapentin 300 MG Oral Capsule gabapentin 300 mg capsu le gabapentin 300 mg capsule completed gabapentin 300 MG Oral Capsule [facility] ([facility]) Prazosin 1 MG Oral Capsule prazosin 1 mg capsule prazosin 1 mg capsule completed prazosin 1 MG Oral Capsul e [facility] ([facility]) Amoxicillin 875 MG / Clavulanate 125 MG Oral Tablet amoxicillin 875 mg-potassium clavulanate 125 mg tablet TAKE ONE TABLET BY MOUTH TWICE DAILY FOR 10 DAYS amoxicillin 875 mg-potassium clavulanate 125 mg tablet TAKE ONE TABLET BY MOUTH TWICE DAILY FOR 10 DAYS completed amoxicillin 875 MG / clavulanate 125 MG Oral Tablet [facility] ([facility]) Prazosin 1 MG Oral Capsule prazosin 1 mg capsule prazosin 1 mg capsule completed prazosin 1 MG Oral Capsul e [facility] ([facility]) Trazodone Hydrochloride 50 MG Oral Tablet trazodone 50 mg tablet trazodone 50 mg tablet completed trazodone hydr ochloride 50 MG Oral Tablet [facility] ([facility]) Trintellix 20 mg tablet [id number] complet ed vortioxetine 20 MG Oral Tablet [Trintellix] [facility] ([facility]) Prednisone 20 MG Oral Tablet prednisone 20 mg tablet prednisone 20 mg tablet completed prednisone 20 MG Oral Tablet [facility] ([facility]) Amoxicillin 875 MG / Clavulanate 125 MG Oral Tablet amoxicillin 875 mg-potassium clavulanate 125 mg tablet TAKE ONE TABLET BY MOUTH TWICE DAILY FOR 10 DAYS amoxicillin 875 mg-potassium clavulanate 125 mg tablet TAKE ONE TABLET BY MOUTH TWICE DAILY FOR 10 DAYS completed amoxicillin 875 MG / clavulanate 125 MG Oral Tablet [facility] ([facility]) Prazosin 1 MG Oral Capsule prazosin 1 mg capsule prazosin 1 mg capsule completed prazosin 1 MG Oral Capsul e [facility] ([facility]) Metronidazole 500 MG Oral Tablet metroni dazole 500 mg tablet TAKE ONE TABLET BY MOUTH TWICE DAILY FOR 7 DAYS metronidazole 500 mg tablet TAKE ONE TAB LET BY MOUTH TWICE DAILY FOR 7 DAYS completed metronidazole 500 MG Oral Tablet [facility] ([facility]) Ergocalciferol 39179 UNT Oral Capsule Vi tamin D2 1,250 mcg (50,000 unit) capsule Vitamin D2 1,250 mcg (50,000 unit) capsule completed ergocalciferol 1.25 MG Oral Capsule [facility] ([facility]) gabapentin 300 MG Oral Capsule gabapenti n 300 mg capsule TAKE ONE CAPSULE BY MOUTH FOUR TIMES A DAY gabapentin 300 mg capsule TAKE ONE CAPSU LE BY MOUTH FOUR TIMES A DAY completed gabapentin 300 MG Oral Capsule [facility] ([facility]) gabapentin 300 MG Oral Capsule gabapenti n 300 mg capsule TAKE ONE CAPSULE BY MOUTH FOUR TIMES A DAY gabapentin 300 mg capsule TAKE ONE CAPSU LE BY MOUTH FOUR TIMES A DAY completed gabapentin 300 MG Oral Capsule [facility] ([facility]) Amoxicillin 875 MG / Clavulanate 125 MG Oral Tablet amoxicillin 875 mg-potassium clavulanate 125 mg tablet TAKE ONE TABLET BY MOUTH TWICE DAILY FOR 10 DAYS amoxicillin 875 mg-potassium clavulanate 125 mg tablet TAKE ONE TABLET BY MOUTH TWICE DAILY FOR 10 DAYS completed amoxicillin 875 MG / clavulanate 125 MG Oral Tablet [facility] ([facility]) Trazodone Hydrochloride 50 MG Oral Table t trazodone 50 mg tablet TAKE 1-2 TABLETS BY MOUTH EVERY EVENING NEEDED trazodone 50 mg tablet TAKE 1-2 TABLETS BY MOUTH EVERY EVENING NEEDED comp leted trazodone hydrochloride 50 MG Oral Tablet [facility] ([facility]) Trintellix 20 mg tablet [id number] complet ed vortioxetine 20 MG Oral Tablet [Trintellix] [facility] ([facility]) Trintellix 20 mg tablet [id number] complet ed vortioxetine 20 MG Oral Tablet [Trintellix] [facility] ([facility]) Simvastatin 20 MG Oral Tablet simvastatin 20 mg tablet simva statin 20 mg tablet completed simvastatin 20 MG Oral Tablet [facility] ([facility]) Prednisone 20 MG Oral Tablet prednisone 20 mg tablet prednisone 20 mg tablet completed prednisone 20 MG Oral Tablet [facility] ([facility]) tizanidine 4 MG Oral Tablet tizanidine 4 mg tablet tizanidine 4 mg ta blet completed tizanidine 4 MG Oral Tablet [facility] ([facility]) 12 HR Guaifenesin 600 MG Extended Releas e Oral Tablet Mucus Relief ER 600 mg tablet, extended release Mucus Relief ER 600 mg tablet, extended release completed 12 HR guaifenesin 60 0 MG Extended Release Oral Tablet [place] ([facility]) Trazodone Hydrochloride 50 MG Oral Table t trazodone 50 mg tablet TAKE 1-2 TABLETS BY MOUTH EVERY EVENING NEEDED trazodone 50 mg tablet TAKE 1-2 TABLETS BY MOUTH EVERY EVENING NEEDED comp leted trazodone hydrochloride 50 MG Oral Tablet [facility] ([facility]) Trintellix 20 mg tablet [id number] complet ed vortioxetine 20 MG Oral Tablet [Trintellix] [facility] ([facility]) gabapentin 300 MG Oral Capsule gabapentin 300 mg capsu le gabapentin 300 mg capsule completed gabapentin 300 MG Oral Capsule [facility] ([facility]) Amoxicillin 875 MG / Clavulanate 125 MG Oral Tablet amoxicillin 875 mg-potassium clavulanate 125 mg tablet TAKE ONE TABLET BY MOUTH TWICE DAILY FOR 10 DAYS amoxicillin 875 mg-potassium clavulanate 125 mg tablet TAKE ONE TABLET BY MOUTH TWICE DAILY FOR 10 DAYS completed amoxicillin 875 MG / clavulanate 125 MG Oral Tablet [facility] ([facility]) Trintellix 20 mg tablet [id number] complet ed vortioxetine 20 MG Oral Tablet [Trintellix] [facility] ([facility]) Amoxicillin 875 MG / Clavulanate 125 MG Oral Tablet amoxicillin 875 mg-potassium clavulanate 125 mg tablet TAKE ONE TABLET BY MOUTH TWICE DAILY FOR 10 DAYS amoxicillin 875 mg-potassium clavulanate 125 mg tablet TAKE ONE TABLET BY MOUTH TWICE DAILY FOR 10 DAYS completed amoxicillin 875 MG / clavulanate 125 MG Oral Tablet [facility] ([facility]) gabapentin 300 MG Oral Capsule gabapentin 300 mg capsu le gabapentin 300 mg capsule completed gabapentin 300 MG Oral Capsule [facility] ([facility]) Trintellix 20 mg tablet [id number] [facility] ed vortioxetine 20 MG Oral Tablet [Trintellix] [facility] ([facility]) Prazosin 1 MG Oral Capsule prazosin 1 mg capsule prazosin 1 mg capsule completed prazosin 1 MG Oral Capsul e [facility] ([facility]) Prednisone 20 MG Oral Tablet prednisone 20 mg tablet prednisone 20 mg tablet completed prednisone 20 MG Oral Tablet [facility] ([facility]) Prednisone 20 MG Oral Tablet prednisone 20 mg tablet prednisone 20 mg tablet completed prednisone 20 MG Oral Tablet [facility] ([facility]) Ergocalciferol [id number] UNT Oral Capsule Vi tamin D2 1,250 mcg (50,000 unit) capsule Vitamin D2 1,250 mcg (50,000 unit) capsule completed ergocalciferol 1.25 MG Oral Capsule [facility] ([facility]) Amoxicillin 875 MG / Clavulanate 125 MG Oral Tablet amoxicillin 875 mg-potassium clavulanate 125 mg tablet TAKE ONE TABLET BY MOUTH TWICE DAILY FOR 10 DAYS amoxicillin 875 mg-potassium clavulanate 125 mg tablet TAKE ONE TABLET BY MOUTH TWICE DAILY FOR 10 DAYS completed amoxicillin 875 MG / clavulanate 125 MG Oral Tablet [facility] ([facility]) Prednisone 20 MG Oral Tablet prednisone 20 mg tablet prednisone 20 mg tablet completed prednisone 20 MG Oral Tablet [facility] ([facility]) Trazodone Hydrochloride 50 MG Oral Table t trazodone 50 mg tablet TAKE 1-2 TABLETS BY MOUTH EVERY EVENING NEEDED trazodone 50 mg tablet TAKE 1-2 TABLETS BY MOUTH EVERY EVENING NEEDED comp leted trazodone hydrochloride 50 MG Oral Tablet [facility] ([facility]) gabapentin 300 MG Oral Capsule gabapenti n 300 mg capsule TAKE ONE CAPSULE BY MOUTH FOUR TIMES A DAY gabapentin 300 mg capsule TAKE ONE CAPSU LE BY MOUTH FOUR TIMES A DAY completed gabapentin 300 MG Oral Capsule [facility] ([facility]) Simvastatin 20 MG Oral Tablet simvastatin 20 mg tablet simva statin 20 mg tablet completed simvastatin 20 MG Oral Tablet [facility] ([facility]) Simvastatin 20 MG Oral Tablet simvastatin 20 mg tablet simva statin 20 mg tablet completed simvastatin 20 MG Oral Tablet [facility] ([facility]) Amoxicillin 875 MG / Clavulanate 125 MG Oral Tablet amoxicillin 875 mg-potassium clavulanate 125 mg tablet TAKE ONE TABLET BY MOUTH TWICE DAILY FOR 10 DAYS amoxicillin 875 mg-potassium clavulanate 125 mg tablet TAKE ONE TABLET BY MOUTH TWICE DAILY FOR 10 DAYS completed amoxicillin 875 MG / clavulanate 125 MG Oral Tablet [facility] ([facility]) Prednisone 20 MG Oral Tablet prednisone 20 mg tablet prednisone 20 mg tablet completed prednisone 20 MG Oral Tablet [facility] ([facility]) Amoxicillin 875 MG / Clavulanate 125 MG Oral Tablet amoxicillin 875 mg-potassium clavulanate 125 mg tablet TAKE ONE TABLET BY MOUTH TWICE DAILY FOR 10 DAYS amoxicillin 875 mg-potassium clavulanate 125 mg tablet TAKE ONE TABLET BY MOUTH TWICE DAILY FOR 10 DAYS completed amoxicillin 875 MG / clavulanate 125 MG Oral Tablet [facility] ([facility]) Trazodone Hydrochloride 50 MG Oral Table t trazodone 50 mg tablet TAKE 1-2 TABLETS BY MOUTH EVERY EVENING NEEDED trazodone 50 mg tablet TAKE 1-2 TABLETS BY MOUTH EVERY EVENING NEEDED comp leted trazodone hydrochloride 50 MG Oral Tablet [facility] ([facility]) Simvastatin 20 MG Oral Tablet simvastatin 20 mg tablet simva statin 20 mg tablet completed simvastatin 20 MG Oral Tablet [facility] ([facility]) tizanidine 4 MG Oral Tablet tizanidine 4 mg tablet tizanidine 4 mg ta blet completed tizanidine 4 MG Oral Tablet [facility] ([facility]) tizanidine 4 MG Oral Tablet tizanidine 4 mg tablet tizanidine 4 mg ta blet completed tizanidine 4 MG Oral Tablet [facility] ([facility]) 12 HR Guaifenesin 600 MG Extended Releas e Oral Tablet Mucus Relief ER 600 mg tablet, extended release Mucus Relief ER 600 mg tablet, extended release completed 12 HR guaifenesin 60 0 MG Extended Release Oral Tablet [facility] ([facility]) Amoxicillin 875 MG / Clavulanate 125 MG Oral Tablet amoxicillin 875 mg-potassium clavulanate 125 mg tablet TAKE ONE TABLET BY MOUTH TWICE DAILY FOR 10 DAYS amoxicillin 875 mg-potassium clavulanate 125 mg tablet TAKE ONE TABLET BY MOUTH TWICE DAILY FOR 10 DAYS completed amoxicillin 875 MG / clavulanate 125 MG Oral Tablet [facility] ([facility]) Trazodone Hydrochloride 50 MG Oral Table t trazodone 50 mg tablet TAKE 1-2 TABLETS BY MOUTH EVERY EVENING NEEDED trazodone 50 mg tablet TAKE 1-2 TABLETS BY MOUTH EVERY EVENING NEEDED comp leted trazodone hydrochloride 50 MG Oral Tablet [facility] ([facility]) Ergocalciferol 10982 UNT Oral Capsule Vi tamin D2 1,250 mcg (50,000 unit) capsule Vitamin D2 1,250 mcg (50,000 unit) capsule completed ergocalciferol 1.25 MG Oral Capsule [facility] ([facility]) Trazodone Hydrochloride 50 MG Oral Table t trazodone 50 mg tablet TAKE 1-2 TABLETS BY MOUTH EVERY EVENING NEEDED trazodone 50 mg tablet TAKE 1-2 TABLETS BY MOUTH EVERY EVENING NEEDED comp leted trazodone hydrochloride 50 MG Oral Tablet [facility] ([facility]) Trazodone Hydrochloride 50 MG Oral Table t trazodone 50 mg tablet TAKE 1-2 TABLETS BY MOUTH EVERY EVENING NEEDED trazodone 50 mg tablet TAKE 1-2 TABLETS BY MOUTH EVERY EVENING NEEDED comp leted trazodone hydrochloride 50 MG Oral Tablet [facility] ([facility]) Metronidazole 500 MG Oral Tablet metroni dazole 500 mg tablet TAKE ONE TABLET BY MOUTH TWICE DAILY FOR 7 DAYS metronidazole 500 mg tablet TAKE ONE TAB LET BY MOUTH TWICE DAILY FOR 7 DAYS completed metronidazole 500 MG Oral Tablet [facility] ([facility]) Metronidazole 500 MG Oral Tablet metroni dazole 500 mg tablet TAKE ONE TABLET BY MOUTH TWICE DAILY FOR 7 DAYS metronidazole 500 mg tablet TAKE ONE TAB LET BY MOUTH TWICE DAILY FOR 7 DAYS completed metronidazole 500 MG Oral Tablet [facility] ([facility]) Trazodone Hydrochloride 50 MG Oral Table t trazodone 50 mg tablet TAKE 1-2 TABLETS BY MOUTH EVERY EVENING NEEDED trazodone 50 mg tablet TAKE 1-2 TABLETS BY MOUTH EVERY EVENING NEEDED comp leted trazodone hydrochloride 50 MG Oral Tablet [facility] ([facility]) Ergocalciferol 91184 UNT Oral Capsule Vi tamin D2 1,250 mcg (50,000 unit) capsule Vitamin D2 1,250 mcg (50,000 unit) capsule completed ergocalciferol 1.25 MG Oral Capsule [facility] ([facility]) Trintellix 20 mg tablet TAKE ONE TABLET BY MOUTH ONCE DAILY [id number] completed vortioxetine 20 MG Oral Tablet [ Trintellix] [place] ([facility]) Ergocalciferol 24783 UNT Oral Capsule Vi tamin D2 1,250 mcg (50,000 unit) capsule Vitamin D2 1,250 mcg (50,000 unit) capsule completed ergocalciferol 1.25 MG Oral Capsule [facility] ([facility]) Trintellix 20 mg tablet TAKE ONE TABLET BY MOUTH ONCE DAILY [id number] completed vortioxetine 20 MG Oral Tablet [ Trintellix] [facility] ([facility]) Trintellix 20 mg tablet [id number] complet ed vortioxetine 20 MG Oral Tablet [Trintellix] [place] ([facility]) Nicotine 4 MG/ACTUAT Inhalant Solution [ Nicotrol] Nicotrol 10 mg inhalation cartridge Nicotrol 10 mg inhalation cartridge completed nicotine 4 MG Inhalation Solution [Nicotrol] [facility]) Prednisone 20 MG Oral Tablet prednisone 20 mg tablet prednisone 20 mg tablet completed prednisone 20 MG Oral Tablet [facility] ([facility]) Simvastatin 20 MG Oral Tablet simvastatin 20 mg tablet simva statin 20 mg tablet completed simvastatin 20 MG Oral Tablet [place] ([facility]) Metronidazole 500 MG Oral Tablet metroni dazole 500 mg tablet TAKE ONE TABLET BY MOUTH TWICE DAILY FOR 7 DAYS metronidazole 500 mg tablet TAKE ONE TAB LET BY MOUTH TWICE DAILY FOR 7 DAYS completed metronidazole 500 MG Oral Tablet [place] ([facility]) Trazodone Hydrochloride 50 MG Oral Table t trazodone 50 mg tablet TAKE 1-2 TABLETS BY MOUTH EVERY EVENING NEEDED trazodone 50 mg tablet TAKE 1-2 TABLETS BY MOUTH EVERY EVENING NEEDED comp leted trazodone hydrochloride 50 MG Oral Tablet [place] ([facility]) 12 HR Guaifenesin 600 MG Extended Releas e Oral Tablet Mucus Relief ER 600 mg tablet, extended release Mucus Relief ER 600 mg tablet, extended release completed 12 HR guaifenesin 60 0 MG Extended Release Oral Tablet [place] ([facility]) Prazosin 1 MG Oral Capsule prazosin 1 mg capsule prazosin 1 mg capsule completed prazosin 1 MG Oral Capsul e [place] ([facility]) Prazosin 1 MG Oral Capsule prazosin 1 mg capsule prazosin 1 mg capsule completed prazosin 1 MG Oral Capsul e [facility] ([facility]) Ergocalciferol [id number] UNT Oral Capsule Vi tamin D2 1,250 mcg (50,000 unit) capsule Vitamin D2 1,250 mcg (50,000 unit) capsule completed ergocalciferol 1.25 MG Oral Capsule [facility] ([facility]) Amoxicillin 875 MG / Clavulanate 125 MG Oral Tablet amoxicillin 875 mg-potassium clavulanate 125 mg tablet TAKE ONE TABLET BY MOUTH TWICE DAILY FOR 10 DAYS amoxicillin 875 mg-potassium clavulanate 125 mg tablet TAKE ONE TABLET BY MOUTH TWICE DAILY FOR 10 DAYS completed amoxicillin 875 MG / clavulanate 125 MG Oral Tablet [facility] ([facility]) Amoxicillin 875 MG / Clavulanate 125 MG Oral Tablet amoxicillin 875 mg-potassium clavulanate 125 mg tablet TAKE ONE TABLET BY MOUTH TWICE DAILY FOR 10 DAYS amoxicillin 875 mg-potassium clavulanate 125 mg tablet TAKE ONE TABLET BY MOUTH TWICE DAILY FOR 10 DAYS completed amoxicillin 875 MG / clavulanate 125 MG Oral Tablet [facility] ([facility]) Prednisone 20 MG Oral Tablet prednisone 20 mg tablet prednisone 20 mg tablet completed prednisone 20 MG Oral Tablet [facility] ([facility]) Ergocalciferol 66910 UNT Oral Capsule Vi tamin D2 1,250 mcg (50,000 unit) capsule Vitamin D2 1,250 mcg (50,000 unit) capsule completed ergocalciferol 1.25 MG Oral Capsule [facility] ([facility]) Trazodone Hydrochloride 50 MG Oral Table t trazodone 50 mg tablet TAKE 1-2 TABLETS BY MOUTH EVERY EVENING NEEDED trazodone 50 mg tablet TAKE 1-2 TABLETS BY MOUTH EVERY EVENING NEEDED comp leted trazodone hydrochloride 50 MG Oral Tablet [facility] ([facility]) tizanidine 4 MG Oral Tablet tizanidine 4 mg tablet tizanidine 4 mg ta blet completed tizanidine 4 MG Oral Tablet [facility] ([facility]) Ergocalciferol 30827 UNT Oral Capsule Vi tamin D2 1,250 mcg (50,000 unit) capsule Vitamin D2 1,250 mcg (50,000 unit) capsule completed ergocalciferol 1.25 MG Oral Capsule [facility] ([facility]) Prednisone 20 MG Oral Tablet prednisone 20 mg tablet prednisone 20 mg tablet completed prednisone 20 MG Oral Tablet [facility] ([facility]) Prazosin 1 MG Oral Capsule prazosin 1 mg capsule prazosin 1 mg capsule completed prazosin 1 MG Oral Capsul e [facility] ([facility]) Amoxicillin 875 MG / Clavulanate 125 MG Oral Tablet amoxicillin 875 mg-potassium clavulanate 125 mg tablet TAKE ONE TABLET BY MOUTH TWICE DAILY FOR 10 DAYS amoxicillin 875 mg-potassium clavulanate 125 mg tablet TAKE ONE TABLET BY MOUTH TWICE DAILY FOR 10 DAYS completed amoxicillin 875 MG / clavulanate 125 MG Oral Tablet [facility] ([facility]) gabapentin 300 MG Oral Capsule gabapenti n 300 mg capsule TAKE ONE CAPSULE BY MOUTH FOUR TIMES A DAY gabapentin 300 mg capsule TAKE ONE CAPSU LE BY MOUTH FOUR TIMES A DAY completed gabapentin 300 MG Oral Capsule [facility] ([facility]) gabapentin 300 MG Oral Capsule gabapentin 300 mg capsu le gabapentin 300 mg capsule completed gabapentin 300 MG Oral Capsule [facility] ([facility]) Simvastatin 20 MG Oral Tablet simvastatin 20 mg tablet simva statin 20 mg tablet completed simvastatin 20 MG Oral Tablet [facility] ([facility]) gabapentin 300 MG Oral Capsule gabapenti n 300 mg capsule TAKE ONE CAPSULE BY MOUTH FOUR TIMES A DAY gabapentin 300 mg capsule TAKE ONE CAPSU LE BY MOUTH FOUR TIMES A DAY completed gabapentin 300 MG Oral Capsule [facility] ([facility]) gabapentin 300 MG Oral Capsule gabapentin 300 mg capsu le gabapentin 300 mg capsule completed gabapentin 300 MG Oral Capsule A[facility]XA ([facility]) Prazosin 1 MG Oral Capsule prazosin 1 mg capsule prazosin 1 mg capsule completed prazosin 1 MG Oral Capsul e ALEXA ([facility]) Prazosin 1 MG Oral Capsule prazosin 1 mg capsule prazosin 1 mg capsule completed prazosin 1 MG Oral Capsul e [facility] ([facility]) gabapentin 300 MG Oral Capsule gabapentin 300 mg capsu le gabapentin 300 mg capsule completed gabapentin 300 MG Oral Capsule A[facility] ([facility]) Trintellix 20 mg tablet [id number] complet ed vortioxetine 20 MG Oral Tablet [Trintellix] ALEXA ([facility]) Prednisone 20 MG Oral Tablet prednisone 20 mg tablet prednisone 20 mg tablet completed prednisone 20 MG Oral Tablet [facility] ([facility]) Trazodone Hydrochloride 50 MG Oral Table t trazodone 50 mg tablet TAKE 1-2 TABLETS BY MOUTH EVERY EVENING NEEDED trazodone 50 mg tablet TAKE 1-2 TABLETS BY MOUTH EVERY EVENING NEEDED comp leted trazodone hydrochloride 50 MG Oral Tablet [facility] ([facility]) Prazosin 1 MG Oral Capsule prazosin 1 mg capsule prazosin 1 mg capsule completed prazosin 1 MG Oral Capsul e [place] ([facility]) Amoxicillin 875 MG / Clavulanate 125 MG Oral Tablet amoxicillin 875 mg-potassium clavulanate 125 mg tablet TAKE ONE TABLET BY MOUTH TWICE DAILY FOR 10 DAYS amoxicillin 875 mg-potassium clavulanate 125 mg tablet TAKE ONE TABLET BY MOUTH TWICE DAILY FOR 10 DAYS completed amoxicillin 875 MG / clavulanate 125 MG Oral Tablet [place] ([facility]) Prazosin 1 MG Oral Capsule prazosin 1 mg capsule prazosin 1 mg capsule completed prazosin 1 MG Oral Capsul e [place] ([facility]) 12 HR Guaifenesin 600 MG Extended Releas e Oral Tablet Mucus Relief ER 600 mg tablet, extended release Mucus Relief ER 600 mg tablet, extended release completed 12 HR guaifenesin 60 0 MG Extended Release Oral Tablet [place] ([facility]) gabapentin 300 MG Oral Capsule gabapentin 300 mg capsu le gabapentin 300 mg capsule completed gabapentin 300 MG Oral Capsule [place] ([facility]) Nicotine 4 MG/ACTUAT Inhalant Solution [ Nicotrol] Nicotrol 10 mg inhalation cartridge Nicotrol 10 mg inhalation cartridge completed nicotine 4 MG Inhalation Solution [Nicotrol] [facility]) Trintellix 20 mg tablet [id number] complet ed vortioxetine 20 MG Oral Tablet [Trintellix] [facility] ([facility]) Simvastatin 20 MG Oral Tablet simvastatin 20 mg tablet simva statin 20 mg tablet completed simvastatin 20 MG Oral Tablet [facility] ([facility]) Trintellix 20 mg tablet TAKE ONE TABLET BY MOUTH ONCE DAILY [id number] completed vortioxetine 20 MG Oral Tablet [ Trintellix] [place] ([facility]) Trazodone Hydrochloride 50 MG Oral Tablet trazodone 50 mg tablet trazodone 50 mg tablet completed trazodone hydr ochloride 50 MG Oral Tablet [place] ([facility]) Simvastatin 20 MG Oral Tablet simvastatin 20 mg tablet simva statin 20 mg tablet completed simvastatin 20 MG Oral Tablet [facility] ([facility]) Metronidazole 500 MG Oral Tablet metroni dazole 500 mg tablet TAKE ONE TABLET BY MOUTH TWICE DAILY FOR 7 DAYS metronidazole 500 mg tablet TAKE ONE TAB LET BY MOUTH TWICE DAILY FOR 7 DAYS completed metronidazole 500 MG Oral Tablet [facility] ([facility]) Ergocalciferol 00984 UNT Oral Capsule Vi tamin D2 1,250 mcg (50,000 unit) capsule Vitamin D2 1,250 mcg (50,000 unit) capsule completed ergocalciferol 1.25 MG Oral Capsule [facility] ([facility]) Trintellix 20 mg tablet [id number] complet ed vortioxetine 20 MG Oral Tablet [Trintellix] [facility] ([facility]) Simvastatin 20 MG Oral Tablet simvastatin 20 mg tablet simva statin 20 mg tablet completed simvastatin 20 MG Oral Tablet [facility] ([facility]) gabapentin 300 MG Oral Capsule gabapentin 300 mg capsu le gabapentin 300 mg capsule completed gabapentin 300 MG Oral Capsule [facility] ([facility]) Insurance Providers Payer name Policy type / Coverage type Policy ID Covered republican ID Covered republican's relationship to garcia Policy Garcia Plan Information Medicaid S [id number] S [id number] Managed Care - Community Plan [facility] P [id number] S [id number] Managed Care - Community Plan [facility] P [id number] S [id number] Managed Care - [facility] Community Plan P [id number] S [id number] Medicaid S [id number] S [id number] Managed Care - [facility] Community Plan P [id number] S [id number] [facility] Plan Medicaid F [id number] SELF [id number] Medicaid S [id number] S [id number] [facility] [id number] SP [id number] [facility] [id number] SP [id number] SP [id number] [facility] [id number] SP [id number] [facility] [id number] SP [id number] [facility] O [id number] S [id number] [facility] O [id number] S [id number] PROGRESSIVE CO NO FAULT [id number] PROGRESSIVE CO NO FAULT 00 FR2 00 Problems, Conditions, and Diagnoses Code Display Name Description Problem Type Effective Dates Data Source(s) [id number] Bilateral swelling of finger of hands Bi lateral Swelling of Finger of Hands Problem 10/25/2020 12:00:00 AM EDT A[facility] ([facility]) [id number] Bilateral swelling of finger of hands Bi lateral Swelling of Finger of Hands Problem 10/25/2020 12:00:00 AM EDT [facility] ([facility]) [id number] Bilateral swelling of finger of hands Bi lateral Swelling of Finger of Hands Problem 10/25/2020 12:00:00 AM EDT [facility] ([facility]) [id number] Bilateral swelling of finger of hands Bi lateral Swelling of Finger of Hands Problem 10/25/2020 12:00:00 AM EDT ALEXA ([facility]) [id number] Wheezing Wheezing Problem 07/27/2020 12:00:00 AM LUÍS LIU ([facility]) [id number] Wheezing Wheezing Problem 07/27/2020 12:00:00 AM ES Minda LIU ([facility]) [id number] Wheezing Wheezing Problem 07/27/2020 12:00:00 AM ES Minda [facility] ([facility]) [id number] Wheezing Wheezing Problem 07/27/2020 12:00:00 AM ES Minda [facility] ([facility]) [id number] Wheezing Wheezing Problem 07/27/2020 12:00:00 AM LUÍS LI[facility] ([facility]) [id number] Wheezing Wheezing Problem 07/27/2020 12:00:00 AM ES Minda LIU ([facility]) [id number] Edema Edema Problem 05/04/2020 12:00:00 AM LUÍS LIU ([facility]) [id number] Chronic depression Chronic Depression Problem 12:00:00 AM IVETT LIU ([facility]) [id number] Edema Edema Problem 05/04/2020 12:00:00 AM LUÍS LIU ([facility]) [id number] Chronic depression Chronic Depression Problem 12:00:00 AM IVETT LIU ([facility]) [id number] Edema Edema Problem 05/04/2020 12:00:00 AM LUÍS LIU ([facility]) [id number] Chronic depression Chronic Depression Problem 12:00:00 AM IVETT LIU ([facility]) [id number] Edema Edema Problem 05/04/2020 12:00:00 AM ES Minda LIU ([facility]) [id number] Chronic depression Chronic Depression Problem 12:00:00 AM EST ALEXA ([facility]) [id number] Edema Edema Problem 05/04/2020 12:00:00 AM ES Minda LIU ([facility]) [id number] Chronic depression Chronic Depression Problem 12:00:00 AM EST ALEXA ([facility]) [id number] Edema Edema Problem 05/04/2020 12:00:00 AM LUÍS LIU ([facility]) [id number] Chronic depression Chronic Depression Problem 12:00:00 AM IVETT LIU ([facility]) [id number] Edema Edema Problem 05/04/2020 12:00:00 AM LUÍS LIU ([facility]) [id number] Chronic depression Chronic Depression Problem 12:00:00 AM IVETT LIU ([facility]) Surgeries/Procedures Procedure Description Date Indications Data Source(s) OFFICE OUTPATIENT NEW 30 MINUTES 01/04/2021 12:00:00 A M EDT [facility] ([facility], ) OFFICE OUTPATIENT NEW 45 MINUTES 01/04/2021 12:00:00 A M EDT [facility] ([facility], ) Results ID Date Data Source [id number] 11/09/2020 08:04:00 AM EDT ALE[facility] ([facility]) Name Value Range Interpretation Code Description Data Iris rce(s) Supporting Document(s) Thyrotropin [Units/volume] in Serum or Plasma 1.78 mIU/L TSH W/reflex to FT4 [facility] ([facility]) ID Date Data Source [id number] 11/09/2020 08:04:00 AM EDT [facility]) Name Value Range Interpretation Code Description Data Iris rce(s) Supporting Document(s) C reactive protein [Mass/volume] in Serum or Plasma 2.3 mg/L <8 .0 C-reactive Protein [facility]) ID Date Data Source [id number] 11/09/2020 08:04:00 AM EDT [facility]) Name Value Range Interpretation Code Description Data Iris rce(s) Supporting Document(s) Erythrocyte sedimentation rate by Westergren method 2 mm/h < or = 20 Sed Rate by Modified Westergren [facility]) ID Date Data Source [id number] 11/09/2020 08:04:00 AM EDT [facility]) Name Value Range Interpretation Code Description Data Iris rce(s) Supporting Document(s) Creatinine [Mass/volume] in Serum or Plasma 0.71 mg/dL 0.50-1.10 Creatinine [facility] ([facility]) Glucose [Mass/volume] in Serum or Plasma 128 mg/dL 65-99 Above high normal Glucose [facility] ([facility]) Urea nitrogen [Mass/volume] in Serum or Plasma 13 mg/dL 7-25 Urea Nitrogen (BUN) [facility] ([facility]) Glomerular filtration rate/1.73 sq M.pre dicted among non-blacks [Volume Rate/Area] in Serum, Plasma or Blood by Creatinine-based formula (CKD-EPI) 104 mL/min/1.73m2 > or = 60 eGFR Non-afr. Malian ALEXA ([facility]) Glomerular filtration rate/1.73 sq M.pre dicted among blacks [Volume Rate/Area] in Serum, Plasma or Blood by Creatinine-based formula (CKD-EPI) 120 mL/min/1.73m2 > or = 60 eGFR A[facility]XA ([facility]) Urea nitrogen/Creatinine [Mass Ratio] in Serum or Plasma not applic able 6-22 BUN/creatinine Ratio ALEXA ([facility]) Potassium [Moles/volume] in Serum or Plasma 3.7 mmol/L 3.5-5.3 Potassium ALEXA ([facility]) Sodium [Moles/volume] in Serum or Plasma 139 mmol/L 135-146 Sodium [facility] ([facility]) Carbon dioxide, total [Moles/volume] in Serum or Plasma 27 mmol/L 20-32 Carbon Dioxide A[facility] ([facility]) Chloride [Moles/volume] in Serum or Plasma 102 mmol/L 98-110 Chloride [facility] ([facility]) Calcium [Mass/volume] in Serum or Plasma 9.4 mg/dL 8.6-10.2 Calcium [place] ([facility]) Albumin [Mass/volume] in Serum or Plasma 4.3 g/dL 3.6-5.1 Albumin [place] ([facility]) Protein [Mass/volume] in Serum or Plasma 6.8 g/dL 6.1-8.1 Protein, Total [place] ([facility]) Alkaline phosphatase [Enzymatic activity/volume] in Serum or Plasma 63 U/L 31-125 Alkaline Phosphatase [place] ([facility]) Albumin/Globulin [Mass Ratio] in Serum or Plasma 1.7 (calc) 1.0-2 .5 Albumin/globulin Ratio [place] ([facility]) Globulin [Mass/volume] in Serum by calculation 2.5 g/dL_(calc) 1.9- 3.7 Globulin [place] ([facility]) Bilirubin.total [Mass/volume] in Serum or Plasma 0.4 mg/dL 0.2-1 .2 Bilirubin, Total [facility]LE[facility] ([facility]) Alanine aminotransferase [Enzymatic activity/volume] in Seru m or Plasma 10 U/L 6-29 Alt ALEXA ([facility]) Aspartate aminotransferase [Enzymatic activity/volume] in Serum or Plasma 14 U/L 10-30 Ast [place] ([facility]) ID Date Data Source [id number] 11/09/2020 08:04:00 AM EDT [place] ([facility]) Name Value Range Interpretation Code Description Data Iris rce(s) Supporting Document(s) Triglyceride [Mass/volume] in Serum or Plasma 201 mg/dL <150 Above high normal Triglycerides ALEXA ([facility]) Cholesterol in HDL [Mass/volume] in Serum or Plasma 42 mg/dL > or = 50 Below low normal HDL Cholesterol ALEXA ([facility]) Cholesterol [Mass/volume] in Serum or Plasma 225 mg/dL <200 Above high normal Cholesterol, Total [facility]LEXA ([facility]) Cholesterol.total/Cholesterol in HDL [Mass Ratio] in Serum o r Plasma 5.4 (calc) <5.0 Above high normal Chol/hdlc Ratio ALEXA ([facility]) Cholesterol in LDL [Mass/volume] in Serum or Plasma by calculation 148 mg/dL_(calc) Above high normal LDL-cholesterol ALEXA ([facility]) Cholesterol non HDL [Mass/volume] in Serum or Plasma 183 mg/dL_( calc) <130 Above high normal Non HDL Cholesterol ALEXA ([facility]) ID Date Data Source [id number] 11/09/2020 08:04:00 AM EDT [facility]) Name Value Range Interpretation Code Description Data Iris rce(s) Supporting Document(s) Thyrotropin [Units/volume] in Serum or Plasma 1.78 mIU/L TSH W/reflex to FT4 [facility] ID Date Data Source [id number] 11/09/2020 08:04:00 AM EDT [facility]) Name Value Range Interpretation Code Description Data Iris rce(s) Supporting Document(s) C reactive protein [Mass/volume] in Serum or Plasma 2.3 mg/L <8 .0 C-reactive Protein [facility] ID Date Data Source [id number] 11/09/2020 08:04:00 AM EDT [facility]) Name Value Range Interpretation Code Description Data Iris rce(s) Supporting Document(s) Erythrocyte sedimentation rate by Westergren method 2 mm/h < or = 20 Sed Rate by Modified Westergren A[facility] ([facility]) ID Date Data Source [id number] 11/09/2020 08:04:00 AM EDT [place] ([facility]) Name Value Range Interpretation Code Description Data Iris rce(s) Supporting Document(s) Glucose [Mass/volume] in Serum or Plasma 128 mg/dL 65-99 Above high normal Glucose [place] ([facility]) Glomerular filtration rate/1.73 sq M.pre dicted among non-blacks [Volume Rate/Area] in Serum, Plasma or Blood by Creatinine-based formula (CKD-EPI) 104 mL/min/1.73m2 > or = 60 eGFR Non-afr. Malian ALEXA ([facility]) Creatinine [Mass/volume] in Serum or Plasma 0.71 mg/dL 0.50-1.10 Creatinine [place] ([facility]) Urea nitrogen [Mass/volume] in Serum or Plasma 13 mg/dL 7-25 Urea Nitrogen (BUN) [place] ([facility]) Glomerular filtration rate/1.73 sq M.pre dicted among blacks [Volume Rate/Area] in Serum, Plasma or Blood by Creatinine-based formula (CKD-EPI) 120 mL/min/1.73m2 > or = 60 eGFR [facility] ([facility]) Potassium [Moles/volume] in Serum or Plasma 3.7 mmol/L 3.5-5.3 Potassium [place] ([facility]) Sodium [Moles/volume] in Serum or Plasma 139 mmol/L 135-146 Sodium [facility] ([facility]) Urea nitrogen/Creatinine [Mass Ratio] in Serum or Plasma not applic able 6-22 BUN/creatinine Ratio [place] ([facility]) Carbon dioxide, total [Moles/volume] in Serum or Plasma 27 mmol/L 20-32 Carbon Dioxide [facility] ([facility]) Calcium [Mass/volume] in Serum or Plasma 9.4 mg/dL 8.6-10.2 Calcium [facility] ([facility]) Chloride [Moles/volume] in Serum or Plasma 102 mmol/L 98-110 Chloride [place] ([facility]) Protein [Mass/volume] in Serum or Plasma 6.8 g/dL 6.1-8.1 Protein, Total [facility] ([facility]) Globulin [Mass/volume] in Serum by calculation 2.5 g/dL_(calc) 1.9- 3.7 Globulin [place] ([facility]) Albumin/Globulin [Mass Ratio] in Serum or Plasma 1.7 (calc) 1.0-2 .5 Albumin/globulin Ratio [facility] ([facility]) Bilirubin.total [Mass/volume] in Serum or Plasma 0.4 mg/dL 0.2-1 .2 Bilirubin, Total [facility] ([facility]) Albumin [Mass/volume] in Serum or Plasma 4.3 g/dL 3.6-5.1 Albumin [place] ([facility]) Alkaline phosphatase [Enzymatic activity/volume] in Serum or Plasma 63 U/L 31-125 Alkaline Phosphatase [place] ([facility]) Aspartate aminotransferase [Enzymatic activity/volume] in Serum or Plasma 14 U/L 10-30 Ast [place] ([facility]) Alanine aminotransferase [Enzymatic activity/volume] in Seru m or Plasma 10 U/L 6-29 Alt ALEXA ([facility]) ID Date Data Source [id number] 11/09/2020 08:04:00 AM EDT [place] ([facility]) Name Value Range Interpretation Code Description Data Iris rce(s) Supporting Document(s) Cholesterol [Mass/volume] in Serum or Plasma 225 mg/dL <200 Above high normal Cholesterol, Total [facility] ([facility]) Triglyceride [Mass/volume] in Serum or Plasma 201 mg/dL <150 Above high normal Triglycerides [facility]LEXA ([facility]) Cholesterol in LDL [Mass/volume] in Serum or Plasma by calculation 148 mg/dL_(calc) Above high normal LDL-cholesterol [facility] ([facility]) Cholesterol in HDL [Mass/volume] in Serum or Plasma 42 mg/dL > or = 50 Below low normal HDL Cholesterol [facility]XA ([facility]) Cholesterol.total/Cholesterol in HDL [Mass Ratio] in Serum o r Plasma 5.4 (calc) <5.0 Above high normal Chol/hdlc Ratio ALEXA ([facility]) Cholesterol non HDL [Mass/volume] in Serum or Plasma 183 mg/dL_( calc) <130 Above high normal Non HDL Cholesterol [facility] ([facility]) ID Date Data Source [id number] 09/20/2020 12:00:00 AM EDT ALEXA ([facility]) Name Value Range Interpretation Code Description Data Iris rce(s) Supporting Document(s) SARS-CoV-2 (COVID-19) RNA [Presence] in Respiratory specimen by OSITO with probe detection negative negative Sars-cov-2 [facility]LE[facility] ([facility]) ID Date Data Source [id number] 09/20/2020 12:00:00 AM EDT ALEXA ([facility]) Name Value Range Interpretation Code Description Data Iris rce(s) Supporting Document(s) ID Date Data Source [id number] 09/20/2020 12:00:00 AM EDT [facility] ([facility]) Name Value Range Interpretation Code Description Data Iris rce(s) Supporting Document(s) SARS-CoV-2 (COVID-19) RNA [Presence] in Respiratory specimen by OSITO with probe detection negative negative Sars-cov-2 [facility] ([facility]) ID Date Data Source [id number] 09/20/2020 12:00:00 AM EDT ALEXA ([facility]) Name Value Range Interpretation Code Description Data Iris rce(s) Supporting Document(s) ID Date Data Source [id number] 09/20/2020 12:00:00 AM EDT [facility] ([facility]) Name Value Range Interpretation Code Description Data Iris rce(s) Supporting Document(s) SARS-CoV-2 (COVID-19) RNA [Presence] in Respiratory specimen by OSITO with probe detection negative negative Sars-cov-2 [facility] ([facility]) ID Date Data Source [id number] 09/20/2020 12:00:00 AM EDT ALEXA ([facility]) Name Value Range Interpretation Code Description Data Iris rce(s) Supporting Document(s) ID Date Data Source [id number] 09/20/2020 12:00:00 AM EDT [facility] Name Value Range Interpretation Code Description Data Iris rce(s) Supporting Document(s) SARS-CoV-2 NEGATIVE [facility] This lab was ordered by [facility]-COVID19 and reported by [employer]. ID Date Data Source [id number] 09/20/2020 12:00:00 AM EDT ALEXA ([facility]) Name Value Range Interpretation Code Description Data Iris rce(s) Supporting Document(s) SARS-CoV-2 (COVID-19) RNA [Presence] in Respiratory specimen by OSITO with probe detection negative negative Sars-cov-2 [facility] ([facility]) ID Date Data Source [id number] 09/20/2020 12:00:00 AM EDT ALEXA ([facility]) Name Value Range Interpretation Code Description Data Iris rce(s) Supporting Document(s) ID Date Data Source PAP REQUEST FOR SERVICE 07/24/2020 12:00:00 AM EST eCW1 ([facility]) Name Value Range Interpretation Code Description Data Iris rce(s) Supporting Document(s) eCW1 ([facility]) ID Date Data Source [id number] 07/07/2020 12:00:00 AM EST ALE[facility] ([facility]) Name Value Range Interpretation Code Description Data Iris rce(s) Supporting Document(s) SARS-CoV-2 (COVID-19) RNA [Presence] in Respiratory specimen by OSITO with probe detection negative negative Sars-cov-2 [facility] ([facility]) ID Date Data Source [id number] 07/07/2020 12:00:00 AM EST [facility] ([facility]) Name Value Range Interpretation Code Description Data Iris rce(s) Supporting Document(s) ID Date Data Source [id number] 07/07/2020 12:00:00 AM EST [facility] ([facility]) Name Value Range Interpretation Code Description Data Iris rce(s) Supporting Document(s) SARS-CoV-2 (COVID-19) RNA [Presence] in Respiratory specimen by OSITO with probe detection negative negative Sars-cov-2 [facility] ([facility]) ID Date Data Source [id number] 07/07/2020 12:00:00 AM EST [facility] ([facility]) Name Value Range Interpretation Code Description Data Iris rce(s) Supporting Document(s) ID Date Data Source [id number] 07/07/2020 12:00:00 AM EST [facility] ([facility]) Name Value Range Interpretation Code Description Data Iris rce(s) Supporting Document(s) SARS-CoV-2 (COVID-19) RNA [Presence] in Respiratory specimen by OSITO with probe detection negative negative Sars-cov-2 [facility] ([facility]) ID Date Data Source [id number] 07/07/2020 12:00:00 AM EST [facility] ([facility]) Name Value Range Interpretation Code Description Data Iris rce(s) Supporting Document(s) ID Date Data Source [id number] 07/07/2020 12:00:00 AM EST [facility] ([facility]) Name Value Range Interpretation Code Description Data Iris rce(s) Supporting Document(s) SARS-CoV-2 (COVID-19) RNA [Presence] in Respiratory specimen by OSITO with probe detection negative negative Sars-cov-2 [facility] ([facility]) ID Date Data Source [id number] 07/07/2020 12:00:00 AM EST [facility] ([facility]) Name Value Range Interpretation Code Description Data Iris rce(s) Supporting Document(s) ID Date Data Source [id number] 07/07/2020 12:00:00 AM EST [facility] ([facility]) Name Value Range Interpretation Code Description Data Iris rce(s) Supporting Document(s) SARS-CoV-2 (COVID-19) RNA [Presence] in Respiratory specimen by OSITO with probe detection negative negative Sars-cov-2 [facility] ([facility]) ID Date Data Source [id number] 07/07/2020 12:00:00 AM EST ALEXA ([facility]) Name Value Range Interpretation Code Description Data Iris rce(s) Supporting Document(s) ID Date Data Source [id number] 07/07/2020 12:00:00 AM EST [facility] ([facility]) Name Value Range Interpretation Code Description Data Iris rce(s) Supporting Document(s) SARS-CoV-2 (COVID-19) RNA [Presence] in Respiratory specimen by OSITO with probe detection negative negative Sars-cov-2 [facility] [facility]) ID Date Data Source [id number] 07/07/2020 12:00:00 AM EST [facility] ([facility]) Name Value Range Interpretation Code Description Data Iris rce(s) Supporting Document(s) ID Date Data Source [id number] 07/07/2020 12:00:00 AM EST [facility] Name Value Range Interpretation Code Description Data Iris rce(s) Supporting Document(s) SARS-CoV-2 NEGATIVE [facility] This lab was ordered by [facility] and reported by [employer]. ID Date Data Source [id number] 05/29/2020 12:00:00 AM EST [facility] ([facility]) Name Value Range Interpretation Code Description Data Iris rce(s) Supporting Document(s) SARS-CoV-2 (COVID-19) RNA [Presence] in Respiratory specimen by [facility]IT[facility] with probe detection negative negative Sars-cov-2 [facility] ([facility]) ID Date Data Source [id number] 05/29/2020 12:00:00 AM EST [facility] ([facility]) Name Value Range Interpretation Code Description Data Iris rce(s) Supporting Document(s) ID Date Data Source [id number] 05/29/2020 12:00:00 AM EST [facility] ([facility]) Name Value Range Interpretation Code Description Data Iris rce(s) Supporting Document(s) SARS-CoV-2 (COVID-19) RNA [Presence] in Respiratory specimen by [facility] with probe detection negative negative Sars-cov-2 [facility] ([facility]) ID Date Data Source [id number] 05/29/2020 12:00:00 AM EST [facility] ([facility]) Name Value Range Interpretation Code Description Data Iris rce(s) Supporting Document(s) ID Date Data Source [id number] 05/29/2020 12:00:00 AM EST [facility] ([facility]) Name Value Range Interpretation Code Description Data Iris rce(s) Supporting Document(s) SARS-CoV-2 (COVID-19) RNA [Presence] in Respiratory specimen by [facility] with probe detection negative negative Sars-cov-2 [facility] ([facility]) ID Date Data Source [id number] 05/29/2020 12:00:00 AM EST [facility] ([facility]) Name Value Range Interpretation Code Description Data Iris rce(s) Supporting Document(s) ID Date Data Source [id number] 05/29/2020 12:00:00 AM EST [facility] ([facility]) Name Value Range Interpretation Code Description Data Iris rce(s) Supporting Document(s) SARS-CoV-2 (COVID-19) RNA [Presence] in Respiratory specimen by [facility] with probe detection negative negative Sars-cov-2 [facility] ([facility]) ID Date Data Source [id number] 05/29/2020 12:00:00 AM EST [facility] ([facility]) Name Value Range Interpretation Code Description Data Iris rce(s) Supporting Document(s) ID Date Data Source [id number] 05/29/2020 12:00:00 AM EST [facility] ([facility]) Name Value Range Interpretation Code Description Data Iris rce(s) Supporting Document(s) SARS-CoV-2 (COVID-19) RNA [Presence] in Respiratory specimen by [facility] with probe detection negative negative Sars-cov-2 [facility] ([facility]) ID Date Data Source [id number] 05/29/2020 12:00:00 AM EST [facility] ([facility]) Name Value Range Interpretation Code Description Data Iris rce(s) Supporting Document(s) ID Date Data Source [id number] 05/29/2020 12:00:00 AM EST [facility] ([facility]) Name Value Range Interpretation Code Description Data Iris rce(s) Supporting Document(s) SARS-CoV-2 (COVID-19) RNA [Presence] in Respiratory specimen by [facility] with probe detection negative negative Sars-cov-2 [facility] ([facility]) ID Date Data Source [id number] 05/29/2020 12:00:00 AM EST [facility] ([facility]) Name Value Range Interpretation Code Description Data Iris rce(s) Supporting Document(s) ID Date Data Source [id number] 05/29/2020 12:00:00 AM EST [facility] ([facility]) Name Value Range Interpretation Code Description Data Iris rce(s) Supporting Document(s) SARS-CoV-2 (COVID-19) RNA [Presence] in Respiratory specimen by [facility] with probe detection negative negative Sars-cov-2 [facility] ([facility]) ID Date Data Source [id number] 05/29/2020 12:00:00 AM EST [facility] ([facility]) Name Value Range Interpretation Code Description Data Iris rce(s) Supporting Document(s) ID Date Data Source [id number] 05/29/2020 12:00:00 AM EST [facility] ([facility]) Name Value Range Interpretation Code Description Data Iris rce(s) Supporting Document(s) SARS-CoV-2 (COVID-19) RNA [Presence] in Respiratory specimen by [facility] with probe detection negative negative Sars-cov-2 [facility] ([facility]) ID Date Data Source [id number] 05/29/2020 12:00:00 AM EST [facility] ([facility]) Name Value Range Interpretation Code Description Data Iris rce(s) Supporting Document(s) ID Date Data Source [id number] 05/29/2020 12:00:00 AM EST [facility] ([facility]) Name Value Range Interpretation Code Description Data Iris rce(s) Supporting Document(s) SARS-CoV-2 (COVID-19) RNA [Presence] in Respiratory specimen by [facility] with probe detection negative negative Sars-cov-2 [facility] ([facility]) ID Date Data Source [id number] 05/29/2020 12:00:00 AM EST [facility] ([facility]) Name Value Range Interpretation Code Description Data Iris rce(s) Supporting Document(s) ID Date Data Source [id number] 05/29/2020 12:00:00 AM EST [facility] Name Value Range Interpretation Code Description Data Iris rce(s) Supporting Document(s) SARS-CoV-2 NEGATIVE [facility] This lab was ordered by [facility] and reported by [employer]. ID Date Data Source [id number] 03/15/2020 12:00:00 AM EDT [facility] ([facility]) Name Value Range Interpretation Code Description Data Iris rce(s) Supporting Document(s) SARS-CoV-2 (COVID-19) RNA [Presence] in Respiratory specimen by [facility] with probe detection negative negative Sars-cov-2 [facility] ([facility]) ID Date Data Source [id number] 03/15/2020 12:00:00 AM EDT [place] ([facility]) Name Value Range Interpretation Code Description Data Iris rce(s) Supporting Document(s) ID Date Data Source [id number] 03/15/2020 12:00:00 AM EDT [facility] ([facility]) Name Value Range Interpretation Code Description Data Iris rce(s) Supporting Document(s) SARS-CoV-2 (COVID-19) RNA [Presence] in Respiratory specimen by [facility] with probe detection negative negative Sars-cov-2 [facility] ([facility]) ID Date Data Source [id number] 03/15/2020 12:00:00 AM EDT [facility] ([facility]) Name Value Range Interpretation Code Description Data Iris rce(s) Supporting Document(s) ID Date Data Source [id number] 03/15/2020 12:00:00 AM EDT [facility] ([facility]) Name Value Range Interpretation Code Description Data Iris rce(s) Supporting Document(s) SARS-CoV-2 (COVID-19) RNA [Presence] in Respiratory specimen by [facility] with probe detection negative negative Sars-cov-2 [facility] ([facility]) ID Date Data Source [id number] 03/15/2020 12:00:00 AM EDT [place] ([facility]) Name Value Range Interpretation Code Description Data Iris rce(s) Supporting Document(s) ID Date Data Source [id number] 03/15/2020 12:00:00 AM EDT [facility] ([facility]) Name Value Range Interpretation Code Description Data Iris rce(s) Supporting Document(s) SARS-CoV-2 (COVID-19) RNA [Presence] in Respiratory specimen by [facility] with probe detection negative negative Sars-cov-2 [facility] ([facility]) ID Date Data Source [id number] 03/15/2020 12:00:00 AM EDT [place] ([facility]) Name Value Range Interpretation Code Description Data Iris rce(s) Supporting Document(s) ID Date Data Source [id number] 03/15/2020 12:00:00 AM EDT [facility] ([facility]) Name Value Range Interpretation Code Description Data Iris rce(s) Supporting Document(s) SARS-CoV-2 (COVID-19) RNA [Presence] in Respiratory specimen by [facility] with probe detection negative negative Sars-cov-2 [facility] ([facility]) ID Date Data Source [id number] 03/15/2020 12:00:00 AM EDT [facility] ([facility]) Name Value Range Interpretation Code Description Data Iris rce(s) Supporting Document(s) ID Date Data Source [id number] 03/15/2020 12[facility]00:[facility] Name Value Range Interpretation Code Description Data Iris rce(s) Supporting Document(s) SARS-CoV-2 (COVID-19) RNA [Presence] in Respiratory specimen by [facility] with probe detection negative negative Sars-cov-2 [facility] ([facility]) ID Date Data Source [id number] 03/15/2020 12:00:00 AM EDT [place] ([facility]) Name Value Range Interpretation Code Description Data Iris rce(s) Supporting Document(s) ID Date Data Source [id number] 03/15/2020 12:00:00 AM EDT [facility] ([facility]) Name Value Range Interpretation Code Description Data Iris rce(s) Supporting Document(s) SARS-CoV-2 (COVID-19) RNA [Presence] in Respiratory specimen by [facility] with probe detection negative negative Sars-cov-2 [place] ([facility]) ID Date Data Source [id number] 03/15/2020 12:00:00 AM EDT [place] ([facility]) Name Value Range Interpretation Code Description Data Iris rce(s) Supporting Document(s) ID Date Data Source [id number] 03/15/2020 12:00:00 AM EDT [place] ([facility]) Name Value Range Interpretation Code Description Data Iris rce(s) Supporting Document(s) SARS-CoV-2 (COVID-19) RNA [Presence] in Respiratory specimen by [facility] with probe detection negative negative Sars-cov-2 [facility] ([facility]) ID Date Data Source [id number] 03/15/2020 12:00:00 AM EDT [facility] ([facility]) Name Value Range Interpretation Code Description Data Iris rce(s) Supporting Document(s) ID Date Data Source [id number] 03/15/2020 12:00:00 AM EDT [facility] ([facility]) Name Value Range Interpretation Code Description Data Iris rce(s) Supporting Document(s) SARS-CoV-2 (COVID-19) RNA [Presence] in Respiratory specimen by [facility] with probe detection negative negative Sars-cov-2 [facility] ([facility]) ID Date Data Source [id number] 03/15/2020 12:00:00 AM EDT [place] ([facility]) Name Value Range Interpretation Code Description Data Iris rce(s) Supporting Document(s) ID Date Data Source [id number] 03/15/2020 12:00:00 AM EDT [facility] ([facility]) Name Value Range Interpretation Code Description Data Iris rce(s) Supporting Document(s) SARS-CoV-2 (COVID-19) RNA [Presence] in Respiratory specimen by [facility] with probe detection negative negative Sars-cov-2 [place] ([facility]) ID Date Data Source [id number] 03/15/2020 12:00:00 AM EDT [facility] ([facility]) Name Value Range Interpretation Code Description Data Iris rce(s) Supporting Document(s) ID Date Data Source [id number] 03/15/2020 12:00:00 AM EDT [facility] ([facility]) Name Value Range Interpretation Code Description Data Iris rce(s) Supporting Document(s) SARS-CoV-2 (COVID-19) RNA [Presence] in Respiratory specimen by [facility] with probe detection negative negative Sars-cov-2 [facility] ([facility]) ID Date Data Source [id number] 03/15/2020 12:00:00 AM EDT [facility] ([facility]) Name Value Range Interpretation Code Description Data Iris rce(s) Supporting Document(s) ID Date Data Source [id number] 03/15/2020 12:00:00 AM EDT [facility] Name Value Range Interpretation Code Description Data Iris rce(s) Supporting Document(s) SARS-CoV-2 [facility] This lab was ordered by [facility] and reported by [employer]. ID Date Data Source [id number] 02/18/2020 12:00:00 AM EDT [facility] ([facility]) Name Value Range Interpretation Code Description Data Iris rce(s) Supporting Document(s) SARS-CoV-2 (COVID-19) RNA [Presence] in Respiratory specimen by [facility] with probe detection negative negative Sars-cov-2 [facility] ([facility]) ID Date Data Source [id number] 02/18/2020 12:00:00 AM EDT [facility] ([facility]) Name Value Range Interpretation Code Description Data Iris rce(s) Supporting Document(s) ID Date Data Source [id number] 02/18/2020 12:00:00 AM EDT [facility] ([facility]) Name Value Range Interpretation Code Description Data Iris rce(s) Supporting Document(s) ID Date Data Source [id number] 02/18/2020 12:00:00 AM EDT [facility] ([facility]) Name Value Range Interpretation Code Description Data Iris rce(s) Supporting Document(s) SARS-CoV-2 (COVID-19) RNA [Presence] in Respiratory specimen by [facility] with probe detection negative negative Sars-cov-2 [facility] ([facility]) ID Date Data Source [id number] 02/18/2020 12:00:00 AM EDT [facility] ([facility]) Name Value Range Interpretation Code Description Data Iris rce(s) Supporting Document(s) ID Date Data Source [id number] 02/18/2020 12:00:00 AM EDT [facility] ([facility]) Name Value Range Interpretation Code Description Data Iris rce(s) Supporting Document(s) ID Date Data Source [id number] 02/18/2020 12:00:00 AM EDT [facility] ([facility]) Name Value Range Interpretation Code Description Data Iris rce(s) Supporting Document(s) SARS-CoV-2 (COVID-19) RNA [Presence] in Respiratory specimen by [facility] with probe detection negative negative Sars-cov-2 [facility] ([facility]) ID Date Data Source [id number] 02/18/2020 12:00:00 AM EDT [facility] ([facility]) Name Value Range Interpretation Code Description Data Iris rce(s) Supporting Document(s) ID Date Data Source [id number] 02/18/2020 12:00:00 AM EDT [facility] ([facility]) Name Value Range Interpretation Code Description Data Iris rce(s) Supporting Document(s) ID Date Data Source [id number] 02/18/2020 12:00:00 AM EDT [facility] ([facility]) Name Value Range Interpretation Code Description Data Iris rce(s) Supporting Document(s) SARS-CoV-2 (COVID-19) RNA [Presence] in Respiratory specimen by [facility] with probe detection negative negative Sars-cov-2 [facility] ([facility]) ID Date Data Source [id number] 02/18/2020 12:00:00 AM EDT [facility] ([facility]) Name Value Range Interpretation Code Description Data Iris rce(s) Supporting Document(s) ID Date Data Source [id number] 02/18/2020 12:00:00 AM EDT [facility] ([facility]) Name Value Range Interpretation Code Description Data Iris rce(s) Supporting Document(s) ID Date Data Source [id number] 02/18/2020 12:00:00 AM EDT [facility] ([facility]) Name Value Range Interpretation Code Description Data Iris rce(s) Supporting Document(s) SARS-CoV-2 (COVID-19) RNA [Presence] in Respiratory specimen by [facility] with probe detection negative negative Sars-cov-2 [facility] ([facility]) ID Date Data Source [id number] 02/18/2020 12:00:00 AM EDT [facility] ([facility]) Name Value Range Interpretation Code Description Data Iris rce(s) Supporting Document(s) ID Date Data Source [id number] 02/18/2020 12:00:00 AM EDT [facility] ([facility]) Name Value Range Interpretation Code Description Data Iris rce(s) Supporting Document(s) ID Date Data Source [id number] 02/18/2020 12:00:00 AM EDT [place] ([facility]) Name Value Range Interpretation Code Description Data Iris rce(s) Supporting Document(s) SARS-CoV-2 (COVID-19) RNA [Presence] in Respiratory specimen by [facility] with probe detection negative negative Sars-cov-2 [facility] ([facility]) ID Date Data Source [id number] 02/18/2020 12:00:00 AM EDT [place] ([facility]) Name Value Range Interpretation Code Description Data Iris rce(s) Supporting Document(s) ID Date Data Source [id number] 02/18/2020 12:00:00 AM EDT [facility] ([facility]) Name Value Range Interpretation Code Description Data Iris rce(s) Supporting Document(s) ID Date Data Source [id number] 02/18/2020 12:00:00 AM [facility] Name Value Range Interpretation Code Description Data Iris rce(s) Supporting Document(s) SARS-CoV-2 (COVID-19) RNA [Presence] in Respiratory specimen by [facility] with probe detection negative negative Sars-cov-2 [place] ([facility]) ID Date Data Source [id number] 02/18/2020 12:00:00 [facility] Name Value Range Interpretation Code Description Data Iris rce(s) Supporting Document(s) ID Date Data Source [id number] 02/18/2020 12:00:00 AM EDT [place] ([facility]) Name Value Range Interpretation Code Description Data Iris rce(s) Supporting Document(s) ID Date Data Source [id number] 02/18/2020 12:00:00 AM EDT [facility]) Name Value Range Interpretation Code Description Data Iris rce(s) Supporting Document(s) SARS-CoV-2 (COVID-19) RNA [Presence] in Respiratory specimen by [facility] with probe detection negative negative Sars-cov-2 [place] ([facility]) ID Date Data Source [id number] 02/18/2020 12:00:00 AM EDT [facility]) Name Value Range Interpretation Code Description Data Iris rce(s) Supporting Document(s) ID Date Data Source [id number] 02/18/2020 12:00:00 AM [facility]T [facility] Name Value Range Interpretation Code Description Data Iris rce(s) Supporting Document(s) ID Date Data Source [id number] 02/18/2020 12:00:00 AM EDT [facility] ([facility]) Name Value Range Interpretation Code Description Data Iris rce(s) Supporting Document(s) SARS-CoV-2 (COVID-19) RNA [Presence] in Respiratory specimen by [facility] with probe detection negative negative [facility] ID Date Data Source [id number] 02/18/2020 12:00:00 AM EDT [facility] ([facility]) Name Value Range Interpretation Code Description Data Iris rce(s) Supporting Document(s) ID Date Data Source [id number] 02/18/2020 12:00:00 AM EDT [facility] ([facility]) Name Value Range Interpretation Code Description Data Iris rce(s) Supporting Document(s) ID Date Data Source [id number] 02/18/2020 12:00:00 AM EDT [facility] ([facility]) Name Value Range Interpretation Code Description Data Iris rce(s) Supporting Document(s) SARS-CoV-2 (COVID-19) RNA [Presence] in Respiratory specimen by [facility] with probe detection negative negative Sars-cov-2 [facility] ([facility]) ID Date Data Source [id number] 02/18/2020 12:00:00 AM EDT [facility] ([facility]) Name Value Range Interpretation Code Description Data Iris rce(s) Supporting Document(s) ID Date Data Source [id number] 02/18/2020 12:00:00 AM EDT [facility] ([facility]) Name Value Range Interpretation Code Description Data Iris rce(s) Supporting Document(s) ID Date Data Source [id number] 02/18/2020 12:00:00 AM EDT [facility] ([facility]) Name Value Range Interpretation Code Description Data Iris rce(s) Supporting Document(s) SARS-CoV-2 (COVID-19) RNA [Presence] in Respiratory specimen by [facility] with probe detection negative negative Sars-cov-2 [facility] ([facility]) ID Date Data Source [id number] 02/18/2020 12:00:00 AM EDT [facility] ([facility]) Name Value Range Interpretation Code Description Data Iris rce(s) Supporting Document(s) ID Date Data Source [id number] 02/18/2020 12:00:00 AM EDT [facility] ([facility]) Name Value Range Interpretation Code Description Data Iris rce(s) Supporting Document(s) ID Date Data Source [id number] 02/18/2020 12:00:00 AM EDT [facility] ([facility]) Name Value Range Interpretation Code Description Data Iris rce(s) Supporting Document(s) SARS coronavirus 2 RNA [Presence] in Res piratory specimen by [facility]IT[facility] with probe detection negative negative Sars-cov-2 [place] ([facility]) ID Date Data Source [id number] 02/18/2020 12:00:00 AM EDT [facility] ([facility]) Name Value Range Interpretation Code Description Data Iris rce(s) Supporting Document(s) ID Date Data Source [id number] 02/18/2020 12:00:00 AM EDT [facility] ([facility]) Name Value Range Interpretation Code Description Data Iris rce(s) Supporting Document(s) ID Date Data Source [id number] 02/18/2020 12:00:00 AM EDT [facility] Name Value Range Interpretation Code Description Data Iris rce(s) Supporting Document(s) [facility]-CoV-2 [facility] This lab was ordered by [facility] and reported by [employer]. ID Date Data Source [id number] 02/15/2020 08:41:26 AM EDT [facility] Measurements & CalculationsHeight: 65 inches (5 [...] you seen another healthcare provider? Yes - Alex, Dr Escobedo you seen a dentist? Yes [...] Illness (HPI)Has been seeing Dr. Clayton at [facility] for [employer] but would like to switch here. On [employer] for this. Does counselling at [facility]. Problems with panic attacks. Problems focussing. Has had these issues for a while. Worse with time. GAD7 and PHQ9 reviewed.HPI performed by: Josh Del Toro MD, February 15, 2020 9:08 AMTransitions of Care InboundProblem ReviewProblem List was reviewed and/or updated during this visit.Medication Reconciliation & ReviewMedication List was reviewed and/or updated during this visit, including review of any kfnq-vsm-kxqaysy medications, herbal therapies, and/or supplements.Allergy ReviewAllergy List [...] & Plan Problems:Assessed:Dysplasia of cervix uteri, unspecified (VUI54-L77.9) Assessment: Instructions: Strongly encouraged to keep upcoming initial appointment with OB.Panic disorder (ICD- 300.01) (AJA64-Z65.0) Assessment: Instructions: Refer to telepsychiatry.Encouraged to follow up with Shanna for now for meds and with [facility] for MAT/counselling.Patient Instructions/Care Plan: Dysplasia of cervix uteri- unspecified: Strongly encouraged to keep upcoming initial appointment with OB.Panic disorder: Refer to telepsychiatry.Encouraged to follow up with Nancy for now for meds and with [facility] for MAT/counselling.Getting old records from [facility]. Plan developed in collaboration with patient and/or familyMedications:GABAPENTIN 600 MG ORAL TABLETTRINTELLIX 20 MG ORAL TABLETMETHADONE HCL SOLUTIONAllergies:No Known Allergies (updated 12/20/2019) Orders:Adult - Ofc Vst, EST, Level III [[id number]] Telepsychiatry Consult [CPT- 32227] Follow-Up Return to clinic: 1 month for follow up Name Value Range Interpretation Code Description Data Iris rce(s) Supporting Document(s) ID Date Data Source [id number] 02/04/2020 07:21:00 AM EDT [facility] Name Value Range Interpretation Code Description Data Iris rce(s) Supporting Document(s) HEP C AB > 11.0 <0.8 H [facility] BG FASTING 137 mg/dL 70-100 H [facility] ID Date Data Source [id number] 02/04/2020 07:21:00 AM EDT [facility] Name Value Range Interpretation Code Description Data Iris rce(s) Supporting Document(s) HCT 44.0 % 36.0-47.0 N [facility] HGB 14.0 g/dL 12.0-15.5 N [facility] MCH 31.8 G/DL pg 32.0-36.5 L [facility] MCHC 29.7 PG % 27.0-33.0 N [facility] PLATELETS 262 10 10*3/mm3 150-450 N [facility] RBC 4.72 10 10*6/mm3 4.00-5.40 [facility] RDW 13.6 % 11.5-14.5 N [facility] WBC TOTAL 8.2 4.0-10.0 N [facility] Procedure Social History Code Duration Value Status Description Data Source(s ) Smoking 07/24/2020 12:00:00 AM EST Current Smoker completed Curre nt Smoker eCW1 ([facility]) Vital Signs ID Date Data Source UNK Name Value Range Interpretation Code Description Data Source(s) Diastolic blood pressure 76 mm[Hg] 76 mm[Hg] [place] ([facility]) Body height 65 [in_i] 65 [in_i] ALEXA ([facility]) Body mass index (BMI) [Ratio] 29.4 kg/m2 29.4 k g/m2 ALEXA ([facility]) Systolic blood pressure 111 mm[Hg] 111 mm[Hg] A THENA ([facility]) Body weight 2822 [oz_av] 2822 [oz_av] ALEXA ([facility]) Body temperature 97.1 [degF] 97.1 [degF] [place] ([facility] ) Diastolic blood pressure 80 mm[Hg] 80 mm[Hg] ALEXA ([facility]) Body height 65 [in_i] 65 [in_i] ALEXA ([facility]) Body mass index (BMI) [Ratio] 29.5 kg/m2 29.5 k g/m2 ALEXA ([facility]) Systolic blood pressure 128 mm[Hg] 128 mm[Hg] A THENA ([facility]) Body weight 2834 [oz_av] 2834 [oz_av] ALEXA ([facility]) Diastolic blood pressure 83 mm[Hg] 83 mm[Hg] ALEXA ([facility]) Body height 65 [in_i] 65 [in_i] ALEXA ([facility]) Systolic blood pressure 125 mm[Hg] 125 mm[Hg] A THENA ([facility]) Body height 65 [in_i] 65 [in_i] ALEXA ([facility]) Body height 65 [in_i] 65 [in_i] ALEXA ([facility]) Body height 65 [in_i] 65 [in_i] ALEXA ([facility]) Body height 65 [in_i] 65 [in_i] ALEXA ([facility]) Body height 65 [in_i] 65 [in_i] ALEXA ([facility]) Diastolic blood pressure 68 mm[Hg] 68 mm[Hg] ALEXA ([facility]) Body height 65 [in_i] 65 [in_i] ALEXA ([facility]) Body mass index (BMI) [Ratio] 29.5 kg/m2 29.5 k g/m2 ALEXA ([facility]) Systolic blood pressure 120 mm[Hg] 120 mm[Hg] A THENA ([facility]) Body weight 2834 [oz_av] 2834 [oz_av] ALEXA ([facility]) Diastolic blood pressure 68 mm[Hg] 68 mm[Hg] ALEXA ([facility]) Body height 65 [in_i] 65 [in_i] ALEXA ([facility]) Body mass index (BMI) [Ratio] 29.5 kg/m2 29.5 k g/m2 ALEXA ([facility]) Systolic blood pressure 120 mm[Hg] 120 mm[Hg] A THENA ([facility]) Body weight 2834 [oz_av] 2834 [oz_av] ALEXA ([facility]) Diastolic blood pressure 68 mm[Hg] 68 mm[Hg] ALEXA ([facility]) Body height 65 [in_i] 65 [in_i] ALEXA ([facility]) Body mass index (BMI) [Ratio] 29.5 kg/m2 29.5 k g/m2 ALEXA ([facility]) Systolic blood pressure 120 mm[Hg] 120 mm[Hg] A THENA ([facility]) Body weight 2834 [oz_av] 2834 [oz_av] ALEXA ([facility]) Diastolic blood pressure 68 mm[Hg] 68 mm[Hg] ALEXA ([facility]) Body height 65 [in_i] 65 [in_i] ALEXA ([facility]) Body mass index (BMI) [Ratio] 29.5 kg/m2 29.5 k g/m2 ALEXA ([facility]) Systolic blood pressure 120 mm[Hg] 120 mm[Hg] A THENA ([facility]) Body weight 2834 [oz_av] 2834 [oz_av] ALEXA ([facility]) Diastolic blood pressure 79 mm[Hg] 79 mm[Hg] ALEXA ([facility]) Body height 65 [in_i] 65 [in_i] ALEXA ([facility]) Systolic blood pressure 133 mm[Hg] 133 mm[Hg] A THENA ([facility]) Diastolic blood pressure 79 mm[Hg] 79 mm[Hg] ALEXA ([facility]) Body height 65 [in_i] 65 [in_i] ALEXA ([facility]) Systolic blood pressure 133 mm[Hg] 133 mm[Hg] A THENA ([facility]) Diastolic blood pressure 79 mm[Hg] 79 mm[Hg] ALEXA ([facility]) Body height 65 [in_i] 65 [in_i] ALEXA ([facility]) Systolic blood pressure 133 mm[Hg] 133 mm[Hg] A THENA ([facility]) Body height 65 [in_i] 65 [in_i] ALEXA ([facility]) Body mass index (BMI) [Ratio] 29.7 kg/m2 29.7 k g/m2 ALEXA ([facility]) Body weight 2857.6 [oz_av] 2857.6 [oz_av] ATHMEG A ([facility]) Body height 65 [in_i] 65 [in_i] ALEXA ([facility]) Body mass index (BMI) [Ratio] 29.7 kg/m2 29.7 k g/m2 ALEXA ([facility]) Body weight 2857.6 [oz_av] 2857.6 [oz_av] ATHEN A ([facility]) Body height 65 [in_i] 65 [in_i] ALEXA ([facility]) Body mass index (BMI) [Ratio] 29.7 kg/m2 29.7 k g/m2 ALEXA ([facility]) Body weight 2857.6 [oz_av] 2857.6 [oz_av] ATHEN A ([facility]) Body height 65 [in_i] 65 [in_i] ALEXA ([facility]) Body mass index (BMI) [Ratio] 29.7 kg/m2 29.7 k g/m2 ALEXA ([facility]) Body weight 2857.6 [oz_av] 2857.6 [oz_av] ATHEN A ([facility]) Body height 65 [in_i] 65 [in_i] ALEXA ([facility]) Body mass index (BMI) [Ratio] 29.7 kg/m2 29.7 k g/m2 ALEXA ([facility]) Body weight 2857.6 [oz_av] 2857.6 [oz_av] ATHEN A ([facility]) Diastolic blood pressure 52 mm[Hg] 52 mm[Hg] ALEXA ([facility]) Body height 65 [in_i] 65 [in_i] ALEXA ([facility]) Body mass index (BMI) [Ratio] 29.1 kg/m2 29.1 k g/m2 ALEXA ([facility]) Systolic blood pressure 77 mm[Hg] 77 mm[Hg] [place]iel [place] ([facility]) Body weight 2800 [oz_av] 2800 [oz_av] ALEXA ([facility]) Diastolic blood pressure 52 mm[Hg] 52 mm[Hg] ALEXA ([facility]) Body height 65 [in_i] 65 [in_i] ALEXA ([facility]) Body mass index (BMI) [Ratio] 29.1 kg/m2 29.1 k g/m2 ALEXA ([facility]) Systolic blood pressure 77 mm[Hg] 77 mm[Hg] [facility] Body weight 2800 [oz_av] 2800 [oz_av] ALEXA ([facility]) Diastolic blood pressure 52 mm[Hg] 52 mm[Hg] ALEXA ([facility]) Body height 65 [in_i] 65 [in_i] ALEXA ([facility]) Body mass index (BMI) [Ratio] 29.1 kg/m2 29.1 k g/m2 ALEXA ([facility]) Systolic blood pressure 77 mm[Hg] 77 mm[Hg] [facility]) Body weight 2800 [oz_av] 2800 [oz_av] ALEXA ([facility]) Diastolic blood pressure 52 mm[Hg] 52 mm[Hg] ALEXA ([facility]) Body height 65 [in_i] 65 [in_i] ALEXA ([facility]) Body mass index (BMI) [Ratio] 29.1 kg/m2 29.1 k g/m2 ALEXA ([facility]) Systolic blood pressure 77 mm[Hg] 77 mm[Hg] A THENA ([facility]) Body weight 2800 [oz_av] 2800 [oz_av] ALEXA ([facility]) Diastolic blood pressure 52 mm[Hg] 52 mm[Hg] ALEXA ([facility]) Body height 65 [in_i] 65 [in_i] ALEXA ([facility]) Body mass index (BMI) [Ratio] 29.1 kg/m2 29.1 k g/m2 ALEXA ([facility]) Systolic blood pressure 77 mm[Hg] 77 mm[Hg] [facility] Body weight 2800 [oz_av] 2800 [oz_av] ALEXA ([facility]) Diastolic blood pressure 52 mm[Hg] 52 mm[Hg] ALEXA ([facility]) Body height 65 [in_i] 65 [in_i] ALEXA ([facility]) Body mass index (BMI) [Ratio] 29.1 kg/m2 29.1 k g/m2 ALEXA ([facility]) Systolic blood pressure 77 mm[Hg] 77 mm[Hg] A THENA ([facility]) Body weight 2800 [oz_av] 2800 [oz_av] ALEXA ([facility]) Body weight 177 [lb_av] 177 [lb_av] eCW1 ([facility]) Body weight 80.29 kg 80.29 kg W1 ([facility]) Body height 54 [in_i] 54 [in_i] eCW1 ([facility]) Body mass index (BMI) [Ratio] 42.67 kg/m2 42.67 kg/m2 eCW1 ([facility]) Systolic blood pressure 120 mm[Hg] 120 mm[Hg] e CW1 ([facility]) Diastolic blood pressure 72 mm[Hg] 72 mm[Hg] eCW1 ([facility]) Diastolic blood pressure 91 mm[Hg] 91 mm[Hg] ALEXA ([facility]) Body height 65 [in_i] 65 [in_i] ALEXA ([facility]) Systolic blood pressure 142 mm[Hg] 142 mm[Hg] A THENA ([facility]) Diastolic blood pressure 91 mm[Hg] 91 mm[Hg] ALEXA ([facility]) Body height 65 [in_i] 65 [in_i] ALEXA ([facility]) Systolic blood pressure 142 mm[Hg] 142 mm[Hg] A THENA ([facility]) Diastolic blood pressure 91 mm[Hg] 91 mm[Hg] ALEXA ([facility]) Body height 65 [in_i] 65 [in_i] ALEXA ([facility]) Systolic blood pressure 142 mm[Hg] 142 mm[Hg] A THENA ([facility]) Diastolic blood pressure 91 mm[Hg] 91 mm[Hg] ALEXA ([facility]) Body height 65 [in_i] 65 [in_i] ALEXA ([facility]) Systolic blood pressure 142 mm[Hg] 142 mm[Hg] A THENA ([facility]) Diastolic blood pressure 91 mm[Hg] 91 mm[Hg] ALEXA ([facility]) Body height 65 [in_i] 65 [in_i] ALEXA ([facility]) Systolic blood pressure 142 mm[Hg] 142 mm[Hg] A THENA ([facility]) Diastolic blood pressure 91 mm[Hg] 91 mm[Hg] ALEXA ([facility]) Body height 65 [in_i] 65 [in_i] ALEXA ([facility]) Systolic blood pressure 142 mm[Hg] 142 mm[Hg] A THENA ([facility]) Diastolic blood pressure 91 mm[Hg] 91 mm[Hg] ALEXA ([facility]) Body height 65 [in_i] 65 [in_i] ALEXA ([facility]) Systolic blood pressure 142 mm[Hg] 142 mm[Hg] A THENA ([facility]) Diastolic blood pressure 91 mm[Hg] 91 mm[Hg] ALEXA ([facility]) Body height 65 [in_i] 65 [in_i] ALEXA ([facility]) Systolic blood pressure 142 mm[Hg] 142 mm[Hg] A THENA ([facility]) Diastolic blood pressure 93 mm[Hg] 93 mm[Hg] ALEXA ([facility]) Body height 65 [in_i] 65 [in_i] ALEXA ([facility]) Systolic blood pressure 150 mm[Hg] 150 mm[Hg] A THENA ([facility]) Diastolic blood pressure 93 mm[Hg] 93 mm[Hg] ALEXA ([facility]) Body height 65 [in_i] 65 [in_i] ALEXA ([facility]) Systolic blood pressure 150 mm[Hg] 150 mm[Hg] A THENA ([facility]) Diastolic blood pressure 93 mm[Hg] 93 mm[Hg] ALEXA ([facility]) Body height 65 [in_i] 65 [in_i] ALEXA ([facility]) Systolic blood pressure 150 mm[Hg] 150 mm[Hg] A THENA ([facility]) Diastolic blood pressure 93 mm[Hg] 93 mm[Hg] ALEXA ([facility]) Body height 65 [in_i] 65 [in_i] ALEXA ([facility]) Systolic blood pressure 150 mm[Hg] 150 mm[Hg] A THENA ([facility]) Diastolic blood pressure 93 mm[Hg] 93 mm[Hg] ALEXA ([facility]) Body height 65 [in_i] 65 [in_i] ALEXA ([facility]) Systolic blood pressure 150 mm[Hg] 150 mm[Hg] A THENA ([facility]) Diastolic blood pressure 93 mm[Hg] 93 mm[Hg] ALEXA ([facility]) Body height 65 [in_i] 65 [in_i] ALEXA ([facility]) Systolic blood pressure 150 mm[Hg] 150 mm[Hg] A THENA ([facility]) Diastolic blood pressure 93 mm[Hg] 93 mm[Hg] ALEXA ([facility]) Body height 65 [in_i] 65 [in_i] ALEXA ([facility]) Systolic blood pressure 150 mm[Hg] 150 mm[Hg] A THENA ([facility]) Diastolic blood pressure 93 mm[Hg] 93 mm[Hg] ALEXA ([facility]) Body height 65 [in_i] 65 [in_i] ALEXA ([facility]) Systolic blood pressure 150 mm[Hg] 150 mm[Hg] A THENA ([facility]) Diastolic blood pressure 93 mm[Hg] 93 mm[Hg] ALEXA ([facility]) Body height 65 [in_i] 65 [in_i] ALEXA ([facility]) Systolic blood pressure 150 mm[Hg] 150 mm[Hg] A THENA ([facility]) Diastolic blood pressure 93 mm[Hg] 93 mm[Hg] ALEXA ([facility]) Body height 65 [in_i] 65 [in_i] ALEXA ([facility]) Systolic blood pressure 150 mm[Hg] 150 mm[Hg] A THENA ([facility]) Diastolic blood pressure 93 mm[Hg] 93 mm[Hg] ALEXA ([facility]) Body height 65 [in_i] 65 [in_i] ALEXA ([facility]) Systolic blood pressure 150 mm[Hg] 150 mm[Hg] A THENA ([facility]) Diastolic blood pressure 77 mm[Hg] 77 mm[Hg] ALEXA ([facility]) Body height 65 [in_i] 65 [in_i] ALEXA ([facility]) Body mass index (BMI) [Ratio] 29.5 kg/m2 29.5 k g/m2 ALEXA ([facility]) Systolic blood pressure 108 mm[Hg] 108 mm[Hg] A THENA ([facility]) Body weight 2834 [oz_av] 2834 [oz_av] ALEXA ([facility]) Diastolic blood pressure 77 mm[Hg] 77 mm[Hg] ALEXA ([facility]) Body height 65 [in_i] 65 [in_i] ALEXA ([facility]) Body mass index (BMI) [Ratio] 29.5 kg/m2 29.5 k g/m2 ALEXA ([facility]) Systolic blood pressure 108 mm[Hg] 108 mm[Hg] A THENA ([facility]) Body weight 2834 [oz_av] 2834 [oz_av] ALEXA ([facility]) Diastolic blood pressure 77 mm[Hg] 77 mm[Hg] ALEXA ([facility]) Body height 65 [in_i] 65 [in_i] ALEXA ([facility]) Body mass index (BMI) [Ratio] 29.5 kg/m2 29.5 k g/m2 ALEXA ([facility]) Systolic blood pressure 108 mm[Hg] 108 mm[Hg] A THENA ([facility]) Body weight 2834 [oz_av] 2834 [oz_av] ALEXA ([facility]) Diastolic blood pressure 77 mm[Hg] 77 mm[Hg] ALEXA ([facility]) Body height 65 [in_i] 65 [in_i] ALEXA ([facility]) Body mass index (BMI) [Ratio] 29.5 kg/m2 29.5 k g/m2 ALEXA ([facility]) Systolic blood pressure 108 mm[Hg] 108 mm[Hg] A THENA ([facility]) Body weight 2834 [oz_av] 2834 [oz_av] ALEXA ([facility]) Diastolic blood pressure 77 mm[Hg] 77 mm[Hg] ALEXA ([facility]) Body height 65 [in_i] 65 [in_i] ALEXA ([facility]) Body mass index (BMI) [Ratio] 29.5 kg/m2 29.5 k g/m2 ALEXA ([facility]) Systolic blood pressure 108 mm[Hg] 108 mm[Hg] [facility]) Body weight 2834 [oz_av] 2834 [oz_av] ALEXA ([facility]) Diastolic blood pressure 77 mm[Hg] 77 mm[Hg] ALEXA ([facility]) Body height 65 [in_i] 65 [in_i] ALEXA ([facility]) Body mass index (BMI) [Ratio] 29.5 kg/m2 29.5 k g/m2 ALEXA ([facility]) Systolic blood pressure 108 mm[Hg] 108 mm[Hg] [facility]) Body weight 2834 [oz_av] 2834 [oz_av] ALEXA ([facility]) Diastolic blood pressure 77 mm[Hg] 77 mm[Hg] ALEXA ([facility]) Body height 65 [in_i] 65 [in_i] ALEXA ([facility]) Body mass index (BMI) [Ratio] 29.5 kg/m2 29.5 k g/m2 ALEXA ([facility]) Systolic blood pressure 108 mm[Hg] 108 mm[Hg] [facility]) Body weight 2834 [oz_av] 2834 [oz_av] ALEXA ([facility]) Diastolic blood pressure 80 mm[Hg] 80 mm[Hg] ALEXA ([facility]) Body height 65 [in_i] 65 [in_i] ALEXA ([facility]) Body mass index (BMI) [Ratio] 29.23 kg/m2 29.23 kg/m2 ALEXA ([facility]) Systolic blood pressure 132 mm[Hg] 132 mm[Hg] [facility]) Body weight 2800 [oz_av] 2800 [oz_av] ALEXA ([facility]) Diastolic blood pressure 80 mm[Hg] 80 mm[Hg] ALEXA ([facility]) Body height 65 [in_i] 65 [in_i] ALEXA ([facility]) Body mass index (BMI) [Ratio] 29.23 kg/m2 29.23 kg/m2 ALEXA ([facility]) Systolic blood pressure 132 mm[Hg] 132 mm[Hg] A [facility] ([facility]) Body weight 2800 [oz_av] 2800 [oz_av] ALEXA ([facility]) Diastolic blood pressure 80 mm[Hg] 80 mm[Hg] ALEXA ([facility]) Body height 65 [in_i] 65 [in_i] ALEXA ([facility]) Body mass index (BMI) [Ratio] 29.23 kg/m2 29.23 kg/m2 ALEXA ([facility]) Systolic blood pressure 132 mm[Hg] 132 mm[Hg] [facility]) Body weight 2800 [oz_av] 2800 [oz_av] ALEXA ([facility]) Diastolic blood pressure 80 mm[Hg] 80 mm[Hg] ALEXA ([facility]) Body height 65 [in_i] 65 [in_i] ALEXA ([facility]) Body mass index (BMI) [Ratio] 29.23 kg/m2 29.23 kg/m2 ALEXA ([facility]) Systolic blood pressure 132 mm[Hg] 132 mm[Hg] A THENA ([facility]) Body weight 2800 [oz_av] 2800 [oz_av] ALEXA ([facility]) Diastolic blood pressure 80 mm[Hg] 80 mm[Hg] ALEXA ([facility]) Body height 65 [in_i] 65 [in_i] ALEXA ([facility]) Body mass index (BMI) [Ratio] 29.23 kg/m2 29.23 kg/m2 ALEXA ([facility]) Systolic blood pressure 132 mm[Hg] 132 mm[Hg] [facility]) Body weight 2800 [oz_av] 2800 [oz_av] ALEXA ([facility]) Diastolic blood pressure 80 mm[Hg] 80 mm[Hg] ALEXA ([facility]) Body height 65 [in_i] 65 [in_i] ALEXA ([facility]) Body mass index (BMI) [Ratio] 29.23 kg/m2 29.23 kg/m2 ALEXA ([facility]) Systolic blood pressure 132 mm[Hg] 132 mm[Hg] [facility]) Body weight 2800 [oz_av] 2800 [oz_av] ALEXA ([facility]) Diastolic blood pressure 78 mm[Hg] 78 mm[Hg] ALEXA ([facility]) Body height 65 [in_i] 65 [in_i] ALEXA ([facility]) Body mass index (BMI) [Ratio] 29.1 kg/m2 29.1 k g/m2 ALEXA ([facility]) Systolic blood pressure 123 mm[Hg] 123 mm[Hg] A THENA ([facility]) Body weight 175 [lb_av] 175 [lb_av] ALEXA ([facility]) Diastolic blood pressure 78 mm[Hg] 78 mm[Hg] ALEXA ([facility]) Body height 65 [in_i] 65 [in_i] ALEXA ([facility]) Body mass index (BMI) [Ratio] 29.1 kg/m2 29.1 k g/m2 ALEXA ([facility]) Systolic blood pressure 123 mm[Hg] 123 mm[Hg] A THENA ([facility]) Body weight 175 [lb_av] 175 [lb_av] ALEXA ([facility]) Diastolic blood pressure 78 mm[Hg] 78 mm[Hg] ALEXA ([facility]) Body height 65 [in_i] 65 [in_i] ALEXA ([facility]) Body mass index (BMI) [Ratio] 29.1 kg/m2 29.1 k g/m2 ALEXA ([facility]) Systolic blood pressure 123 mm[Hg] 123 mm[Hg] A THENA ([facility]) Body weight 175 [lb_av] 175 [lb_av] ALEXA ([facility]) Diastolic blood pressure 78 mm[Hg] 78 mm[Hg] ALEXA ([facility]) Body height 65 [in_i] 65 [in_i] ALEXA ([facility]) Body mass index (BMI) [Ratio] 29.1 kg/m2 29.1 k g/m2 ALEXA ([facility]) Systolic blood pressure 123 mm[Hg] 123 mm[Hg] A THENA ([facility]) Body weight 175 [lb_av] 175 [lb_av] ALEXA ([facility]) Diastolic blood pressure 78 mm[Hg] 78 mm[Hg] ALEXA ([facility]) Body height 65 [in_i] 65 [in_i] ALEXA ([facility]) Body mass index (BMI) [Ratio] 29.1 kg/m2 29.1 k g/m2 ALEXA ([facility]) Systolic blood pressure 123 mm[Hg] 123 mm[Hg] A THENA ([facility]) Body weight 175 [lb_av] 175 [lb_av] ALEXA ([facility]) Diastolic blood pressure 78 mm[Hg] 78 mm[Hg] ALEXA ([facility]) Body height 65 [in_i] 65 [in_i] ALEXA ([facility]) Body mass index (BMI) [Ratio] 29.1 kg/m2 29.1 k g/m2 ALEXA ([facility]) Systolic blood pressure 123 mm[Hg] 123 mm[Hg] A THENA ([facility]) Body weight 175 [lb_av] 175 [lb_av] [facility] ([facility]) Diastolic blood pressure 78 mm[Hg] 78 mm[Hg] ALEXA ([facility]) Body height 65 [in_i] 65 [in_i] ALEXA ([facility]) Body mass index (BMI) [Ratio] 29.1 kg/m2 29.1 k g/m2 ALEXA ([facility]) Systolic blood pressure 123 mm[Hg] 123 mm[Hg] A THENA ([facility]) Body weight 175 [lb_av] 175 [lb_av] ALEXA ([facility]) Diastolic blood pressure 78 mm[Hg] 78 mm[Hg] ALEXA ([facility]) Body height 65 [in_i] 65 [in_i] ALEXA ([facility]) Body mass index (BMI) [Ratio] 29.1 kg/m2 29.1 k g/m2 ALEXA ([facility]) Systolic blood pressure 123 mm[Hg] 123 mm[Hg] A THENA ([facility]) Body weight 175 [lb_av] 175 [lb_av] ALEXA ([facility]) Diastolic blood pressure 78 mm[Hg] 78 mm[Hg] ALEXA ([facility]) Body height 65 [in_i] 65 [in_i] ALEXA ([facility]) Body mass index (BMI) [Ratio] 29.1 kg/m2 29.1 k g/m2 ALEXA ([facility]) Systolic blood pressure 123 mm[Hg] 123 mm[Hg] A THENA ([facility]) Body weight 175 [lb_av] 175 [lb_av] ALEXA ([facility]) Diastolic blood pressure 78 mm[Hg] 78 mm[Hg] ALEXA ([facility]) Body height 65 [in_i] 65 [in_i] ALEXA ([facility]) Body mass index (BMI) [Ratio] 29.1 kg/m2 29.1 k g/m2 ALEXA ([facility]) Systolic blood pressure 123 mm[Hg] 123 mm[Hg] A THENA ([facility]) Body weight 175 [lb_av] 175 [lb_av] ALEXA ([facility]) Diastolic blood pressure 78 mm[Hg] 78 mm[Hg] ALEXA ([facility]) Body height 65 [in_i] 65 [in_i] ALEXA ([facility]) Body mass index (BMI) [Ratio] 29.1 kg/m2 29.1 k g/m2 ALEXA ([facility]) Systolic blood pressure 123 mm[Hg] 123 mm[Hg] A THENA ([facility]) Body weight 175 [lb_av] 175 [lb_av] [facility]LEXA ([facility]) Diastolic blood pressure 78 mm[Hg] 78 mm[Hg] ALEXA ([facility]) Body height 65 [in_i] 65 [in_i] ALEXA ([facility]) Body mass index (BMI) [Ratio] 29.1 kg/m2 29.1 k g/m2 ALEXA ([facility]) Systolic blood pressure 123 mm[Hg] 123 mm[Hg] A THENA ([facility]) Body weight 175 [lb_av] 175 [lb_av] ALEXA ([facility]) Diastolic blood pressure 78 mm[Hg] 78 mm[Hg] ALEXA ([facility]) Body height 65 [in_i] 65 [in_i] ALEXA ([facility]) Body mass index (BMI) [Ratio] 29.1 kg/m2 29.1 k g/m2 ALEXA ([facility]) Systolic blood pressure 123 mm[Hg] 123 mm[Hg] A THENA ([facility]) Body weight 175 [lb_av] 175 [lb_av] [facility]LEXA ([facility]) Diastolic blood pressure 78 mm[Hg] 78 mm[Hg] ALEXA ([facility]) Body height 65 [in_i] 65 [in_i] ALEXA ([facility]) Body mass index (BMI) [Ratio] 29.1 kg/m2 29.1 k g/m2 ALEXA ([facility]) Systolic blood pressure 123 mm[Hg] 123 mm[Hg] A THENA ([facility]) Body weight 175 [lb_av] 175 [lb_av] ALEXA ([facility]) Patient Treatment Plan of Care Planned Activity Planned Date Details Description Data Source (s) Metronidazole 500 MG Oral Tablet 07/24/2020 12:00:00 AM EST W1 ([facility]) Trintellix 20 mg tablet TAKE ONE TABLET BY MOUTH ONCE DAILY ALEXA ([facility]) Trazodone Hydrochloride 50 MG Oral Tablet ALEXA ([facility]) tizanidine 4 MG Oral Tablet ALEXA ([facility]) Prednisone 20 MG Oral Tablet ALEXA ([facility]) Prazosin 1 MG Oral Capsule A THENA ([facility]) 12 HR Guaifenesin 600 MG Extended Release Oral Tablet ALEXA ([facility]) Metronidazole 500 MG Oral Tablet ALEXA ([facility]) gabapentin 300 MG Oral Capsule ALEXA ([facility]) Fluoxetine 10 MG Oral Capsule ALEXA ([facility]) Amoxicillin 875 MG / Clavulanate 125 MG Oral Tablet ALEXA ([facility]) Trintellix 20 mg tablet TAKE ONE TABLET BY MOUTH ONCE DAILY ALEXA ([facility]) Trazodone Hydrochloride 50 MG Oral Tablet ALEXA ([facility]) tizanidine 4 MG Oral Tablet ALEXA ([facility]) Prednisone 20 MG Oral Tablet ALEXA ([facility]) Prazosin 1 MG Oral Capsule A THENA ([facility]) Nicotine 4 MG/ACTUAT Inhalant Solution [Nicotrol] ALEXA ([facility]) 12 HR Guaifenesin 600 MG Extended Release Oral Tablet ALEXA ([facility]) Metronidazole 500 MG Oral Tablet ALEXA ([facility]) gabapentin 300 MG Oral Capsule ALEXA ([facility]) Amoxicillin 875 MG / Clavulanate 125 MG Oral Tablet ALEXA ([facility]) Trintellix 20 mg tablet TAKE ONE TABLET BY MOUTH ONCE DAILY ALEXA ([facility]) Trazodone Hydrochloride 50 MG Oral Tablet ALEXA ([facility]) tizanidine 4 MG Oral Tablet ALEXA ([facility]) Prednisone 20 MG Oral Tablet ALEXA ([facility]) Prazosin 1 MG Oral Capsule A THENA ([facility]) Nicotine 4 MG/ACTUAT Inhalant Solution [Nicotrol] ALEXA ([facility]) 12 HR Guaifenesin 600 MG Extended Release Oral Tablet ALEXA ([facility]) Metronidazole 500 MG Oral Tablet ALEXA ([facility]) gabapentin 300 MG Oral Capsule ALEXA ([facility]) Amoxicillin 875 MG / Clavulanate 125 MG Oral Tablet ALEXA ([facility]) Ergocalciferol [id number] UNT Oral Capsule ALEXA ([facility]) Trintellix 20 mg tablet ATHE NA ([facility]) Trazodone Hydrochloride 50 MG Oral Tablet ALEXA ([facility]) Simvastatin 20 MG Oral Tablet ALEXA ([facility]) Prednisone 20 MG Oral Tablet ALEXA ([facility]) Prazosin 1 MG Oral Capsule A THENA ([facility]) Metronidazole 500 MG Oral Tablet ALEXA ([facility]) gabapentin 300 MG Oral Capsule ALEAX ([facility]) Amoxicillin 875 MG / Clavulanate 125 MG Oral Tablet ALEXA ([facility]) Ergocalciferol [id number] UNT Oral Capsule ALEXA ([facility]) Trintellix 20 mg tablet ATHE NA ([facility]) Trazodone Hydrochloride 50 MG Oral Tablet ALEXA ([facility]) Simvastatin 20 MG Oral Tablet ALEXA ([facility]) Prednisone 20 MG Oral Tablet ALEXA ([facility]) Prazosin 1 MG Oral Capsule A THENA ([facility]) Metronidazole 500 MG Oral Tablet ALEXA ([facility]) gabapentin 300 MG Oral Capsule ALEXA ([facility]) Amoxicillin 875 MG / Clavulanate 125 MG Oral Tablet ALEXA ([facility]) Ergocalciferol 02604 UNT Oral Capsule ALEXA ([facility]) Trintellix 20 mg tablet ATHE NA ([facility]) Trazodone Hydrochloride 50 MG Oral Tablet ALEXA ([facility]) Simvastatin 20 MG Oral Tablet ALEXA ([facility]) Prednisone 20 MG Oral Tablet ALEXA ([facility]) Prazosin 1 MG Oral Capsule A THENA ([facility]) gabapentin 300 MG Oral Capsule ALEXA ([facility]) Amoxicillin 875 MG / Clavulanate 125 MG Oral Tablet ALEXA ([facility]) Ergocalciferol 70396 UNT Oral Capsule ALEXA ([facility]) Trintellix 20 mg tablet ATHE NA ([facility]) Trazodone Hydrochloride 50 MG Oral Tablet ALEXA ([facility]) Simvastatin 20 MG Oral Tablet ALEXA ([facility]) Prednisone 20 MG Oral Tablet ALEXA ([facility]) Prazosin 1 MG Oral Capsule A THENA ([facility]) gabapentin 300 MG Oral Capsule ALEXA ([facility]) Amoxicillin 875 MG / Clavulanate 125 MG Oral Tablet ALEXA ([facility]) Trintellix 20 mg tablet TAKE ONE TABLET BY MOUTH ONCE DAILY ALEXA ([facility]) Trazodone Hydrochloride 50 MG Oral Tablet ALEXA ([facility]) Prednisone 20 MG Oral Tablet ALEXA ([facility]) Prazosin 1 MG Oral Capsule A THENA ([facility]) 12 HR Guaifenesin 600 MG Extended Release Oral Tablet ALEXA ([facility]) Metronidazole 500 MG Oral Tablet ALEXA ([facility]) gabapentin 300 MG Oral Capsule ALEXA ([facility]) Amoxicillin 875 MG / Clavulanate 125 MG Oral Tablet ALEXA ([facility]) Ergocalciferol 07976 UNT Oral Capsule ALEXA ([facility]) Trintellix 20 mg tablet ATHE NA ([facility]) Trazodone Hydrochloride 50 MG Oral Tablet ALEXA ([facility]) Simvastatin 20 MG Oral Tablet ALEXA ([facility]) Prednisone 20 MG Oral Tablet ALEXA ([facility]) Prazosin 1 MG Oral Capsule A THENA ([facility]) gabapentin 300 MG Oral Capsule ALEXA ([facility]) Amoxicillin 875 MG / Clavulanate 125 MG Oral Tablet ALEXA ([facility]) Trintellix 20 mg tablet TAKE ONE TABLET BY MOUTH ONCE DAILY ALEXA ([facility]) Trazodone Hydrochloride 50 MG Oral Tablet ALEXA ([facility]) Prednisone 20 MG Oral Tablet ALEXA ([facility]) Prazosin 1 MG Oral Capsule A THENA ([facility]) 12 HR Guaifenesin 600 MG Extended Release Oral Tablet ALEXA ([facility]) Metronidazole 500 MG Oral Tablet ALEXA ([facility]) gabapentin 300 MG Oral Capsule ALEXA ([facility]) Amoxicillin 875 MG / Clavulanate 125 MG Oral Tablet ALEXA ([facility]) Ergocalciferol 46375 UNT Oral Capsule ALEXA ([facility]) Trintellix 20 mg tablet ATHE NA ([facility]) Trazodone Hydrochloride 50 MG Oral Tablet ALEXA ([facility]) Simvastatin 20 MG Oral Tablet ALEXA ([facility]) Prednisone 20 MG Oral Tablet ALEXA ([facility]) Prazosin 1 MG Oral Capsule A THENA ([facility]) gabapentin 300 MG Oral Capsule ALEXA ([facility]) Amoxicillin 875 MG / Clavulanate 125 MG Oral Tablet ALEXA ([facility]) Ergocalciferol 31207 UNT Oral Capsule ALEXA ([facility]) Trintellix 20 mg tablet ATHE NA ([facility]) Trazodone Hydrochloride 50 MG Oral Tablet ALEXA ([facility]) Simvastatin 20 MG Oral Tablet ALEXA ([facility]) Prednisone 20 MG Oral Tablet ALEXA ([facility]) Prazosin 1 MG Oral Capsule A THENA ([facility]) gabapentin 300 MG Oral Capsule ALEXA ([facility]) Amoxicillin 875 MG / Clavulanate 125 MG Oral Tablet ALEXA ([facility]) Ergocalciferol 78171 UNT Oral Capsule AELXA ([facility]) Trintellix 20 mg tablet ATHE NA ([facility]) Trazodone Hydrochloride 50 MG Oral Tablet ALEXA ([facility]) Simvastatin 20 MG Oral Tablet ALEXA ([facility]) gabapentin 300 MG Oral Capsule ALEXA ([facility]) Amoxicillin 875 MG / Clavulanate 125 MG Oral Tablet ALEXA ([facility]) Ergocalciferol 38264 UNT Oral Capsule ALEXA ([facility]) Trintellix 20 mg tablet ATHE NA ([facility]) Trazodone Hydrochloride 50 MG Oral Tablet ALEXA ([facility]) Simvastatin 20 MG Oral Tablet ALEXA ([facility]) gabapentin 300 MG Oral Capsule ALEXA ([facility]) Amoxicillin 875 MG / Clavulanate 125 MG Oral Tablet ALEXA ([facility]) Ergocalciferol 65640 UNT Oral Capsule ALEXA ([facility]) Trintellix 20 mg tablet ATHE NA ([facility]) Trazodone Hydrochloride 50 MG Oral Tablet ALEXA ([facility]) Simvastatin 20 MG Oral Tablet ALEXA ([facility]) gabapentin 300 MG Oral Capsule ALEXA ([facility]) Amoxicillin 875 MG / Clavulanate 125 MG Oral Tablet ALEXA ([facility]) Trintellix 20 mg tablet TAKE ONE TABLET BY MOUTH ONCE DAILY ALEXA ([facility]) Trazodone Hydrochloride 50 MG Oral Tablet ALEXA ([facility]) Prednisone 20 MG Oral Tablet ALEXA ([facility]) Prazosin 1 MG Oral Capsule A THENA ([facility]) gabapentin 300 MG Oral Capsule ALEXA ([facility]) Amoxicillin 875 MG / Clavulanate 125 MG Oral Tablet ALEXA ([facility]) Ergocalciferol 95233 UNT Oral Capsule ALEXA ([facility]) Trintellix 20 mg tablet ATHE NA ([facility]) Trazodone Hydrochloride 50 MG Oral Tablet ALEXA ([facility]) Simvastatin 20 MG Oral Tablet ALEXA ([facility]) gabapentin 300 MG Oral Capsule ALEXA ([facility]) Ergocalciferol 76121 UNT Oral Capsule ALEXA ([facility]) Trintellix 20 mg tablet ATHE NA ([facility]) Trazodone Hydrochloride 50 MG Oral Tablet ALEXA ([facility]) Simvastatin 20 MG Oral Tablet ALEXA ([facility]) gabapentin 300 MG Oral Capsule ALEXA ([facility]) Ergocalciferol 30479 UNT Oral Capsule ALEXA ([facility]) Trintellix 20 mg tablet ATHE NA ([facility]) Trazodone Hydrochloride 50 MG Oral Tablet ALEXA ([facility]) Simvastatin 20 MG Oral Tablet ALEXA ([facility]) Prazosin 1 MG Oral Capsule A THENA ([facility]) gabapentin 300 MG Oral Capsule ALEXA ([facility]) Ergocalciferol [id number] UNT Oral Capsule ALEXA ([facility]) Trintellix 20 mg tablet ATHE NA ([facility]) Trazodone Hydrochloride 50 MG Oral Tablet ALEXA ([facility]) Simvastatin 20 MG Oral Tablet ALEXA ([facility]) Prednisone 20 MG Oral Tablet ALEXA ([facility]) Prazosin 1 MG Oral Capsule A THENA ([facility]) Metronidazole 500 MG Oral Tablet ALEXA ([facility]) gabapentin 300 MG Oral Capsule ALEXA ([facility]) Amoxicillin 875 MG / Clavulanate 125 MG Oral Tablet ALEXA ([facility]) Trintellix 20 mg tablet TAKE ONE TABLET BY MOUTH ONCE DAILY ALEXA ([facility]) Trazodone Hydrochloride 50 MG Oral Tablet ALEXA ([facility]) tizanidine 4 MG Oral Tablet ALEXA ([facility]) Prednisone 20 MG Oral Tablet ALEXA ([facility]) Prazosin 1 MG Oral Capsule A THENA ([facility]) Nicotine 4 MG/ACTUAT Inhalant Solution [Nicotrol] [place] ([facility]) 12 HR Guaifenesin 600 MG Extended Release Oral Tablet ALEXA ([facility]) Metronidazole 500 MG Oral Tablet ALEXA ([facility]) [facility] Amox[facility] 875 MG / Clavulanate 125 MG Oral Tablet ALEXA ([facility])
[2021-03-05] MEDS ORDERED: HOME MED LIST COMPLETE! XX SCH (20:15)
[2021-03-05] MEDS ORDERED: ALBUTEROL 90 MCG/ACT 8GM HFA INHALER INH PRN (20:15)
--- NOTE | 2021-03-05 20:16 | HPEPDOC ---
[facility] Medical History & Physical Date of Admission Mar 05, 2021 Date of Service: Mar 05, 2021 Attending Physician: ANAND MCADAMS MD History and Physical CHIEF COMPLAINT: [46 y/o female c/o severe abdominal pain x4 days] HISTORY OF PRESENT ILLNESS: [This is a 46 y/o female with a pmh of htn, iv substance abuse on methadone, questionable diagnosis of hep c and panic disorder who presents to our ED on 03/05 for evaluation of severe epigastric abdominal pain radiating to her back x4 days. Patient states that she had a bout of pancreatitis approx 10 years ago and felt this exact way so decided to come to the hospital for evaluation. Patient tells me that at that time, she had to have her gallbladder removed but tells me that the root cause of her pancreatitis was never found. Patient tells me that her pain began suddenly on friday 03/02 but went away on its own that night so she did not think much of it. Patient tells me that pain returned the next day and only worsened into yesterday. Patie nt tells me that she has developed associated nausea, vomiting, a few bouts of diarrhea, decreased appetite, and decreased urge to smoke. Patient, at the time of my exam, denies any fevers, chills, uri type sx, chest pain, sob, hematemsis, brbpr, pedal edema, syncope, paresthesia] PAST MEDICAL HISTORY: 1. [See HPI PAST SURGICAL HISTORY: 1. [Cholecystectomy]. SOCIAL HISTORY: Tobacco use:[Current smoker] ETOH: [Denies] Illicit drug use: [Hx of ivda - clean since 2006, on methadone] FAMILY HISTORY: Reviewed - none pertinent ALLERGIES: Please see below. REVIEW OF SYSTEMS: Complete ROS performed with patient with pertinent positives listed in HPI. All other findings not listed in HPI found to be negative. HOME MEDICATIONS: Please see below. PHYSICAL EXAMINATION: VITAL SIGNS: Please see below. GENERAL APPEARANCE: [This is a 46 y/o female in mild acute distress d/t pain. She is laying in her side in bed in the position. She is alert and oriented to questioning]. HEENT: [No mass or lesion. EOMI. No scleral icterus. Nares patent. Oral mucosa moit]. CARDIOVASCULAR: [Tachy rate, regular rhythm. No murmurs, rubs, gallops]. LUNGS: [Good air flow b/l. No wheezing, rales, rhonchi]. ABDOMEN: [Abdomen grossly distended without ecchymosis or angiomata. The abdomen is firm to palpation with tenderness to RUQ and LUQ.]. MUSCULOSKELETAL: [No joint deformity noted]. EXTREMITIES: [No pedal edema appreciated. Pulses intact. No overlying skin changes]. NEUROLOGICAL: [Speech clear. A+Ox3. No focal deficits.]. PSYCHIATRIC: [Mood and affect appear appropriate]. LABORATORY DATA: See below. IMAGING: [KUB: FINDINGS: There is no evidence of free intraperitoneal air. There is no evidence of small bowel obstruction. Mild air is scattered throughout the colon. Multiple phleboliths are seen in the pelvis. Metallic clips are seen in the right upper quadrant. There are mild degenerative changes of the spine. No infiltrate is seen in either lung. The heart and mediastinum are unremarkable. IMPRESSION: No evidence of free air or obstruction. CT Abd/pelvis: FINDINGS: Liver: There is a diffuse decrease in hepatic parenchymal density, consistent with steatosis. Gallbladder and bile ducts: There has been a cholecystectomy. Pancreas: There is subtle haziness in the peripancreatic fat along the anterior margin of the pancreatic body and tail region and to a lesser degree adjacent to the uncinate process. Findings consistent with pancreatitis in the appropriate clinical setting. No evidence of a pseudocyst or phlegmon. No intrapancreatic gas. Spleen: Normal. No splenomegaly. Adrenal glands: Normal. No mass. Kidneys and ureters: Normal. No hydronephrosis. Stomach and bowel: Unremarkable. No obstruction. No mucosal thickening. Appendix: No evidence of appendicitis. Intraperitoneal space: Unremarkable. No free air. No significant fluid collection. Vasculature: The aortoiliac vessels demonstrate mild atherosclerotic calcification. Lymph nodes: Unremarkable. No enlarged lymph nodes. Urinary bladder: Unremarkable as visualized. Reproductive: Unremarkable as visualized. Bones/joints: Unfused ring apophysis at L4 on L5. Slight anterolisthesis of L3 on L4 and L4 on L5. Moderate to severe central spinal stenosis L3-L4 and severe central spinal stenosis L4-L5. Bulging annulus L5-S1. Soft tissues: Unremarkable. IMPRESSION: 1. There is a diffuse decrease in hepatic parenchymal density, consistent with steatosis. 2. There has been a cholecystectomy. 3. There is subtle haziness in the peripancreatic fat along the anterior margin of the pancreatic body and tail region and to a lesser degree adjacent to the uncinate process. Findings consistent with pancreatitis in the appropriate clinical setting. No evidence of a pseudocyst or phlegmon. No intrapancreatic gas. ] MICROBIOLOGY: Please see below. ASSESSMENT: [This is a 46 y/o female with a pmh of htn, iv substance abuse on methadone, questionable diagnosis of hep c and panic disorder who presents to our ED on 03/05 for evaluation of severe epigastric abdominal pain radiating to her back x4 days. Patient states that she had a bout of pancreatitis approx 10 years ago and felt this exact way so decided to come to the hospital for evaluation. In the ED, patient found to have sirs criteria with tachycardia in low 100s and wbc of 17.2. Patient also diagnosed with acute pancreatitis with lipase of [address] imaging indicative of inflammatory pancreatitis.]. . PLAN: 1. [Acute pancreatitis - Unclear etiology. Imaging not indicative of biliary obstruction, patient also has no gallbladder. Patient denies alcohol use - Will run triglyceride level - Current lipase 738, will trend - IVF with LR - pain control with morphine, toradol - nausea control with zofran - clear liquid diet, advance as tolerated - admit to med surg for tx 2. SIRS - Likely 2/2 to pancreatitis, however will complete infectious workup - Blood cultures, urine cultures, gi panel sent - cxr ordered - procalcitonin ordered 3. Abdominal distention - Potentially secondary to pancreatitis. No evidence of bowel obstruction on imaging - Will obtain abdomen US to assess for ascites given possible hx of hep c - hep panel ordered 4. Asthma - continue albuterol 5. Anxiety/depression - continue buspar 6. Opioid use disorder - continue methadone DVT prophylaxis - mechanical]. Vital Signs Vital Signs Date Time Temp Pulse Resp B/P (MAP) Pulse Ox O2 Delivery O2 Flow Rate FiO2 03/05/21 14:30 97.3 108 18 116/63 (80) 98 Room Air Laboratory Data Labs 24H Laboratory Tests 2 03/05/21 15:11: Immature Granulocyte % (Auto) 0.5, Neutrophils (%) (Auto) 84.1H, Lymphocytes (%) (Auto) 7.9L, Monocytes (%) (Auto) 6.3, Eosinophils (%) (Auto) 0.9, Basophils (%) (Auto) 0.3, Neutrophils # (Auto) 14.4H, Lymphocytes # (Auto) 1.4L, Monocytes # (Auto) 1.1H, Eosinophils # (Auto) 0.2, Basophils # (Auto) 0.1, Nucleated Red Blood Cells % (auto) 0.0, Total Bilirubin 0.2, Direct Bilirubin < 0.1, Aspartate Amino Transf (AST/SGOT) 30, Alanine Aminotransferase (ALT/SGPT) 16, Alkaline Phosphatase 64, Total Protein 6.7, Albumin 3.5, Albumin/Globulin Ratio 1.1L, Lipase 738H 03/05/21 15:17: Urine Color YELLOW, Urine Appearance CLOUDYH, Urine pH 5.0, Urine Specific [place] 1.012, Urine Protein NEGATIVE, Urine Glucose (UA) NEGATIVE, Urine Ketones NEGATIVE, Urine Blood NEGATIVE, Urine Nitrite NEGATIVE, Urine Bilirubin NEGATIVE, Urine Urobilinogen 0.2, Urine Leukocyte Esterase TRACEH, Urine WBC (Auto) 2, Urine RBC (Auto) 1, Urine Hyaline Casts (Auto) 0, Urine Bacteria (Auto) NEGATIVE, Urine Squamous Epithelial Cells 43, Urine Sperm (Auto) , Urine Opiates Screen NEGATIVE, Urine Methadone Screen POSITIVEH, Urine Barbiturates Screen NEGATIVE, Urine Phencyclidine Screen NEGATIVE, Urine Amphetamines Screen NEGATIVE, Urine Benzodiazepines Screen POSITIVEH, Urine Cocaine Metabolite Screen NEGATIVE, Urine Cannabinoids Screen NEGATIVE 03/05/21 16:05: POC Glucose (Misc Panel) 120H, POC Sodium (Misc Panel) 139, POC Potassium (Misc Panel) 3.2L, POC Chloride (Misc Panel) 103, POC Total CO2 (Misc Panel) 25.0, POC Blood Urea Nitrogen (Misc Panel 20, POC Ionized Calcium (Misc Panel) 4.6, POC Creatinine (Misc Panel) 0.8, POC Hematocrit (Misc Panel) 41.0 03/05/21 16:10: POC Lactate (Misc Panel) 0.54 CBC/BMP Laboratory Tests 03/05/21 15:11 Microbiology Microbiology 03/05/21 Urine Culture, Received Pending Home Medications Scheduled Buspirone HCl (Buspirone HCl) 5 Mg Tablet, 5 MG PO TID Gabapentin (Gabapentin) 600 Mg Tablet, 600 MG PO TID Methadone HCl (Methadone HCl) 10 Mg Tablet, 200 MG PO DAILY Scheduled PRN Albuterol Sulfate (Albuterol Sulfate Hfa) 8.5 Gm Hfa.aer.ad, 2 PUFF INH QID PRN for SOB/WHEEZING Allergies Coded Allergies: No Known Allergies (Unverified , 06/24/18) A-FIB/CHADSVASC A-FIB History Current/History of A-Fib/PAF?: No ZEYAD LOPES Mar 05, 2021 20:16
[2021-03-05] MEDS ORDERED: METH-1177 PO (20:21)
--- NOTE | 2021-03-05 20:29 | REPVR ---
PROCEDURE INFORMATION: Exam: XR Chest Exam date and time: 03/05/2021 8:24 PM Age: 46 years old Clinical indication: Fever; Additional info: Infectious w/u TECHNIQUE: Imaging protocol: XR of the chest. Views: 1 view. COMPARISON: CR Abdomen,Flat Upright,PA CHEST 03/05/2021 3:09 PM FINDINGS: Lungs: Unremarkable. No consolidation. Pleural spaces: Unremarkable. No pleural effusion. No pneumothorax. Heart/Mediastinum: Unremarkable. No cardiomegaly. Bones/joints: Unremarkable. IMPRESSION: No acute findings. Electronically signed by: Navneet Domingo On 03/05/2021 20:28:41 PM
[2021-03-05] MEDS: LR 1,000 ML IV SCH ×2 (20:30→21:31)
[2021-03-05] MEDS ORDERED: NICOTINE 14 MG/24 HR TRANSDERMAL TD PRN (20:55)
[2021-03-05] MEDS: GABAPENTIN 300 MG CAP PO SCH (21:00)
[2021-03-05] MEDS: busPIRone 5 MG TAB PO SCH (21:00)
[2021-03-05 21:04] LABS: RSV AMPLIFICATION NEGATIVE (NEGATIVE)
[2021-03-05] MEDS: KETOROLAC 30 MG/ML 1ML VIAL IV PRN (21:26)
--- NOTE | 2021-03-05 21:32 | REPVR ---
PROCEDURE INFORMATION: Exam: US Abdomen; Limited Exam date and time: 03/05/2021 9:26 PM Age: 46 years old Clinical indication: Bloating; Additional info: Abd distention, assess for ascites TECHNIQUE: Imaging protocol: US abdomen. Real time ultrasound with image documentation. Limited exam focused on the region of clinical interest. COMPARISON: CT ABD/PEL W/IV CONTRAST ONLY 03/05/2021 5:12 PM FINDINGS: Intraperitoneal space: No free fluid demonstrated in all 4 quadrants. IMPRESSION: No acute findings. No ascites. Electronically signed by: Navneet Domingo On 03/05/2021 21:31:12 PM
[2021-03-05 22:48] VITALS: BP 128/91
[2021-03-06] MEDS: MORPHINE 4 MG/ML 1ML VIAL/SYRINGE (J2270) IV PRN ×5 (00:09→20:03)
[2021-03-06] MEDS: KETOROLAC 30 MG/ML 1ML VIAL IV PRN ×4 (04:37→23:04)
[2021-03-06 06:00] VITALS: BP 119/66
[2021-03-06 06:27] LABS: HEMOGLOBIN 12.4 g/dl (12.0-15.5); MEAN CORPUSCULAR HEMOGLOBIN 31.6 pg (27.0-33.0); MEAN CORPUSCULAR HGB CONC 32.6 g/dl (32.0-36.5); MEAN CORPUSCULAR VOLUME 96.9 fl (80.0-96.0); PLATELET COUNT, AUTOMATED 192 10^3/uL (150-450); RED BLOOD COUNT 3.92 10^6/uL (4.00-5.40); WHITE BLOOD COUNT 8.2 10^3/uL (4.0-10.0)
[2021-03-06 07:02] LABS: ALBUMIN 2.7 GM/DL (3.2-5.2); ALT/SGPT 16 U/L (12-78); BILIRUBIN,TOTAL 0.3 MG/DL (0.2-1.0); BLOOD UREA NITROGEN 13 MG/DL (7-18); CARBON DIOXIDE LEVEL 28 MEQ/L (21-32); CHLORIDE LEVEL 110 MEQ/L (98-107); CREATININE FOR GFR 0.58 MG/DL (0.55-1.30); GLOMERULAR FILTRATION RATE > 60.0 (>58); GLUCOSE, FASTING 90 MG/DL (70-100); LIPASE 421 U/L (73-393); MAGNESIUM LEVEL 1.7 MG/DL (1.8-2.4); POTASSIUM SERUM 3.5 MEQ/L (3.5-5.1); SODIUM LEVEL 141 MEQ/L (136-145); TOTAL PROTEIN 5.3 GM/DL (6.4-8.2)
[2021-03-06] MEDS ORDERED: MAG SULF 1GM/100ML (MAG RUN) 1 GM in IV 1 EA IV ONE (08:30)
[2021-03-06] MEDS: GABAPENTIN 300 MG CAP PO SCH ×3 (08:33→20:02)
[2021-03-06] MEDS: busPIRone 5 MG TAB PO SCH ×3 (08:34→20:02)
[2021-03-06] MEDS ORDERED: INFLUENZA QUADRIVALENT PF VACCINE 0.5ML SYRINGE IM ONE ×2 (09:00)
[2021-03-06 09:37] LABS: HEPATITIS B CORE ANTIBODY IGM NEGATIVE (NEGATIVE); HEPATITIS B SURFACE ANTIGEN NEGATIVE (NEGATIVE); HEPATITIS C VIRUS ABY INDEX > 11.0 INDEX (<0.8)
[2021-03-06] MEDS: LR 1,000 ML IV SCH ×4 (10:31→23:07)
[2021-03-06] MEDS: METHADONE 10 MG TAB (S0109) PO SCH (10:31)
[2021-03-06] MEDS ORDERED: SIMETHICONE 80MG CHEW TAB PO PRN (10:55)
--- NOTE | 2021-03-06 11:14 | IPNPDOC ---
Text Note Date of Service The patient was seen on 03/06/21. NOTE S: Patient seen and evaluated at bedside this a.m. She tells me her right upper quadrant pain is worse. Describes pain as sharp and burning, "02/25 sometimes 07/03," epigastric radiating to right flank and back. She tells me Toradol appropriately manages her pain. Reports minimal flatus, adequate urine output. Denies chest pain, palpitations, shortness of breath, nausea, vomiting, urinary symptoms, changes in urination/bowel movements. O: GEN: Alert, awake, laying in bed, tearful HEENT: NC/AT, EOMI, nares patent, moist mucous membranes CARDIO: RRR, normal heart sounds, no MRG PULM: CTA b/l, no WRR, no accessory muscles used ABD: soft, right upper quadrant/epigastric tenderness with very mild palpation, distended with generalized abdominal tympany with percussion, hyperactive BS EXTREMITIES: no edema, normal ROM IMAGING: Abd Xray (03/05) No evidence of free air or obstruction. CT Abd/pelvis (03/05) 1. There is a diffuse decrease in hepatic parenchymal density, consistent with steatosis. 2. There has been a cholecystectomy. 3. There is subtle haziness in the peripancreatic fat along the anterior margin of the pancreatic body and tail region and to a lesser degree adjacent to the uncinate process. Findings consistent with pancreatitis in the appropriate clinical setting. No evidence of a pseudocyst or phlegmon. No intrapancreatic gas. Abd u/s (03/05) No acute findings. No ascites. CXR (03/05) No acute findings. A/P: Lola is a 46-year-old female history of pancreatitis s/p cholecystectomy with worsening epigastric abdominal pain radiating to right flank and back that is well managed with Toradol. #Acute Pancreatitis - unknown etiology Patient is still reporting abdominal discomfort. Denies any nausea, vomiting s/p cholecystectomy 2014 Lipase 421, triglycerides 157 Continue IVF Continue Zofran as needed Continue Toradol, morphine as needed NPO diet #Abd distension, likely 2/2 pancreatitis - worsening No evidence of bowel obstruction on imaging Hep panel significant for HepC AB > 11.0 Start simethicone #SIRS- resolved Afebrile, HR 79, RR 16 No leukocytosis. Procal (03/05) 101.13 Urine cx negative Blood cx pending #Possible hx HepC w/out treatment Patient has history of IV drug use No elevated LFTs HepA IgM AB, HepB surface AG, HepB core AB negative HepC AB > 11.0, HCVRNA pending #Hx IV substance abuse- clean since 2006, stable Urine toxicity positive for methadone, benzos On Methadone #Tobacco use, current Continue nicotine patch #Asthma- stable Continue Albuterol #Anxiety/Depression- stable Continue Buspar #DVT Prophylaxis TEDs and Sequentials DIET: NPO ACTIVITY: As tolerated DISPO: pending clinical improvement VS,Fishbone, I+O VS, Fishbone, I+O Laboratory Tests 03/05/21 15:11 03/06/21 06:12 Vital Signs Date Time Temp Pulse Resp B/P (MAP) Pulse Ox O2 Delivery O2 Flow Rate FiO2 03/06/21 09:07 18 Room Air 03/06/21 06:00 98.4 79 119/66 (83) 95 I&O- Last 24 Hours up to 6 AM 03/06/21 06:00 Intake Total 300 ml Balance 300 ml GME ATTESTATION GME ATTESTATION My faculty preceptor for this patient encounter was physically present during the encounter and was fully available. All aspects of the patient interview, examination, medical decision making process, and medical care plan development were reviewed and approved by the faculty preceptor. The faculty preceptor is aware and concurs with the plan as stated in the body of this note and will atte st to such by his/her cosignature. ATTENDING NOTE I, Shanna Rios, have independently examined this patient and performed my own physical exam, as well as reviewed the documentation and edited where necessary with the resident. For medical students we have performed the physical exam together and discussed medical decision making and I have verified the history. I have discussed in detail with the resident / student the findings and plan of treatment as documented by the resident / student and edited their note. I agree with their findings and treatment plan and have edited their documentation. I will continue to follow the patient during this hospital stay. Erika Martinez DO Mar 06, 2021 11:14 SHANNA RIOS MD Mar 06, 2021 14:47
[2021-03-06 14:00] VITALS: BP 129/73
[2021-03-06 22:00] VITALS: BP 135/92
[2021-03-07] MEDS: LR 1,000 ML IV SCH (02:22)
[2021-03-07] MEDS: MORPHINE 4 MG/ML 1ML VIAL/SYRINGE (J2270) IV PRN (02:59)
[2021-03-07 06:00] VITALS: BP 143/94
[2021-03-07] MEDS: KETOROLAC 30 MG/ML 1ML VIAL IV PRN (06:08)
[2021-03-07 06:44] LABS: HEMATOCRIT 34.9 % (36.0-47.0); HEMOGLOBIN 11.5 g/dl (12.0-15.5); MEAN CORPUSCULAR HEMOGLOBIN 31.8 pg (27.0-33.0); MEAN CORPUSCULAR VOLUME 96.4 fl (80.0-96.0); PLATELET COUNT, AUTOMATED 176 10^3/uL (150-450); RED BLOOD COUNT 3.62 10^6/uL (4.00-5.40); WHITE BLOOD COUNT 8.6 10^3/uL (4.0-10.0)
[2021-03-07 07:09] LABS: ALBUMIN 2.6 GM/DL (3.2-5.2); ALT/SGPT 13 U/L (12-78); BILIRUBIN,TOTAL 0.2 MG/DL (0.2-1.0); BLOOD UREA NITROGEN 8 MG/DL (7-18); CALCIUM LEVEL 8.2 MG/DL (8.5-10.1); CARBON DIOXIDE LEVEL 26 MEQ/L (21-32); CHLORIDE LEVEL 110 MEQ/L (98-107); CREATININE FOR GFR 0.41 MG/DL (0.55-1.30); GLOMERULAR FILTRATION RATE > 60.0 (>58); GLUCOSE, FASTING 72 MG/DL (70-100); MAGNESIUM LEVEL 1.6 MG/DL (1.8-2.4); POTASSIUM SERUM 3.8 MEQ/L (3.5-5.1); SODIUM LEVEL 141 MEQ/L (136-145); TOTAL PROTEIN 5.3 GM/DL (6.4-8.2)
[2021-03-07] MEDS ORDERED: MAG SULF 1GM/100ML (MAG RUN) 1 GM in IV 1 EA IV ONE (07:55)
[2021-03-07] MEDS ORDERED: INFLUENZA QUADRIVALENT PF VACCINE 0.5ML SYRINGE IM ONE (09:00)
[2021-03-07] MEDS: GABAPENTIN 300 MG CAP PO SCH (09:07)
[2021-03-07] MEDS: busPIRone 5 MG TAB PO SCH (09:07)
[2021-03-07] MEDS: METHADONE 10 MG TAB (S0109) PO SCH (09:08)
[2021-03-07] MEDS ORDERED: IBUP-1022 PO (10:19)
--- NOTE | 2021-03-07 11:51 | DS.PDOC ---
Discharge Summary General Date of Admission Mar 05, 2021 at 19:59 Date of Discharge 03/07/2021 Attending Physician: SHANNA RIOS MD Discharge Summary PROCEDURES PERFORMED DURING STAY: None ADMITTING DIAGNOSES: 1. Pancreatitis, unknown etiology 2. SIRS 3. Abdominal distention, possibly 2/2 pancreatitis vs untreated HCV DISCHARGE DIAGNOSES: 1. 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 Patient states she had a bout of pancreatitis approx 10 years ago and felt this exact way so decided to come to the hospital for evaluation. Patient tells me that, at that time, she had to have her gallbladder removed but tells me that the root cause of her pancreatitis was never found. Patient tells me her pain began suddenly on 03/02 but went away on its own that night so she did not think much of it. Patient tells me that pain returned the next day and only worsened into yesterday. Reports associated nausea, vomiting, a few bouts of diarrhea, decreased appetite, and decreased urge to smoke. Denies fevers, chills, uri type sx, chest pain, sob, hematemsis, brbpr, pedal edema, syncope, paresthesia. In the ED, patient found to have Procalcitonin 101.13, and met SIRS criteria with tachycardia in low 100s and wbc of 17.2. Patient also diagnosed with acute pancreatitis with clinical presentation, lipase of 738, CT imaging indicative of inflammatory pancreatitis. HOSPITAL COURSE: Patient admitted for acute pancreatitis of unclear etiology and was started on IVF, pain control with morphine and Toradol, nausea control with Zofran. Given SIRS criteria upon admission, blood cultures, urine cultures, GI panel, chest x- ray ordered which were all unremarkable. 03/06, patient was found to be afebrile with a heart rate 79 respiratory rate 16, and no longer met SIRS criteria. Triglycerides 157, repeat lipase 421. Patient's abdominal distention was most likely secondary to pancreatitis as imaging showed no evidence of bowel obstruction. CMP performed in ED WNL. HCV antibody > 11.0. Additional hep panel unremarkable and HCV RNA still pending upon discharge. Abdominal ult rasound was ordered to assess for ascites secondary to acute HCV, which was unremarkable. Patient's pain and nausea were well controlled on medications throughout hospitalization. Patient's diet was advanced from NPO to clear liquids, which she tolerated well prior to discharge. Patient's asthma, tobacco use, anxiety/depression, history of IV substance abuse were managed with patient's home meds and there were no complications throughout patient's hospitalization. DISCHARGE MEDICATIONS: Please see below. ALLERGIES: Please see below. PHYSICAL EXAMINATION ON DISCHARGE: VITAL SIGNS: Please see below. GENERAL: Alert, awake, laying in bed, NAD HEENT: NC/AT, EOMI, nares patent, moist mucous membranes NECK: Supple CARDIOVASCULAR EXAMINATION: Normal heart sounds, RRR, no MRG RESPIRATORY EXAMINATION: CTA bilaterally, no WRR, no accessory muscle use ABDOMINAL EXAMINATION: Soft, minimal epigastric tenderness with deep palpation, minimal distention, decreased bowel sounds EXTREMITIES: No edema, normal ROM SKIN: No new rashes/abrasions/wounds NEUROLOGICAL EXAMINATION: No focal neuro deficits PSYCHIATRIC EXAMINATION: Alert, oriented, no depressed/anxious mood LABORATORY DATA: Please see below. IMAGING: Abd Xray (03/05) No evidence of free air or obstruction. CT Abd/pelvis (03/05) 1. There is a diffuse decrease in hepatic parenchymal density, consistent with steatosis. 2. There has been a cholecystectomy. 3. There is subtle haziness in the peripancreatic fat along the anterior margin of the pancreatic body and tail region and to a lesser degree adjacent to the uncinate process. Findings consistent with pancreatitis in the appropriate clinical setting. No evidence of a pseudocyst or phlegmon. No intrapancreatic gas. Abd u/s (03/05) No acute findings. No ascites. CXR (03/05) No acute findings. PROGNOSIS: Good ACTIVITY: As tolerated DIET: Regular DISCHARGE PLAN: 1. Pancreatitis Continue ibuprofen 600 mg every 6 hours as needed x5 days DISPOSITION: Home DISCHARGE INSTRUCTIONS: 1. F/u PCP, 7 to 10 days ITEMS TO FOLLOWUP ON ON OUTPATIENT: 1. PCP-pancreatitis, HCV AB > 11.0 DISCHARGE CONDITION: Stable TIME SPENT ON DISCHARGE: 30 minutes. Vital Signs/I&Os Vital Signs Date Time Temp Pulse Resp B/P (MAP) Pulse Ox O2 Delivery O2 Flow Rate FiO2 03/07/21 06:00 98.1 63 18 143/94 (110) 97 Room Air I&O- Last 24 Hours up to 6 AM 03/07/21 06:00 Intake Total 3750 ml Output Total 300 ml Balance 3450 ml Laboratory Data Labs 24H Laboratory Tests 2 03/06/21 11:40: Bedside Glucose (Misc Panel) 116H 03/06/21 16:42: Bedside Glucose (Misc Panel) 79 03/06/21 23:52: Bedside Glucose (Misc Panel) 78 03/07/21 06:28: Nucleated Red Blood Cells % (auto) 0.0, Anion Gap 5L, Glomerular Filtration Rate > 60.0, Calcium Level 8.2L, Magnesium Level 1.6L, Total Bilirubin 0.2, Aspartate Amino Transf (AST/SGOT) 14, Alanine Aminotransferase (ALT/SGPT) 13, Alkaline Phosphatase 48, Total Protein 5.3L, Albumin 2.6L, Albumin/Globulin Ratio 1.0L CBC/BMP Laboratory Tests 03/07/21 06:28 FSBS Laboratory Tests Test 03/06/21 11:40 03/06/21 16:42 03/06/21 23:52 Range/Units Bedside Glucose (Misc Panel) 116 79 78 70-105 MG/DL Microbiology Microbiology 03/05/21 Blood Culture - Preliminary, Resulted No growth after 24 hours . All specim... 03/05/21 Blood Culture - Preliminary, Resulted No growth after 24 hours . All specim... 03/05/21 Urine Culture - Final, Complete Discharge Medications Scheduled Buspirone HCl (Buspirone HCl) 5 Mg Tablet, 5 MG PO TID, (Reported) Gabapentin (Gabapentin) 600 Mg Tablet, 600 MG PO TID, (Reported) Methadone HCl (Methadone HCl) 10 Mg Tablet, 200 MG PO DAILY, (Reported) Scheduled PRN Albuterol Sulfate (Albuterol Sulfate Hfa) 8.5 Gm Hfa.aer.ad, 2 PUFF INH QID PRN for SOB/WHEEZING, (Reported) Ibuprofen (Ibuprofen) 600 Mg Tablet, 600 MG PO Q6H PRN for PAIN Allergies Coded Allergies: No Known Allergies (Unverified , 06/24/18) GME ATTESTATION GME ATTESTATION My faculty preceptor for this patient encounter was physically present during the encounter and was fully available. All aspects of the patient interview, examination, medical decision making process, and medical care plan development were reviewed and approved by the faculty preceptor. The faculty preceptor is aware and concurs with the plan as stated in the body of this note and will attest to such by his/her cosignature. ATTENDING NOTE I, Shanna Rios, have independently examined this patient and performed my own physical exam, as well as reviewed the documentation and edited where necessary with the resident. For medical students we have performed the physical exam together and discussed medical decision making and I have verified the history. I have discussed in detail with the resident / student the findings and plan of treatment as documented by the resident / student and edited their note. I agree with their findings and treatment plan and have edited their documentation. I will continue to follow the patient during this hospital stay. Time spent on discharge 35 minutes Erika Martinez DO Mar 07, 2021 11:51 SHANNA RIOS MD Mar 07, 2021 12:10
== END 2021-03-07 12:08 | disposition home or self-care (01) | DRG 282 ==
LOC: M ED 14:23 → M ED INP 19:59 → ENRESERV 21:30 → M MSPAV 22:48
PROVIDERS: ADMIT Internal Medicine; ATTEND Internal Medicine
DX: K85.90 Acute pancreatitis without necrosis or infection, unspecified (principal); I10 Essential (primary) hypertension; R65.10 Systemic inflammatory response syndrome (SIRS) of non-infectious origin without acute organ dysfunction; F11.11 Opioid abuse, in remission; Z90.49 Acquired absence of other specified parts of digestive tract; F17.210 Nicotine dependence, cigarettes, uncomplicated; J45.909 Unspecified asthma, uncomplicated; F41.9 Anxiety disorder, unspecified; F32.A Depression, unspecified; Z20.822 Contact with and (suspected) exposure to COVID-19; Z79.899 Other long term (current) drug therapy

== ENCOUNTER → 2021-03-26 | Outpatient (REF) ==
[~2021-03-26] MED LIST changes: +ALBU8.5H INH; +BUSP5TA PO; +FLUO20CA22 PO; +GABA600T4 PO; +IBUP-1022 PO; +METH-1177 PO
--- NOTE | 2021-03-26 14:28 | REP ---
INDICATION: PAIN. COMPARISON: 04/13/2019 TECHNIQUE: Three views FINDINGS: L4 and L5 limbus vertebral bodies status quo. Vertebral body height and alignment is unchanged. The disc spaces are unchanged. The facet joints are unchanged. The pedicles are again seen to be intact bilaterally status quo. IMPRESSION: No change. <Electronically signed by Lev Aldana > 03/26/21 [id number]
--- NOTE | 2021-03-26 14:29 | REP ---
INDICATION: PAIN COMPARISON: None TECHNIQUE: Four views without a sunrise view FINDINGS: The compartments are symmetric and relatively well maintained. The exam is limited without the sunrise view. IMPRESSION: No acute osseous abnormalities identified. The examination is within normal limits and limited as described above <Electronically signed by Lev Aldana > 03/26/21 [id number]
== END ==
LOC: M PLAIMG 10:50
PROVIDERS: ATTEND Internal Medicine
DX: M25.562 Pain in left knee (principal); M54.50 Low back pain, unspecified

== ENCOUNTER 2021-08-28 22:26 | Emergency (ER) | payer OTHER ==
[~2021-08-28] VITALS: Ht 165.1 cm; Wt 81.8 kg
[2021-08-28] MEDS ORDERED: LORazepam 2 MG/ML VIAL IV STA (22:36)
[2021-08-28] MEDS ORDERED: PERCOCET 5MG/325MG TAB PO ONE (23:55)
[2021-08-29 00:40] VITALS: BP 160/85
[2021-08-29] MEDS ORDERED: OXYCODONE/APAP 5MG/325MG(BULK FOR ED) 1 TABLET PO ONE (01:05)
[2021-08-29] MEDS ORDERED: PERC5TAB12 PO (01:09)
== END 2021-08-29 01:33 | disposition home or self-care (01) ==
LOC: M ED 22:26
DX: S50.01XA Contusion of right elbow, initial encounter (principal); S53.401A Unspecified sprain of right elbow, initial encounter; W19.XXXA Unspecified fall, initial encounter; Y92.099 Unspecified place in other non-institutional residence as the place of occurrence of the external cause; Y93.9 Activity, unspecified; Y99.9 Unspecified external cause status; Z79.899 Other long term (current) drug therapy
CPT/HCPCS: 73070; 73200; 96374; 99284; J2060

== ENCOUNTER → 2021-09-29 | Outpatient (CLI) | payer OTHER ==
[~2021-09-29] MED LIST changes: +PERC5TAB12 PO
== END ==
LOC: M RAD 09:00
PROVIDERS: ATTEND Orthopaedic Surgery Hand Surgery
DX: M25.522 Pain in left elbow (principal); S53.432A Radial collateral ligament sprain of left elbow, initial encounter; Y92.89 Other specified places as the place of occurrence of the external cause; Y93.89 Activity, other specified; Y99.8 Other external cause status; X58.XXXA Exposure to other specified factors, initial encounter

== ENCOUNTER 2021-11-15 12:18 | Emergency (ER) | payer OTHER ==
[~2021-11-15] VITALS: Ht 162.6 cm; Wt 79.5 kg
[2021-11-15 12:18] VITALS: BP 146/92
[2021-11-15] MEDS ORDERED: NAPR-885 (12:26)
[2021-11-15] MEDS ORDERED: DULO1CAP5 (12:26)
== END 2021-11-15 13:46 | disposition home or self-care (01) ==
LOC: M ED 12:18
DX: S53.402A Unspecified sprain of left elbow, initial encounter (principal); X50.9XXA Other and unspecified overexertion or strenuous movements or postures, initial encounter; Y92.89 Other specified places as the place of occurrence of the external cause; Y93.89 Activity, other specified; Y99.8 Other external cause status

== ENCOUNTER → 2021-12-30 | Outpatient (CLI) | payer OTHER ==
[~2021-12-30] MED LIST changes: +DULO1CAP5; +MOTR200T44 PO; +NAPR-885
== END ==
LOC: M LABSMTC 10:50
PROVIDERS: ATTEND Anesthesiology
DX: Z01.812 Encounter for preprocedural laboratory examination (principal); Z20.822 Contact with and (suspected) exposure to COVID-19

== ENCOUNTER → 2021-12-31 | Day surgery (SDC) | payer OTHER ==
[~2021-12-31] VITALS: Ht 162.6 cm; Wt 79.4 kg
[~2021-12-31] MED LIST changes: +KETOROLAC 60MG 2ML VIAL As Ordered ONE; +LIDOCAINE 2% 100MG/5ML SDV (FOR ANES.) As Ordered ONE; +LR 1,000 ML IV SCH; +METOCLOPRAMIDE INJ 10MG/2ML VIAL (J2765 PER 1) As Ordered ONE; +MIDAZOLAM INJ 2MG/2ML VIAL (J2250 PER 1MG) As Ordered ONE; +MORPHINE 2 MG/ML 1ML VIAL IV PRN; +ONDANSETRON 4MG 2ML VIAL As Ordered ONE; +ONDANSETRON 4MG 2ML VIAL IV PRN; +PERCOCET 5MG/325MG TAB PO PRN; +dexameTHASONE 4 MG/ML 1ML VIAL (J1100 PER 1MG) As Ordered ONE; +fentaNYL 100 MCG/2 ML INJECTION As Ordered ONE; +fentaNYL 100 MCG/2 ML INJECTION IV PRN; +propofoL 200 MG/20 ML VIAL As Ordered ONE
[2021-12-31 10:46] VITALS: BP 143/70
== END | disposition home or self-care (01) ==
LOC: M SDC 08:52
PROVIDERS: ATTEND Orthopaedic Surgery Hand Surgery
DX: M25.322 Other instability, left elbow (principal); B18.2 Chronic viral hepatitis C; F17.210 Nicotine dependence, cigarettes, uncomplicated; G43.909 Migraine, unspecified, not intractable, without status migrainosus; F41.9 Anxiety disorder, unspecified; F32.A Depression, unspecified; Z79.51 Long term (current) use of inhaled steroids; Z79.891 Long term (current) use of opiate analgesic
CPT/HCPCS: 24300; 76000; 81025; J1100; J1885; J2250; J2405; J2765; J3010

== ENCOUNTER → 2022-04-08 | Outpatient (CLI) | payer OTHER ==
[~2022-04-08] MED LIST changes: -KETOROLAC 60MG 2ML VIAL As Ordered ONE; -LIDOCAINE 2% 100MG/5ML SDV (FOR ANES.) As Ordered ONE; -LR 1,000 ML IV SCH; -METOCLOPRAMIDE INJ 10MG/2ML VIAL (J2765 PER 1) As Ordered ONE; -MIDAZOLAM INJ 2MG/2ML VIAL (J2250 PER 1MG) As Ordered ONE; -MORPHINE 2 MG/ML 1ML VIAL IV PRN; -ONDANSETRON 4MG 2ML VIAL As Ordered ONE; -ONDANSETRON 4MG 2ML VIAL IV PRN; -PERCOCET 5MG/325MG TAB PO PRN; -dexameTHASONE 4 MG/ML 1ML VIAL (J1100 PER 1MG) As Ordered ONE; -fentaNYL 100 MCG/2 ML INJECTION As Ordered ONE; -fentaNYL 100 MCG/2 ML INJECTION IV PRN; -propofoL 200 MG/20 ML VIAL As Ordered ONE
== END ==
LOC: M RAD 10:19
PROVIDERS: ATTEND Physician Assistant
DX: M24.222 Disorder of ligament, left elbow (principal)

== ENCOUNTER 2022-06-22 14:58 | Emergency (ER) | payer OTHER ==
[~2022-06-22] VITALS: Ht 165.1 cm; Wt 77.6 kg
[2022-06-22 17:09] LABS: RSV AMPLIFICATION NEGATIVE (NEGATIVE)
[2022-06-22] MEDS ORDERED: predniSONE 20 MG TAB PO ONE (18:15)
[2022-06-22] MEDS ORDERED: AMOXICILLIN 500 MG CAP PO ONE (18:15)
[2022-06-22] MEDS ORDERED: ALBUTEROL 90 MCG/ACT 8GM HFA INHALER INH ONE (18:15)
[2022-06-22] MEDS ORDERED: AMOX500C PO (18:21)
[2022-06-22] MEDS ORDERED: BENZ200C70 PO (18:21)
[2022-06-22] MEDS ORDERED: PRED20TA PO (18:21)
[2022-06-22 18:27] VITALS: BP 128/82
== END 2022-06-22 18:51 | disposition home or self-care (01) ==
LOC: M ED 14:58
DX: J20.9 Acute bronchitis, unspecified (principal); B19.20 Unspecified viral hepatitis C without hepatic coma; F11.20 Opioid dependence, uncomplicated; Z90.49 Acquired absence of other specified parts of digestive tract; F17.200 Nicotine dependence, unspecified, uncomplicated; Z79.51 Long term (current) use of inhaled steroids; Z79.899 Other long term (current) drug therapy
CPT/HCPCS: 36415; 71046; 80047; 84702; 87631; 93005; 94640; 99284; J7512

== ENCOUNTER 2022-07-18 00:13 | Emergency (ER) | payer OTHER ==
[~2022-07-18] VITALS: Ht 165.1 cm; Wt 77.6 kg
[~2022-07-18 00:13] MED LIST changes: +BENZ200C70 PO; +PRED20TA PO
[2022-07-18] MEDS ORDERED: MIDAZOLAM INJ 2MG/2ML VIAL IM ONE (00:25)
[2022-07-18] MEDS ORDERED: diphenhydrAMINE 50MG/ML VIAL IM ONE (00:25)
[2022-07-18] MEDS ORDERED: HALOPERIDOL 5MG/ML 1ML VIAL IM ONE (00:25)
[2022-07-18] MEDS ORDERED: NS 1,000 ML IV ONE (00:30)
[2022-07-18 00:58] LABS: BASO % 0.3 % (0.0-1.0); EOS # 0.1 10^3/uL (0.0-0.5); EOS % 0.9 % (0.0-3.0); HEMATOCRIT 41.5 % (36.0-47.0); HEMOGLOBIN 13.8 g/dl (12.0-15.5); LYMPH # 2.3 10^3/uL (1.5-5.0); LYMPH % 23.2 % (24.0-44.0); MEAN CORPUSCULAR HEMOGLOBIN 32.9 pg (27.0-33.0); MEAN CORPUSCULAR HGB CONC 33.3 g/dl (32.0-36.5); MEAN CORPUSCULAR VOLUME 98.8 fl (80.0-96.0); MONO # 0.7 10^3/uL (0.0-0.8); MONO % 7.6 % (2.0-8.0); NEUTROPHILS # 6.6 10^3/uL (1.5-8.5); NEUTROPHILS % 67.7 % (36.0-66.0); PLATELET COUNT, AUTOMATED 205 10^3/uL (150-450); WHITE BLOOD COUNT 9.8 10^3/uL (4.0-10.0)
[2022-07-18 01:11] LABS: OSMOLALITY SERUM 289 MOSM/KG (275-295)
[2022-07-18 01:16] LABS: ETHYL ALCOHOL (ETHANOL) 0.004 % (0.000-0.010)
[2022-07-18 01:18] LABS: ACETAMINOPHEN LEVEL 2.3 UG/ML (10.0-20.0); ALBUMIN 4.1 G/DL (3.2-5.2); ALKALINE PHOSPHATASE 133 U/L (46-116); ALT/SGPT 79 U/L (7.0-40); AST/SGOT 69 U/L (<34); BILIRUBIN,DIRECT < 0.1 MG/DL (<0.4); BILIRUBIN,TOTAL 0.3 MG/DL (0.3-1.2); BLOOD UREA NITROGEN 14 MG/DL (9-23); CALCIUM LEVEL 9.1 MG/DL (8.5-10.1); CARBON DIOXIDE LEVEL 29 MMOL/L (20-31); CHLORIDE LEVEL 103 MMOL/L (98-107); GLOMERULAR FILTRATION RATE > 60.0 (>58); GLUCOSE, FASTING 127 MG/DL (60-100); POTASSIUM SERUM 3.9 MMOL/L (3.5-5.1); SALICYLATE LEVEL < 3.0 MG/DL (<30); SODIUM LEVEL 140 MMOL/L (136-145)
[2022-07-18 01:20] LABS: THYROID STIMULATING HORMONE 8.402 uIU/ML (0.55-4.78)
[2022-07-18 02:48] LABS: AMPHETAMINES LEVEL URINE NEGATIVE (NEGATIVE); BARBITURATES URINE NEGATIVE (NEGATIVE); COCAINE METABOLITE URINE NEGATIVE (NEGATIVE)
[2022-07-18 02:49] LABS: CANNABINOIDS URINE NEGATIVE (NEGATIVE); OPIATES URINE NEGATIVE (NEGATIVE); PHENCYCLIDINE URINE NEGATIVE (NEGATIVE)
[2022-07-18 02:51] LABS: BENZODIAZEPINES URINE POSITIVE (NEGATIVE); METHADONE URINE POSITIVE (NEGATIVE)
[2022-07-18 05:01] VITALS: BP 150/96
== END 2022-07-18 06:56 | disposition home or self-care (01) ==
LOC: M ED 00:13 → EDBD 00:13 → M ED 06:56
DX: R41.82 Altered mental status, unspecified (principal); F13.129 Sedative, hypnotic or anxiolytic abuse with intoxication, unspecified; I10 Essential (primary) hypertension; F11.10 Opioid abuse, uncomplicated; B19.20 Unspecified viral hepatitis C without hepatic coma; F41.0 Panic disorder [episodic paroxysmal anxiety]; Z79.899 Other long term (current) drug therapy
CPT/HCPCS: 51701; 70450; 80048; 80076; 80143; 80307; 81001; 82077; 82140; 83605; 83930; 84443; 85025; 87086; 87635; 93005; 93041; 94760; 96372; 99285; J1200; J1630; J2250

== ENCOUNTER 2022-08-08 22:12 | Emergency (ER) | payer OTHER ==
[~2022-08-08] VITALS: Ht 165.1 cm; Wt 75.9 kg
[2022-08-08 22:12] VITALS: BP 211/105
[2022-08-08] MEDS ORDERED: ACET1TAB55 PO (22:19)
== END 2022-08-08 22:41 | disposition left against medical advice (07) ==
LOC: M ED 22:12
DX: Z53.21 Procedure and treatment not carried out due to patient leaving prior to being seen by health care provider (principal)

== ENCOUNTER → 2024-03-08 | Outpatient (REF) | payer OTHER, MEDICAID ==
[~2024-03-08] MED LIST changes: +ACET1TAB55 PO; +FLUO-365 PO; -FLUO20CA22 PO; +GABA-1172 PO; +GABA-1490 PO; -GABA-282 PO; -GABA600T4 PO
[2024-03-09 14:56] LABS: HEMATOCRIT 42.4 % (36.0-47.0); HEMOGLOBIN 13.6 g/dl (12.0-15.5); MEAN CORPUSCULAR HEMOGLOBIN 28.8 pg (27.0-33.0); MEAN CORPUSCULAR HGB CONC 32.1 g/dl (32.0-36.5); MEAN CORPUSCULAR VOLUME 89.6 fl (80.0-96.0); PLATELET COUNT, AUTOMATED 213 10^3/uL (150-450); RED BLOOD COUNT 4.73 10^6/uL (4.00-5.40); WHITE BLOOD COUNT 8.7 10^3/uL (4.0-10.0)
[2024-03-09 15:41] LABS: ATYPICAL LYMPH 1 % (0-5); BASOPHILS 3 % (0-1); LYMPHOCYTES 50 % (16-44); MONOCYTES 4 % (0-5); NEUTROPHILS 37 % (28-66); PLATELET ESTIMATE NORMAL (NORMAL)
[2024-03-09 17:07] LABS: BILIRUBIN,TOTAL 0.2 MG/DL (0.3-1.2); CHLORIDE LEVEL 110 MMOL/L (98-107); SODIUM LEVEL 139 MMOL/L (136-145)
[2024-03-09 17:08] LABS: ALBUMIN 3.6 G/DL (3.2-5.2); ALKALINE PHOSPHATASE 73 U/L (46-116); ALT/SGPT 10 U/L (7.0-40); AST/SGOT 13 U/L (<34); BLOOD UREA NITROGEN 13 MG/DL (9-23); CALCIUM LEVEL 9.6 MG/DL (8.5-10.1); CARBON DIOXIDE LEVEL 25 MMOL/L (20-31); CHOLESTEROL LEVEL 209 MG/DL (<200); CHOLESTEROL RISK RATIO 4.72 (<5); CREATININE FOR GFR 0.62 MG/DL (0.55-1.30); GLOMERULAR FILTRATION RATE > 60.0 (>58); GLUCOSE, FASTING 81 MG/DL (60-100); HDL CHOLESTEROL 44.2 MG/DL (>40); LDL CHOLESTEROL 141.8 MG/DL (<100); NON-HDL-C 164.8 MG/DL; TOTAL PROTEIN 7.1 G/DL (5.7-8.2); TRIGLYCERIDES LEVEL 115 MG/DL (<150)
[2024-03-09 17:12] LABS: HEMOGLOBIN A1c 5.4 % (4.0-6.0)
[2024-03-09 17:27] LABS: THYROID STIMULATING HORMONE 2.657 uIU/ML (0.55-4.78)
[2024-03-09 17:28] LABS: TOTAL 25(OH) VITAMIN D 39.6 NG/ML (20.0-100.0)
== END ==
LOC: M LAB REF 13:19
PROVIDERS: ATTEND Nurse Practitioner Family
DX: Z11.9 Encounter for screening for infectious and parasitic diseases, unspecified (principal); E55.9 Vitamin D deficiency, unspecified; R53.83 Other fatigue; Z13.6 Encounter for screening for cardiovascular disorders; Z79.891 Long term (current) use of opiate analgesic

== ENCOUNTER 2024-03-17 22:31 | Emergency (ER) | payer MEDICAID, OTHER ==
[~2024-03-17] VITALS: Ht 162.6 cm; Wt 66.8 kg
[2024-03-18 03:46] LABS: BASO % 0.2 % (0.0-1.0); HEMATOCRIT 39.9 % (36.0-47.0); HEMOGLOBIN 13.3 g/dl (12.0-15.5); LYMPH # 0.6 10^3/uL (1.5-5.0); LYMPH % 3.7 % (24.0-44.0); MEAN CORPUSCULAR HEMOGLOBIN 29.4 pg (27.0-33.0); MEAN CORPUSCULAR HGB CONC 33.3 g/dl (32.0-36.5); MEAN CORPUSCULAR VOLUME 88.1 fl (80.0-96.0); MONO # 0.9 10^3/uL (0.0-0.8); MONO % 5.4 % (2.0-8.0); NEUTROPHILS # 15.1 10^3/uL (1.5-8.5); NEUTROPHILS % 90.2 % (36.0-66.0); PLATELET COUNT, AUTOMATED 285 10^3/uL (150-450); RED BLOOD COUNT 4.53 10^6/uL (4.00-5.40); WHITE BLOOD COUNT 16.8 10^3/uL (4.0-10.0)
[2024-03-18 04:08] LABS: ALBUMIN 3.9 G/DL (3.2-5.2); ALKALINE PHOSPHATASE 78 U/L (35-104); ALT/SGPT 41 U/L (7.0-40); AST/SGOT 24 U/L (<34); BILIRUBIN,TOTAL 0.4 MG/DL (0.3-1.2); BLOOD UREA NITROGEN 20 MG/DL (9-23); CALCIUM LEVEL 9.6 MG/DL (8.5-10.1); CARBON DIOXIDE LEVEL 27 MMOL/L (20-31); CHLORIDE LEVEL 109 MMOL/L (98-107); CREATININE FOR GFR 0.58 MG/DL (0.55-1.30); GLOMERULAR FILTRATION RATE > 60.0 (>58); GLUCOSE, FASTING 131 MG/DL (60-100); POTASSIUM SERUM 3.8 MMOL/L (3.5-5.1); SODIUM LEVEL 141 MMOL/L (136-145)
[2024-03-18] MEDS: KETOROLAC 30 MG/ML 1ML VIAL IV ONE (04:42)
[2024-03-18] MEDS: LORazepam 2 MG/ML 1ML VIAL IV STA (04:42)
[2024-03-18] MEDS: ONDANSETRON 4MG 2ML VIAL IV ONE (04:42)
[2024-03-18] MEDS ORDERED: ISOVUE-370 76% 100ML VIAL As Ordered ONE (04:51)
[2024-03-18] MEDS ORDERED: ONDA-282 PO (05:39)
[2024-03-18 06:06] VITALS: BP 144/89; TEMP 98.5; O2SAT 100
[2024-03-18 06:39] LABS: LIPASE 22 U/L (12-53)
== END 2024-03-18 06:08 | disposition home or self-care (01) ==
LOC: M ED 22:31
DX: K52.9 Noninfective gastroenteritis and colitis, unspecified (principal); F41.9 Anxiety disorder, unspecified; F19.10 Other psychoactive substance abuse, uncomplicated; Z90.49 Acquired absence of other specified parts of digestive tract; K59.00 Constipation, unspecified; Z79.899 Other long term (current) drug therapy
CPT/HCPCS: 74177; 80053; 81001; 83690; 85025; 87086; 96374; 96375; 99284; J1885; J2060; J2405; Q9967

== ENCOUNTER → 2024-04-13 | Outpatient (REF) | payer OTHER ==
[~2024-04-13] MED LIST changes: +ONDA-282 PO
== END ==
LOC: M LAB REF 16:24
PROVIDERS: ATTEND Nurse Practitioner Family
DX: N76.0 Acute vaginitis (principal)

== ENCOUNTER → 2024-05-31 | Outpatient (REF) | payer OTHER, MEDICAID ==
[2024-05-31 17:00] LABS: BASO % 0.4 % (0.0-1.0); EOS # 0.2 10^3/uL (0.0-0.5); HEMOGLOBIN 13.1 g/dl (12.0-15.5); LYMPH # 3.6 10^3/uL (1.5-5.0); MEAN CORPUSCULAR HEMOGLOBIN 28.5 pg (27.0-33.0); MEAN CORPUSCULAR HGB CONC 32.8 g/dl (32.0-36.5); MEAN CORPUSCULAR VOLUME 87.1 fl (80.0-96.0); MONO # 0.7 10^3/uL (0.0-0.8); NEUTROPHILS # 3.7 10^3/uL (1.5-8.5); NEUTROPHILS % 45.4 % (36.0-66.0); PLATELET COUNT, AUTOMATED 326 10^3/uL (150-450); RED BLOOD COUNT 4.59 10^6/uL (4.00-5.40); WHITE BLOOD COUNT 8.1 10^3/uL (4.0-10.0)
== END ==
LOC: M LAB REF 16:21
PROVIDERS: ATTEND Nurse Practitioner Family
DX: D72.829 Elevated white blood cell count, unspecified (principal); R52 Pain, unspecified

== ENCOUNTER → 2024-06-02 | Outpatient (CLI) | payer OTHER | LOC: M PLAIMG 14:45 | PROVIDERS: ATTEND Nurse Practitioner Family | DX: M51.16 Intervertebral disc disorders with radiculopathy, lumbar region (principal); M48.07 Spinal stenosis, lumbosacral region; S34.01XA Concussion and edema of lumbar spinal cord, initial encounter; S34 Injury of lumbar and sacral spinal cord and nerves at abdomen, lower back and pelvis level; M51.26 Other intervertebral disc displacement, lumbar region; M47.816 Spondylosis without myelopathy or radiculopathy, lumbar region; M51.86 Other intervertebral disc disorders, lumbar region ==

== ENCOUNTER → 2024-07-01 | Outpatient (REF) | payer OTHER ==
[2024-07-01 19:16] LABS: BASO % 0.3 % (0.0-1.0); EOS # 0.1 10^3/uL (0.0-0.5); HEMATOCRIT 35.2 % (36.0-47.0); HEMOGLOBIN 11.3 g/dl (12.0-15.5); LYMPH # 2.6 10^3/uL (1.5-5.0); LYMPH % 39.6 % (24.0-44.0); MEAN CORPUSCULAR HGB CONC 32.1 g/dl (32.0-36.5); MEAN CORPUSCULAR VOLUME 87.1 fl (80.0-96.0); MONO # 0.5 10^3/uL (0.0-0.8); MONO % 7.7 % (2.0-8.0); NEUTROPHILS # 3.3 10^3/uL (1.5-8.5); NEUTROPHILS % 50.1 % (36.0-66.0); PLATELET COUNT, AUTOMATED 260 10^3/uL (150-450); RED BLOOD COUNT 4.04 10^6/uL (4.00-5.40); WHITE BLOOD COUNT 6.6 10^3/uL (4.0-10.0)
[2024-07-01 19:28] LABS: ERYTHROCYTE SEDIMENTATION RATE 19 mm/hr (0-20)
== END ==
LOC: M LAB REF 16:53
PROVIDERS: ATTEND Nurse Practitioner Family
DX: D72.829 Elevated white blood cell count, unspecified (principal); R69 Illness, unspecified

== ENCOUNTER 2024-07-30 19:14 | Inpatient (IN) | payer OTHER ==
[~2024-07-30] VITALS: Ht 162.6 cm; Wt 67.4 kg
[2024-07-30 19:45] LABS: BASO % 0.2 % (0.0-1.0); EOS # 0.1 10^3/uL (0.0-0.5); EOS % 0.7 % (0.0-3.0); LYMPH # 2.8 10^3/uL (1.5-5.0); LYMPH % 18.9 % (24.0-44.0); MEAN CORPUSCULAR HEMOGLOBIN 27.7 pg (27.0-33.0); MEAN CORPUSCULAR HGB CONC 32.5 g/dl (32.0-36.5); MEAN CORPUSCULAR VOLUME 85.3 fl (80.0-96.0); MONO # 1.1 10^3/uL (0.0-0.8); MONO % 7.1 % (2.0-8.0); NEUTROPHILS # 10.7 10^3/uL (1.5-8.5); NEUTROPHILS % 72.5 % (36.0-66.0); PLATELET COUNT, AUTOMATED 332 10^3/uL (150-450); RED BLOOD COUNT 4.69 10^6/uL (4.00-5.40); WHITE BLOOD COUNT 14.8 10^3/uL (4.0-10.0)
[2024-07-30 20:02] LABS: LIPASE 186 U/L (12-53)
[2024-07-30 20:05] LABS: ALBUMIN 3.5 G/DL (3.2-5.2); ALKALINE PHOSPHATASE 65 U/L (35-104); ALT/SGPT 10 U/L (7.0-40); AST/SGOT 15 U/L (<34); BILIRUBIN,DIRECT < 0.1 MG/DL (<0.4); BILIRUBIN,TOTAL 0.2 MG/DL (0.3-1.2); TOTAL PROTEIN 6.6 G/DL (5.7-8.2)
[2024-07-30] MEDS: NS (Normal Saline) 0.9% 1,000 ML IV SCH (20:40)
[2024-07-30] MEDS: MORPHINE 2 MG/ML 1ML VIAL IV ONE (20:40)
[2024-07-30] MEDS: NS (Normal Saline) 0.9% 1,000 ML IV ONE (20:40)
[2024-07-30] MEDS: MORPHINE 4 MG/ML 1ML VIAL IV PRN (21:01)
[2024-07-30] MEDS: ONDANSETRON 4MG 2ML VIAL IV PRN (21:02)
[2024-07-30 22:03] LABS: HCG, SERUM QUALITATIVE NEGATIVE (NEGATIVE)
[2024-07-30 22:04] LABS: BLOOD UREA NITROGEN 9 MG/DL (9-23); CARBON DIOXIDE LEVEL 26 MMOL/L (20-31); CHLORIDE LEVEL 104 MMOL/L (98-107); CREATININE FOR GFR 0.64 MG/DL (0.55-1.30); GLOMERULAR FILTRATION RATE > 60.0 (>58); GLUCOSE, FASTING 109 MG/DL (60-100); POTASSIUM SERUM 3.7 MMOL/L (3.5-5.1); SODIUM LEVEL 139 MMOL/L (136-145)
[2024-07-30] MEDS ORDERED: ISOVUE-370 76% 100ML VIAL As Ordered ONE (22:28)
[2024-07-31] MEDS: ALPRAZolam 0.5 MG TAB PO ONE (03:21)
[2024-07-31] MEDS: KETOROLAC 30 MG/ML 1ML VIAL IV PRN (04:25)
[2024-07-31 04:50] VITALS: BP 187/87; TEMP 98.6; O2SAT 97
[2024-07-31] MEDS: LR 1,000 ML IV SCH (04:57)
[2024-07-31] MEDS: ONDANSETRON 4MG 2ML VIAL IV PRN (04:57)
[2024-07-31 05:16] LABS: AMPHETAMINES LEVEL URINE NEGATIVE (NEGATIVE); BARBITURATES URINE NEGATIVE (NEGATIVE); CANNABINOIDS URINE NEGATIVE (NEGATIVE); COCAINE METABOLITE URINE NEGATIVE (NEGATIVE); PHENCYCLIDINE URINE NEGATIVE (NEGATIVE)
[2024-07-31] MEDS ORDERED: OMEP-173 PO (05:18)
[2024-07-31] MEDS ORDERED: MELO15TA28 PO (05:18)
[2024-07-31] MEDS ORDERED: ZOLP10TA2 PO (05:18)
[2024-07-31] MEDS ORDERED: ALPR1TAB3 PO (05:18)
[2024-07-31] MEDS ORDERED: LEXA1TAB2 PO (05:18)
[2024-07-31] MEDS ORDERED: GABA-1171 PO (05:18)
[2024-07-31 05:19] VITALS: BP 146/72
[2024-07-31 05:19] LABS: BENZODIAZEPINES URINE POSITIVE (NEGATIVE); METHADONE URINE POSITIVE (NEGATIVE); OPIATES URINE POSITIVE (NEGATIVE)
[2024-07-31] MEDS ORDERED: HOME MED LIST COMPLETE! XX SCH (05:20)
[2024-07-31 05:56] LABS: HEMATOCRIT 37.8 % (36.0-47.0); HEMOGLOBIN 12.9 g/dl (12.0-15.5); MEAN CORPUSCULAR HEMOGLOBIN 28.3 pg (27.0-33.0); MEAN CORPUSCULAR HGB CONC 34.1 g/dl (32.0-36.5); MEAN CORPUSCULAR VOLUME 82.9 fl (80.0-96.0); PLATELET COUNT, AUTOMATED 308 10^3/uL (150-450); RED BLOOD COUNT 4.56 10^6/uL (4.00-5.40); WHITE BLOOD COUNT 10.4 10^3/uL (4.0-10.0)
[2024-07-31 06:19] LABS: ALBUMIN 3.4 G/DL (3.2-5.2); ALKALINE PHOSPHATASE 64 U/L (35-104); ALT/SGPT 10 U/L (7.0-40); AST/SGOT 15 U/L (<34); BILIRUBIN,TOTAL 0.3 MG/DL (0.3-1.2); BLOOD UREA NITROGEN 9 MG/DL (9-23); CALCIUM LEVEL 8.7 MG/DL (8.5-10.1); CARBON DIOXIDE LEVEL 22 MMOL/L (20-31); CHLORIDE LEVEL 105 MMOL/L (98-107); CREATININE FOR GFR 0.54 MG/DL (0.55-1.30); GLOMERULAR FILTRATION RATE > 60.0 (>58); GLUCOSE, FASTING 140 MG/DL (60-100); POTASSIUM SERUM 3.9 MMOL/L (3.5-5.1); SODIUM LEVEL 137 MMOL/L (136-145); TOTAL PROTEIN 6.4 G/DL (5.7-8.2)
[2024-07-31 07:32] LABS: MAGNESIUM LEVEL 1.8 MG/DL (1.8-2.4)
[2024-07-31] MEDS: ENOXAPARIN 40MG/0.4ML SYRINGE (J1650 PER 10MG) SC SCH (08:05)
[2024-07-31] MEDS ORDERED: ALPRAZolam 0.5 MG TAB PO STA (08:14)
[2024-07-31] MEDS: MORPHINE 4 MG/ML 1ML VIAL IV PRN (08:35)
[2024-07-31] MEDS: LORazepam 2 MG/ML 1ML VIAL IV STA (08:38)
[2024-07-31] MEDS ORDERED: METH10CO PO (08:58)
[2024-07-31] MEDS: METHADONE 10MG TAB PO SCH (09:47)
[2024-07-31 11:56] VITALS: BP 140/88; TEMP 100; O2SAT 97
[2024-07-31 13:50] VITALS: TEMP 97.5
[2024-07-31] MEDS: ALPRAZolam 0.5 MG TAB PO PRN (16:00)
[2024-07-31 20:11] VITALS: BP 146/90; TEMP 98.6; O2SAT 97
[2024-07-31] MEDS: zolPIDEM TARTRATE 5 MG TAB PO ONE (21:07)
[2024-08-01 04:24] VITALS: BP_SYST 102; BP_SYST 123; BP_DIAS 75; TEMP 97.2; O2SAT 97
[2024-08-01 06:20] LABS: HEMATOCRIT 35.3 % (36.0-47.0); HEMOGLOBIN 11.9 g/dl (12.0-15.5); MEAN CORPUSCULAR HEMOGLOBIN 28.7 pg (27.0-33.0); MEAN CORPUSCULAR HGB CONC 33.7 g/dl (32.0-36.5); MEAN CORPUSCULAR VOLUME 85.1 fl (80.0-96.0); PLATELET COUNT, AUTOMATED 251 10^3/uL (150-450); RED BLOOD COUNT 4.15 10^6/uL (4.00-5.40); WHITE BLOOD COUNT 7.1 10^3/uL (4.0-10.0)
[2024-08-01 07:45] LABS: HEMOGLOBIN A1c 5.3 % (4.0-6.0)
== END 2024-08-01 10:32 | disposition home or self-care (01) | DRG 282 ==
LOC: M ED 19:14 → M ED INP 07-31 03:55 → M MSPAV 07-31 04:45
PROVIDERS: ADMIT Internal Medicine; ATTEND Student in an Organized Health Care Education/Training Program
DX: K85.90 Acute pancreatitis without necrosis or infection, unspecified (principal); F32.A Depression, unspecified; K52.9 Noninfective gastroenteritis and colitis, unspecified; F41.9 Anxiety disorder, unspecified; F11.90 Opioid use, unspecified, uncomplicated; Z79.899 Other long term (current) drug therapy

== ENCOUNTER → 2024-08-05 | Outpatient (CLI) | payer OTHER ==
[~2024-08-05] MED LIST changes: +ALPR1TAB3 PO; +GABA-1171 PO; +LEXA1TAB2 PO; +MELO15TA28 PO; +METH10CO PO; +OMEP-173 PO; +ZOLP10TA2 PO
[2024-08-05 13:49] LABS: HEMATOCRIT 38.3 % (36.0-47.0); HEMOGLOBIN 12.5 g/dl (12.0-15.5); MEAN CORPUSCULAR HGB CONC 32.6 g/dl (32.0-36.5); MEAN CORPUSCULAR VOLUME 85.9 fl (80.0-96.0); PLATELET COUNT, AUTOMATED 300 10^3/uL (150-450); RED BLOOD COUNT 4.46 10^6/uL (4.00-5.40); WHITE BLOOD COUNT 9.2 10^3/uL (4.0-10.0)
[2024-08-05 14:17] LABS: ALBUMIN 3.5 G/DL (3.2-5.2); ALKALINE PHOSPHATASE 56 U/L (35-104); ALT/SGPT < 9 U/L (7.0-40); AST/SGOT 9 U/L (<34); BILIRUBIN,TOTAL 0.3 MG/DL (0.3-1.2); BLOOD UREA NITROGEN 12 MG/DL (9-23); CARBON DIOXIDE LEVEL 27 MMOL/L (20-31); CHLORIDE LEVEL 104 MMOL/L (98-107); CREATININE FOR GFR 0.69 MG/DL (0.55-1.30); GLOMERULAR FILTRATION RATE > 60.0 (>58); GLUCOSE, FASTING 88 MG/DL (60-100); POTASSIUM SERUM 4.5 MMOL/L (3.5-5.1); SODIUM LEVEL 138 MMOL/L (136-145); TOTAL PROTEIN 6.5 G/DL (5.7-8.2)
[2024-08-05 14:28] LABS: HEPATITIS B SURFACE ANTIGEN NEGATIVE (NEGATIVE)
[2024-08-05 14:41] LABS: HIV 1&2 SCREEN NEGATIVE (NEGATIVE)
[2024-08-05 14:52] LABS: GC DNA AMPLIFICATION NEGATIVE (NEGATIVE)
[2024-08-05 15:17] LABS: HEPATITIS C VIRUS ABY INDEX > 11.00 INDEX (<0.8)
== END ==
LOC: M LAB 12:21
PROVIDERS: ATTEND Family Medicine
DX: F11.20 Opioid dependence, uncomplicated (principal); Z51.81 Encounter for therapeutic drug level monitoring; Z79.899 Other long term (current) drug therapy
CPT/HCPCS: 36415; 80053; 85027; 86780; 86803; 87340; 87389; 87522; 87810; 87850; G0480

== ENCOUNTER → 2024-08-06 | Outpatient (CLI) | payer OTHER | LOC: M LAB 07:44 | PROVIDERS: ATTEND Family Medicine | DX: Z79.891 Long term (current) use of opiate analgesic (principal) | CPT/HCPCS: 36415; G0480 ==

== ENCOUNTER → 2025-01-13 | Outpatient (CLI) | payer OTHER ==
[~2025-01-13] MED LIST changes: -IBUP-1022 PO; +IBUP600T42 PO
== END ==
LOC: M RAD 08:54
PROVIDERS: ATTEND Nurse Practitioner Family
DX: R22.33 Localized swelling, mass and lump, upper limb, bilateral (principal)